=== PATIENT | male | born 1960 | race Caucasian/White ===

== ENCOUNTER 2016-07-04 16:00 | Emergency (ER) | payer MEDICARE ==
[~2016-07-04 16:00] MED LIST: COGE1INJ PO; IBUP800T23 PO; METACAP2 PO; PRIL20CA OR; RISP2TAB12 OR; TRAZ50TA OR; TYLENOL #3; VOLT1GEL24 TD; ZANT150T; [UNRECOGNIZED DRUG - OTHER]
[2016-07-04 16:56] LABS: BASO # 0.1 K/mm3 (0.0-0.2); BASO % 0.5 % (0.0-1.0); EOS # 0.2 K/mm3 (0.0-0.50); EOS % 1.6 % (0.0-3.0); LARGE UNSTAINED CELL # 0.4 K/mm3 (0.0-0.4); LARGE UNSTAINED CELL % 3.9 % (0.0-4.0); LYMPH # 1.7 K/mm3 (1.5-4.5); MEAN CORPUSCULAR HGB CONC 33.7 g/dl (32.0-36.5); MEAN CORPUSCULAR VOLUME 83.2 fl (80.0-96.0); MONO # 0.7 K/mm3 (0.0-0.8); MONO % 6.4 % (0.0-5.0); NEUTROPHILS # 7.8 K/mm3 (1.8-7.7); NEUTROPHILS % 71.5 % (36.0-66.0); PLATELET COUNT, AUTOMATED 296 k/mm3 (150-450); RED CELL DISTRIBUTION WIDTH 13.1 % (11.5-14.5); WHITE BLOOD COUNT 10.9 K/mm3 (4.0-10.0)
[2016-07-04] MEDS ORDERED: ACETAMINOPHEN 325 MG TAB As Ordered ONE (17:10)
[2016-07-04 17:23] LABS: ANION GAP 8 MEQ/L (8-16); BLOOD UREA NITROGEN 16 MG/DL (7-18); CALCIUM LEVEL 8.9 MG/DL (8.5-10.1); CARBON DIOXIDE LEVEL 30 MEQ/L (21-32); CHLORIDE LEVEL 102 MEQ/L (98-107); CREATININE FOR GFR 1.05 MG/DL (0.70-1.30); GLOMERULAR FILTRATION RATE > 60.0 (>56); GLUCOSE, FASTING 115 MG/DL (70-105); POTASSIUM SERUM 3.9 MEQ/L (3.5-5.1); SODIUM LEVEL 140 MEQ/L (136-145)
--- NOTE | 2016-07-04 17:27 | REP ---
Chest two views HISTORY: Chest pain Comparison: 10/12/2015 The lungs are clear. The heart is normal in size. The pulmonary vasculature is normal in appearance. The bony structure is intact. IMPRESSION: No acute disease. Signed by Bret Kitchen MD 07/04/2016 05:19 P
--- NOTE | 2016-07-04 17:55 | ECGEPIP ---
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
[2016-07-04] MEDS ORDERED: TUSSICAPS ER 10/8MG CAPSULE As Ordered ONE (20:51)
[2016-07-04] MEDS ORDERED: TUSSICAPS ER 10/8MG CAPSULE PO ONE (21:00)
[2016-07-04] MEDS ORDERED: ISOVUE-370 76% 100ML VIAL (Q9967) As Ordered ONE (21:24)
--- NOTE | 2016-07-04 22:40 | REPUSA ---
CT angiogram of the chest Clinical statement: Chest pain and shortness of breath. Technique: Multiple axial CT images were obtained from the thoracic inlet through the upper abdomen a fter a bolus administration of nonionic intravenous contrast. Coronal and sagittal reconstructions we re also obtained. No comparison is available. Findings: The pulmonary arteries are well-opacified with contrast, with no intraluminal filling defec ts to suggest embolism. The thoracic aorta is unremarkable. Thyroid gland is within normal limits. Th ere is no thoracic lymphadenopathy. There are no pericardial or pleural effusions. The lungs are mango r. Limited imaging of the upper abdomen is unremarkable. There are no suspicious osseous lesions. Impression: Unremarkable CT examination of the chest. No evidence of pulmonary embolism.
--- NOTE | 2016-07-04 23:15 | EDDOCDS ---
Physician Documentation [facility] Name: Cooper Lord Age: 55 yrs Sex: Male : 1960 Arrival Date: 07/04/2016 Time: 16:00 Bed 20 Private MD: Sally Kinney S Disposition: 07/04/16 22:51 Discharged to Home/Self Care. Impression: Cough. - Condition is Stable. - Discharge Instructions: Cool Mist Vaporizers, Cough, Adult, [id number]. - Prescriptions for codeine- guaifenesin 10-100 mg/5 mL Oral liquid - take 10 milliliter by ORAL route every 4 hours; 240 milliliter. - Medication Reconciliation, Local Pharmacy Hours form. - Follow up: Sally Kinney; When: Call to arrange an appointment; Reason: Recheck today's complaints, Continuance of care. - Problem is an ongoing problem. - Symptoms have improved. - Notes: Keep hdyrated Return to the ED for worsening symptoms. Especially if fever develops Historical: - Allergies: No known drug Allergies; - Home Meds: 1. Nexium 40 mg Oral cpDR 1 cap once daily 2. Metamucil Smooth Texture 2 tablespoons Oral daily 3. gabapentin 400 mg oral cap 1 cap 3 times per day 4. Cymbalta Unknown Oral once daily 5. meloxicam oral oral Unknown once daily 6. valsartan 80 mg oral tab 1 tab once daily 7. ibuprofen 800 mg Oral tab 1 tab 3 times per day - PMHx: Osteoarthritis; Hypertension; Hypercholesterolemia; - PSHx: breast fluid removed; Removal of tissue from right hand; - Social history: Smoking status: Patient states former smoker of tobacco. No barriers to communication noted, The patient speaks fluent New Zealander. - Family history: Not pertinent. - : The pt / caregiver states he / she is not on anticoagulants. Home medication list is obtained from the patient. - Exposure Risk Screening:: None identified. Vital Signs: 07/04 16:01 BP 144 / 83; Pulse 102; Resp 18 S; Temp 98.8(O); Pulse Ox 95% on R/A; Weight 135.17 kg dd6 / 298 lbs (R); Height 5 ft. 9 in. (175.26 cm) (R); 16:31 BP 158 / 89; Pulse 98; Resp 20; Temp 98.6; Pulse Ox 95% ; Weight 135.17 kg / 298 lbs; jlf Height 5 ft. 9 in. (175.26 cm); Pain 10/10; 16:51 BP 154 / 87 (auto/); kas2 16:51 Pulse 100 MON; Pulse Ox 97% ; kas2 17:03 BP 151 / 87 (auto/); kas2 17:03 Pulse 92 MON; Pulse Ox 93% ; kas2 17:18 BP 152 / 83 (auto/); kas2 17:18 Pulse 90 MON; Pulse Ox 95% ; kas2 17:33 BP 156 / 84 (auto/); kas2 17:33 Pulse 90 MON; Pulse Ox 96% ; kas2 18:03 BP 145 / 86 (auto/); kas2 18:03 Pulse 86 MON; Pulse Ox 95% ; kas2 18:18 BP 164 / 68 (auto/); kas2 18:18 Pulse 92 MON; kas2 19:10 BP 186 / 99 (auto/); kas2 19:10 Pulse 92 MON; Pulse Ox 93% ; kas2 19:21 BP 164 / 80 (auto/); kas2 19:21 Pulse 92 MON; Pulse Ox 96% ; kas2 20:42 BP 165 / 89; Pulse 89; Resp 20; Temp 98.1(O); Pulse Ox 99% on 2 lpm NC; Pain 3/10; kas2 22:35 BP 194 / 98; Pulse 93; Resp 18; Temp 98.0(O); Pulse Ox 98% on R/A; Pain 2/10; kas2 22:56 BP 165 / 83; Pulse 85; Resp 18; Temp 97.5; Pulse Ox 95% ; Pain 9/10; jlm 16:31 Body Mass Index 44.01 (135.17 kg, 175.26 cm) [facility] MDM: 16:07 Field Staff Manager/Pulse Ox/q 30 min VS ordered. ml6 16:07 If >35 years old with cardiac risk factors and/or suspicion of acute ischemia- place ml6 directly in room and do STAT EKG ordered. 16:07 If pre-RCE wait time >60 minutes, inform reg. staff to do full reg ordered. ml6 16:07 Oxygen at 2L/min via NC ordered. ml6 16:07 IV Saline Lock ordered. ml6 16:07 Undress patient appropriately for examination ordered. ml6 16:08 BMP Ordered. EDMS 16:08 CBC with Diff Ordered. EDMS 16:08 CIP Ordered. EDMS 16:08 Troponin Ordered. EDMS 16:08 Chest, 2 View (pa\E\lat) Ordered. EDMS 16:08 ECG WITH READING ER PHYS+CARDIAG ordered. EDMS 16:44 D-Dimer Quant Ordered. EDMS 17:04 Acetaminophen Tablet 975 mg PO once ordered. le 18:31 BMP Reviewed. le 18:31 CBC with Diff Reviewed. le 18:31 CIP Reviewed. le 18:31 Troponin Reviewed. le 18:31 Chest, 2 View (pa\E\lat) Reviewed. le 19:29 Financial registration complete. [facility] 19:48 [facility] Payment Agreement was scanned into [employer] and attached to record. gjb 20:10 D-Dimer Quant Reviewed. le 20:11 EKG-ADULT Reviewed. le 20:11 Chlorpheniramine-Hydrocodone Extended Release 12 hour Capsule 8 mg-10 mg 1 caps PO once le ordered. 20:14 CT Chest Angio R/O PE Ordered. EDMS Administered Medications: 17:13 Drug: Acetaminophen 975 mg [acetaminophen 325 mg tablet (3 tabs)] Route: PO; jmb 20:54 Drug: Chlorpheniramine-Hydrocodone 1 caps [hydrocodone ER 10 mg-chlorpheniramine 8 mg kas2 12hr capsule,extend.release (1 caps)] Route: PO; Signatures: Dispatcher [employer] EDAZ Cee Peterson, PHYSICIAN CHIEF OF PATHOLOGY Josiah Rivera RN RN ml6 Suzanne EcheverriaRN RN js13 Lizabeth Torreb Coco Ross RN RN kas2 Anson Duckworth RNb The chart was reviewed and I authenticate all verbal orders and agree with the evaluation and treatment provided.Attachments: 19:48 [facility] Payment Agreement [facility] MTDD
--- NOTE | 2016-07-04 23:16 | EDDOCDS ---
Nurse's Notes [facility] Name: Ella Lord Age: 55 yrs Sex: Male : 1960 Arrival Date: 07/04/2016 Time: 16:00 Bed 20 Private MD: Sally Kinney S Diagnosis: Cough Presentation: 07/04 16:06 Red Flag criteria, patient assessed and taken directly to a bed. patient sent to 6 waiting room, redirected to bed. 16:15 Presenting complaint: EMS states: Patient has had chest pain from cough for past 30 js13 days with it worsening over past 10 days. Patient called EMS stating he thought he was going to last night from coughing so much. Patient states he will tonight if he does that again. Aspirin was not taken prior to arrival. Suicide/Homicide risk assessment- the patient denies having any suicidal and/or homicidal ideations and does not present with any other emotional, behavioral or mental health complaints. 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 Transition of care: patient was not received from another setting of care. 16:15 Acuity: JAKUB Level 2 js13 16:15 Method Of Arrival: Ambulance js13 16:15 Adult Sepsis Screening: The patient does not have new or worsening altered mentation. js13 Patient's respiratory rate is less than 22. Systolic blood pressure is greater than 100. Patient has a qSOFA score of 0- Negative Sepsis Screen. Triage Assessment: 16:19 General: Appears in no apparent distress, Behavior is appropriate for age, cooperative. js13 Pain: Location: chest Pain currently is 7 out of 10 on a pain scale. Pt Declines HIV testing. Neurological: Level of Consciousness is awake, alert. Cardiovascular: Chest pain is described as Pain is 7 out of 10 on a pain scale. radiates Does not radiate. episodes are intermittent began past 10 days worsening and last night got so bad he came in to be seen. Respiratory: Onset: The symptoms/episode began/occurred past 10 days. Derm: Skin is pink, warm & dry. Historical: - Allergies: No known drug Allergies; - Home Meds: 1. Nexium 40 mg Oral cpDR 1 cap once daily 2. Metamucil Smooth Texture 2 tablespoons Oral daily 3. gabapentin 400 mg oral cap 1 cap 3 times per day 4. Cymbalta Unknown Oral once daily 5. meloxicam oral oral Unknown once daily 6. valsartan 80 mg oral tab 1 tab once daily 7. ibuprofen 800 mg Oral tab 1 tab 3 times per day - PMHx: Osteoarthritis; Hypertension; Hypercholesterolemia; - PSHx: breast fluid removed; Removal of tissue from right hand; - Social history: Smoking status: Patient states former smoker of tobacco. No barriers to communication noted, The patient speaks fluent Syriac. - Family history: Not pertinent. - : The pt / caregiver states he / she is not on anticoagulants. Home medication list is obtained from the patient. - Exposure Risk Screening:: None identified. Screenin:53 Screening information is obtained from the patient. Fall risk: No risks identified. jmb Assistance ADL's: requires no assistance with activities of daily living. Abuse/DV Screen: The patient / caregiver reports he/she is: not in a situation that causes fear, pain or injury. Nutritional screening: No deficits noted. home support is adequate. Assessment: 16:53 General: Appears in no apparent distress, Behavior is appropriate for age, cooperative. jmb Pain: Location: head Pain currently is 10 out of 10 on a pain scale. Neurological: Level of Consciousness is awake, alert, obeys commands, Oriented to person, place, time, Amortization Clerk are equal bilaterally Speech is normal, Facial symmetry appears normal, Facial symmetry: tongue is midline. Cardiovascular: Capillary refill < 3 seconds Heart tones S1 S2 present Pulses are all present. Rhythm is sinus rhythm No ectopy. Chest pain is denied. Respiratory: Airway is patent Respiratory effort is even, unlabored, Respiratory pattern is regular, symmetrical, Breath sounds are diminished bilaterally. GI: Abdomen is obese, Bowel sounds present X 4 quads. Abd is soft and non tender X 4 quads. Derm: Skin is pink, warm & dry. Musculoskeletal: Range of motion intact in all extremities. 17:39 General: Appears in no apparent distress, comfortable, Behavior is appropriate for age, jmb cooperative, Patient laying on stretcher, appears comfortable. NO voiced complaints at this time. . Neurological: No deficits noted. Level of Consciousness is awake, alert, obeys commands, Oriented to person, place, time. Respiratory: Airway is patent Respiratory effort is even, unlabored, Respiratory pattern is regular, symmetrical. 18:43 General: Appears in no apparent distress, comfortable, Behavior is appropriate for age, jmb cooperative, Patient sitting on side of stretcher, appears comfortable. Voices no complaints at this time. . Neurological: Level of Consciousness is awake, alert, obeys commands, Oriented to person, place, time. Respiratory: Airway is patent Respiratory effort is even, unlabored, Respiratory pattern is regular, symmetrical. 19:01 General: Verbal report given by William López RN. Assumed care of patient at this time.. kas2 19:31 General: Appears in no apparent distress, comfortable, well nourished, well groomed, kas2 Behavior is appropriate for age, cooperative. Pain: Location: head Pain currently is 3 out of 10 on a pain scale. Neurological: Level of Consciousness is awake, alert, obeys commands, Oriented to person, place, time. Cardiovascular: Capillary refill < 3 seconds Heart tones S1 S2 present Rhythm is sinus rhythm No ectopy. Respiratory: Airway is patent Respiratory effort is even, unlabored, Respiratory pattern is regular, symmetrical. Derm: Skin is intact, is healthy with good turgor, Skin is dry, Skin is pink, warm & dry. Skin temperature is warm. 20:41 General: Patient resting in bed talking on phone. Patient complains of headache 3/10 kas2 but denies pain in chest at this time. No distress noted. Appears comfortable. Airway patent and respiratory effort even and unlabored. Call fowler within reach. Will continue to monitor.. 22:34 General: Appears in no apparent distress, comfortable, Behavior is appropriate for age, kas2 cooperative. Pain: Denies pain. Neurological: Level of Consciousness is awake, alert, Oriented to person, place, time. Respiratory: Airway is patent Respiratory effort is even, unlabored, Respiratory pattern is regular, symmetrical. Derm: Skin is intact, Skin is dry, Skin is pink, warm & dry. Skin temperature is warm. Vital Signs: 16:01 BP 144 / 83; Pulse 102; Resp 18 S; Temp 98.8(O); Pulse Ox 95% on R/A; Weight 135.17 kg dd6 (R); Height 5 ft. 9 in. (175.26 cm) (R); 16:31 BP 158 / 89; Pulse 98; Resp 20; Temp 98.6; Pulse Ox 95% ; Weight 135.17 kg; Height 5 jlf ft. 9 in. (175.26 cm); Pain 10/10; 16:51 BP 154 / 87 (auto/); kas2 16:51 Pulse 100 MON; Pulse Ox 97% ; kas2 17:03 BP 151 / 87 (auto/); kas2 17:03 Pulse 92 MON; Pulse Ox 93% ; kas2 17:18 BP 152 / 83 (auto/); kas2 17:18 Pulse 90 MON; Pulse Ox 95% ; kas2 17:33 BP 156 / 84 (auto/); kas2 17:33 Pulse 90 MON; Pulse Ox 96% ; kas2 18:03 BP 145 / 86 (auto/); kas2 18:03 Pulse 86 MON; Pulse Ox 95% ; kas2 18:18 BP 164 / 68 (auto/); kas2 18:18 Pulse 92 MON; kas2 19:10 BP 186 / 99 (auto/); kas2 19:10 Pulse 92 MON; Pulse Ox 93% ; kas2 19:21 BP 164 / 80 (auto/); kas2 19:21 Pulse 92 MON; Pulse Ox 96% ; kas2 20:42 BP 165 / 89; Pulse 89; Resp 20; Temp 98.1(O); Pulse Ox 99% on 2 lpm NC; Pain 3/10; kas2 22:35 BP 194 / 98; Pulse 93; Resp 18; Temp 98.0(O); Pulse Ox 98% on R/A; Pain 2/10; kas2 22:56 BP 165 / 83; Pulse 85; Resp 18; Temp 97.5; Pulse Ox 95% ; Pain 9/10; jlm 16:31 Body Mass Index 44.01 (135.17 kg, 175.26 cm) [facility] Vitals: 16:01 Log In Time: July 04, 2016 at 16:00. dd6 ED Course: 16:01 Patient visited by Mic Skaggs PCA. dd6 16:01 Sally Kinney is Private Physician. dd6 16:01 Patient moved to Waiting dd6 16:02 Patient moved to Pre RCE dd6 16:07 Patient moved to 20 ml6 16:16 Triage Initiated js13 16:20 [facility] le 16:21 Patient visited by Suzanne Echeverria RN. js13 16:26 Patient visited by Cee Peterson FNP. le 16:26 Patient visited by Cee Peterson FNP. le 16:28 Pt greeted and oriented to ED. Patient advised of names of staff involved in care, jlleila location of call fowler, wait times and NPO status. Patient has correct armband on for positive identification. Placed in gown. Bed in low position. steward/stewardess economy class on. Pulse ox on. NIBP on. 16:28 EKG done. (by ED staff). Reviewed by Cee HERRON. jlf 16:29 Patient visited by Arcelia Stark PCA. jlf 16:32 Patient visited by Arcelia Stark PCA. jlf 16:53 The patient / caregiver is instructed regarding the plan of care and ED course. jmb 16:53 Inserted saline lock: 18 gauge in right antecubital area and blood collected. The [place] patient tolerated the procedure well. Labs drawn. (by ED staff). Sent per order to lab. 16:55 Patient visited by Anson Duckworth RN. jmb 17:39 Patient visited by Anson Duckworth RN. jmb 17:54 Chest, 2 View (pa\E\lat) Returned. EDMS 18:11 Patient visited by Arcelia Stark PCA. jlf 18:31 EKG-ADULT Returned. EDMS 18:44 Patient visited by Anson Duckworth RN. jmb 18:57 Coco RossRN is Primary Nurse. kas2 19:31 Labs drawn. (by ED staff). Sent per order to lab. kas2 19:48 [facility] Payment Agreement was scanned into 5app and attached to record. gjb 19:51 Patient visited by Coco Ross RN. kas2 20:13 Patient visited by Coco Ross RN. kas2 20:24 Patient name changed from Ella\S\Tommie\S\Pop\S\ to Ella\S\ \S\Pop. EDMS 20:43 Patient visited by Coco Ross RN. kas2 21:54 Patient visited by Coco Ross RN. kas2 22:41 Patient visited by Coco Ross RN. kas2 22:51 Sally Kinney is Referral Physician. le 22:56 Patient visited by Lorie Jean-Baptiste, Retail Support Manager. jlm 22:59 CT Chest Angio R/O PE Returned. EDMS 23:14 Discontinued IV bleeding controlled, pressure dressing applied, No redness/swelling at kas2 site. 23:14 No procedures done that require assistance. kas2 Administered Medications: 17:13 Drug: Acetaminophen 975 mg [acetaminophen 325 mg tablet (3 tabs)] Route: PO; jmb 20:54 Drug: Chlorpheniramine-Hydrocodone 1 caps [hydrocodone ER 10 mg-chlorpheniramine 8 mg kas2 12hr capsule,extend.release (1 caps)] Route: PO; Order Results: Lab Order: BMP; SPEC'M 07/04/16 16:44 Test: GLUCOSE, FASTING; Value: 115; Range: 70-105; Abnormal: Above high normal; Units: MG/DL; Status: F Test: BLOOD UREA NITROGEN; Value: 16; Range: 7-18; Units: MG/DL; Status: F Test: CREATININE FOR GFR; Value: 1.05; Range: 0.70-1.30; Units: MG/DL; Status: F Test: GLOMERULAR FILTRATION RATE; Value: > 60.0; Range: >56; Status: F Test: SODIUM LEVEL; Value: 140; Range: 136-145; Units: MEQ/L; Status: F Test: POTASSIUM SERUM; Value: 3.9; Range: 3.5-5.1; Units: MEQ/L; Status: F Test: CHLORIDE LEVEL; Value: 102; Range: 98-107; Units: MEQ/L; Status: F Test: CARBON DIOXIDE LEVEL; Value: 30; Range: 21-32; Units: MEQ/L; Status: F Test: ANION GAP; Value: 8; Range: 8-16; Units: MEQ/L; Status: F Test: CALCIUM LEVEL; Value: 8.9; Range: 8.5-10.1; Units: MG/DL; Status: F Test Note: ; Units are mL/min/1.73 m2 Chronic Kidney Disease Staging per NKF: Stage I & II GFR >=60 Normal to Mildly Decreased Stage III GFR 30-59 Moderately Decreased Stage IV GFR 15-29 Severely Decreased Stage V GFR <15 Very Little GFR Left ESRD GFR <15 on IT ACCOUNT MANAGER Lab Order: CBC with Diff; SPEC'M 07/04/16 16:44 Test: WHITE BLOOD COUNT; Value: 10.9; Range: 4.0-10.0; Abnormal: Above high normal; Units: K/mm3; Status: F Test: RED BLOOD COUNT; Value: 5.01; Range: 4.30-6.10; Units: M/mm3; Status: F Test: HEMOGLOBIN; Value: 14.0; Range: 14.0-18.0; Units: g/dl; Status: F Test: HEMATOCRIT; Value: 41.7; Range: 42.0-52.0; Abnormal: Below low normal; Units: %; Status: F Test: MEAN CORPUSCULAR VOLUME; Value: 83.2; Range: 80.0-96.0; Units: fl; Status: F Test: MEAN CORPUSCULAR HEMOGLOBIN; Value: 28.0; Range: 27.0-33.0; Units: pg; Status: F Test: MEAN CORPUSCULAR HGB CONC; Value: 33.7; Range: 32.0-36.5; Units: g/dl; Status: F Test: RED CELL DISTRIBUTION WIDTH; Value: 13.1; Range: 11.5-14.5; Units: %; Status: F Test: PLATELET COUNT, AUTOMATED; Value: 296; Range: 150-450; Units: k/mm3; Status: F Test: NEUTROPHILS %; Value: 71.5; Range: 36.0-66.0; Abnormal: Above high normal; Units: %; Status: F Test: LYMPH %; Value: 16.0; Range: 24.0-44.0; Abnormal: Below low normal; Units: %; Status: F Test: MONO %; Value: 6.4; Range: 0.0-5.0; Abnormal: Above high normal; Units: %; Status: F Test: EOS %; Value: 1.6; Range: 0.0-3.0; Units: %; Status: F Test: BASO %; Value: 0.5; Range: 0.0-1.0; Units: %; Status: F Test: LARGE UNSTAINED CELL %; Value: 3.9; Range: 0.0-4.0; Units: %; Status: F Test: NEUTROPHILS #; Value: 7.8; Range: 1.8-7.7; Abnormal: Above high normal; Units: K/mm3; Status: F Test: LYMPH #; Value: 1.7; Range: 1.5-4.5; Units: K/mm3; Status: F Test: MONO #; Value: 0.7; Range: 0.0-0.8; Units: K/mm3; Status: F Test: EOS #; Value: 0.2; Range: 0.0-0.50; Units: K/mm3; Status: F Test: BASO #; Value: 0.1; Range: 0.0-0.2; Units: K/mm3; Status: F Test: LARGE UNSTAINED CELL #; Value: 0.4; Range: 0.0-0.4; Units: K/mm3; Status: F Lab Order: CIP; [facility]' 07/04/16 16:44 Test: CPK CREATINE PHOSPHOKINASE; Value: 188; Range: 39-308; Units: U/L; Status: F Test: CK-MB VALUE MASS; Value: 3.3; Range: 0.0-3.6; Units: NG/ML; Status: F Test: MB/CK RELATIVE INDEX; Value: 1.75; Range: < OR =4; Status: F Test Note: ; DIAGNOSIS CRITERIA MMB ng/ml Relative Index (RI) NON-AMI < or = 5 N/A CARRILLO ZONE > 5 < or = 4 AMI > 5 > 4 Lab Order: Troponin; [facility]' 07/04/16 16:44 Test: TROPONIN I; Value: < 0.02; Range: < 0.10; Units: NG/ML; Status: F Test Note: ; Troponin I Reference Interval for BBspace LOCI: 99th Percentile= 0.00-0.045 ng/ml Risk Stratification: <= 0.10 ng/ml Decreased Risk for Adverse Clinical Events. 0.10-1.50 ng/ml Increased Risk for Adverse Clinical Events. Evaluation of additional criterion and/or repeat testing in 2-6 hours is suggested to rule out myocardial damage. >= 1.50 ng/ml Indicative of Myocardial Injury. Lab Order: D-Dimer Quant; SPEC' 07/04/16 19:29 Test: D-DIMER QUANT; Value: 1097.8; Range: <500; Abnormal: Above high normal; Units: ng/ml; Status: F Radiology Order: Chest, 2 View (pa\E\lat) Test: Chest, 2 View (pa\E\lat) REASON FOR EXAMINATION: Chest Pain; Chest two views; ; HISTORY: Chest pain; ; Comparison: 10/12/2015; ; The lungs are clear. The heart is normal in size. The pulmonary vasculature is; normal in appearance. The bony structure is intact.; ; IMPRESSION: No acute disease.; ; ; Signed by; Bret Kitchen MD 07/04/2016 05:19 P; Radiology Order: EKG-ADULT Test: EKG-ADULT REASON FOR EXAMINATION: Chest Pain; Stationary ECG Study; [facility] - ED; ; Test Date: 2016-07-04; Pat Name: ELLA LORD Department:; Room: -; Gender: M Bell Maker: harriet; : 1960 Requested By: Virgilio Pope; Order Number: [id number] Reading MD: Jp Leggett; Measurements; Intervals [place]; Rate: 104 P: 52; RI: 182 QRS: 25; QRSD: 80 T: 21; QT: 318; QTc: 419; Interpretive Statements; SINUS TACHYCARDIA; PRIOR INFERIOR INFARCT; SIMILAR TO 03/04/16; Electronically Signed On 07-04-2016 17:55:26 EST by Jp Leggett; Radiology Order: CT Chest Angio R/O PE Test: CT Chest Angio R/O PE REASON FOR EXAMINATION: Cough;Shortness of Breath; ; CT angiogram of the chest; Clinical statement: Chest pain and shortness of breath.; Technique: Multiple axial CT images were obtained from the thoracic inlet through the upper abdomen a; fter a bolus administration of nonionic intravenous contrast. Coronal and sagittal reconstructions we; re also obtained.; No comparison is available.; Findings: The pulmonary arteries are well-opacified with contrast, with no intraluminal filling defec; ts to suggest embolism. The thoracic aorta is unremarkable. Thyroid gland is within normal limits. Th; ere is no thoracic lymphadenopathy. There are no pericardial or pleural effusions. The lungs are mango; r. Limited imaging of the upper abdomen is unremarkable. There are no suspicious osseous lesions.; Impression: Unremarkable CT examination of the chest. No evidence of pulmonary embolism.; ; Outcome: 22:51 Discharge ordered by Provider. le 23:13 Discharge Assessment: patient administered narcotics - no. The following High Risk [facility] Discharge criteria are identified: None. Discharged to home ambulatory. Condition: good Condition: stable Condition: improved. CT Study completed. Property :Personal belongings accompany Pt. 23:15 Patient left the ED. [facility] Signatures: Dispatcher [employer] EDMS Cee Peterson, GERMAINE NEON SIGN WORKER Mic Pérez, FOOD SERVICE ASSOCIATE FOOD SERVICE ASSOCIATE dd6 Josiah Keith, RN RN ml6 Suzanne Echeverria,RN RN js13 Anson Duckworth,RN RN Arcelia Miller, FOOD SERVICE ASSOCIATE FOOD SERVICE ASSOCIATE jlf Lorie Jean-Baptiste, Retail Support Manager Unit Lizabeth Hammer Kim,RN RN kas2 MTDD
--- NOTE | 2016-07-07 00:15 | EDDOCDS ---
Physician Documentation [facility] Name: Cooper Lord Age: 55 yrs Sex: Male : 1960 Arrival Date: 07/04/2016 Time: 16:00 Bed 20 Private MD: Sally Kinney S Disposition: 07/04/16 22:51 Discharged to Home/Self Care. Impression: Cough. - Condition is Stable. - Discharge Instructions: Cool Mist Vaporizers, Cough, Adult, [id number]. - Prescriptions for codeine- guaifenesin 10-100 mg/5 mL Oral liquid - take 10 milliliter by ORAL route every 4 hours; 240 milliliter. - Medication Reconciliation, Local Pharmacy Hours form. - Follow up: Sally Kinney; When: Call to arrange an appointment; Reason: Recheck today's complaints, Continuance of care. - Problem is an ongoing problem. - Symptoms have improved. - Notes: Keep hdyrated Return to the ED for worsening symptoms. Especially if fever develops Historical: - Allergies: No known drug Allergies; - Home Meds: 1. Nexium 40 mg Oral cpDR 1 cap once daily 2. Metamucil Smooth Texture 2 tablespoons Oral daily 3. gabapentin 400 mg oral cap 1 cap 3 times per day 4. Cymbalta Unknown Oral once daily 5. meloxicam oral oral Unknown once daily 6. valsartan 80 mg oral tab 1 tab once daily 7. ibuprofen 800 mg Oral tab 1 tab 3 times per day - PMHx: Osteoarthritis; Hypertension; Hypercholesterolemia; - PSHx: breast fluid removed; Removal of tissue from right hand; - Social history: Smoking status: Patient states former smoker of tobacco. No barriers to communication noted, The patient speaks fluent Micronesian. - Family history: Not pertinent. - : The pt / caregiver states he / she is not on anticoagulants. Home medication list is obtained from the patient. - Exposure Risk Screening:: None identified. Vital Signs: 07/04 16:01 BP 144 / 83; Pulse 102; Resp 18 S; Temp 98.8(O); Pulse Ox 95% on R/A; Weight 135.17 kg dd6 / 298 lbs (R); Height 5 ft. 9 in. (175.26 cm) (R); 16:31 BP 158 / 89; Pulse 98; Resp 20; Temp 98.6; Pulse Ox 95% ; Weight 135.17 kg / 298 lbs; jlf Height 5 ft. 9 in. (175.26 cm); Pain 10/10; 16:51 BP 154 / 87 (auto/); kas2 16:51 Pulse 100 MON; Pulse Ox 97% ; kas2 17:03 BP 151 / 87 (auto/); kas2 17:03 Pulse 92 MON; Pulse Ox 93% ; kas2 17:18 BP 152 / 83 (auto/); kas2 17:18 Pulse 90 MON; Pulse Ox 95% ; kas2 17:33 BP 156 / 84 (auto/); kas2 17:33 Pulse 90 MON; Pulse Ox 96% ; kas2 18:03 BP 145 / 86 (auto/); kas2 18:03 Pulse 86 MON; Pulse Ox 95% ; kas2 18:18 BP 164 / 68 (auto/); kas2 18:18 Pulse 92 MON; kas2 19:10 BP 186 / 99 (auto/); kas2 19:10 Pulse 92 MON; Pulse Ox 93% ; kas2 19:21 BP 164 / 80 (auto/); kas2 19:21 Pulse 92 MON; Pulse Ox 96% ; kas2 20:42 BP 165 / 89; Pulse 89; Resp 20; Temp 98.1(O); Pulse Ox 99% on 2 lpm NC; Pain 3/10; kas2 22:35 BP 194 / 98; Pulse 93; Resp 18; Temp 98.0(O); Pulse Ox 98% on R/A; Pain 2/10; kas2 22:56 BP 165 / 83; Pulse 85; Resp 18; Temp 97.5; Pulse Ox 95% ; Pain 9/10; jlm 16:31 Body Mass Index 44.01 (135.17 kg, 175.26 cm) [facility] MDM: 16:07 Tire Wrapper/Pulse Ox/q 30 min VS ordered. ml6 16:07 If >35 years old with cardiac risk factors and/or suspicion of acute ischemia- place ml6 directly in room and do STAT EKG ordered. 16:07 If pre-RCE wait time >60 minutes, inform reg. staff to do full reg ordered. ml6 16:07 Oxygen at 2L/min via NC ordered. ml6 16:07 IV Saline Lock ordered. ml6 16:07 Undress patient appropriately for examination ordered. ml6 16:08 BMP Ordered. EDMS 16:08 CBC with Diff Ordered. EDMS 16:08 CIP Ordered. EDMS 16:08 Troponin Ordered. EDMS 16:08 Chest, 2 View (pa\E\lat) Ordered. EDMS 16:08 ECG WITH READING ER PHYS+CARDIAG ordered. EDMS 16:44 D-Dimer Quant Ordered. EDMS 17:04 Acetaminophen Tablet 975 mg PO once ordered. le 18:31 BMP Reviewed. le 18:31 CBC with Diff Reviewed. le 18:31 CIP Reviewed. le 18:31 Troponin Reviewed. le 18:31 Chest, 2 View (pa\E\lat) Reviewed. le 19:29 Financial registration complete. [facility] 19:48 [facility] Payment Agreement was scanned into [employer] and attached to record. gjb 20:10 D-Dimer Quant Reviewed. le 20:11 EKG-ADULT Reviewed. le 20:11 Chlorpheniramine-Hydrocodone Extended Release 12 hour Capsule 8 mg-10 mg 1 caps PO once le ordered. 20:14 CT Chest Angio R/O PE Ordered. [facility] 07/05 12:43 T-Sheet-- Draft Copy was scanned into [employer] and attached to record. gb 12:43 ECG/EKG was scanned into [employer] and attached to record. gb Administered Medications: 07/04 17:13 Drug: Acetaminophen 975 mg [acetaminophen 325 mg tablet (3 tabs)] Route: PO; jmb 20:54 Drug: Chlorpheniramine-Hydrocodone 1 caps [hydrocodone ER 10 mg-chlorpheniramine 8 mg kas2 12hr capsule,extend.release (1 caps)] Route: PO; Signatures: Dispatcher [employer] EDKY Jessica Mccracken, Reg Reg gb Cee Peterson, ROENTGENOLOGIST ROENTGENOLOGIST Josiah Giordano RN RN ml6 Suzanne EcheverriaRN RN js13 Lizabeth Torre b Coco Ross RN RN kas2 Anson Duckworth RN The chart was reviewed and I authenticate all verbal orders and agree with the evaluation and treatment provided.Attachments: 19:48 [facility] Payment Agreement [facility] 07/05 12:43 T-Sheet-- Draft Copy gb 12:43 ECG/EKG gb Chart Complete MTDD
--- NOTE | 2016-07-07 00:15 | EDDOCDS ---
Nurse's Notes [facility] Name: Ella Lord Age: 55 yrs Sex: Male : 1960 Arrival Date: 07/04/2016 Time: 16:00 Bed 20 Private MD: Sally Kinney S Diagnosis: Cough Presentation: 07/04 16:06 Red Flag criteria, patient assessed and taken directly to a bed. patient sent to 6 waiting room, redirected to bed. 16:15 Presenting complaint: EMS states: Patient has had chest pain from cough for past 30 js13 days with it worsening over past 10 days. Patient called EMS stating he thought he was going to last night from coughing so much. Patient states he will tonight if he does that again. Aspirin was not taken prior to arrival. Suicide/Homicide risk assessment- the patient denies having any suicidal and/or homicidal ideations and does not present with any other emotional, behavioral or mental health complaints. Status: Patient is not a non emergency services ambulance driver or dependent. Transition of care: patient was not received from another setting of care. 16:15 Acuity: JAKUB Level 2 js13 16:15 Method Of Arrival: Ambulance js13 16:15 Adult Sepsis Screening: The patient does not have new or worsening altered mentation. js13 Patient's respiratory rate is less than 22. Systolic blood pressure is greater than 100. Patient has a qSOFA score of 0- Negative Sepsis Screen. Triage Assessment: 16:19 General: Appears in no apparent distress, Behavior is appropriate for age, cooperative. js13 Pain: Location: chest Pain currently is 7 out of 10 on a pain scale. Pt Declines HIV testing. Neurological: Level of Consciousness is awake, alert. Cardiovascular: Chest pain is described as Pain is 7 out of 10 on a pain scale. radiates Does not radiate. episodes are intermittent began past 10 days worsening and last night got so bad he came in to be seen. Respiratory: Onset: The symptoms/episode began/occurred past 10 days. Derm: Skin is pink, warm & dry. Historical: - Allergies: No known drug Allergies; - Home Meds: 1. Nexium 40 mg Oral cpDR 1 cap once daily 2. Metamucil Smooth Texture 2 tablespoons Oral daily 3. gabapentin 400 mg oral cap 1 cap 3 times per day 4. Cymbalta Unknown Oral once daily 5. meloxicam oral oral Unknown once daily 6. valsartan 80 mg oral tab 1 tab once daily 7. ibuprofen 800 mg Oral tab 1 tab 3 times per day - PMHx: Osteoarthritis; Hypertension; Hypercholesterolemia; - PSHx: breast fluid removed; Removal of tissue from right hand; - Social history: Smoking status: Patient states former smoker of tobacco. No barriers to communication noted, The patient speaks fluent Korean. - Family history: Not pertinent. - : The pt / caregiver states he / she is not on anticoagulants. Home medication list is obtained from the patient. - Exposure Risk Screening:: None identified. Screenin:53 Screening information is obtained from the patient. Fall risk: No risks identified. jmb Assistance ADL's: requires no assistance with activities of daily living. Abuse/DV Screen: The patient / caregiver reports he/she is: not in a situation that causes fear, pain or injury. Nutritional screening: No deficits noted. home support is adequate. Assessment: 16:53 General: Appears in no apparent distress, Behavior is appropriate for age, cooperative. jmb Pain: Location: head Pain currently is 10 out of 10 on a pain scale. Neurological: Level of Consciousness is awake, alert, obeys commands, Oriented to person, place, time, Hand Bunch Maker are equal bilaterally Speech is normal, Facial symmetry appears normal, Facial symmetry: tongue is midline. Cardiovascular: Capillary refill < 3 seconds Heart tones S1 S2 present Pulses are all present. Rhythm is sinus rhythm No ectopy. Chest pain is denied. Respiratory: Airway is patent Respiratory effort is even, unlabored, Respiratory pattern is regular, symmetrical, Breath sounds are diminished bilaterally. GI: Abdomen is obese, Bowel sounds present X 4 quads. Abd is soft and non tender X 4 quads. Derm: Skin is pink, warm & dry. Musculoskeletal: Range of motion intact in all extremities. 17:39 General: Appears in no apparent distress, comfortable, Behavior is appropriate for age, jmb cooperative, Patient laying on stretcher, appears comfortable. NO voiced complaints at this time. . Neurological: No deficits noted. Level of Consciousness is awake, alert, obeys commands, Oriented to person, place, time. Respiratory: Airway is patent Respiratory effort is even, unlabored, Respiratory pattern is regular, symmetrical. 18:43 General: Appears in no apparent distress, comfortable, Behavior is appropriate for age, jmb cooperative, Patient sitting on side of stretcher, appears comfortable. Voices no complaints at this time. . Neurological: Level of Consciousness is awake, alert, obeys commands, Oriented to person, place, time. Respiratory: Airway is patent Respiratory effort is even, unlabored, Respiratory pattern is regular, symmetrical. 19:01 General: Verbal report given by William López RN. Assumed care of patient at this time.. kas2 19:31 General: Appears in no apparent distress, comfortable, well nourished, well groomed, kas2 Behavior is appropriate for age, cooperative. Pain: Location: head Pain currently is 3 out of 10 on a pain scale. Neurological: Level of Consciousness is awake, alert, obeys commands, Oriented to person, place, time. Cardiovascular: Capillary refill < 3 seconds Heart tones S1 S2 present Rhythm is sinus rhythm No ectopy. Respiratory: Airway is patent Respiratory effort is even, unlabored, Respiratory pattern is regular, symmetrical. Derm: Skin is intact, is healthy with good turgor, Skin is dry, Skin is pink, warm & dry. Skin temperature is warm. 20:41 General: Patient resting in bed talking on phone. Patient complains of headache 3/10 kas2 but denies pain in chest at this time. No distress noted. Appears comfortable. Airway patent and respiratory effort even and unlabored. Call fowler within reach. Will continue to monitor.. 22:34 General: Appears in no apparent distress, comfortable, Behavior is appropriate for age, kas2 cooperative. Pain: Denies pain. Neurological: Level of Consciousness is awake, alert, Oriented to person, place, time. Respiratory: Airway is patent Respiratory effort is even, unlabored, Respiratory pattern is regular, symmetrical. Derm: Skin is intact, Skin is dry, Skin is pink, warm & dry. Skin temperature is warm. Vital Signs: 16:01 BP 144 / 83; Pulse 102; Resp 18 S; Temp 98.8(O); Pulse Ox 95% on R/A; Weight 135.17 kg dd6 (R); Height 5 ft. 9 in. (175.26 cm) (R); 16:31 BP 158 / 89; Pulse 98; Resp 20; Temp 98.6; Pulse Ox 95% ; Weight 135.17 kg; Height 5 jlf ft. 9 in. (175.26 cm); Pain 10/10; 16:51 BP 154 / 87 (auto/); kas2 16:51 Pulse 100 MON; Pulse Ox 97% ; kas2 17:03 BP 151 / 87 (auto/); kas2 17:03 Pulse 92 MON; Pulse Ox 93% ; kas2 17:18 BP 152 / 83 (auto/); kas2 17:18 Pulse 90 MON; Pulse Ox 95% ; kas2 17:33 BP 156 / 84 (auto/); kas2 17:33 Pulse 90 MON; Pulse Ox 96% ; kas2 18:03 BP 145 / 86 (auto/); kas2 18:03 Pulse 86 MON; Pulse Ox 95% ; kas2 18:18 BP 164 / 68 (auto/); kas2 18:18 Pulse 92 MON; kas2 19:10 BP 186 / 99 (auto/); kas2 19:10 Pulse 92 MON; Pulse Ox 93% ; kas2 19:21 BP 164 / 80 (auto/); kas2 19:21 Pulse 92 MON; Pulse Ox 96% ; kas2 20:42 BP 165 / 89; Pulse 89; Resp 20; Temp 98.1(O); Pulse Ox 99% on 2 lpm NC; Pain 3/10; kas2 22:35 BP 194 / 98; Pulse 93; Resp 18; Temp 98.0(O); Pulse Ox 98% on R/A; Pain 2/10; kas2 22:56 BP 165 / 83; Pulse 85; Resp 18; Temp 97.5; Pulse Ox 95% ; Pain 9/10; jlm 16:31 Body Mass Index 44.01 (135.17 kg, 175.26 cm) [facility] Vitals: 16:01 Log In Time: July 04, 2016 at 16:00. dd6 ED Course: 16:01 Patient visited by Mic Skaggs PCA. dd6 16:01 Sally Kinney is Private Physician. dd6 16:01 Patient moved to Waiting dd6 16:02 Patient moved to Pre RCE dd6 16:07 Patient moved to 20 ml6 16:16 Triage Initiated js13 16:20 [facility] le 16:21 Patient visited by Suzanne Echeverria RN. js13 16:26 Patient visited by Cee Peterson FNP. le 16:26 Patient visited by Cee Peterson FNP. le 16:28 Pt greeted and oriented to ED. Patient advised of names of staff involved in care, jlleila location of call fowler, wait times and NPO status. Patient has correct armband on for positive identification. Placed in gown. Bed in low position. traffic monitor specialist on. Pulse ox on. NIBP on. 16:28 EKG done. (by ED staff). Reviewed by Cee HERRON. jlf 16:29 Patient visited by Arcelia Stark PCA. jlf 16:32 Patient visited by Arcelia Stark PCA. jlf 16:53 The patient / caregiver is instructed regarding the plan of care and ED course. jmb 16:53 Inserted saline lock: 18 gauge in right antecubital area and blood collected. The [facility] patient tolerated the procedure well. Labs drawn. (by ED staff). Sent per order to lab. 16:55 Patient visited by Anson Duckworth RN. jmb 17:39 Patient visited by Anson Duckworth RN. jmb 17:54 Chest, 2 View (pa\E\lat) Returned. EDMS 18:11 Patient visited by Arcelia Stark PCA. jlf 18:31 EKG-ADULT Returned. EDMS 18:44 Patient visited by Anson Duckworth RN. jmb 18:57 Coco RossRN is Primary Nurse. kas2 19:31 Labs drawn. (by ED staff). Sent per order to lab. kas2 19:48 [facility] Payment Agreement was scanned into [employer] and attached to record. gjb 19:51 Patient visited by Coco Ross RN. kas2 20:13 Patient visited by Coco Ross RN. kas2 20:24 Patient name changed from Ella\S\Tommie\S\Pop\S\ to Ella\S\ \S\Pop. EDMS 20:43 Patient visited by Coco Ross RN. kas2 21:54 Patient visited by Coco Ross RN. kas2 22:41 Patient visited by Coco Ross RN. kas2 22:51 Sally Kinney is Referral Physician. le 22:56 Patient visited by Lorie Jean-Baptiste, Rf Technician. jlm 22:59 CT Chest Angio R/O PE Returned. EDMS 23:14 Discontinued IV bleeding controlled, pressure dressing applied, No redness/swelling at kas2 site. 23:14 No procedures done that require assistance. [facility] 07/05 12:43 T-Sheet-- Draft Copy was scanned into [employer] and attached to record. gb 12:43 ECG/EKG was scanned into [employer] and attached to record. gb Administered Medications: 07/04 17:13 Drug: Acetaminophen 975 mg [acetaminophen 325 mg tablet (3 tabs)] Route: PO; b 20:54 Drug: Chlorpheniramine-Hydrocodone 1 caps [hydrocodone ER 10 mg-chlorpheniramine 8 mg kas2 12hr capsule,extend.release (1 caps)] Route: PO; Order Results: Lab Order: BMP; SPEC'M 07/04/16 16:44 Test: GLUCOSE, FASTING; Value: 115; Range: 70-105; Abnormal: Above high normal; Units: MG/DL; Status: F Test: BLOOD UREA NITROGEN; Value: 16; Range: 7-18; Units: MG/DL; Status: F Test: CREATININE FOR GFR; Value: 1.05; Range: 0.70-1.30; Units: MG/DL; Status: F Test: GLOMERULAR FILTRATION RATE; Value: > 60.0; Range: >56; Status: F Test: SODIUM LEVEL; Value: 140; Range: 136-145; Units: MEQ/L; Status: F Test: POTASSIUM SERUM; Value: 3.9; Range: 3.5-5.1; Units: MEQ/L; Status: F Test: CHLORIDE LEVEL; Value: 102; Range: 98-107; Units: MEQ/L; Status: F Test: CARBON DIOXIDE LEVEL; Value: 30; Range: 21-32; Units: MEQ/L; Status: F Test: ANION GAP; Value: 8; Range: 8-16; Units: MEQ/L; Status: F Test: CALCIUM LEVEL; Value: 8.9; Range: 8.5-10.1; Units: MG/DL; Status: F Test Note: ; Units are mL/min/1.73 m2 Chronic Kidney Disease Staging per NKF: Stage I & II GFR >=60 Normal to Mildly Decreased Stage III GFR 30-59 Moderately Decreased Stage IV GFR 15-29 Severely Decreased Stage V GFR <15 Very Little GFR Left ESRD GFR <15 on EVP OF [employer]ODU[employer] F[employer]ER Lab Order: CBC with Diff; SPEC'M 07/04/16 16:44 Test: WHITE BLOOD COUNT; Value: 10.9; Range: 4.0-10.0; Abnormal: Above high normal; Units: K/mm3; Status: F Test: RED BLOOD COUNT; Value: 5.01; Range: 4.30-6.10; Units: M/mm3; Status: F Test: HEMOGLOBIN; Value: 14.0; Range: 14.0-18.0; Units: g/dl; Status: F Test: HEMATOCRIT; Value: 41.7; Range: 42.0-52.0; Abnormal: Below low normal; Units: %; Status: F Test: MEAN CORPUSCULAR VOLUME; Value: 83.2; Range: 80.0-96.0; Units: fl; Status: F Test: MEAN CORPUSCULAR HEMOGLOBIN; Value: 28.0; Range: 27.0-33.0; Units: pg; Status: F Test: MEAN CORPUSCULAR HGB CONC; Value: 33.7; Range: 32.0-36.5; Units: g/dl; Status: F Test: RED CELL DISTRIBUTION WIDTH; Value: 13.1; Range: 11.5-14.5; Units: %; Status: F Test: PLATELET COUNT, AUTOMATED; Value: 296; Range: 150-450; Units: k/mm3; Status: F Test: NEUTROPHILS %; Value: 71.5; Range: 36.0-66.0; Abnormal: Above high normal; Units: %; Status: F Test: LYMPH %; Value: 16.0; Range: 24.0-44.0; Abnormal: Below low normal; Units: %; Status: F Test: MONO %; Value: 6.4; Range: 0.0-5.0; Abnormal: Above high normal; Units: %; Status: F Test: EOS %; Value: 1.6; Range: 0.0-3.0; Units: %; Status: F Test: BASO %; Value: 0.5; Range: 0.0-1.0; Units: %; Status: F Test: LARGE UNSTAINED CELL %; Value: 3.9; Range: 0.0-4.0; Units: %; Status: F Test: NEUTROPHILS #; Value: 7.8; Range: 1.8-7.7; Abnormal: Above high normal; Units: K/mm3; Status: F Test: LYMPH #; Value: 1.7; Range: 1.5-4.5; Units: K/mm3; Status: F Test: MONO #; Value: 0.7; Range: 0.0-0.8; Units: K/mm3; Status: F Test: EOS #; Value: 0.2; Range: 0.0-0.50; Units: K/mm3; Status: F Test: BASO #; Value: 0.1; Range: 0.0-0.2; Units: K/mm3; Status: F Test: LARGE UNSTAINED CELL #; Value: 0.4; Range: 0.0-0.4; Units: K/mm3; Status: F Lab Order: CIP; SPEC'M 07/04/16 16:44 Test: CPK CREATINE PHOSPHOKINASE; Value: 188; Range: 39-308; Units: U/L; Status: F Test: CK-MB VALUE MASS; Value: 3.3; Range: 0.0-3.6; Units: NG/ML; Status: F Test: MB/CK RELATIVE INDEX; Value: 1.75; Range: < OR =4; Status: F Test Note: ; DIAGNOSIS CRITERIA MMB ng/ml Relative Index (RI) NON-AMI < or = 5 N/A CARRILLO ZONE > 5 < or = 4 AMI > 5 > 4 Lab Order: Troponin; SPEC'M 07/04/16 16:44 Test: TROPONIN I; Value: < 0.02; Range: < 0.10; Units: NG/ML; Status: F Test Note: ; Troponin I Reference Interval for INTER[employer] BUSINESS [employer]ADER LOCI: 99th Percentile= 0.00-0.045 ng/ml Risk Stratification: <= 0.10 ng/ml Decreased Risk for Adverse Clinical Events. 0.10-1.50 ng/ml Increased Risk for Adverse Clinical Events. Evaluation of additional criterion and/or repeat testing in 2-6 hours is suggested to rule out myocardial damage. >= 1.50 ng/ml Indicative of Myocardial Injury. Lab Order: D-Dimer Quant; SPEC'M 07/04/16 19:29 Test: D-DIMER QUANT; Value: 1097.8; Range: <500; Abnormal: Above high normal; Units: ng/ml; Status: F Radiology Order: Chest, 2 View (pa\E\lat) Test: Chest, 2 View (pa\E\lat) REASON FOR EXAMINATION: Chest Pain; Chest two views; ; HISTORY: Chest pain; ; Comparison: 10/12/2015; ; The lungs are clear. The heart is normal in size. The pulmonary vasculature is; normal in appearance. The bony structure is intact.; ; IMPRESSION: No acute disease.; ; ; Signed by; Bret Kitchen MD 07/04/2016 05:19 P; Radiology Order: EKG-ADULT Test: EKG-ADULT REASON FOR EXAMINATION: Chest Pain; Stationary ECG Study; [facility] - ED; ; Test Date: 2016-07-04; Pat Name: ELLA LORD Department:; Room: -; Gender: M Ssn/Ssbn Assistant Navigator: ; : 1960 Requested By: Virgilio Pope; Order Number: [id number] Reading MD: Jp Leggett; Measurements; Intervals [place]; Rate: 104 P: 52; TN: 182 QRS: 25; QRSD: 80 T: 21; QT: 318; QTc: 419; Interpretive Statements; SINUS TACHYCARDIA; PRIOR INFERIOR INFARCT; SIMILAR TO 03/04/16; Electronically Signed On 07-04-2016 17:55:26 EST by Jp Leggett; Radiology Order: CT Chest Angio R/O PE Test: CT Chest Angio R/O PE REASON FOR EXAMINATION: Cough;Shortness of Breath; ; CT angiogram of the chest; Clinical statement: Chest pain and shortness of breath.; Technique: Multiple axial CT images were obtained from the thoracic inlet through the upper abdomen a; fter a bolus administration of nonionic intravenous contrast. Coronal and sagittal reconstructions we; re also obtained.; No comparison is available.; Findings: The pulmonary arteries are well-opacified with contrast, with no intraluminal filling defec; ts to suggest embolism. The thoracic aorta is unremarkable. Thyroid gland is within normal limits. Th; ere is no thoracic lymphadenopathy. There are no pericardial or pleural effusions. The lungs are mango; r. Limited imaging of the upper abdomen is unremarkable. There are no suspicious osseous lesions.; Impression: Unremarkable CT examination of the chest. No evidence of pulmonary embolism.; ; Outcome: 22:51 Discharge ordered by Provider. le 23:13 Discharge Assessment: patient administered narcotics - no. The following High Risk kas2 Discharge criteria are identified: None. Discharged to home ambulatory. Condition: good Condition: stable Condition: improved. CT Study completed. Property :Personal belongings accompany Pt. 23:15 Patient left the ED. kas2 Signatures: Dispatcher [employer] EDMS Jessica Mccracken, Reg Reg gb Cee Peterson, WELDER SETTER RESISTANCE MACHINE WELDER SETTER RESISTANCE MACHINE Mic Pérez, CLIENT SUPPORT COORDINATOR CLIENT SUPPORT COORDINATOR dd6 Josiah Keith, RN RN ml6 Suzanne Echeverria,RN RN js13 Anson Duckworth,RN RN Arcelia Miller, CLIENT SUPPORT COORDINATOR CLIENT SUPPORT COORDINATOR jlf Lorie Jean-Baptiste, Rf Technician Unit Lizabeth Hammer Kim,RN RN kas2 Chart Complete [facility]
--- NOTE | 2016-07-07 00:15 | EDDOCDS ---
Physician Documentation [facility] Name: Cooper Lord Age: 55 yrs Sex: Male : 1960 Arrival Date: 07/04/2016 Time: 16:00 Bed 20 Private MD: Sally Kinney S Disposition: 07/04/16 22:51 Discharged to Home/Self Care. Impression: Cough. - Condition is Stable. - Discharge Instructions: Cool Mist Vaporizers, Cough, Adult, [id number]. - Prescriptions for codeine- guaifenesin 10-100 mg/5 mL Oral liquid - take 10 milliliter by ORAL route every 4 hours; 240 milliliter. - Medication Reconciliation, Local Pharmacy Hours form. - Follow up: Sally Kinney; When: Call to arrange an appointment; Reason: Recheck today's complaints, Continuance of care. - Problem is an ongoing problem. - Symptoms have improved. - Notes: Keep hdyrated Return to the ED for worsening symptoms. Especially if fever develops Historical: - Allergies: No known drug Allergies; - Home Meds: 1. Nexium 40 mg Oral cpDR 1 cap once daily 2. Metamucil Smooth Texture 2 tablespoons Oral daily 3. gabapentin 400 mg oral cap 1 cap 3 times per day 4. Cymbalta Unknown Oral once daily 5. meloxicam oral oral Unknown once daily 6. valsartan 80 mg oral tab 1 tab once daily 7. ibuprofen 800 mg Oral tab 1 tab 3 times per day - PMHx: Osteoarthritis; Hypertension; Hypercholesterolemia; - PSHx: breast fluid removed; Removal of tissue from right hand; - Social history: Smoking status: Patient states former smoker of tobacco. No barriers to communication noted, The patient speaks fluent Greek. - Family history: Not pertinent. - : The pt / caregiver states he / she is not on anticoagulants. Home medication list is obtained from the patient. - Exposure Risk Screening:: None identified. Vital Signs: 07/04 16:01 BP 144 / 83; Pulse 102; Resp 18 S; Temp 98.8(O); Pulse Ox 95% on R/A; Weight 135.17 kg dd6 / 298 lbs (R); Height 5 ft. 9 in. (175.26 cm) (R); 16:31 BP 158 / 89; Pulse 98; Resp 20; Temp 98.6; Pulse Ox 95% ; Weight 135.17 kg / 298 lbs; jlf Height 5 ft. 9 in. (175.26 cm); Pain 10/10; 16:51 BP 154 / 87 (auto/); kas2 16:51 Pulse 100 MON; Pulse Ox 97% ; kas2 17:03 BP 151 / 87 (auto/); kas2 17:03 Pulse 92 MON; Pulse Ox 93% ; kas2 17:18 BP 152 / 83 (auto/); kas2 17:18 Pulse 90 MON; Pulse Ox 95% ; kas2 17:33 BP 156 / 84 (auto/); kas2 17:33 Pulse 90 MON; Pulse Ox 96% ; kas2 18:03 BP 145 / 86 (auto/); kas2 18:03 Pulse 86 MON; Pulse Ox 95% ; kas2 18:18 BP 164 / 68 (auto/); kas2 18:18 Pulse 92 MON; kas2 19:10 BP 186 / 99 (auto/); kas2 19:10 Pulse 92 MON; Pulse Ox 93% ; kas2 19:21 BP 164 / 80 (auto/); kas2 19:21 Pulse 92 MON; Pulse Ox 96% ; kas2 20:42 BP 165 / 89; Pulse 89; Resp 20; Temp 98.1(O); Pulse Ox 99% on 2 lpm NC; Pain 3/10; kas2 22:35 BP 194 / 98; Pulse 93; Resp 18; Temp 98.0(O); Pulse Ox 98% on R/A; Pain 2/10; kas2 22:56 BP 165 / 83; Pulse 85; Resp 18; Temp 97.5; Pulse Ox 95% ; Pain 9/10; jlm 16:31 Body Mass Index 44.01 (135.17 kg, 175.26 cm) [facility] MDM: 16:07 Supervisor Packing Room/Pulse Ox/q 30 min VS ordered. ml6 16:07 If >35 years old with cardiac risk factors and/or suspicion of acute ischemia- place ml6 directly in room and do STAT EKG ordered. 16:07 If pre-RCE wait time >60 minutes, inform reg. staff to do full reg ordered. ml6 16:07 Oxygen at 2L/min via NC ordered. ml6 16:07 IV Saline Lock ordered. ml6 16:07 Undress patient appropriately for examination ordered. ml6 16:08 BMP Ordered. EDMS 16:08 CBC with Diff Ordered. EDMS 16:08 CIP Ordered. EDMS 16:08 Troponin Ordered. EDMS 16:08 Chest, 2 View (pa\E\lat) Ordered. EDMS 16:08 ECG WITH READING ER PHYS+CARDIAG ordered. EDMS 16:44 D-Dimer Quant Ordered. EDMS 17:04 Acetaminophen Tablet 975 mg PO once ordered. le 18:31 BMP Reviewed. le 18:31 CBC with Diff Reviewed. le 18:31 CIP Reviewed. le 18:31 Troponin Reviewed. le 18:31 Chest, 2 View (pa\E\lat) Reviewed. le 19:29 Financial registration complete. [facility] 19:48 [facility] Payment Agreement was scanned into [employer] and attached to record. gjb 20:10 D-Dimer Quant Reviewed. le 20:11 EKG-ADULT Reviewed. le 20:11 Chlorpheniramine-Hydrocodone Extended Release 12 hour Capsule 8 mg-10 mg 1 caps PO once le ordered. 20:14 CT Chest Angio R/O PE Ordered. [facility] 07/05 12:43 T-Sheet-- Draft Copy was scanned into [employer] and attached to record. gb 12:43 ECG/EKG was scanned into [employer] and attached to record. gb Administered Medications: 07/04 17:13 Drug: Acetaminophen 975 mg [acetaminophen 325 mg tablet (3 tabs)] Route: PO; jmb 20:54 Drug: Chlorpheniramine-Hydrocodone 1 caps [hydrocodone ER 10 mg-chlorpheniramine 8 mg kas2 12hr capsule,extend.release (1 caps)] Route: PO; Signatures: Dispatcher [employer] EDOK Jessica Mccracken, Reg Reg gb Cee Peterson, GROUP PRESIDENT GROUP PRESIDENT Josiah Giordano RN RN ml6 Suzanne EcheverriaRN RN [id number] Lizabeth Torre b Coco Ross RN RN kas2 Anson Duckworth RN The chart was reviewed and I authenticate all verbal orders and agree with the evaluation and treatment provided.Attachments: 19:48 [facility] Payment Agreement [facility] 07/05 12:43 T-Sheet-- Draft Copy gb 12:43 ECG/EKG gb Chart Complete MTDD
== END 2016-07-04 23:15 | disposition home or self-care (01) ==
LOC: M ED 16:00
DX: R05 Cough (principal); R07.89 Other chest pain; R00.0 Tachycardia, unspecified; I10 Essential (primary) hypertension; E78.5 Hyperlipidemia, unspecified; M19.90 Unspecified osteoarthritis, unspecified site; E78.00 Pure hypercholesterolemia, unspecified; Z79.899 Other long term (current) drug therapy; Z87.891 Personal history of nicotine dependence
CPT/HCPCS: 36415; 71020; 71275; 80048; 82550; 82553; 84484; 85025; 85379; 93005; 93041; 99285; Q9967

== ENCOUNTER → 2016-07-20 | Outpatient (CLI) | payer MEDICARE, MEDICAID ==
[2016-07-20 13:56] LABS: BASO % 0.4 % (0.0-1.0); EOS # 0.3 K/mm3 (0.0-0.50); EOS % 2.5 % (0.0-3.0); LARGE UNSTAINED CELL # 0.3 K/mm3 (0.0-0.4); LYMPH % 18.6 % (24.0-44.0); MEAN CORPUSCULAR HEMOGLOBIN 28.1 pg (27.0-33.0); MEAN CORPUSCULAR HGB CONC 33.4 g/dl (32.0-36.5); MONO # 0.6 K/mm3 (0.0-0.8); MONO % 5.2 % (0.0-5.0); NEUTROPHILS # 7.7 K/mm3 (1.8-7.7); NEUTROPHILS % 70.3 % (36.0-66.0); PLATELET COUNT, AUTOMATED 303 k/mm3 (150-450); RED CELL DISTRIBUTION WIDTH 12.8 % (11.5-14.5)
[2016-07-20 14:06] LABS: MAGNESIUM LEVEL 1.9 MG/DL (1.8-2.4)
--- NOTE | 2016-07-21 02:55 | REP ---
Clinical: Acute on chronic cough . Comparison: 07/04/2016 . Technique: PA and lateral. Findings: The mediastinum and cardiac silhouette are normal. The lung sanchez are clear and without acute consolidation, effusion, or pneumothorax. The skeletal structures are intact and normal. Impression: 1. No acute cardiopulmonary process. II. If the patient remains symptomatic consider chest CT for further investigation. Signed by Cooper Matthews MD 07/21/2016 02:46 A
== END ==
LOC: M LAB 12:10
PROVIDERS: ATTEND Nurse Practitioner Family
DX: R05 Cough (principal); J20.9 Acute bronchitis, unspecified; M79.1 Myalgia; R73.09 Other abnormal glucose; Z79.899 Other long term (current) drug therapy

== ENCOUNTER 2016-08-03 11:20 | Emergency (ER) | payer MEDICARE, MEDICAID ==
[2016-08-03 12:48] LABS: BASO % 0.5 % (0.0-1.0); EOS # 0.2 K/mm3 (0.0-0.50); EOS % 2.2 % (0.0-3.0); LARGE UNSTAINED CELL # 0.3 K/mm3 (0.0-0.4); LARGE UNSTAINED CELL % 3.3 % (0.0-4.0); LYMPH % 21.5 % (24.0-44.0); MEAN CORPUSCULAR HEMOGLOBIN 27.7 pg (27.0-33.0); MEAN CORPUSCULAR HGB CONC 33.3 g/dl (32.0-36.5); MEAN CORPUSCULAR VOLUME 83.3 fl (80.0-96.0); MONO # 0.5 K/mm3 (0.0-0.8); MONO % 5.3 % (0.0-5.0); NEUTROPHILS # 6.4 K/mm3 (1.8-7.7); NEUTROPHILS % 67.3 % (36.0-66.0); PLATELET COUNT, AUTOMATED 315 k/mm3 (150-450); RED CELL DISTRIBUTION WIDTH 12.8 % (11.5-14.5); WHITE BLOOD COUNT 9.5 K/mm3 (4.0-10.0)
--- NOTE | 2016-08-03 12:50 | REP ---
Clinical: Shortness of breath. Technique: PA and lateral. Comparison: 07/20/2016. Findings: A subtle density in the left lung base is identified and may reflect trace atelectasis. Remainder of lung sanchez are clear. The mediastinum and cardiac silhouette are normal. Impression: Subtle density in the left lower lobe cannot be excluded. Signed by Cooper Matthews MD 08/03/2016 12:41 P
[2016-08-03 13:29] LABS: ANION GAP 9 MEQ/L (8-16); BLOOD UREA NITROGEN 16 MG/DL (7-18); CALCIUM LEVEL 9.1 MG/DL (8.5-10.1); CARBON DIOXIDE LEVEL 28 MEQ/L (21-32); CHLORIDE LEVEL 104 MEQ/L (98-107); CREATININE FOR GFR 0.88 MG/DL (0.70-1.30); GLOMERULAR FILTRATION RATE > 60.0 (>56); GLUCOSE, FASTING 126 MG/DL (70-105); POTASSIUM SERUM 3.8 MEQ/L (3.5-5.1); SODIUM LEVEL 141 MEQ/L (136-145)
[2016-08-03] MEDS ORDERED: ISOVUE-370 76% 100ML VIAL (Q9967) As Ordered ONE (13:56)
--- NOTE | 2016-08-03 14:26 | REP ---
Clinical: Acute chest pain with shortness of breath and elevated D-dimer levels. Comparison: 07/04/2016. Technique: Axial contrast enhanced images from the thoracic inlet to the upper abdomen using 100 ml Isovue 370 intravenous contrast material with coronal and sagittal re-formations. Findings: Satisfactory enhancement of the pulmonary vasculature is achieved and no filling defects are identified to suggest pulmonary embolus. Thoracic aorta is normal caliber without aneurysm or dissection. Heart and pericardium are normal. Bilateral lung sanchez are well aerated and clear without acute pulmonary parenchymal consolidation or atelectasis. No nodule or mass lesion. No pleural effusion/reaction. No pneumothorax. No adenopathy. The subtle density on recent chest x-ray and left lower lobe corresponds to focal area of small scarring which is unchanged compared to 07/04/2016. Impression: No evidence for pulmonary embolus. No acute pleuroparenchymal or mediastinal process. Signed by Cooper Matthews MD 08/03/2016 02:16 P
--- NOTE | 2016-08-03 15:15 | REP ---
RIGHT LOWER EXTREMITY DOPPLER VENOUS ULTRASOUND: 08/03/2016. Clinical history: Soft-tissue swelling and positive D-dimer test. Evaluate for DVT. Comparison: None. Technique: The deep venous system of the right lower extremity is evaluated with mattson scale imaging, compression ultrasound, color imaging and duplex Doppler interrogation. Examination from the groin through the popliteal fossa into the proximal calf. Findings: There is full compressibility from the common femoral vein in the inguinal region through the popliteal vein. Color imaging confirms patency throughout the course of the deep venous system. There is respiratory variation and augmented flow at all levels. Impression: 1. No Doppler venous ultrasound evidence of DVT in the right lower extremity. Signed by Reese Chavira MD 08/03/2016 03:07 P
--- NOTE | 2016-08-03 16:39 | EDDOCDS ---
Physician Documentation [facility] Name: Cooper Lord Age: 55 yrs Sex: Male : 1960 Arrival Date: 08/03/2016 Time: 11:20 Bed I2 / M2 Private MD: Sally Kinney FNP Disposition: 08/03/16 16:25 Discharged to Home/Self Care. Impression: Cough. - Condition is Stable. - Discharge Instructions: Cough, Adult. - Prescriptions for benzonatate 200 mg Oral Capsule - take 1 capsule by ORAL route 3 times per day As needed; 30 capsule. - Medication Reconciliation, Local Pharmacy Hours form. - Follow up: Sally Kinney; When: Call to arrange an appointment; Reason: Recheck today's complaints. Follow up: Emergency Department; When: As needed; Reason: Fever > 102F, Trouble breathing. - Problem is chronic. - Symptoms are unchanged. Historical: - Allergies: lisinopril; - Home Meds: 1. gabapentin 400 mg Oral cap 1 cap four times a day 2. ibuprofen 800 mg Oral tab 1 tab 3 times per day PRN 3. Metamucil Smooth Texture 2 tablespoons Oral daily 4. Nexium 40 mg Oral cpDR 1 cap once daily 5. Cymbalta 30 mg oral cpDR 6. furosemide 20 mg Oral tab 1 tab once daily 7. verapamil 120 mg Oral C24P 1 cap once daily 8. montelukast 10 mg oral tab 1 tab once daily 9. Arnuity Ellipta 100 mcg/actuation inhalation dsdv 1 puff once daily 10. codeine sulfate 15 mg Oral tab every 8 hours PRN cough 11. ketoconazole 2 % Topical crea 2 times per day 12. meloxicam 15 mg oral tab once daily 13. valsartan 160 mg oral cap daily 14. Vitamin D2 50,000 unit oral cap once wkly 15. fluticasone 50 mcg/actuation nasal spsn 1 spray once daily 16. ProAir HFA 90 mcg/actuation inhalation HFAA 2 puffs every 6 hours PRN - PMHx: Osteoarthritis; Hypertension; Hypercholesterolemia; Diabetes - NIDDM: controlled; Schizophrenia; Bipolar disorder; Migraine Headaches; - PSHx: breast surgery; right hand surgery; - Social history: Smoking status: Patient states former smoker of tobacco. No barriers to communication noted, The patient speaks fluent Portuguese, Speaks appropriately for age. - Family history: Not pertinent. - : The pt / caregiver states he / she is not on anticoagulants. Home medication list is obtained from the patient. - Exposure Risk Screening:: None identified. Vital Signs: 08/03 11:21 BP 166 / 102; Pulse 82; Resp 18; Temp 98.8; Pulse Ox 97% ; Weight 131.54 kg / 290 lbs; elp Height 5 ft. 9 in. (175.26 cm); 11:54 BP 150 / 94 LA Sitting (man/lg); nb2 16:35 BP 150 / 88; Pulse 80; Resp 16; Temp 97.6; jmk 11:21 Body Mass Index 42.83 (131.54 kg, 175.26 cm) elp 11:54 RN notified nb2 MDM: 11:41 Recheck B/P ordered. dt4 11:46 Accucheck ordered. ar2 11:53 Financial registration complete. lg 12:03 Fingerstick Blood Sugar Ordered. EDMS 12:06 Fingerstick Blood Sugar Reviewed. ar2 12:08 CBC with Diff Ordered. EDMS 12:08 BNP Ordered. EDMS 12:08 MED Profile Ordered. EDMS 12:08 D-Dimer Quant Ordered. EDMS 12:09 Chest, 2 View (pa\E\lat) Ordered. EDMS 12:12 IV Saline Lock ordered. ar2 12:13 ECG WITH READING ER PHYS+CARDIAG ordered. EDMS 12:17 TROPONIN Ordered. EDMS 12:36 [facility] Payment Agreement was scanned into [employer] and attached to record. lg 13:01 CBC with Diff Reviewed. ar2 13:01 D-Dimer Quant Reviewed. ar2 13:30 MED Profile Reviewed. ar2 13:30 BNP Reviewed. ar2 13:30 TROPONIN Reviewed. ar2 13:30 Chest, 2 View (pa\E\lat) Reviewed. ar2 13:52 CT Chest Angio R/O PE Ordered. EDMS 14:26 US Lower Extremities Bilateral R/O DVT Ordered. EDMS Point of Care Testing: Blood Glucose: 11:55 Blood Glucose: 117 mg/dL; mcp Ranges: Signatures: Dispatcher [employer] EDMS Clifford Davis,RN RN Rashid Sepulveda, Reg Reg Mora FriasRN RN ck1 Miguel Dc PA-C PA-C ar2 Aniyah Capellan PA-C PA-C dt4 The chart was reviewed and I authenticate all verbal orders and agree with the evaluation and treatment provided.Corrections: (The following items were deleted from the chart) 12: 11:31 Home Meds: Cymbalta Oral once daily; 12:05 11:31 Home Meds: pharmacy on [facility] on [address]; 12:15 12:13 TROPONIN+LAB ordered. EDMS EDMS Attachments: 12:36 [facility] Payment Agreement lg MTDD
--- NOTE | 2016-08-03 16:40 | EDDOCDS ---
Nurse's Notes [facility] Name: Cooper Lord Age: 55 yrs Sex: Male : 1960 Arrival Date: 08/03/2016 Time: 11:20 Bed I2 / M2 Private MD: Sally Kinney FNP Diagnosis: Cough Presentation: 08/03 11:26 Presenting complaint: Patient states: high blood pressure, chronic cough since June. States increasing SOB and "I haven't been able to check my blood sugar because I dont know how to use my equipment. Has not been able to take certain medications because of his chronic cough. Adult Sepsis Screening: The patient does not have new or worsening altered mentation. Patient's respiratory rate is less than 22. Systolic blood pressure is greater than 100. Patient has a qSOFA score of 0- Negative Sepsis Screen. Suicide/Homicide risk assessment- the patient denies having any suicidal and/or homicidal ideations and does not present with any other emotional, behavioral or mental health complaints. 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 Transition of care: patient was not received from another setting of care. 11:26 Acuity: JAKUB Level 3 ck1 11:26 Method Of Arrival: Walkin/Carried/Asstd ck1 Triage Assessment: 11:32 General: Appears obese, Behavior is appropriate for age, cooperative. Pain: Location: ck1 chest Pain currently is 9 out of 10 on a pain scale. HIV screening NA for this visit Offered previously. Respiratory: Onset: The symptoms/episode began/occurred gradually, Reports shortness of breath. GI: Abdomen is obese. Derm: Skin is intact, is healthy with good turgor, Skin is pink, warm & dry. Historical: - Allergies: lisinopril; - Home Meds: 1. gabapentin 400 mg Oral cap 1 cap four times a day 2. ibuprofen 800 mg Oral tab 1 tab 3 times per day PRN 3. Metamucil Smooth Texture 2 tablespoons Oral daily 4. Nexium 40 mg Oral cpDR 1 cap once daily 5. Cymbalta 30 mg oral cpDR 6. furosemide 20 mg Oral tab 1 tab once daily 7. verapamil 120 mg Oral C24P 1 cap once daily 8. montelukast 10 mg oral tab 1 tab once daily 9. Arnuity Ellipta 100 mcg/actuation inhalation dsdv 1 puff once daily 10. codeine sulfate 15 mg Oral tab every 8 hours PRN cough 11. ketoconazole 2 % Topical crea 2 times per day 12. meloxicam 15 mg oral tab once daily 13. valsartan 160 mg oral cap daily 14. Vitamin D2 50,000 unit oral cap once wkly 15. fluticasone 50 mcg/actuation nasal spsn 1 spray once daily 16. ProAir HFA 90 mcg/actuation inhalation HFAA 2 puffs every 6 hours PRN - PMHx: Osteoarthritis; Hypertension; Hypercholesterolemia; Diabetes - NIDDM: controlled; Schizophrenia; Bipolar disorder; Migraine Headaches; - PSHx: breast surgery; right hand surgery; - Social history: Smoking status: Patient states former smoker of tobacco. No barriers to communication noted, The patient speaks fluent Slovak, Speaks appropriately for age. - Family history: Not pertinent. - : The pt / caregiver states he / she is not on anticoagulants. Home medication list is obtained from the patient. - Exposure Risk Screening:: None identified. Screenin:37 Screening information is obtained from the patient. Fall risk: No risks identified. jmk Assistance ADL's: requires no assistance with activities of daily living. Abuse/DV Screen: The patient / caregiver reports he/she is: not in a situation that causes fear, pain or injury. Nutritional screening: No deficits noted. Advance Directives: Currently, there is no health care proxy. There is no active DNR order. There is no living will. There is no Power of Shot Man. Advance directive information has not previously been placed in an [facility] medical record. home support is adequate. Assessment: 12:33 General: Appears in no apparent distress, skin warm and dry color satisfactory moist jmk pink oral mucosa. indicates symptoms x months/ no observed resp distress indicates upper abd discomfort. Obese abdomen that is non distended.. Cardiovascular: Capillary refill < 3 seconds Clubbing of nail beds is present Heart tones S1 S2 present Edema is absent. Rhythm is regular. Respiratory: Airway is patent Respiratory effort is even, unlabored, Breath sounds are clear bilaterally. GI: Abdomen is non- distended obese. 14:07 General: Appears without resp[ distress. pleasant and conversive.. jmk 16:35 General: Appears has not demonstrated resp distress. rare cough noted, but has always jmk been tolerant of activity. Vital Signs: 11:21 BP 166 / 102; Pulse 82; Resp 18; Temp 98.8; Pulse Ox 97% ; Weight 131.54 kg; Height 5 elp ft. 9 in. (175.26 cm); 11:54 BP 150 / 94 LA Sitting (man/lg); nb2 16:35 BP 150 / 88; Pulse 80; Resp 16; Temp 97.6; jmk 11:21 Body Mass Index 42.83 (131.54 kg, 175.26 cm) elp 11:54 RN notified nb2 Vitals: 11:21 Log In Time: August 03, 2016 at 11:20. elp ED Course: 11:21 Patient visited by Tammy Baker PCA. elp 11:21 Sally Kinney is Private Physician. elp 11:21 Patient moved to Waiting elp 11:22 Patient visited by Tammy Baker PCA. elp 11:22 Patient moved to Pre RCE elp 11:28 Triage Initiated ck1 11:34 Patient moved to Triage 3 mlb1 11:45 Miguel Dc PA-C is PHCP. ar2 11:45 Neeta Del Rio MD is Attending Physician. ar2 11:46 Patient visited by Miguel Dc PA-C. ar2 11:54 Patient visited by Mora Frias RN. ck1 11:55 Patient visited by Ann Jesus. nb2 11:57 Patient visited by Ann Jesus. nb2 12:11 Patient moved to I2 / M2 ck1 12:15 EKG done. (by ED staff). Reviewed by Miguel Dc PA-C. nb2 12:19 Patient visited by Ann Jesus. nb2 12:29 TROPONIN Sent. jmk 12:29 D-Dimer Quant Sent. jmk 12:29 MED Profile Sent. jmk 12:29 BNP Sent. jmk 12:29 CBC with Diff Sent. jmk 12:33 Inserted saline lock: 20 gauge in right hand. jmk 12:35 Patient name changed from Cooper\\S\\\\S\\Pop\\S\\ to Cooper\\S\\ \\S\\Pop. EDMS 12:36 [facility] [place] Agreement was scanned into [employer] and attached to record. lg 12:37 The patient / caregiver is instructed regarding the plan of care and ED course. jmk 12:38 Patient visited by Clifford Davis,RN. jmk 13:10 Chest, 2 View (pa\\E\\lat) Returned. EDMS 13:59 Patient visited by Francois Smith, VIOLETA. mlb1 14:08 Patient visited by Clifford Davis,RN. jmk 14:34 Patient moved to Ultrasound ssc 14:48 CT Chest Angio R/O PE Returned. EDMS 15:04 Patient moved to I2 / M2 jmk 15:14 Patient visited by Shayy Ross,VIOLETA. ms18 15:39 US Lower Extremities Bilateral R/O DVT Returned. EDMS 16:25 Sally Kinney is Referral Physician. ar2 16:35 Discontinued lock intact, bleeding controlled, pressure dressing applied, No jmk redness/swelling at site. No procedures done that require assistance. Point of Care Testing: Blood Glucose: 11:55 Blood Glucose: 117 mg/dL; mcp Ranges: Order Results: Lab Order: Fingerstick Blood Sugar; SPEC'M 08/03/16 11:53 Test: BEDSIDE GLUCOSE; Value: 117; Range: 70-105; Abnormal: Above high normal; Units: MG/DL; Status: F Lab Order: CBC with Diff; SPEC'M 08/03/16 12:25 Test: WHITE BLOOD COUNT; Value: 9.5; Range: 4.0-10.0; Units: K/mm3; Status: F Test: RED BLOOD COUNT; Value: 5.21; Range: 4.30-6.10; Units: M/mm3; Status: F Test: HEMOGLOBIN; Value: 14.4; Range: 14.0-18.0; Units: g/dl; Status: F Test: HEMATOCRIT; Value: 43.3; Range: 42.0-52.0; Units: %; Status: F Test: MEAN CORPUSCULAR VOLUME; Value: 83.3; Range: 80.0-96.0; Units: fl; Status: F Test: MEAN CORPUSCULAR HEMOGLOBIN; Value: 27.7; Range: 27.0-33.0; Units: pg; Status: F Test: MEAN CORPUSCULAR HGB CONC; Value: 33.3; Range: 32.0-36.5; Units: g/dl; Status: F Test: RED CELL DISTRIBUTION WIDTH; Value: 12.8; Range: 11.5-14.5; Units: %; Status: F Test: PLATELET COUNT, AUTOMATED; Value: 315; Range: 150-450; Units: k/mm3; Status: F Test: NEUTROPHILS %; Value: 67.3; Range: 36.0-66.0; Abnormal: Above high normal; Units: %; Status: F Test: LYMPH %; Value: 21.5; Range: 24.0-44.0; Abnormal: Below low normal; Units: %; Status: F Test: MONO %; Value: 5.3; Range: 0.0-5.0; Abnormal: Above high normal; Units: %; Status: F Test: EOS %; Value: 2.2; Range: 0.0-3.0; Units: %; Status: F Test: BASO %; Value: 0.5; Range: 0.0-1.0; Units: %; Status: F Test: LARGE UNSTAINED CELL %; Value: 3.3; Range: 0.0-4.0; Units: %; Status: F Test: NEUTROPHILS #; Value: 6.4; Range: 1.8-7.7; Units: K/mm3; Status: F Test: LYMPH #; Value: 2.0; Range: 1.5-4.5; Units: K/mm3; Status: F Test: MONO #; Value: 0.5; Range: 0.0-0.8; Units: K/mm3; Status: F Test: EOS #; Value: 0.2; Range: 0.0-0.50; Units: K/mm3; Status: F Test: BASO #; Value: 0.0; Range: 0.0-0.2; Units: K/mm3; Status: F Test: LARGE UNSTAINED CELL #; Value: 0.3; Range: 0.0-0.4; Units: K/mm3; Status: F Lab Order: BNP; [facility]' 08/03/16 12:25 Test: BRAIN NATRIURETIC PEPTIDE; Value: 16.6; Range: <100; Units: PG/ML; Status: F Lab Order: MED Profile; SPEC' 08/03/16 12:25 Test: GLUCOSE, FASTING; Value: 126; Range: 70-105; Abnormal: Above high normal; Units: MG/DL; Status: F Test: BLOOD UREA NITROGEN; Value: 16; Range: 7-18; Units: MG/DL; Status: F Test: CREATININE FOR GFR; Value: 0.88; Range: 0.70-1.30; Units: MG/DL; Status: F Test: GLOMERULAR FILTRATION RATE; Value: > 60.0; Range: >56; Status: F Test: SODIUM LEVEL; Value: 141; Range: 136-145; Units: MEQ/L; Status: F Test: POTASSIUM SERUM; Value: 3.8; Range: 3.5-5.1; Units: MEQ/L; Status: F Test: CHLORIDE LEVEL; Value: 104; Range: 98-107; Units: MEQ/L; Status: F Test: CARBON DIOXIDE LEVEL; Value: 28; Range: 21-32; Units: MEQ/L; Status: F Test: ANION GAP; Value: 9; Range: 8-16; Units: MEQ/L; Status: F Test: CALCIUM LEVEL; Value: 9.1; Range: 8.5-10.1; Units: MG/DL; Status: F Test Note: ; Units are mL/min/1.73 m2 Chronic Kidney Disease Staging per NKF: Stage I & II GFR >=60 Normal to Mildly Decreased Stage III GFR 30-59 Moderately Decreased Stage IV GFR 15-29 Severely Decreased Stage V GFR <15 Very Little GFR Left ESRD GFR <15 on [employer] Lab Order: D-Dimer Quant; SPEC'M 08/03/16 12:25 Test: D-DIMER QUANT; Value: 1222.1; Range: <500; Abnormal: Above high normal; Units: ng/ml; Status: F Lab Order: TROPONIN; SPEC'M 08/03/16 12:25 Test: TROPONIN I; Value: < 0.02; Range: < 0.10; Units: NG/ML; Status: F Test Note: ; Troponin I Reference Interval for Gameotic LOCI: 99th Percentile= 0.00-0.045 ng/ml Risk Stratification: <= 0.10 ng/ml Decreased Risk for Adverse Clinical Events. 0.10-1.50 ng/ml Increased Risk for Adverse Clinical Events. Evaluation of additional criterion and/or repeat testing in 2-6 hours is suggested to rule out myocardial damage. >= 1.50 ng/ml Indicative of Myocardial Injury. Radiology Order: Chest, 2 View (pa\\E\\lat) Test: Chest, 2 View (pa\\E\\lat) REASON FOR EXAMINATION: sob; Clinical: Shortness of breath.; ; Technique: PA and lateral.; ; Comparison: 07/20/2016.; ; Findings:; A subtle density in the left lung base is identified and may reflect trace; atelectasis. Remainder of lung sanchez are clear. The mediastinum and cardiac; silhouette are normal.; ; Impression:; Subtle density in the left lower lobe cannot be excluded.; ; ; Signed by; Cooper Matthews MD 08/03/2016 12:41 P; Radiology Order: CT Chest Angio R/O PE Test: CT Chest Angio R/O PE REASON FOR EXAMINATION: sob, + d-dimer; Clinical: Acute chest pain with shortness of breath and elevated D-dimer; levels.; ; Comparison: 07/04/2016.; ; Technique: Axial contrast enhanced images from the thoracic inlet to the upper; abdomen using 100 ml Isovue 370 intravenous contrast material with coronal and; sagittal re-formations.; ; Findings: Satisfactory enhancement of the pulmonary vasculature is achieved and; no filling defects are identified to suggest pulmonary embolus. Thoracic aorta; is normal caliber without aneurysm or dissection. Heart and pericardium are; normal. Bilateral lung sanchez are well aerated and clear without acute pulmonary; parenchymal consolidation or atelectasis. No nodule or mass lesion. No pleural; effusion/reaction. No pneumothorax. No adenopathy. The subtle density on recent; chest x-ray and left lower lobe corresponds to focal area of small scarring which; is unchanged compared to 07/04/2016.; ; Impression:; No evidence for pulmonary embolus.; No acute pleuroparenchymal or mediastinal process.; ; ; Signed by; Cooper Matthews MD 08/03/2016 02:16 P; Radiology Order: US Lower Extremities Bilateral R/O DVT Test: US Lower Extremities Bilateral R/O DVT REASON FOR EXAMINATION: edema, + d-dimer; RIGHT LOWER EXTREMITY DOPPLER VENOUS ULTRASOUND: 08/03/2016.; ; Clinical history: Soft-tissue swelling and positive D-dimer test. Evaluate for; DVT.; ; Comparison: None.; ; Technique: The deep venous system of the right lower extremity is evaluated with; mattson scale imaging, compression ultrasound, color imaging and duplex Doppler; interrogation. Examination from the groin through the popliteal fossa into the; proximal calf.; ; Findings: There is full compressibility from the common femoral vein in the; inguinal region through the popliteal vein. Color imaging confirms patency; throughout the course of the deep venous system. There is respiratory variation; and augmented flow at all levels.; ; Impression:; 1. No Doppler venous ultrasound evidence of DVT in the right lower extremity.; ; ; Signed by; Reese Chavira MD 08/03/2016 03:07 P; ; ; ADDENDUM: 08/03/16 1554; The title of the above exam should read bilateral lower extremity Doppler; venous ultrasound.; ; All images are available at this time.; ; The study shows no Doppler venous ultrasound evidence of DVT in either of the; lower extremities.; ; Negative examination. Outcome: 16:25 Discharge ordered by Provider. ar2 16:35 Discharge Assessment: Patient awake, alert and oriented x 3. No cognitive and/or k functional deficits noted. Patient verbalized understanding of disposition instructions. patient administered narcotics - no. The following High Risk Discharge criteria are identified: None. Discharged to home ambulatory. Condition: good Condition: unchanged. Discharge instructions given to patient, Instructed on discharge instructions, follow up and referral plans. medication usage, Demonstrated understanding of instructions, medications, Pt was receptive of discharge instructions/ teaching. Prescriptions given X 1. CT Study completed. Ultrasound Study completed. Property :Personal belongings accompany Pt. 16:38 Patient left the ED. mo Signatures: Dispatcher [employer] EDMS Clifford Davis RN RN jmk Peters, Mary RN Sawyer Aguirre mcp, LoriLee, Rojelio Reg Francois Rodriguez RN RN mlb1 Mora FriasRN RN ck1 Miguel Dc, PAWhitney PA-C ar2 Tammy Baker, Shayy Murphy RN RN ms18 Ann Jesus2 Corrections: (The following items were deleted from the chart) 11:33 11:26 Presenting complaint: Patient states: high blood pressure, chronic cough since June 12. States increasing SOB and "I ahvent been able to check my blood sugar because I dont know how to use my equiptment ck 11:56 11:54 BP 150 / 94 Sitting Manual L Arm Large; nb2 nb2 12: 11:31 Home Meds: Cymbalta Oral once daily; ck1 12:05 11:31 Home Meds: pharmacy on [facility] on [address]; 12:19 12:15 EKG done. (by ED staff). Reviewed by Miguel Dc PA-C nb2 nb2 MTDD
--- NOTE | 2016-08-05 15:01 | ECGEPIP ---
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 Order Number: [id number] Reading MD: Neeta Del Rio Measurements Intervals [place] Rate: 78 P: 71 ID: [id number] QRS: 29 QRSD: 101 T: 24 QT: 360 QTc: 412 Interpretive Statements SINUS RHYTHM POSSIBLE PRIOR INFERIOR INFARCT DECREASED RATE 07/04/16 Electronically Signed On 08-05-2016 15:01:26 EST by Neeta Del Rio
--- NOTE | 2016-08-05 17:40 | EDDOCDS ---
Physician Documentation [facility] Name: Cooper Lord Age: 55 yrs Sex: Male : 1960 Arrival Date: 08/03/2016 Time: 11:20 Bed I2 / M2 Private MD: Sally Kinney FNP Disposition: 08/03/16 16:25 Discharged to Home/Self Care. Impression: Cough. - Condition is Stable. - Discharge Instructions: Cough, Adult. - Prescriptions for benzonatate 200 mg Oral Capsule - take 1 capsule by ORAL route 3 times per day As needed; 30 capsule. - Medication Reconciliation, Local Pharmacy Hours form. - Follow up: Sally Kinney; When: Call to arrange an appointment; Reason: Recheck today's complaints. Follow up: Emergency Department; When: As needed; Reason: Fever > 102F, Trouble breathing. - Problem is chronic. - Symptoms are unchanged. Historical: - Allergies: lisinopril; - Home Meds: 1. gabapentin 400 mg Oral cap 1 cap four times a day 2. ibuprofen 800 mg Oral tab 1 tab 3 times per day PRN 3. Metamucil Smooth Texture 2 tablespoons Oral daily 4. Nexium 40 mg Oral cpDR 1 cap once daily 5. Cymbalta 30 mg oral cpDR 6. furosemide 20 mg Oral tab 1 tab once daily 7. verapamil 120 mg Oral C24P 1 cap once daily 8. montelukast 10 mg oral tab 1 tab once daily 9. Arnuity Ellipta 100 mcg/actuation inhalation dsdv 1 puff once daily 10. codeine sulfate 15 mg Oral tab every 8 hours PRN cough 11. ketoconazole 2 % Topical crea 2 times per day 12. meloxicam 15 mg oral tab once daily 13. valsartan 160 mg oral cap daily 14. Vitamin D2 50,000 unit oral cap once wkly 15. fluticasone 50 mcg/actuation nasal spsn 1 spray once daily 16. ProAir HFA 90 mcg/actuation inhalation HFAA 2 puffs every 6 hours PRN - PMHx: Osteoarthritis; Hypertension; Hypercholesterolemia; Diabetes - NIDDM: controlled; Schizophrenia; Bipolar disorder; Migraine Headaches; - PSHx: breast surgery; right hand surgery; - Social history: Smoking status: Patient states former smoker of tobacco. No barriers to communication noted, The patient speaks fluent Latvian, Speaks appropriately for age. - Family history: Not pertinent. - : The pt / caregiver states he / she is not on anticoagulants. Home medication list is obtained from the patient. - Exposure Risk Screening:: None identified. Vital Signs: 08/03 11:21 BP 166 / 102; Pulse 82; Resp 18; Temp 98.8; Pulse Ox 97% ; Weight 131.54 kg / 290 lbs; elp Height 5 ft. 9 in. (175.26 cm); 11:54 BP 150 / 94 LA Sitting (man/lg); nb2 16:35 BP 150 / 88; Pulse 80; Resp 16; Temp 97.6; jmk 11:21 Body Mass Index 42.83 (131.54 kg, 175.26 cm) elp 11:54 RN notified nb2 MDM: 11:41 Recheck B/P ordered. dt4 11:46 Accucheck ordered. ar2 11:53 Financial registration complete. lg 12:03 Fingerstick Blood Sugar Ordered. EDMS 12:06 Fingerstick Blood Sugar Reviewed. ar2 12:08 CBC with Diff Ordered. EDMS 12:08 BNP Ordered. EDMS 12:08 MED Profile Ordered. EDMS 12:08 D-Dimer Quant Ordered. EDMS 12:09 Chest, 2 View (pa\E\lat) Ordered. EDMS 12:12 IV Saline Lock ordered. ar2 12:13 ECG WITH READING ER PHYS+CARDIAG ordered. EDMS 12:17 TROPONIN Ordered. EDMS 12:36 [facility] Payment Agreement was scanned into [employer] and attached to record. lg 13:01 CBC with Diff Reviewed. ar2 13:01 D-Dimer Quant Reviewed. ar2 13:30 MED Profile Reviewed. ar2 13:30 BNP Reviewed. ar2 13:30 TROPONIN Reviewed. ar2 13:30 Chest, 2 View (pa\E\lat) Reviewed. ar2 13:52 CT Chest Angio R/O PE Ordered. EDMS 14:26 US Lower Extremities Bilateral R/O DVT Ordered. EDMS 08/04 19:20 T-Sheet-- Draft Copy was scanned into [employer] and attached to record. r Point of Care Testing: Blood Glucose: 08/03 11:55 Blood Glucose: 117 mg/dL; mcp Ranges: Signatures: Dispatcher [employer] EDMS Clifford Davis,RN RN Rashid Sepulveda, Reg Reg lg Mora Frias RN RN ck1 Miguel Dc PA-C PA-C ar2 Aniyah Capellan PA-C PA-C dt4 Catia Gamble The chart was reviewed and I authenticate all verbal orders and agree with the evaluation and treatment provided.Corrections: (The following items were deleted from the chart) 12: 11:31 Home Meds: Cymbalta Oral once daily; 12:05 11:31 Home Meds: pharmacy on [facility] on [address]; ck 12:15 12:13 TROPONIN+LAB ordered. EDMS EDMS Attachments: 12:36 [facility] Payment Agreement lg 08/04 19:20 T-Sheet-- Draft Copy klr Chart Complete MTDD
--- NOTE | 2016-08-05 17:40 | EDDOCDS ---
Nurse's Notes [facility] Name: Ella Lord Age: 55 yrs Sex: Male : 1960 Arrival Date: 08/03/2016 Time: 11:20 Bed I2 / M2 Private MD: Sally Kinney FNP Diagnosis: Cough Presentation: 08/03 11:26 Presenting complaint: Patient states: high blood pressure, chronic cough since June. States increasing SOB and "I haven't been able to check my blood sugar because I dont know how to use my equipment. Has not been able to take certain medications because of his chronic cough. Adult Sepsis Screening: The patient does not have new or worsening altered mentation. Patient's respiratory rate is less than 22. Systolic blood pressure is greater than 100. Patient has a qSOFA score of 0- Negative Sepsis Screen. Suicide/Homicide risk assessment- the patient denies having any suicidal and/or homicidal ideations and does not present with any other emotional, behavioral or mental health complaints. 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 Transition of care: patient was not received from another setting of care. 11:26 Acuity: JAKUB Level 3 ck1 11:26 Method Of Arrival: Walkin/Carried/Asstd ck1 Triage Assessment: 11:32 General: Appears obese, Behavior is appropriate for age, cooperative. Pain: Location: ck1 chest Pain currently is 9 out of 10 on a pain scale. HIV screening NA for this visit Offered previously. Respiratory: Onset: The symptoms/episode began/occurred gradually, Reports shortness of breath. GI: Abdomen is obese. Derm: Skin is intact, is healthy with good turgor, Skin is pink, warm & dry. Historical: - Allergies: lisinopril; - Home Meds: 1. gabapentin 400 mg Oral cap 1 cap four times a day 2. ibuprofen 800 mg Oral tab 1 tab 3 times per day PRN 3. Metamucil Smooth Texture 2 tablespoons Oral daily 4. Nexium 40 mg Oral cpDR 1 cap once daily 5. Cymbalta 30 mg oral cpDR 6. furosemide 20 mg Oral tab 1 tab once daily 7. verapamil 120 mg Oral C24P 1 cap once daily 8. montelukast 10 mg oral tab 1 tab once daily 9. Arnuity Ellipta 100 mcg/actuation inhalation dsdv 1 puff once daily 10. codeine sulfate 15 mg Oral tab every 8 hours PRN cough 11. ketoconazole 2 % Topical crea 2 times per day 12. meloxicam 15 mg oral tab once daily 13. valsartan 160 mg oral cap daily 14. Vitamin D2 50,000 unit oral cap once wkly 15. fluticasone 50 mcg/actuation nasal spsn 1 spray once daily 16. ProAir HFA 90 mcg/actuation inhalation HFAA 2 puffs every 6 hours PRN - PMHx: Osteoarthritis; Hypertension; Hypercholesterolemia; Diabetes - NIDDM: controlled; Schizophrenia; Bipolar disorder; Migraine Headaches; - PSHx: breast surgery; right hand surgery; - Social history: Smoking status: Patient states former smoker of tobacco. No barriers to communication noted, The patient speaks fluent Arabic, Speaks appropriately for age. - Family history: Not pertinent. - : The pt / caregiver states he / she is not on anticoagulants. Home medication list is obtained from the patient. - Exposure Risk Screening:: None identified. Screenin:37 Screening information is obtained from the patient. Fall risk: No risks identified. jmk Assistance ADL's: requires no assistance with activities of daily living. Abuse/DV Screen: The patient / caregiver reports he/she is: not in a situation that causes fear, pain or injury. Nutritional screening: No deficits noted. Advance Directives: Currently, there is no health care proxy. There is no active DNR order. There is no living will. There is no Power of Auditing Manager. Advance directive information has not previously been placed in an [facility] medical record. home support is adequate. Assessment: 12:33 General: Appears in no apparent distress, skin warm and dry color satisfactory moist jmk pink oral mucosa. indicates symptoms x months/ no observed resp distress indicates upper abd discomfort. Obese abdomen that is non distended.. Cardiovascular: Capillary refill < 3 seconds Clubbing of nail beds is present Heart tones S1 S2 present Edema is absent. Rhythm is regular. Respiratory: Airway is patent Respiratory effort is even, unlabored, Breath sounds are clear bilaterally. GI: Abdomen is non- distended obese. 14:07 General: Appears without resp[ distress. pleasant and conversive.. jmk 16:35 General: Appears has not demonstrated resp distress. rare cough noted, but has always jmk been tolerant of activity. Vital Signs: 11:21 BP 166 / 102; Pulse 82; Resp 18; Temp 98.8; Pulse Ox 97% ; Weight 131.54 kg; Height 5 elp ft. 9 in. (175.26 cm); 11:54 BP 150 / 94 LA Sitting (man/lg); nb2 16:35 BP 150 / 88; Pulse 80; Resp 16; Temp 97.6; jmk 11:21 Body Mass Index 42.83 (131.54 kg, 175.26 cm) elp 11:54 RN notified nb2 Vitals: 11:21 Log In Time: August 03, 2016 at 11:20. elp ED Course: 11:21 Patient visited by Tammy Baker PCA. elp 11:21 Sally Kinney is Private Physician. elp 11:21 Patient moved to Waiting elp 11:22 Patient visited by Tammy Baker PCA. elp 11:22 Patient moved to Pre RCE elp 11:28 Triage Initiated ck1 11:34 Patient moved to Triage 3 mlb1 11:45 Yaneth Dc PA-C is PHCP. ar2 11:45 Neeta Del Rio MD is Attending Physician. ar2 11:46 Patient visited by Yaneth Dc PA-C. ar2 11:54 Patient visited by Mora Frias RN. ck1 11:55 Patient visited by Ann Jesus. nb2 11:57 Patient visited by Ann Jesus. nb2 12:11 Patient moved to I2 / M2 ck1 12:15 EKG done. (by ED staff). Reviewed by Yaneth Dc PA-C. nb2 12:19 Patient visited by Ann Jesus. nb2 12:29 TROPONIN Sent. jmk 12:29 D-Dimer Quant Sent. jmk 12:29 MED Profile Sent. jmk 12:29 BNP Sent. jmk 12:29 CBC with Diff Sent. jmk 12:33 Inserted saline lock: 20 gauge in right hand. jmk 12:35 Patient name changed from Ella\\S\\\\S\\Pop\\S\\ to Ella\\S\\ \\S\\Pop. EDMS 12:36 [facility] Payment Agreement was scanned into [employer] and attached to record. lg 12:37 The patient / caregiver is instructed regarding the plan of care and ED course. jmk 12:38 Patient visited by Clifford Davis,RN. jmk 13:10 Chest, 2 View (pa\\E\\lat) Returned. EDMS 13:59 Patient visited by Francois Smith, VIOLETA. mlb1 14:08 Patient visited by Clifford Davis,RN. jmk 14:34 Patient moved to Ultrasound ssc 14:48 CT Chest Angio R/O PE Returned. EDMS 15:04 Patient moved to I2 / M2 jmk 15:14 Patient visited by Shayy Ross,VIOLETA. ms18 15:39 US Lower Extremities Bilateral R/O DVT Returned. EDMS 16:25 Sally Kinney is Referral Physician. ar2 16:35 Discontinued lock intact, bleeding controlled, pressure dressing applied, No jmk redness/swelling at site. No procedures done that require assistance. 08/04 10:02 US Lower Extremities Bilateral R/O DVT Returned. EDMS 19:20 T-Sheet-- Draft Copy was scanned into [employer] and attached to record. klr 08/05 15:03 Patient name changed from Ella\\S\\ \\S\\Pop\\S\\ to Ella\\S\\Tmomie\\S\\Pop. EDMS 15:14 EKG-ADULT Returned. EDMS Point of Care Testing: Blood Glucose: 08/03 11:55 Blood Glucose: 117 mg/dL; mcp Ranges: Order Results: Lab Order: Fingerstick Blood Sugar; SPEC'M 08/03/16 11:53 Test: BEDSIDE GLUCOSE; Value: 117; Range: 70-105; Abnormal: Above high normal; Units: MG/DL; Status: F Lab Order: CBC with Diff; SPEC'M 08/03/16 12:25 Test: WHITE BLOOD COUNT; Value: 9.5; Range: 4.0-10.0; Units: K/mm3; Status: F Test: RED BLOOD COUNT; Value: 5.21; Range: 4.30-6.10; Units: M/mm3; Status: F Test: HEMOGLOBIN; Value: 14.4; Range: 14.0-18.0; Units: g/dl; Status: F Test: HEMATOCRIT; Value: 43.3; Range: 42.0-52.0; Units: %; Status: F Test: MEAN CORPUSCULAR VOLUME; Value: 83.3; Range: 80.0-96.0; Units: fl; Status: F Test: MEAN CORPUSCULAR HEMOGLOBIN; Value: 27.7; Range: 27.0-33.0; Units: pg; Status: F Test: MEAN CORPUSCULAR HGB CONC; Value: 33.3; Range: 32.0-36.5; Units: g/dl; Status: F Test: RED CELL DISTRIBUTION WIDTH; Value: 12.8; Range: 11.5-14.5; Units: %; Status: F Test: PLATELET COUNT, AUTOMATED; Value: 315; Range: 150-450; Units: k/mm3; Status: F Test: NEUTROPHILS %; Value: 67.3; Range: 36.0-66.0; Abnormal: Above high normal; Units: %; Status: F Test: LYMPH %; Value: 21.5; Range: 24.0-44.0; Abnormal: Below low normal; Units: %; Status: F Test: MONO %; Value: 5.3; Range: 0.0-5.0; Abnormal: Above high normal; Units: %; Status: F Test: EOS %; Value: 2.2; Range: 0.0-3.0; Units: %; Status: F Test: BASO %; Value: 0.5; Range: 0.0-1.0; Units: %; Status: F Test: LARGE UNSTAINED CELL %; Value: 3.3; Range: 0.0-4.0; Units: %; Status: F Test: NEUTROPHILS #; Value: 6.4; Range: 1.8-7.7; Units: K/mm3; Status: F Test: LYMPH #; Value: 2.0; Range: 1.5-4.5; Units: K/mm3; Status: F Test: MONO #; Value: 0.5; Range: 0.0-0.8; Units: K/mm3; Status: F Test: EOS #; Value: 0.2; Range: 0.0-0.50; Units: K/mm3; Status: F Test: BASO #; Value: 0.0; Range: 0.0-0.2; Units: K/mm3; Status: F Test: LARGE UNSTAINED CELL #; Value: 0.3; Range: 0.0-0.4; Units: K/mm3; Status: F Lab Order: BNP; [facility] 08/03/16 12:25 Test: BRAIN NATRIURETIC PEPTIDE; Value: 16.6; Range: <100; Units: PG/ML; Status: F Lab Order: MED Profile; [facility] 08/03/16 12:25 Test: GLUCOSE, FASTING; Value: 126; Range: 70-105; Abnormal: Above high normal; Units: MG/DL; Status: F Test: BLOOD UREA NITROGEN; Value: 16; Range: 7-18; Units: MG/DL; Status: F Test: CREATININE FOR GFR; Value: 0.88; Range: 0.70-1.30; Units: MG/DL; Status: F Test: GLOMERULAR FILTRATION RATE; Value: > 60.0; Range: >56; Status: F Test: SODIUM LEVEL; Value: 141; Range: 136-145; Units: MEQ/L; Status: F Test: POTASSIUM SERUM; Value: 3.8; Range: 3.5-5.1; Units: MEQ/L; Status: F Test: CHLORIDE LEVEL; Value: 104; Range: 98-107; Units: MEQ/L; Status: F Test: CARBON DIOXIDE LEVEL; Value: 28; Range: 21-32; Units: MEQ/L; Status: F Test: ANION GAP; Value: 9; Range: 8-16; Units: MEQ/L; Status: F Test: CALCIUM LEVEL; Value: 9.1; Range: 8.5-10.1; Units: MG/DL; Status: F Test Note: ; Units are mL/min/1.73 m2 Chronic Kidney Disease Staging per NKF: Stage I & II GFR >=60 Normal to Mildly Decreased Stage III GFR 30-59 Moderately Decreased Stage IV GFR 15-29 Severely Decreased Stage V GFR <15 Very Little GFR Left ESRD GFR <15 on HEALTHCARE MANAGER Lab Order: D-Dimer Quant; [facility] 08/03/16 12:25 Test: D-DIMER QUANT; Value: 1222.1; Range: <500; Abnormal: Above high normal; Units: ng/ml; Status: F Lab Order: TROPONIN; [facility] 08/03/16 12:25 Test: TROPONIN I; Value: < 0.02; Range: < 0.10; Units: NG/ML; Status: F Test Note: ; Troponin I Reference Interval for Siemens [place] LOCI: 99th Percentile= 0.00-0.045 ng/ml Risk Stratification: <= 0.10 ng/ml Decreased Risk for Adverse Clinical Events. 0.10-1.50 ng/ml Increased Risk for Adverse Clinical Events. Evaluation of additional criterion and/or repeat testing in 2-6 hours is suggested to rule out myocardial damage. >= 1.50 ng/ml Indicative of Myocardial Injury. Radiology Order: Chest, 2 View (pa\\E\\lat) Test: Chest, 2 View (pa\\E\\lat) REASON FOR EXAMINATION: sob; Clinical: Shortness of breath.; ; Technique: PA and lateral.; ; Comparison: 07/20/2016.; ; Findings:; A subtle density in the left lung base is identified and may reflect trace; atelectasis. Remainder of lung sanchez are clear. The mediastinum and cardiac; silhouette are normal.; ; Impression:; Subtle density in the left lower lobe cannot be excluded.; ; ; Signed by; Ella Matthews MD 08/03/2016 12:41 P; Radiology Order: EKG-ADULT Test: EKG-ADULT REASON FOR EXAMINATION: chest pain, sob; Stationary ECG Study; [facility] - ED; ; Test Date: 2016-08-03; Pat Name: ELLA LORD Department:; Room: -; Gender: M Adapted Physical Education Specialist: don; : 1960 Requested By: YANETH DC PA-C.; Order Number: [id number] Edu MD: Neeta Dle Rio; Measurements; Intervals [place]; Rate: 78 P: 71; ID: [id number] QRS: 29; QRSD: 101 T: 24; QT: 360; QTc: 412; Interpretive Statements; SINUS RHYTHM; POSSIBLE PRIOR INFERIOR INFARCT; DECREASED RATE 07/04/16; Electronically Signed On 08-05-2016 15:01:26 EST by Neeta Del Rio; Radiology Order: CT Chest Angio R/O PE Test: CT Chest Angio R/O PE REASON FOR EXAMINATION: sob, + d-dimer; Clinical: Acute chest pain with shortness of breath and elevated D-dimer; levels.; ; Comparison: 07/04/2016.; ; Technique: Axial contrast enhanced images from the thoracic inlet to the upper; abdomen using 100 ml Isovue 370 intravenous contrast material with coronal and; sagittal re-formations.; ; Findings: Satisfactory enhancement of the pulmonary vasculature is achieved and; no filling defects are identified to suggest pulmonary embolus. Thoracic aorta; is normal caliber without aneurysm or dissection. Heart and pericardium are; normal. Bilateral lung sanchez are well aerated and clear without acute pulmonary; parenchymal consolidation or atelectasis. No nodule or mass lesion. No pleural; effusion/reaction. No pneumothorax. No adenopathy. The subtle density on recent; chest x-ray and left lower lobe corresponds to focal area of small scarring which; is unchanged compared to 07/04/2016.; ; Impression:; No evidence for pulmonary embolus.; No acute pleuroparenchymal or mediastinal process.; ; ; Signed by; Ella Matthews MD 08/03/2016 02:16 P; Radiology Order: US Lower Extremities Bilateral R/O DVT Test: US Lower Extremities Bilateral R/O DVT REASON FOR EXAMINATION: edema, + d-dimer; RIGHT LOWER EXTREMITY DOPPLER VENOUS ULTRASOUND: 08/03/2016.; ; Clinical history: Soft-tissue swelling and positive D-dimer test. Evaluate for; DVT.; ; Comparison: None.; ; Technique: The deep venous system of the right lower extremity is evaluated with; mattson scale imaging, compression ultrasound, color imaging and duplex Doppler; interrogation. Examination from the groin through the popliteal fossa into the; proximal calf.; ; Findings: There is full compressibility from the common femoral vein in the; inguinal region through the popliteal vein. Color imaging confirms patency; throughout the course of the deep venous system. There is respiratory variation; and augmented flow at all levels.; ; Impression:; 1. No Doppler venous ultrasound evidence of DVT in the right lower extremity.; ; ; Signed by; Reese Chavira MD 08/03/2016 03:07 P; ; ; ADDENDUM: 08/04/16 0931; The title of the above exam should read "BILATERAL LOWER EXTREMITY DOPPLER; VENOUS ULTRASOUND"; ; All images are available and reviewed at this time.; ; The study shows no Doppler venous ultrasound evidence of DVT in either of the; lower extremities.; ; Negative examination. Outcome: 16:25 Discharge ordered by Provider. ar2 16:35 Discharge Assessment: Patient awake, alert and oriented x 3. No cognitive and/or jmk functional deficits noted. Patient verbalized understanding of disposition instructions. patient administered narcotics - no. The following High Risk Discharge criteria are identified: None. Discharged to home ambulatory. Condition: good Condition: unchanged. Discharge instructions given to patient, Instructed on discharge instructions, follow up and referral plans. medication usage, Demonstrated understanding of instructions, medications, Pt was receptive of discharge instructions/ teaching. Prescriptions given X 1. CT Study completed. Ultrasound Study completed. Property :Personal belongings accompany Pt. 16:38 Patient left the ED. mo Signatures: Dispatcher [employer] EDMS Clifford Davis,RN RN Anna Rodriguez RN RN Sawyer Valle LoriLee, Rojelio Smith, Francois López RN RN mlb1 Mora Frias RN RN ck1 Yaneth Dc, CLARITZAC PAWhitney ar2 Tammy Baker, ANITA BUSINESS SPECIALIST Shayy Gordon RN RN ms18 Tye, Ann Cardona 2 Corrections: (The following items were deleted from the chart) 11:33 11:26 Presenting complaint: Patient states: high blood pressure, chronic cough since June 12. States increasing SOB and "I ahvent been able to check my blood sugar because I dont know how to use my equiptment 11:56 11:54 BP 150 / 94 Sitting Manual L Arm Large; nb2 nb2 12:05 11:31 Home Meds: Cymbalta Oral once daily; 12:05 11:31 Home Meds: pharmacy on [facility] on [address]; 12:19 12:15 EKG done. (by ED staff). Reviewed by Yaneth Dc PA-C nb2 nb2 Chart Complete MTDD
--- NOTE | 2016-08-05 17:40 | EDDOCDS ---
Physician Documentation [facility] Name: Cooper Lord Age: 55 yrs Sex: Male : 1960 Arrival Date: 08/03/2016 Time: 11:20 Bed I2 / M2 Private MD: Sally Kinney FNP Disposition: 08/03/16 16:25 Discharged to Home/Self Care. Impression: Cough. - Condition is Stable. - Discharge Instructions: Cough, Adult. - Prescriptions for benzonatate 200 mg Oral Capsule - take 1 capsule by ORAL route 3 times per day As needed; 30 capsule. - Medication Reconciliation, Local Pharmacy Hours form. - Follow up: Sally Kinney; When: Call to arrange an appointment; Reason: Recheck today's complaints. Follow up: Emergency Department; When: As needed; Reason: Fever > 102F, Trouble breathing. - Problem is chronic. - Symptoms are unchanged. Historical: - Allergies: lisinopril; - Home Meds: 1. gabapentin 400 mg Oral cap 1 cap four times a day 2. ibuprofen 800 mg Oral tab 1 tab 3 times per day PRN 3. Metamucil Smooth Texture 2 tablespoons Oral daily 4. Nexium 40 mg Oral cpDR 1 cap once daily 5. Cymbalta 30 mg oral cpDR 6. furosemide 20 mg Oral tab 1 tab once daily 7. verapamil 120 mg Oral C24P 1 cap once daily 8. montelukast 10 mg oral tab 1 tab once daily 9. Arnuity Ellipta 100 mcg/actuation inhalation dsdv 1 puff once daily 10. codeine sulfate 15 mg Oral tab every 8 hours PRN cough 11. ketoconazole 2 % Topical crea 2 times per day 12. meloxicam 15 mg oral tab once daily 13. valsartan 160 mg oral cap daily 14. Vitamin D2 50,000 unit oral cap once wkly 15. fluticasone 50 mcg/actuation nasal spsn 1 spray once daily 16. ProAir HFA 90 mcg/actuation inhalation HFAA 2 puffs every 6 hours PRN - PMHx: Osteoarthritis; Hypertension; Hypercholesterolemia; Diabetes - NIDDM: controlled; Schizophrenia; Bipolar disorder; Migraine Headaches; - PSHx: breast surgery; right hand surgery; - Social history: Smoking status: Patient states former smoker of tobacco. No barriers to communication noted, The patient speaks fluent Romanian, Speaks appropriately for age. - Family history: Not pertinent. - : The pt / caregiver states he / she is not on anticoagulants. Home medication list is obtained from the patient. - Exposure Risk Screening:: None identified. Vital Signs: 08/03 11:21 BP 166 / 102; Pulse 82; Resp 18; Temp 98.8; Pulse Ox 97% ; Weight 131.54 kg / 290 lbs; elp Height 5 ft. 9 in. (175.26 cm); 11:54 BP 150 / 94 LA Sitting (man/lg); nb2 16:35 BP 150 / 88; Pulse 80; Resp 16; Temp 97.6; jmk 11:21 Body Mass Index 42.83 (131.54 kg, 175.26 cm) elp 11:54 RN notified nb2 MDM: 11:41 Recheck B/P ordered. dt4 11:46 Accucheck ordered. ar2 11:53 Financial registration complete. lg 12:03 Fingerstick Blood Sugar Ordered. EDMS 12:06 Fingerstick Blood Sugar Reviewed. ar2 12:08 CBC with Diff Ordered. EDMS 12:08 BNP Ordered. EDMS 12:08 MED Profile Ordered. EDMS 12:08 D-Dimer Quant Ordered. EDMS 12:09 Chest, 2 View (pa\E\lat) Ordered. EDMS 12:12 IV Saline Lock ordered. ar2 12:13 ECG WITH READING ER PHYS+CARDIAG ordered. EDMS 12:17 TROPONIN Ordered. EDMS 12:36 [facility] Payment Agreement was scanned into [employer] and attached to record. lg 13:01 CBC with Diff Reviewed. ar2 13:01 D-Dimer Quant Reviewed. ar2 13:30 MED Profile Reviewed. ar2 13:30 BNP Reviewed. ar2 13:30 TROPONIN Reviewed. ar2 13:30 Chest, 2 View (pa\E\lat) Reviewed. ar2 13:52 CT Chest Angio R/O PE Ordered. EDMS 14:26 US Lower Extremities Bilateral R/O DVT Ordered. EDMS 08/04 19:20 T-Sheet-- Draft Copy was scanned into [employer] and attached to record. r Point of Care Testing: Blood Glucose: 08/03 11:55 Blood Glucose: 117 mg/dL; mcp Ranges: Signatures: Dispatcher [employer] EDMS Clifford Davis,RN RN Rashid Sepulveda, Reg Reg lg Mora Frias RN RN ck1 Miguel Dc PA-C PA-C ar2 Aniyah Capellan PA-C PA-C dt4 Catia Gamble The chart was reviewed and I authenticate all verbal orders and agree with the evaluation and treatment provided.Corrections: (The following items were deleted from the chart) 12: 11:31 Home Meds: Cymbalta Oral once daily; 12:05 11:31 Home Meds: pharmacy on [facility] on [address]; ck 12:15 12:13 TROPONIN+LAB ordered. EDMS EDMS Attachments: 12:36 [facility] Payment Agreement lg 08/04 19:20 T-Sheet-- Draft Copy klr Chart Complete MTDD
--- NOTE | 2016-08-06 21:35 | EDDOCDS ---
Nurse's Notes [facility] Name: Ella Lord Age: 55 yrs Sex: Male : 1960 Arrival Date: 08/03/2016 Time: 11:20 Bed I2 / M2 Private MD: Sally Kinney FNP Diagnosis: Cough Presentation: 08/03 11:26 Presenting complaint: Patient states: high blood pressure, chronic cough since June. States increasing SOB and "I haven't been able to check my blood sugar because I dont know how to use my equipment. Has not been able to take certain medications because of his chronic cough. Adult Sepsis Screening: The patient does not have new or worsening altered mentation. Patient's respiratory rate is less than 22. Systolic blood pressure is greater than 100. Patient has a qSOFA score of 0- Negative Sepsis Screen. Suicide/Homicide risk assessment- the patient denies having any suicidal and/or homicidal ideations and does not present with any other emotional, behavioral or mental health complaints. Status: Patient is not a eligibility services representative or dependent. Transition of care: patient was not received from another setting of care. 11:26 Acuity: JAKUB Level 3 ck1 11:26 Method Of Arrival: Walkin/Carried/Asstd ck1 Triage Assessment: 11:32 General: Appears obese, Behavior is appropriate for age, cooperative. Pain: Location: ck1 chest Pain currently is 9 out of 10 on a pain scale. HIV screening NA for this visit Offered previously. Respiratory: Onset: The symptoms/episode began/occurred gradually, Reports shortness of breath. GI: Abdomen is obese. Derm: Skin is intact, is healthy with good turgor, Skin is pink, warm & dry. Historical: - Allergies: lisinopril; - Home Meds: 1. gabapentin 400 mg Oral cap 1 cap four times a day 2. ibuprofen 800 mg Oral tab 1 tab 3 times per day PRN 3. Metamucil Smooth Texture 2 tablespoons Oral daily 4. Nexium 40 mg Oral cpDR 1 cap once daily 5. Cymbalta 30 mg oral cpDR 6. furosemide 20 mg Oral tab 1 tab once daily 7. verapamil 120 mg Oral C24P 1 cap once daily 8. montelukast 10 mg oral tab 1 tab once daily 9. Arnuity Ellipta 100 mcg/actuation inhalation dsdv 1 puff once daily 10. codeine sulfate 15 mg Oral tab every 8 hours PRN cough 11. ketoconazole 2 % Topical crea 2 times per day 12. meloxicam 15 mg oral tab once daily 13. valsartan 160 mg oral cap daily 14. Vitamin D2 50,000 unit oral cap once wkly 15. fluticasone 50 mcg/actuation nasal spsn 1 spray once daily 16. ProAir HFA 90 mcg/actuation inhalation HFAA 2 puffs every 6 hours PRN - PMHx: Osteoarthritis; Hypertension; Hypercholesterolemia; Diabetes - NIDDM: controlled; Schizophrenia; Bipolar disorder; Migraine Headaches; - PSHx: breast surgery; right hand surgery; - Social history: Smoking status: Patient states former smoker of tobacco. No barriers to communication noted, The patient speaks fluent Hungarian, Speaks appropriately for age. - Family history: Not pertinent. - : The pt / caregiver states he / she is not on anticoagulants. Home medication list is obtained from the patient. - Exposure Risk Screening:: None identified. Screenin:37 Screening information is obtained from the patient. Fall risk: No risks identified. jmk Assistance ADL's: requires no assistance with activities of daily living. Abuse/DV Screen: The patient / caregiver reports he/she is: not in a situation that causes fear, pain or injury. Nutritional screening: No deficits noted. Advance Directives: Currently, there is no health care proxy. There is no active DNR order. There is no living will. 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 Advance directive information has not previously been placed in an [facility] medical record. home support is adequate. Assessment: 12:33 General: Appears in no apparent distress, skin warm and dry color satisfactory moist jmk pink oral mucosa. indicates symptoms x months/ no observed resp distress indicates upper abd discomfort. Obese abdomen that is non distended.. Cardiovascular: Capillary refill < 3 seconds Clubbing of nail beds is present Heart tones S1 S2 present Edema is absent. Rhythm is regular. Respiratory: Airway is patent Respiratory effort is even, unlabored, Breath sounds are clear bilaterally. GI: Abdomen is non- distended obese. 14:07 General: Appears without resp[ distress. pleasant and conversive.. jmk 16:35 General: Appears has not demonstrated resp distress. rare cough noted, but has always jmk been tolerant of activity. Vital Signs: 11:21 BP 166 / 102; Pulse 82; Resp 18; Temp 98.8; Pulse Ox 97% ; Weight 131.54 kg; Height 5 elp ft. 9 in. (175.26 cm); 11:54 BP 150 / 94 LA Sitting (man/lg); nb2 16:35 BP 150 / 88; Pulse 80; Resp 16; Temp 97.6; jmk 11:21 Body Mass Index 42.83 (131.54 kg, 175.26 cm) elp 11:54 RN notified nb2 Vitals: 11:21 Log In Time: August 03, 2016 at 11:20. elp ED Course: 11:21 Patient visited by Tammy Baker PCA. elp 11:21 Sally Kinney is Private Physician. elp 11:21 Patient moved to Waiting elp 11:22 Patient visited by Tammy Baker PCA. elp 11:22 Patient moved to Pre RCE elp 11:28 Triage Initiated ck1 11:34 Patient moved to Triage 3 mlb1 11:45 Yaneth Dc PA-C is PHCP. ar2 11:45 Neeta Del Rio MD is Attending Physician. ar2 11:46 Patient visited by Yaneth Dc PA-C. ar2 11:54 Patient visited by Mora Frias RN. ck1 11:55 Patient visited by Ann Jesus. nb2 11:57 Patient visited by Ann Jesus. nb2 12:11 Patient moved to I2 / M2 ck1 12:15 EKG done. (by ED staff). Reviewed by Yaneth Dc PA-C. nb2 12:19 Patient visited by Ann Jesus. nb2 12:29 TROPONIN Sent. jmk 12:29 D-Dimer Quant Sent. jmk 12:29 MED Profile Sent. jmk 12:29 BNP Sent. jmk 12:29 CBC with Diff Sent. jmk 12:33 Inserted saline lock: 20 gauge in right hand. jmk 12:35 Patient name changed from Ella\\S\\\\S\\Pop\\S\\ to Ella\\S\\ \\S\\Pop. EDMS 12:36 [facility] [place] was scanned into [employer] and attached to record. lg 12:37 The patient / caregiver is instructed regarding the plan of care and ED course. jmk 12:38 Patient visited by Clifford Davis,RN. jmk 13:10 Chest, 2 View (pa\\E\\lat) Returned. EDMS 13:59 Patient visited by Francois Smith, VIOLETA. mlb1 14:08 Patient visited by Clifford Davis,RN. jmk 14:34 Patient moved to Ultrasound ssc 14:48 CT Chest Angio R/O PE Returned. EDMS 15:04 Patient moved to I2 / M2 jmk 15:14 Patient visited by Shayy Ross,VIOLETA. ms18 15:39 US Lower Extremities Bilateral R/O DVT Returned. EDMS 16:25 Sally Kinney is Referral Physician. ar2 16:35 Discontinued lock intact, bleeding controlled, pressure dressing applied, No jmk redness/swelling at site. No procedures done that require assistance. 08/04 10:02 US Lower Extremities Bilateral R/O DVT Returned. EDMS 19:20 T-Sheet-- Draft Copy was scanned into [employer] and attached to record. klr 08/05 15:03 Patient name changed from Ella\\S\\ \\S\\Pop\\S\\ to Ella\\S\\Tommie\\S\\Pop. EDMS 15:14 EKG-ADULT Returned. EDMS Point of Care Testing: Blood Glucose: 08/03 11:55 Blood Glucose: 117 mg/dL; mcp Ranges: Order Results: Lab Order: Fingerstick Blood Sugar; SPEC'M 08/03/16 11:53 Test: BEDSIDE GLUCOSE; Value: 117; Range: 70-105; Abnormal: Above high normal; Units: MG/DL; Status: F Lab Order: CBC with Diff; SPEC'M 08/03/16 12:25 Test: WHITE BLOOD COUNT; Value: 9.5; Range: 4.0-10.0; Units: K/mm3; Status: F Test: RED BLOOD COUNT; Value: 5.21; Range: 4.30-6.10; Units: M/mm3; Status: F Test: HEMOGLOBIN; Value: 14.4; Range: 14.0-18.0; Units: g/dl; Status: F Test: HEMATOCRIT; Value: 43.3; Range: 42.0-52.0; Units: %; Status: F Test: MEAN CORPUSCULAR VOLUME; Value: 83.3; Range: 80.0-96.0; Units: fl; Status: F Test: MEAN CORPUSCULAR HEMOGLOBIN; Value: 27.7; Range: 27.0-33.0; Units: pg; Status: F Test: MEAN CORPUSCULAR HGB CONC; Value: 33.3; Range: 32.0-36.5; Units: g/dl; Status: F Test: RED CELL DISTRIBUTION WIDTH; Value: 12.8; Range: 11.5-14.5; Units: %; Status: F Test: PLATELET COUNT, AUTOMATED; Value: 315; Range: 150-450; Units: k/mm3; Status: F Test: NEUTROPHILS %; Value: 67.3; Range: 36.0-66.0; Abnormal: Above high normal; Units: %; Status: F Test: LYMPH %; Value: 21.5; Range: 24.0-44.0; Abnormal: Below low normal; Units: %; Status: F Test: MONO %; Value: 5.3; Range: 0.0-5.0; Abnormal: Above high normal; Units: %; Status: F Test: EOS %; Value: 2.2; Range: 0.0-3.0; Units: %; Status: F Test: BASO %; Value: 0.5; Range: 0.0-1.0; Units: %; Status: F Test: LARGE UNSTAINED CELL %; Value: 3.3; Range: 0.0-4.0; Units: %; Status: F Test: NEUTROPHILS #; Value: 6.4; Range: 1.8-7.7; Units: K/mm3; Status: F Test: LYMPH #; Value: 2.0; Range: 1.5-4.5; Units: K/mm3; Status: F Test: MONO #; Value: 0.5; Range: 0.0-0.8; Units: K/mm3; Status: F Test: EOS #; Value: 0.2; Range: 0.0-0.50; Units: K/mm3; Status: F Test: BASO #; Value: 0.0; Range: 0.0-0.2; Units: K/mm3; Status: F Test: LARGE UNSTAINED CELL #; Value: 0.3; Range: 0.0-0.4; Units: K/mm3; Status: F Lab Order: BNP; [facility] 08/03/16 12:25 Test: BRAIN NATRIURETIC PEPTIDE; Value: 16.6; Range: <100; Units: PG/ML; Status: F Lab Order: MED Profile; [facility] 08/03/16 12:25 Test: GLUCOSE, FASTING; Value: 126; Range: 70-105; Abnormal: Above high normal; Units: MG/DL; Status: F Test: BLOOD UREA NITROGEN; Value: 16; Range: 7-18; Units: MG/DL; Status: F Test: CREATININE FOR GFR; Value: 0.88; Range: 0.70-1.30; Units: MG/DL; Status: F Test: GLOMERULAR FILTRATION RATE; Value: > 60.0; Range: >56; Status: F Test: SODIUM LEVEL; Value: 141; Range: 136-145; Units: MEQ/L; Status: F Test: POTASSIUM SERUM; Value: 3.8; Range: 3.5-5.1; Units: MEQ/L; Status: F Test: CHLORIDE LEVEL; Value: 104; Range: 98-107; Units: MEQ/L; Status: F Test: CARBON DIOXIDE LEVEL; Value: 28; Range: 21-32; Units: MEQ/L; Status: F Test: ANION GAP; Value: 9; Range: 8-16; Units: MEQ/L; Status: F Test: CALCIUM LEVEL; Value: 9.1; Range: 8.5-10.1; Units: MG/DL; Status: F Test Note: ; Units are mL/min/1.73 m2 Chronic Kidney Disease Staging per NKF: Stage I & II GFR >=60 Normal to Mildly Decreased Stage III GFR 30-59 Moderately Decreased Stage IV GFR 15-29 Severely Decreased Stage V GFR <15 Very Little GFR Left ESRD GFR <15 on INSIDE OUTSIDE SALES REPRESENTATIVE Lab Order: D-Dimer Quant; [facility] 08/03/16 12:25 Test: D-DIMER QUANT; Value: 1222.1; Range: <500; Abnormal: Above high normal; Units: ng/ml; Status: F Lab Order: TROPONIN; [facility] 08/03/16 12:25 Test: TROPONIN I; Value: < 0.02; Range: < 0.10; Units: NG/ML; Status: F Test Note: ; Troponin I Reference Interval for Siemens [place] LOCI: 99th Percentile= 0.00-0.045 ng/ml Risk Stratification: <= 0.10 ng/ml Decreased Risk for Adverse Clinical Events. 0.10-1.50 ng/ml Increased Risk for Adverse Clinical Events. Evaluation of additional criterion and/or repeat testing in 2-6 hours is suggested to rule out myocardial damage. >= 1.50 ng/ml Indicative of Myocardial Injury. Radiology Order: Chest, 2 View (pa\\E\\lat) Test: Chest, 2 View (pa\\E\\lat) REASON FOR EXAMINATION: sob; Clinical: Shortness of breath.; ; Technique: PA and lateral.; ; Comparison: 07/20/2016.; ; Findings:; A subtle density in the left lung base is identified and may reflect trace; atelectasis. Remainder of lung sanchez are clear. 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; : 1960 Requested By: YANETH DC PA-C.; Order Number: [id number] Edu MD: Neeta Del Rio; Measurements; Intervals [place]; Rate: 78 P: 71; RI: 196 QRS: 29; QRSD: 101 T: 24; QT: 360; QTc: 412; Interpretive Statements; SINUS RHYTHM; POSSIBLE PRIOR INFERIOR INFARCT; DECREASED RATE 07/04/16; Electronically Signed On 08-05-2016 15:01:26 EST by Neeta Del Rio; Radiology Order: CT Chest Angio R/O PE Test: CT Chest Angio R/O PE REASON FOR EXAMINATION: sob, + d-dimer; Clinical: Acute chest pain with shortness of breath and elevated D-dimer; levels.; ; Comparison: 07/04/2016.; ; Technique: Axial contrast enhanced images from the thoracic inlet to the upper; abdomen using 100 ml Isovue 370 intravenous contrast material with coronal and; sagittal re-formations.; ; Findings: Satisfactory enhancement of the pulmonary vasculature is achieved and; no filling defects are identified to suggest pulmonary embolus. Thoracic aorta; is normal caliber without aneurysm or dissection. Heart and pericardium are; normal. Bilateral lung sanchez are well aerated and clear without acute pulmonary; parenchymal consolidation or atelectasis. No nodule or mass lesion. No pleural; effusion/reaction. No pneumothorax. No adenopathy. The subtle density on recent; chest x-ray and left lower lobe corresponds to focal area of small scarring which; is unchanged compared to 07/04/2016.; ; Impression:; No evidence for pulmonary embolus.; No acute pleuroparenchymal or mediastinal process.; ; ; Signed by; Ella Matthews MD 08/03/2016 02:16 P; Radiology Order: US Lower Extremities Bilateral R/O DVT Test: US Lower Extremities Bilateral R/O DVT REASON FOR EXAMINATION: edema, + d-dimer; RIGHT LOWER EXTREMITY DOPPLER VENOUS ULTRASOUND: 08/03/2016.; ; Clinical history: Soft-tissue swelling and positive D-dimer test. Evaluate for; DVT.; ; Comparison: None.; ; Technique: The deep venous system of the right lower extremity is evaluated with; mattson scale imaging, compression ultrasound, color imaging and duplex Doppler; interrogation. Examination from the groin through the popliteal fossa into the; proximal calf.; ; Findings: There is full compressibility from the common femoral vein in the; inguinal region through the popliteal vein. Color imaging confirms patency; throughout the course of the deep venous system. There is respiratory variation; and augmented flow at all levels.; ; Impression:; 1. No Doppler venous ultrasound evidence of DVT in the right lower extremity.; ; ; Signed by; Reese Chavira MD 08/03/2016 03:07 P; ; ; ADDENDUM: 08/04/16 0931; The title of the above exam should read "BILATERAL LOWER EXTREMITY DOPPLER; VENOUS ULTRASOUND"; ; All images are available and reviewed at this time.; ; The study shows no Doppler venous ultrasound evidence of DVT in either of the; lower extremities.; ; Negative examination. Outcome: 16:25 Discharge ordered by Provider. ar2 16:35 Discharge Assessment: Patient awake, alert and oriented x 3. No cognitive and/or jmk functional deficits noted. Patient verbalized understanding of disposition instructions. patient administered narcotics - no. The following High Risk Discharge criteria are identified: None. Discharged to home ambulatory. Condition: good Condition: unchanged. Discharge instructions given to patient, Instructed on discharge instructions, follow up and referral plans. medication usage, Demonstrated understanding of instructions, medications, Pt was receptive of discharge instructions/ teaching. Prescriptions given X 1. CT Study completed. Ultrasound Study completed. Property :Personal belongings accompany Pt. 16:38 Patient left the ED. mo Signatures: Dispatcher [employer] EDMS Clifford Davis,RN RN Anna Rodriguez RN RN Sawyer Valle LoriLee, Rojelio Smith, Francois López RN RN mlb1 Mora Frias RN RN ck1 Yaneth Dc, CLARITZAC PAWhitney ar2 Tammy Baker, ANITA SLOT SHIFT SUPERVISOR Shayy Gordon RN RN ms18 Tye, Ann Cardona 2 Corrections: (The following items were deleted from the chart) 11:33 11:26 Presenting complaint: Patient states: high blood pressure, chronic cough since June 12. States increasing SOB and "I ahvent been able to check my blood sugar because I dont know how to use my equiptment 11:56 11:54 BP 150 / 94 Sitting Manual L Arm Large; nb2 nb2 12:05 11:31 Home Meds: Cymbalta Oral once daily; 12:05 11:31 Home Meds: pharmacy on [facility] on [address]; 12:19 12:15 EKG done. (by ED staff). Reviewed by Yaneth Dc PA-C nb2 nb2 Chart Complete MTDD
--- NOTE | 2016-08-06 21:35 | EDDOCDS ---
Physician Documentation [facility] Name: Cooper Lord Age: 55 yrs Sex: Male : 1960 Arrival Date: 08/03/2016 Time: 11:20 Bed I2 / M2 Private MD: Sally Kinney FNP Disposition: 08/03/16 16:25 Discharged to Home/Self Care. Impression: Cough. - Condition is Stable. - Discharge Instructions: Cough, Adult. - Prescriptions for benzonatate 200 mg Oral Capsule - take 1 capsule by ORAL route 3 times per day As needed; 30 capsule. - Medication Reconciliation, Local Pharmacy Hours form. - Follow up: Sally Kinney; When: Call to arrange an appointment; Reason: Recheck today's complaints. Follow up: Emergency Department; When: As needed; Reason: Fever > 102F, Trouble breathing. - Problem is chronic. - Symptoms are unchanged. Historical: - Allergies: lisinopril; - Home Meds: 1. gabapentin 400 mg Oral cap 1 cap four times a day 2. ibuprofen 800 mg Oral tab 1 tab 3 times per day PRN 3. Metamucil Smooth Texture 2 tablespoons Oral daily 4. Nexium 40 mg Oral cpDR 1 cap once daily 5. Cymbalta 30 mg oral cpDR 6. furosemide 20 mg Oral tab 1 tab once daily 7. verapamil 120 mg Oral C24P 1 cap once daily 8. montelukast 10 mg oral tab 1 tab once daily 9. Arnuity Ellipta 100 mcg/actuation inhalation dsdv 1 puff once daily 10. codeine sulfate 15 mg Oral tab every 8 hours PRN cough 11. ketoconazole 2 % Topical crea 2 times per day 12. meloxicam 15 mg oral tab once daily 13. valsartan 160 mg oral cap daily 14. Vitamin D2 50,000 unit oral cap once wkly 15. fluticasone 50 mcg/actuation nasal spsn 1 spray once daily 16. ProAir HFA 90 mcg/actuation inhalation HFAA 2 puffs every 6 hours PRN - PMHx: Osteoarthritis; Hypertension; Hypercholesterolemia; Diabetes - NIDDM: controlled; Schizophrenia; Bipolar disorder; Migraine Headaches; - PSHx: breast surgery; right hand surgery; - Social history: Smoking status: Patient states former smoker of tobacco. No barriers to communication noted, The patient speaks fluent Irish, Speaks appropriately for age. - Family history: Not pertinent. - : The pt / caregiver states he / she is not on anticoagulants. Home medication list is obtained from the patient. - Exposure Risk Screening:: None identified. Vital Signs: 08/03 11:21 BP 166 / 102; Pulse 82; Resp 18; Temp 98.8; Pulse Ox 97% ; Weight 131.54 kg / 290 lbs; elp Height 5 ft. 9 in. (175.26 cm); 11:54 BP 150 / 94 LA Sitting (man/lg); nb2 16:35 BP 150 / 88; Pulse 80; Resp 16; Temp 97.6; jmk 11:21 Body Mass Index 42.83 (131.54 kg, 175.26 cm) elp 11:54 RN notified nb2 MDM: 11:41 Recheck B/P ordered. dt4 11:46 Accucheck ordered. ar2 11:53 Financial registration complete. lg 12:03 Fingerstick Blood Sugar Ordered. EDMS 12:06 Fingerstick Blood Sugar Reviewed. ar2 12:08 CBC with Diff Ordered. EDMS 12:08 BNP Ordered. EDMS 12:08 MED Profile Ordered. EDMS 12:08 D-Dimer Quant Ordered. EDMS 12:09 Chest, 2 View (pa\E\lat) Ordered. EDMS 12:12 IV Saline Lock ordered. ar2 12:13 ECG WITH READING ER PHYS+CARDIAG ordered. EDMS 12:17 TROPONIN Ordered. EDMS 12:36 [facility] Payment Agreement was scanned into [employer] and attached to record. lg 13:01 CBC with Diff Reviewed. ar2 13:01 D-Dimer Quant Reviewed. ar2 13:30 MED Profile Reviewed. ar2 13:30 BNP Reviewed. ar2 13:30 TROPONIN Reviewed. ar2 13:30 Chest, 2 View (pa\E\lat) Reviewed. ar2 13:52 CT Chest Angio R/O PE Ordered. EDMS 14:26 US Lower Extremities Bilateral R/O DVT Ordered. EDMS 08/04 19:20 T-Sheet-- Draft Copy was scanned into [employer] and attached to record. r Point of Care Testing: Blood Glucose: 08/03 11:55 Blood Glucose: 117 mg/dL; mcp Ranges: Signatures: Dispatcher [employer] EDMS Clifford Davis,RN RN Rashid Sepulveda, Reg Reg lg Mora Frias RN RN ck1 Miguel Dc PA-C PA-C ar2 Aniyah Capellan PA-C PA-C dt4 Catia Gamble The chart was reviewed and I authenticate all verbal orders and agree with the evaluation and treatment provided.Corrections: (The following items were deleted from the chart) 12: 11:31 Home Meds: Cymbalta Oral once daily; 12:05 11:31 Home Meds: pharmacy on [facility] on [address]; ck 12:15 12:13 TROPONIN+LAB ordered. EDMS EDMS Attachments: 12:36 [facility] [place] Payment Agreement lg 08/04 19:20 T-Sheet-- Draft Copy klr Chart Complete MTDD
--- NOTE | 2016-08-06 21:35 | EDDOCDS ---
Physician Documentation [facility] Name: Cooper Lord Age: 55 yrs Sex: Male : 1960 Arrival Date: 08/03/2016 Time: 11:20 Bed I2 / M2 Private MD: Sally Kinney FNP Disposition: 08/03/16 16:25 Discharged to Home/Self Care. Impression: Cough. - Condition is Stable. - Discharge Instructions: Cough, Adult. - Prescriptions for benzonatate 200 mg Oral Capsule - take 1 capsule by ORAL route 3 times per day As needed; 30 capsule. - Medication Reconciliation, Local Pharmacy Hours form. - Follow up: Sally Kinney; When: Call to arrange an appointment; Reason: Recheck today's complaints. Follow up: Emergency Department; When: As needed; Reason: Fever > 102F, Trouble breathing. - Problem is chronic. - Symptoms are unchanged. Historical: - Allergies: lisinopril; - Home Meds: 1. gabapentin 400 mg Oral cap 1 cap four times a day 2. ibuprofen 800 mg Oral tab 1 tab 3 times per day PRN 3. Metamucil Smooth Texture 2 tablespoons Oral daily 4. Nexium 40 mg Oral cpDR 1 cap once daily 5. Cymbalta 30 mg oral cpDR 6. furosemide 20 mg Oral tab 1 tab once daily 7. verapamil 120 mg Oral C24P 1 cap once daily 8. montelukast 10 mg oral tab 1 tab once daily 9. Arnuity Ellipta 100 mcg/actuation inhalation dsdv 1 puff once daily 10. codeine sulfate 15 mg Oral tab every 8 hours PRN cough 11. ketoconazole 2 % Topical crea 2 times per day 12. meloxicam 15 mg oral tab once daily 13. valsartan 160 mg oral cap daily 14. Vitamin D2 50,000 unit oral cap once wkly 15. fluticasone 50 mcg/actuation nasal spsn 1 spray once daily 16. ProAir HFA 90 mcg/actuation inhalation HFAA 2 puffs every 6 hours PRN - PMHx: Osteoarthritis; Hypertension; Hypercholesterolemia; Diabetes - NIDDM: controlled; Schizophrenia; Bipolar disorder; Migraine Headaches; - PSHx: breast surgery; right hand surgery; - Social history: Smoking status: Patient states former smoker of tobacco. No barriers to communication noted, The patient speaks fluent Kazakh, Speaks appropriately for age. - Family history: Not pertinent. - : The pt / caregiver states he / she is not on anticoagulants. Home medication list is obtained from the patient. - Exposure Risk Screening:: None identified. Vital Signs: 08/03 11:21 BP 166 / 102; Pulse 82; Resp 18; Temp 98.8; Pulse Ox 97% ; Weight 131.54 kg / 290 lbs; elp Height 5 ft. 9 in. (175.26 cm); 11:54 BP 150 / 94 LA Sitting (man/lg); nb2 16:35 BP 150 / 88; Pulse 80; Resp 16; Temp 97.6; jmk 11:21 Body Mass Index 42.83 (131.54 kg, 175.26 cm) elp 11:54 RN notified nb2 MDM: 11:41 Recheck B/P ordered. dt4 11:46 Accucheck ordered. ar2 11:53 Financial registration complete. lg 12:03 Fingerstick Blood Sugar Ordered. EDMS 12:06 Fingerstick Blood Sugar Reviewed. ar2 12:08 CBC with Diff Ordered. EDMS 12:08 BNP Ordered. EDMS 12:08 MED Profile Ordered. EDMS 12:08 D-Dimer Quant Ordered. EDMS 12:09 Chest, 2 View (pa\E\lat) Ordered. EDMS 12:12 IV Saline Lock ordered. ar2 12:13 ECG WITH READING ER PHYS+CARDIAG ordered. EDMS 12:17 TROPONIN Ordered. EDMS 12:36 [facility] Payment Agreement was scanned into [employer] and attached to record. lg 13:01 CBC with Diff Reviewed. ar2 13:01 D-Dimer Quant Reviewed. ar2 13:30 MED Profile Reviewed. ar2 13:30 BNP Reviewed. ar2 13:30 TROPONIN Reviewed. ar2 13:30 Chest, 2 View (pa\E\lat) Reviewed. ar2 13:52 CT Chest Angio R/O PE Ordered. EDMS 14:26 US Lower Extremities Bilateral R/O DVT Ordered. EDMS 08/04 19:20 T-Sheet-- Draft Copy was scanned into [employer] and attached to record. r Point of Care Testing: Blood Glucose: 08/03 11:55 Blood Glucose: 117 mg/dL; mcp Ranges: Signatures: Dispatcher [employer] EDMS Clifford Davis,RN RN Rashid Sepulveda, Reg Reg lg Mora Frias RN RN ck1 Miguel Dc PA-C PA-C ar2 Aniyah Capellan PA-C PA-C dt4 Catia Gamble The chart was reviewed and I authenticate all verbal orders and agree with the evaluation and treatment provided.Corrections: (The following items were deleted from the chart) 12: 11:31 Home Meds: Cymbalta Oral once daily; 12:05 11:31 Home Meds: pharmacy on [facility] on [address]; ck 12:15 12:13 TROPONIN+LAB ordered. EDMS EDMS Attachments: 12:36 [facility] [place] lg 08/04 19:20 T-Sheet-- Draft Copy klr Chart Complete MTDD
--- NOTE | 2016-08-06 21:35 | EDDOCDS ---
Physician Documentation [facility] Name: Cooper Lord Age: 55 yrs Sex: Male : 1960 Arrival Date: 08/03/2016 Time: 11:20 Bed I2 / M2 Private MD: Sally Kinney FNP Disposition: 08/03/16 16:25 Discharged to Home/Self Care. Impression: Cough. - Condition is Stable. - Discharge Instructions: Cough, Adult. - Prescriptions for benzonatate 200 mg Oral Capsule - take 1 capsule by ORAL route 3 times per day As needed; 30 capsule. - Medication Reconciliation, Local Pharmacy Hours form. - Follow up: Sally Kinney; When: Call to arrange an appointment; Reason: Recheck today's complaints. Follow up: Emergency Department; When: As needed; Reason: Fever > 102F, Trouble breathing. - Problem is chronic. - Symptoms are unchanged. Historical: - Allergies: lisinopril; - Home Meds: 1. gabapentin 400 mg Oral cap 1 cap four times a day 2. ibuprofen 800 mg Oral tab 1 tab 3 times per day PRN 3. Metamucil Smooth Texture 2 tablespoons Oral daily 4. Nexium 40 mg Oral cpDR 1 cap once daily 5. Cymbalta 30 mg oral cpDR 6. furosemide 20 mg Oral tab 1 tab once daily 7. verapamil 120 mg Oral C24P 1 cap once daily 8. montelukast 10 mg oral tab 1 tab once daily 9. Arnuity Ellipta 100 mcg/actuation inhalation dsdv 1 puff once daily 10. codeine sulfate 15 mg Oral tab every 8 hours PRN cough 11. ketoconazole 2 % Topical crea 2 times per day 12. meloxicam 15 mg oral tab once daily 13. valsartan 160 mg oral cap daily 14. Vitamin D2 50,000 unit oral cap once wkly 15. fluticasone 50 mcg/actuation nasal spsn 1 spray once daily 16. ProAir HFA 90 mcg/actuation inhalation HFAA 2 puffs every 6 hours PRN - PMHx: Osteoarthritis; Hypertension; Hypercholesterolemia; Diabetes - NIDDM: controlled; Schizophrenia; Bipolar disorder; Migraine Headaches; - PSHx: breast surgery; right hand surgery; - Social history: Smoking status: Patient states former smoker of tobacco. No barriers to communication noted, The patient speaks fluent Welsh, Speaks appropriately for age. - Family history: Not pertinent. - : The pt / caregiver states he / she is not on anticoagulants. Home medication list is obtained from the patient. - Exposure Risk Screening:: None identified. Vital Signs: 08/03 11:21 BP 166 / 102; Pulse 82; Resp 18; Temp 98.8; Pulse Ox 97% ; Weight 131.54 kg / 290 lbs; elp Height 5 ft. 9 in. (175.26 cm); 11:54 BP 150 / 94 LA Sitting (man/lg); nb2 16:35 BP 150 / 88; Pulse 80; Resp 16; Temp 97.6; jmk 11:21 Body Mass Index 42.83 (131.54 kg, 175.26 cm) elp 11:54 RN notified nb2 MDM: 11:41 Recheck B/P ordered. dt4 11:46 Accucheck ordered. ar2 11:53 Financial registration complete. lg 12:03 Fingerstick Blood Sugar Ordered. EDMS 12:06 Fingerstick Blood Sugar Reviewed. ar2 12:08 CBC with Diff Ordered. EDMS 12:08 BNP Ordered. EDMS 12:08 MED Profile Ordered. EDMS 12:08 D-Dimer Quant Ordered. EDMS 12:09 Chest, 2 View (pa\E\lat) Ordered. EDMS 12:12 IV Saline Lock ordered. ar2 12:13 ECG WITH READING ER PHYS+CARDIAG ordered. EDMS 12:17 TROPONIN Ordered. EDMS 12:36 [facility] Payment Agreement was scanned into [employer] and attached to record. lg 13:01 CBC with Diff Reviewed. ar2 13:01 D-Dimer Quant Reviewed. ar2 13:30 MED Profile Reviewed. ar2 13:30 BNP Reviewed. ar2 13:30 TROPONIN Reviewed. ar2 13:30 Chest, 2 View (pa\E\lat) Reviewed. ar2 13:52 CT Chest Angio R/O PE Ordered. EDMS 14:26 US Lower Extremities Bilateral R/O DVT Ordered. EDMS 08/04 19:20 T-Sheet-- Draft Copy was scanned into [employer] and attached to record. r Point of Care Testing: Blood Glucose: 08/03 11:55 Blood Glucose: 117 mg/dL; mcp Ranges: Signatures: Dispatcher [employer] EDMS Clifford Davis,RN RN Rashid Sepulveda, Reg Reg lg Mora Frias RN RN ck1 iMguel Dc PA-C PA-C ar2 Aniyah Capellan PA-C PA-C dt4 Catia Gamble The chart was reviewed and I authenticate all verbal orders and agree with the evaluation and treatment provided.Corrections: (The following items were deleted from the chart) 12: 11:31 Home Meds: Cymbalta Oral once daily; 12:05 11:31 Home Meds: pharmacy on [facility] on [address]; ck 12:15 12:13 TROPONIN+LAB ordered. EDMS EDMS Attachments: 12:36 [facility] [place] Agreement lg 08/04 19:20 T-Sheet-- Draft Copy klr Chart Complete MTDD
--- NOTE | 2016-08-06 21:35 | EDDOCDS ---
Physician Documentation [facility] Name: Cooper Lodr Age: 55 yrs Sex: Male : 1960 Arrival Date: 08/03/2016 Time: 11:20 Bed I2 / M2 Private MD: Sally Kinney FNP Disposition: 08/03/16 16:25 Discharged to Home/Self Care. Impression: Cough. - Condition is Stable. - Discharge Instructions: Cough, Adult. - Prescriptions for benzonatate 200 mg Oral Capsule - take 1 capsule by ORAL route 3 times per day As needed; 30 capsule. - Medication Reconciliation, Local Pharmacy Hours form. - Follow up: Sally Kinney; When: Call to arrange an appointment; Reason: Recheck today's complaints. Follow up: Emergency Department; When: As needed; Reason: Fever > 102F, Trouble breathing. - Problem is chronic. - Symptoms are unchanged. Historical: - Allergies: lisinopril; - Home Meds: 1. gabapentin 400 mg Oral cap 1 cap four times a day 2. ibuprofen 800 mg Oral tab 1 tab 3 times per day PRN 3. Metamucil Smooth Texture 2 tablespoons Oral daily 4. Nexium 40 mg Oral cpDR 1 cap once daily 5. Cymbalta 30 mg oral cpDR 6. furosemide 20 mg Oral tab 1 tab once daily 7. verapamil 120 mg Oral C24P 1 cap once daily 8. montelukast 10 mg oral tab 1 tab once daily 9. Arnuity Ellipta 100 mcg/actuation inhalation dsdv 1 puff once daily 10. codeine sulfate 15 mg Oral tab every 8 hours PRN cough 11. ketoconazole 2 % Topical crea 2 times per day 12. meloxicam 15 mg oral tab once daily 13. valsartan 160 mg oral cap daily 14. Vitamin D2 50,000 unit oral cap once wkly 15. fluticasone 50 mcg/actuation nasal spsn 1 spray once daily 16. ProAir HFA 90 mcg/actuation inhalation HFAA 2 puffs every 6 hours PRN - PMHx: Osteoarthritis; Hypertension; Hypercholesterolemia; Diabetes - NIDDM: controlled; Schizophrenia; Bipolar disorder; Migraine Headaches; - PSHx: breast surgery; right hand surgery; - Social history: Smoking status: Patient states former smoker of tobacco. No barriers to communication noted, The patient speaks fluent Indonesian, Speaks appropriately for age. - Family history: Not pertinent. - : The pt / caregiver states he / she is not on anticoagulants. Home medication list is obtained from the patient. - Exposure Risk Screening:: None identified. Vital Signs: 08/03 11:21 BP 166 / 102; Pulse 82; Resp 18; Temp 98.8; Pulse Ox 97% ; Weight 131.54 kg / 290 lbs; elp Height 5 ft. 9 in. (175.26 cm); 11:54 BP 150 / 94 LA Sitting (man/lg); nb2 16:35 BP 150 / 88; Pulse 80; Resp 16; Temp 97.6; jmk 11:21 Body Mass Index 42.83 (131.54 kg, 175.26 cm) elp 11:54 RN notified nb2 MDM: 11:41 Recheck B/P ordered. dt4 11:46 Accucheck ordered. ar2 11:53 Financial registration complete. lg 12:03 Fingerstick Blood Sugar Ordered. EDMS 12:06 Fingerstick Blood Sugar Reviewed. ar2 12:08 CBC with Diff Ordered. EDMS 12:08 BNP Ordered. EDMS 12:08 MED Profile Ordered. EDMS 12:08 D-Dimer Quant Ordered. EDMS 12:09 Chest, 2 View (pa\E\lat) Ordered. EDMS 12:12 IV Saline Lock ordered. ar2 12:13 ECG WITH READING ER PHYS+CARDIAG ordered. EDMS 12:17 TROPONIN Ordered. EDMS 12:36 [facility] [place] Payment Agreement was scanned into [employer] and attached to record. lg 13:01 CBC with Diff Reviewed. ar2 13:01 D-Dimer Quant Reviewed. ar2 13:30 MED Profile Reviewed. ar2 13:30 BNP Reviewed. ar2 13:30 TROPONIN Reviewed. ar2 13:30 Chest, 2 View (pa\E\lat) Reviewed. ar2 13:52 CT Chest Angio R/O PE Ordered. EDMS 14:26 US Lower Extremities Bilateral R/O DVT Ordered. EDMS 08/04 19:20 T-Sheet-- Draft Copy was scanned into [employer] and attached to record. r Point of Care Testing: Blood Glucose: 08/03 11:55 Blood Glucose: 117 mg/dL; mcp Ranges: Signatures: Dispatcher [employer] EDMS Clifford Davis,RN RN Rashid Sepulveda, Reg Reg lg Mora Frias RN RN ck1 Miguel Dc PA-C PA-C ar2 Aniyah Capellan PA-C PA-C dt4 Catia Gamble The chart was reviewed and I authenticate all verbal orders and agree with the evaluation and treatment provided.Corrections: (The following items were deleted from the chart) 12: 11:31 Home Meds: Cymbalta Oral once daily; 12:05 11:31 Home Meds: pharmacy on [facility] on [address]; ck 12:15 12:13 TROPONIN+LAB ordered. EDMS EDMS Attachments: 12:36 [facility] [place] Payment Agreement lg 08/04 19:20 T-Sheet-- Draft Copy klr Chart Complete MTDD
--- NOTE | 2016-08-06 21:36 | EDDOCDS ---
Nurse's Notes [facility] Name: Ella Lord Age: 55 yrs Sex: Male : 1960 Arrival Date: 08/03/2016 Time: 11:20 Bed I2 / M2 Private MD: Sally Kinney FNP Diagnosis: Cough Presentation: 08/03 11:26 Presenting complaint: Patient states: high blood pressure, chronic cough since June. States increasing SOB and "I haven't been able to check my blood sugar because I dont know how to use my equipment. Has not been able to take certain medications because of his chronic cough. Adult Sepsis Screening: The patient does not have new or worsening altered mentation. Patient's respiratory rate is less than 22. Systolic blood pressure is greater than 100. Patient has a qSOFA score of 0- Negative Sepsis Screen. Suicide/Homicide risk assessment- the patient denies having any suicidal and/or homicidal ideations and does not present with any other emotional, behavioral or mental health complaints. 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 Transition of care: patient was not received from another setting of care. 11:26 Acuity: JAKUB Level 3 ck1 11:26 Method Of Arrival: Walkin/Carried/Asstd ck1 Triage Assessment: 11:32 General: Appears obese, Behavior is appropriate for age, cooperative. Pain: Location: ck1 chest Pain currently is 9 out of 10 on a pain scale. HIV screening NA for this visit Offered previously. Respiratory: Onset: The symptoms/episode began/occurred gradually, Reports shortness of breath. GI: Abdomen is obese. Derm: Skin is intact, is healthy with good turgor, Skin is pink, warm & dry. Historical: - Allergies: lisinopril; - Home Meds: 1. gabapentin 400 mg Oral cap 1 cap four times a day 2. ibuprofen 800 mg Oral tab 1 tab 3 times per day PRN 3. Metamucil Smooth Texture 2 tablespoons Oral daily 4. Nexium 40 mg Oral cpDR 1 cap once daily 5. Cymbalta 30 mg oral cpDR 6. furosemide 20 mg Oral tab 1 tab once daily 7. verapamil 120 mg Oral C24P 1 cap once daily 8. montelukast 10 mg oral tab 1 tab once daily 9. Arnuity Ellipta 100 mcg/actuation inhalation dsdv 1 puff once daily 10. codeine sulfate 15 mg Oral tab every 8 hours PRN cough 11. ketoconazole 2 % Topical crea 2 times per day 12. meloxicam 15 mg oral tab once daily 13. valsartan 160 mg oral cap daily 14. Vitamin D2 50,000 unit oral cap once wkly 15. fluticasone 50 mcg/actuation nasal spsn 1 spray once daily 16. ProAir HFA 90 mcg/actuation inhalation HFAA 2 puffs every 6 hours PRN - PMHx: Osteoarthritis; Hypertension; Hypercholesterolemia; Diabetes - NIDDM: controlled; Schizophrenia; Bipolar disorder; Migraine Headaches; - PSHx: breast surgery; right hand surgery; - Social history: Smoking status: Patient states former smoker of tobacco. No barriers to communication noted, The patient speaks fluent Greenlandic, Speaks appropriately for age. - Family history: Not pertinent. - : The pt / caregiver states he / she is not on anticoagulants. Home medication list is obtained from the patient. - Exposure Risk Screening:: None identified. Screenin:37 Screening information is obtained from the patient. Fall risk: No risks identified. jmk Assistance ADL's: requires no assistance with activities of daily living. Abuse/DV Screen: The patient / caregiver reports he/she is: not in a situation that causes fear, pain or injury. Nutritional screening: No deficits noted. Advance Directives: Currently, there is no health care proxy. There is no active DNR order. There is no living will. There is no Power of [place]. Advance directive information has not previously been placed in an [facility] medical record. home support is adequate. Assessment: 12:33 General: Appears in no apparent distress, skin warm and dry color satisfactory moist jmk pink oral mucosa. indicates symptoms x months/ no observed resp distress indicates upper abd discomfort. Obese abdomen that is non distended.. Cardiovascular: Capillary refill < 3 seconds Clubbing of nail beds is present Heart tones S1 S2 present Edema is absent. Rhythm is regular. Respiratory: Airway is patent Respiratory effort is even, unlabored, Breath sounds are clear bilaterally. GI: Abdomen is non- distended obese. 14:07 General: Appears without resp[ distress. pleasant and conversive.. jmk 16:35 General: Appears has not demonstrated resp distress. rare cough noted, but has always jmk been tolerant of activity. Vital Signs: 11:21 BP 166 / 102; Pulse 82; Resp 18; Temp 98.8; Pulse Ox 97% ; Weight 131.54 kg; Height 5 elp ft. 9 in. (175.26 cm); 11:54 BP 150 / 94 LA Sitting (man/lg); nb2 16:35 BP 150 / 88; Pulse 80; Resp 16; Temp 97.6; jmk 11:21 Body Mass Index 42.83 (131.54 kg, 175.26 cm) elp 11:54 RN notified nb2 Vitals: 11:21 Log In Time: August 03, 2016 at 11:20. elp ED Course: 11:21 Patient visited by Tammy Baker PCA. elp 11:21 Sally Kinney is Private Physician. elp 11:21 Patient moved to Waiting elp 11:22 Patient visited by Tammy Baker PCA. elp 11:22 Patient moved to Pre RCE elp 11:28 Triage Initiated ck1 11:34 Patient moved to Triage 3 mlb1 11:45 Yaneth Dc PA-C is PHCP. ar2 11:45 Neeta Del Rio MD is Attending Physician. ar2 11:46 Patient visited by Yaneth Dc PA-C. ar2 11:54 Patient visited by Mora Frias RN. ck1 11:55 Patient visited by Ann Jesus. nb2 11:57 Patient visited by Ann Jesus. nb2 12:11 Patient moved to I2 / M2 ck1 12:15 EKG done. (by ED staff). Reviewed by Yaneth Dc PA-C. nb2 12:19 Patient visited by Ann Jesus. nb2 12:29 TROPONIN Sent. jmk 12:29 D-Dimer Quant Sent. jmk 12:29 MED Profile Sent. jmk 12:29 BNP Sent. jmk 12:29 CBC with Diff Sent. jmk 12:33 Inserted saline lock: 20 gauge in right hand. jmk 12:35 Patient name changed from Ella\\S\\\\S\\Pop\\S\\ to Ella\\S\\ \\S\\Pop. EDMS 12:36 [facility] was scanned into [employer] and attached to record. lg 12:37 The patient / caregiver is instructed regarding the plan of care and ED course. jmk 12:38 Patient visited by Clifford Davis,RN. jmk 13:10 Chest, 2 View (pa\\E\\lat) Returned. EDMS 13:59 Patient visited by Francois Smith, VIOLETA. mlb1 14:08 Patient visited by Clifford Davis,RN. jmk 14:34 Patient moved to Ultrasound ssc 14:48 CT Chest Angio R/O PE Returned. EDMS 15:04 Patient moved to I2 / M2 jmk 15:14 Patient visited by Shayy Ross,VIOLETA. ms18 15:39 US Lower Extremities Bilateral R/O DVT Returned. EDMS 16:25 Sally Kinney is Referral Physician. ar2 16:35 Discontinued lock intact, bleeding controlled, pressure dressing applied, No jmk redness/swelling at site. No procedures done that require assistance. 08/04 10:02 US Lower Extremities Bilateral R/O DVT Returned. EDMS 19:20 T-Sheet-- Draft Copy was scanned into Viewglass and attached to record. klr 08/05 15:03 Patient name changed from Ella\\S\\ \\S\\Pop\\S\\ to Ella\\S\\Tommie\\S\\Pop. EDMS 15:14 EKG-ADULT Returned. EDMS Point of Care Testing: Blood Glucose: 08/03 11:55 Blood Glucose: 117 mg/dL; mcp Ranges: Order Results: Lab Order: Fingerstick Blood Sugar; SPEC'M 08/03/16 11:53 Test: BEDSIDE GLUCOSE; Value: 117; Range: 70-105; Abnormal: Above high normal; Units: MG/DL; Status: F Lab Order: CBC with Diff; SPEC'M 08/03/16 12:25 Test: WHITE BLOOD COUNT; Value: 9.5; Range: 4.0-10.0; Units: K/mm3; Status: F Test: RED BLOOD COUNT; Value: 5.21; Range: 4.30-6.10; Units: M/mm3; Status: F Test: HEMOGLOBIN; Value: 14.4; Range: 14.0-18.0; Units: g/dl; Status: F Test: HEMATOCRIT; Value: 43.3; Range: 42.0-52.0; Units: %; Status: F Test: MEAN CORPUSCULAR VOLUME; Value: 83.3; Range: 80.0-96.0; Units: fl; Status: F Test: MEAN CORPUSCULAR HEMOGLOBIN; Value: 27.7; Range: 27.0-33.0; Units: pg; Status: F Test: MEAN CORPUSCULAR HGB CONC; Value: 33.3; Range: 32.0-36.5; Units: g/dl; Status: F Test: RED CELL DISTRIBUTION WIDTH; Value: 12.8; Range: 11.5-14.5; Units: %; Status: F Test: PLATELET COUNT, AUTOMATED; Value: 315; Range: 150-450; Units: k/mm3; Status: F Test: NEUTROPHILS %; Value: 67.3; Range: 36.0-66.0; Abnormal: Above high normal; Units: %; Status: F Test: LYMPH %; Value: 21.5; Range: 24.0-44.0; Abnormal: Below low normal; Units: %; Status: F Test: MONO %; Value: 5.3; Range: 0.0-5.0; Abnormal: Above high normal; Units: %; Status: F Test: EOS %; Value: 2.2; Range: 0.0-3.0; Units: %; Status: F Test: BASO %; Value: 0.5; Range: 0.0-1.0; Units: %; Status: F Test: LARGE UNSTAINED CELL %; Value: 3.3; Range: 0.0-4.0; Units: %; Status: F Test: NEUTROPHILS #; Value: 6.4; Range: 1.8-7.7; Units: K/mm3; Status: F Test: LYMPH #; Value: 2.0; Range: 1.5-4.5; Units: K/mm3; Status: F Test: MONO #; Value: 0.5; Range: 0.0-0.8; Units: K/mm3; Status: F Test: EOS #; Value: 0.2; Range: 0.0-0.50; Units: K/mm3; Status: F Test: BASO #; Value: 0.0; Range: 0.0-0.2; Units: K/mm3; Status: F Test: LARGE UNSTAINED CELL #; Value: 0.3; Range: 0.0-0.4; Units: K/mm3; Status: F Lab Order: BNP; [facility]' 08/03/16 12:25 Test: BRAIN NATRIURETIC PEPTIDE; Value: 16.6; Range: <100; Units: PG/ML; Status: F Lab Order: MED Profile; [facility]' 08/03/16 12:25 Test: GLUCOSE, FASTING; Value: 126; Range: 70-105; Abnormal: Above high normal; Units: MG/DL; Status: F Test: BLOOD UREA NITROGEN; Value: 16; Range: 7-18; Units: MG/DL; Status: F Test: CREATININE FOR GFR; Value: 0.88; Range: 0.70-1.30; Units: MG/DL; Status: F Test: GLOMERULAR FILTRATION RATE; Value: > 60.0; Range: >56; Status: F Test: SODIUM LEVEL; Value: 141; Range: 136-145; Units: MEQ/L; Status: F Test: POTASSIUM SERUM; Value: 3.8; Range: 3.5-5.1; Units: MEQ/L; Status: F Test: CHLORIDE LEVEL; Value: 104; Range: 98-107; Units: MEQ/L; Status: F Test: CARBON DIOXIDE LEVEL; Value: 28; Range: 21-32; Units: MEQ/L; Status: F Test: ANION GAP; Value: 9; Range: 8-16; Units: MEQ/L; Status: F Test: CALCIUM LEVEL; Value: 9.1; Range: 8.5-10.1; Units: MG/DL; Status: F Test Note: ; Units are mL/min/1.73 m2 Chronic Kidney Disease Staging per NKF: Stage I & II GFR >=60 Normal to Mildly Decreased Stage III GFR 30-59 Moderately Decreased Stage IV GFR 15-29 Severely Decreased Stage V GFR <15 Very Little GFR Left ESRD GFR <15 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 0.10-1.50 ng/ml Increased Risk for Adverse Clinical Events. Evaluation of additional criterion and/or repeat testing in 2-6 hours is suggested to rule out myocardial damage. >= 1.50 ng/ml Indicative of Myocardial Injury. Radiology Order: Chest, 2 View (pa\\E\\lat) Test: Chest, 2 View (pa\\E\\lat) REASON FOR EXAMINATION: sob; Clinical: Shortness of breath.; ; Technique: PA and lateral.; ; Comparison: 07/20/2016.; ; Findings:; A subtle density in the left lung base is identified and may reflect trace; atelectasis. Remainder of lung sanchez are clear. 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; : 1960 Requested By: YANETH DC PA-C.; Order Number: [id number] Edu MD: Neeta Del Rio; Measurements; Intervals [place]; Rate: 78 P: 71; [place]: 196 QRS: 29; QRSD: 101 T: 24; QT: 360; QTc: 412; Interpretive Statements; SINUS RHYTHM; POSSIBLE PRIOR INFERIOR INFARCT; DECREASED RATE 07/04/16; Electronically Signed On 08-05-2016 15:01:26 EST by Neeta Del Rio; Radiology Order: CT Chest Angio R/O PE Test: CT Chest Angio R/O PE REASON FOR EXAMINATION: sob, + d-dimer; Clinical: Acute chest pain with shortness of breath and elevated D-dimer; levels.; ; Comparison: 07/04/2016.; ; Technique: Axial contrast enhanced images from the thoracic inlet to the upper; abdomen using 100 ml Isovue 370 intravenous contrast material with coronal and; sagittal re-formations.; ; Findings: Satisfactory enhancement of the pulmonary vasculature is achieved and; no filling defects are identified to suggest pulmonary embolus. Thoracic aorta; is normal caliber without aneurysm or dissection. Heart and pericardium are; normal. Bilateral lung sanchez are well aerated and clear without acute pulmonary; parenchymal consolidation or atelectasis. No nodule or mass lesion. No pleural; effusion/reaction. No pneumothorax. No adenopathy. The subtle density on recent; chest x-ray and left lower lobe corresponds to focal area of small scarring which; is unchanged compared to 07/04/2016.; ; Impression:; No evidence for pulmonary embolus.; No acute pleuroparenchymal or mediastinal process.; ; ; Signed by; Ella Mattehws MD 08/03/2016 02:16 P; Radiology Order: US Lower Extremities Bilateral R/O DVT Test: US Lower Extremities Bilateral R/O DVT REASON FOR EXAMINATION: edema, + d-dimer; RIGHT LOWER EXTREMITY DOPPLER VENOUS ULTRASOUND: 08/03/2016.; ; Clinical history: Soft-tissue swelling and positive D-dimer test. Evaluate for; DVT.; ; Comparison: None.; ; Technique: The deep venous system of the right lower extremity is evaluated with; mattson scale imaging, compression ultrasound, color imaging and duplex Doppler; interrogation. Examination from the groin through the popliteal fossa into the; proximal calf.; ; Findings: There is full compressibility from the common femoral vein in the; inguinal region through the popliteal vein. Color imaging confirms patency; throughout the course of the deep venous system. There is respiratory variation; and augmented flow at all levels.; ; Impression:; 1. No Doppler venous ultrasound evidence of DVT in the right lower extremity.; ; ; Signed by; Reese Chavira MD 08/03/2016 03:07 P; ; ; ADDENDUM: 08/04/16 0931; The title of the above exam should read "BILATERAL LOWER EXTREMITY DOPPLER; VENOUS ULTRASOUND"; ; All images are available and reviewed at this time.; ; The study shows no Doppler venous ultrasound evidence of DVT in either of the; lower extremities.; ; Negative examination. Outcome: 16:25 Discharge ordered by Provider. ar2 16:35 Discharge Assessment: Patient awake, alert and oriented x 3. No cognitive and/or jmk functional deficits noted. Patient verbalized understanding of disposition instructions. patient administered narcotics - no. The following High Risk Discharge criteria are identified: None. Discharged to home ambulatory. Condition: good Condition: unchanged. Discharge instructions given to patient, Instructed on discharge instructions, follow up and referral plans. medication usage, Demonstrated understanding of instructions, medications, Pt was receptive of discharge instructions/ teaching. Prescriptions given X 1. CT Study completed. Ultrasound Study completed. Property :Personal belongings accompany Pt. 16:38 Patient left the ED. mo Signatures: Dispatcher [employer] EDMS Clifford Davis,RN RN Anna Rodriguez RN RN Sawyer Valle LoriLee, Rojelio Smith, Francois López RN RN mlb1 Mora Frias RN RN ck1 Yaneth Dc, CLARITZAC PAWhitney ar2 Tammy aBker, ANITA HOT PLATE PLYWOOD PRESS FEEDER Shayy Gordon RN RN ms18 Tye, Ann Cardona 2 Corrections: (The following items were deleted from the chart) 11:33 11:26 Presenting complaint: Patient states: high blood pressure, chronic cough since June 12. States increasing SOB and "I ahvent been able to check my blood sugar because I dont know how to use my equiptment 11:56 11:54 BP 150 / 94 Sitting Manual L Arm Large; nb2 nb2 12:05 11:31 Home Meds: Cymbalta Oral once daily; 12:05 11:31 Home Meds: pharmacy on [facility] on [address]; 12:19 12:15 EKG done. (by ED staff). Reviewed by Yaneth Dc PA-C nb2 nb2 Chart Complete MTDD
== END 2016-08-03 16:38 | disposition home or self-care (01) ==
LOC: M ED 11:20
DX: R05 Cough (principal); J20.9 Acute bronchitis, unspecified; R06.02 Shortness of breath; M19.90 Unspecified osteoarthritis, unspecified site; I10 Essential (primary) hypertension; E78.00 Pure hypercholesterolemia, unspecified; E11.9 Type 2 diabetes mellitus without complications; F20.9 Schizophrenia, unspecified; F31.9 Bipolar disorder, unspecified; G43.909 Migraine, unspecified, not intractable, without status migrainosus; Z87.891 Personal history of nicotine dependence; Z79.899 Other long term (current) drug therapy; Z79.1 Long term (current) use of non-steroidal anti-inflammatories (NSAID); Z88.8 Allergy status to other drugs, medicaments and biological substances
CPT/HCPCS: 36415; 71020; 71275; 80048; 83880; 84484; 85025; 85379; 93005; 93306; 93970; 94060; 94726; 94729; 99284; Q9967

== ENCOUNTER → 2016-08-03 | Outpatient (CLI) | payer MEDICARE, MEDICAID ==
--- NOTE | 2016-08-06 06:53 | ECHO ---
DATE OF PROCEDURE: 08/03/2016 REFERRING PHYSICIAN: Sally Kinney NP PATIENT LOCATION: Outpatient REASON FOR ECHOCARDIOGRAM: Shortness of breath. 2D MEASUREMENTS: IVS: 1.2 cm LV: 5.6 cm LVPW: 1.2 cm LA: 4.1 cm Aorta: 3.5 cm IVC: 1.6 cm DOPPLER MEASUREMENTS: Peak velocity across the aortic valve: 1.1 m/s Peak velocity across the LVOT: 0.88 m/s Mitral E: 0.69, Mitral A: 0.56, with a ratio of 1.2 Maximum tricuspid valve velocity: 2.4 m/s 2D COMMENTS: 1. Mildly enlarged left ventricle with normal left ventricular wall thickness and a normal global left ventricular systolic function. Left ventricular systolic ejection fraction is estimated at 60 to 65%. 2. Mildly enlarged left atrium. Normal right atrium and right ventricle noted in limited views. 3. The atrial septum appeared to be normal without evidence of defect or shunt. 4. Normal aortic root. 5. No pericardial effusion seen. 6. The aortic valve, mitral valve and tricuspid valve appeared to be normal. The pulmonic valve and proximal pulmonary artery branches were not well visualized. 7. The inferior vena cava was normal in size, central venous pressure is most likely normal. DOPPLER: It detects trace mitral regurgitation and mild tricuspid regurgitation. The calculated pulmonary artery systolic pressure varied between 30 to 40 mmHg. Abnormal relaxation pattern was noted across the septal and lateral mitral valve annulus, left ventricular end-diastolic pressure might be elevated. IMPRESSION: 1. Normal global left ventricular systolic function with a mildly enlarged left ventricle but preserved left ventricular wall thickness. There may be features of left ventricular diastolic dysfunction noted in limited views. 2. Mildly enlarged left atrium at 4.1 cm with trace mitral regurgitation. 3. Mild tricuspid regurgitation with probably mild to moderate hypertension. The right heart chambers were not well visualized. 4. The study was technically limited due to poor acoustic window.
== END ==
LOC: M CARPUL 09:37
PROVIDERS: ATTEND Nurse Practitioner Family
DX: R05 Cough (principal)

== ENCOUNTER → 2016-08-03 | Outpatient (CLI) | payer MEDICARE, MEDICAID | LOC: M CARPUL 09:32 | PROVIDERS: ATTEND Nurse Practitioner Family | DX: J20.9 Acute bronchitis, unspecified (principal); R05 Cough ==

== ENCOUNTER → 2016-08-04 | Outpatient (CLI) | payer MEDICARE, MEDICAID ==
[2016-08-04 16:47] LABS: MEAN CORPUSCULAR HEMOGLOBIN 28.3 pg (27.0-33.0); MEAN CORPUSCULAR HGB CONC 34.1 g/dl (32.0-36.5); MEAN CORPUSCULAR VOLUME 82.9 fl (80.0-96.0); RED CELL DISTRIBUTION WIDTH 12.9 % (11.5-14.5)
[2016-08-04 17:11] LABS: ALBUMIN 4.1 GM/DL (3.2-5.2); ALBUMIN/GLOBULIN RATIO 1.14 (1.00-1.93); ALKALINE PHOSPHATASE 100 U/L (45-117); ALT/SGPT 35 U/L (12-78); ANION GAP 10 MEQ/L (8-16); AST/SGOT 15 U/L (15-37); BILIRUBIN,DIRECT < 0.1 MG/DL (0.0-0.2); BILIRUBIN,TOTAL 0.3 MG/DL (0.2-1.0); BLOOD UREA NITROGEN 16 MG/DL (7-18); CALCIUM LEVEL 9.3 MG/DL (8.5-10.1); CARBON DIOXIDE LEVEL 28 MEQ/L (21-32); CHLORIDE LEVEL 103 MEQ/L (98-107); CREATININE FOR GFR 1.12 MG/DL (0.70-1.30); GLOMERULAR FILTRATION RATE > 60.0 (>56); GLUCOSE, FASTING 113 MG/DL (70-105); PHOSPHORUS LEVEL 3.7 MG/DL (2.5-4.9); POTASSIUM SERUM 4.1 MEQ/L (3.5-5.1); SODIUM LEVEL 141 MEQ/L (136-145); TOTAL PROTEIN 7.7 GM/DL (6.4-8.2)
== END ==
LOC: M LAB 16:01
PROVIDERS: ATTEND Podiatrist Foot & Ankle Surgery
DX: B35.1 Tinea unguium (principal); Z79.899 Other long term (current) drug therapy

== ENCOUNTER → 2016-10-10 | Outpatient (CLI) | payer MEDICARE, MEDICAID ==
[2016-10-10 09:20] LABS: ALBUMIN 3.5 GM/DL (3.2-5.2); ALBUMIN/GLOBULIN RATIO 0.92 (1.00-1.93); ALKALINE PHOSPHATASE 107 U/L (45-117); ALT/SGPT 35 U/L (12-78); ANION GAP 7 MEQ/L (8-16); AST/SGOT 13 U/L (15-37); BILIRUBIN,TOTAL 0.3 MG/DL (0.2-1.0); BLOOD UREA NITROGEN 15 MG/DL (7-18); CALCIUM LEVEL 8.6 MG/DL (8.5-10.1); CARBON DIOXIDE LEVEL 28 MEQ/L (21-32); CHLORIDE LEVEL 103 MEQ/L (98-107); CREATININE FOR GFR 0.95 MG/DL (0.70-1.30); GLOMERULAR FILTRATION RATE > 60.0 (>56); GLUCOSE, FASTING 161 MG/DL (70-105); SODIUM LEVEL 138 MEQ/L (136-145); TOTAL PROTEIN 7.3 GM/DL (6.4-8.2)
== END ==
LOC: M LAB 08:05
PROVIDERS: ATTEND Nurse Practitioner Family
DX: Z13.89 Encounter for screening for other disorder (principal); E11.9 Type 2 diabetes mellitus without complications

== ENCOUNTER → 2016-11-09 | Outpatient (CLI) | payer MEDICARE, MEDICAID ==
[2016-11-09 10:51] LABS: ANION GAP 4 MEQ/L (8-16); BLOOD UREA NITROGEN 17 MG/DL (7-18); CALCIUM LEVEL 8.7 MG/DL (8.5-10.1); CARBON DIOXIDE LEVEL 26 MEQ/L (21-32); CHLORIDE LEVEL 107 MEQ/L (98-107); CREATININE FOR GFR 0.93 MG/DL (0.70-1.30); GLOMERULAR FILTRATION RATE > 60.0 (>56); GLUCOSE, FASTING 122 MG/DL (70-105); POTASSIUM SERUM 4.5 MEQ/L (3.5-5.1); SODIUM LEVEL 137 MEQ/L (136-145)
== END ==
LOC: M LAB 09:52
PROVIDERS: ATTEND Nurse Practitioner Family
DX: E11.9 Type 2 diabetes mellitus without complications (principal)

== ENCOUNTER → 2017-03-02 | Outpatient (CLI) | payer MEDICARE, MEDICAID ==
[~2017-03-02] MED LIST changes: +AUGM500T34 PO; +GABA600T; +IBUP1TAB7 PO; -IBUP800T23 PO; +NEXI40CA; +PRED20TA PO; +REGUPOW; +VOLT1GEL15 TD; -VOLT1GEL24 TD
--- NOTE | 2017-03-02 18:28 | REP ---
Right elbow series: AP and lateral views. History: Pain in the right arm. Findings: AP and lateral views of the right elbow demonstrate normal bones, joints, and soft tissues. Impression: Negative right elbow series. Two views. Signed by Daryl Rand MD 03/03/2017 08:07 A
--- NOTE | 2017-03-02 18:29 | REP ---
Right wrist series: Two views. History: Pain in the right arm. Findings: AP and lateral views of the right wrist demonstrate overall normal mineralization. Radiocarpal and intercarpal joints are unremarkable. There is minimal spurring at the first carpometacarpal articulation. No erosive changes seen. Impression: No acute bony abnormality. Minimal spurring at the first carpometacarpal articulation. Signed by Daryl Rand MD 03/03/2017 08:08 A
== END ==
LOC: M RAD 12:29
PROVIDERS: ATTEND Family Medicine Addiction Medicine
DX: M79.601 Pain in right arm (principal)

== ENCOUNTER 2017-03-13 15:52 | Emergency (ER) | payer MEDICARE, MEDICAID ==
[~2017-03-13] VITALS: Ht 175.3 cm; Wt 113.6 kg
[~2017-03-13 15:52] MED LIST changes: -AUGM500T34 PO; -GABA600T; -NEXI40CA; -PRED20TA PO; -REGUPOW
[2017-03-13] MEDS ORDERED: GABA600T (16:01)
[2017-03-13] MEDS ORDERED: NEXI40CA (16:01)
[2017-03-13] MEDS ORDERED: REGUPOW (16:01)
--- NOTE | 2017-03-13 17:24 | REP ---
Chest x-ray: Two views. History: Cough. . Comparison study: August 03, 2016 . Findings: The lungs are well inflated and free of infiltrate. The pleural angles are sharp. The heart size is normal. Pulmonary vasculature is not increased. No significant bony abnormality is seen. Impression: Negative chest x-ray. Signed by Daryl Rand MD 03/13/2017 05:15 P
[2017-03-13 17:39] VITALS: BP 169/97
== END 2017-03-13 17:40 | disposition home or self-care (01) ==
LOC: M ED 15:52
DX: J06.9 Acute upper respiratory infection, unspecified (principal); E11.9 Type 2 diabetes mellitus without complications; I10 Essential (primary) hypertension; E78.9 Disorder of lipoprotein metabolism, unspecified; M19.90 Unspecified osteoarthritis, unspecified site; R56.9 Unspecified convulsions; F17.210 Nicotine dependence, cigarettes, uncomplicated; Z79.899 Other long term (current) drug therapy

== ENCOUNTER 2017-03-31 03:35 | Emergency (ER) | payer MEDICARE, MEDICAID ==
[~2017-03-31 03:35] MED LIST changes: +GABA600T; +NEXI40CA; +REGUPOW
[2017-03-31] MEDS ORDERED: PRED20TA PO (04:23)
[2017-03-31] MEDS ORDERED: AUGM500T34 PO (04:23)
[2017-03-31 04:24] VITALS: BP 174/88
[2017-03-31] MEDS ORDERED: AUGMENTIN 875 MG TAB PO ONE (04:30)
[2017-03-31] MEDS ORDERED: predniSONE 20 MG TAB PO ONE (04:30)
--- NOTE | 2017-03-31 06:16 | REP ---
Clinical: Cough . Comparison: 03/13/2017 . Technique: PA and lateral. Findings: The mediastinum and cardiac silhouette are normal. The lung sanchez are clear and without acute consolidation, effusion, or pneumothorax. The skeletal structures are intact and normal. Impression: 1. No acute cardiopulmonary process. Signed by Cooper Matthews MD 03/31/2017 06:07 A
== END 2017-03-31 05:46 | disposition home or self-care (01) ==
LOC: EDBD 03:35 → M ED 03:35
DX: J01.90 Acute sinusitis, unspecified (principal); J44.9 Chronic obstructive pulmonary disease, unspecified; K21.9 Gastro-esophageal reflux disease without esophagitis; M54.9 Dorsalgia, unspecified; F17.200 Nicotine dependence, unspecified, uncomplicated

== ENCOUNTER → 2017-05-10 | Outpatient (REF) | payer MEDICARE, MEDICAID ==
[~2017-05-10] MED LIST changes: +AUGM500T34 PO; +PRED20TA PO
[2017-05-10 13:31] LABS: ALBUMIN 3.9 GM/DL (3.2-5.2); ALBUMIN/GLOBULIN RATIO 1.15 (1.00-1.93); ALKALINE PHOSPHATASE 82 U/L (45-117); ALT/SGPT 42 U/L (12-78); ANION GAP 7 MEQ/L (8-16); AST/SGOT 20 U/L (7-37); BILIRUBIN,TOTAL 0.2 MG/DL (0.2-1.0); BLOOD UREA NITROGEN 16 MG/DL (7-18); CALCIUM LEVEL 9.1 MG/DL (8.5-10.1); CARBON DIOXIDE LEVEL 28 MEQ/L (21-32); CHLORIDE LEVEL 104 MEQ/L (98-107); CHOLESTEROL LEVEL 239 MG/DL (<200); GLOMERULAR FILTRATION RATE > 60.0 (>56); GLUCOSE, FASTING 133 MG/DL (70-105); POTASSIUM SERUM 4.5 MEQ/L (3.5-5.1); SODIUM LEVEL 139 MEQ/L (136-145); TOTAL PROTEIN 7.3 GM/DL (6.4-8.2); TRIGLYCERIDES LEVEL 176 MG/DL (<150)
== END ==
LOC: M LAB REF 12:23
PROVIDERS: ATTEND Nurse Practitioner Adult Health
DX: E11.9 Type 2 diabetes mellitus without complications (principal); E66.01 Morbid (severe) obesity due to excess calories; E55.9 Vitamin D deficiency, unspecified

== ENCOUNTER 2017-06-12 23:33 | Emergency (ER) | payer MEDICARE, MEDICAID ==
[2017-06-13] MEDS: LISINOPRIL 20 MG TAB PO (00:45)
[2017-06-13 00:49] LABS: VENOUS BASE EXCESS 0.3 (-2.0-2.0); VENOUS HCO3 25.1 MEQ/L (23.0-27.0); VENOUS PARTIAL PRESSURE CO2 40.9 mmHg (38.0-50.0); VENOUS PARTIAL PRESSURE O2 154.8 mmHg (30.0-50.0); VENOUS PH 7.405 UNITS (7.330-7.430); VENOUS STANDARD HCO3 24.8 MEQ/L; VENOUS TOTAL CO2 26.3 MEQ/L (24.0-28.0)
[2017-06-13 00:49] LABS: CARBOXYHEMOGLOBIN 3.9 % (0.0-1.5)
[2017-06-13 00:52] LABS: BASO # 0.1 10^3/uL (0.0-0.2); BASO % 0.4 % (0.0-1.0); EOS # 0.3 10^3/uL (0.0-0.50); HEMATOCRIT 42.4 % (42.0-52.0); HEMOGLOBIN 14.7 g/dl (14.0-18.0); IMMATURE GRANULOCYTE % 0.2 % (0-0); LYMPH # 3.4 10^3/uL (1.5-4.5); LYMPH % 26.6 % (24.0-44.0); MEAN CORPUSCULAR HEMOGLOBIN 29.7 pg (27.0-33.0); MEAN CORPUSCULAR HGB CONC 34.7 g/dl (32.0-36.5); MEAN CORPUSCULAR VOLUME 85.7 fl (80.0-96.0); MONO # 0.8 10^3/uL (0.0-0.8); MONO % 5.8 % (0.0-5.0); NEUTROPHILS # 8.3 10^3/uL (1.8-7.7); PLATELET COUNT, AUTOMATED 296 10^3/uL (150-450); RED BLOOD COUNT 4.95 10^6/uL (4.30-6.10); RED CELL DISTRIBUTION WIDTH 12.3 % (11.5-14.5); WHITE BLOOD COUNT 12.9 10^3/uL (4.0-10.0)
[2017-06-13 01:13] LABS: ANION GAP 6 MEQ/L (8-16); BLOOD UREA NITROGEN 15 MG/DL (7-18); CALCIUM LEVEL 8.8 MG/DL (8.5-10.1); CARBON DIOXIDE LEVEL 28 MEQ/L (21-32); CHLORIDE LEVEL 106 MEQ/L (98-107); CREATININE FOR GFR 0.85 MG/DL (0.70-1.30); GLOMERULAR FILTRATION RATE > 60.0 (>56); GLUCOSE, FASTING 108 MG/DL (70-105); POTASSIUM SERUM 3.8 MEQ/L (3.5-5.1); SODIUM LEVEL 140 MEQ/L (136-145)
== END 2017-06-13 02:14 | disposition home or self-care (01) ==
LOC: M ED 23:33
DX: R51 Headache (principal); I10 Essential (primary) hypertension; E78.00 Pure hypercholesterolemia, unspecified; E11.9 Type 2 diabetes mellitus without complications
CPT/HCPCS: 82803

== ENCOUNTER 2017-06-27 16:11 | Inpatient (IN) | payer MEDICARE, OTHER, MEDICAID ==
[2017-06-27 18:29] LABS: HEMATOCRIT 45.8 % (42.0-52.0); HEMOGLOBIN 15.9 g/dl (14.0-18.0); MEAN CORPUSCULAR HEMOGLOBIN 29.6 pg (27.0-33.0); MEAN CORPUSCULAR HGB CONC 34.7 g/dl (32.0-36.5); MEAN CORPUSCULAR VOLUME 85.1 fl (80.0-96.0); PLATELET COUNT, AUTOMATED 320 10^3/uL (150-450); RED BLOOD COUNT 5.38 10^6/uL (4.30-6.10); RED CELL DISTRIBUTION WIDTH 12.5 % (11.5-14.5); WHITE BLOOD COUNT 13.1 10^3/uL (4.0-10.0)
[2017-06-27 19:11] LABS: ALBUMIN 4.2 GM/DL (3.2-5.2); ALBUMIN/GLOBULIN RATIO 1.14 (1.00-1.93); ALKALINE PHOSPHATASE 78 U/L (45-117); ALT/SGPT 27 U/L (12-78); ANION GAP 7 MEQ/L (8-16); AST/SGOT 18 U/L (7-37); BILIRUBIN,DIRECT 0.1 MG/DL (0.0-0.2); BILIRUBIN,TOTAL 0.4 MG/DL (0.2-1.0); BLOOD UREA NITROGEN 15 MG/DL (7-18); CALCIUM LEVEL 8.8 MG/DL (8.5-10.1); CARBON DIOXIDE LEVEL 27 MEQ/L (21-32); CHLORIDE LEVEL 105 MEQ/L (98-107); CREATININE FOR GFR 0.91 MG/DL (0.70-1.30); ETHYL ALCOHOL (ETHANOL) 0.005 % (0.000-0.010); GLOMERULAR FILTRATION RATE > 60.0 (>56); GLUCOSE, FASTING 82 MG/DL (70-105); POTASSIUM SERUM 3.9 MEQ/L (3.5-5.1); SALICYLATE LEVEL 2.7 MG/DL (5.0-30.0); SODIUM LEVEL 139 MEQ/L (136-145); TOTAL PROTEIN 7.9 GM/DL (6.4-8.2)
[2017-06-27 19:13] LABS: ACETAMINOPHEN LEVEL < 2.0 UG/ML (10.0-30.0)
[2017-06-27] MEDS: LORazepam 1 MG TAB PO ×2 (19:30)
[2017-06-27 20:02] LABS: AMPHETAMINES LEVEL URINE NEGATIVE (NEGATIVE); BARBITURATES URINE NEGATIVE (NEGATIVE); BENZODIAZEPINES URINE NEGATIVE (NEGATIVE); CANNABINOIDS URINE NEGATIVE (NEGATIVE); COCAINE METABOLITE URINE NEGATIVE (NEGATIVE); METHADONE URINE NEGATIVE (NEGATIVE); OPIATES URINE NEGATIVE (NEGATIVE); PHENCYCLIDINE URINE NEGATIVE (NEGATIVE)
[2017-06-28] MEDS ORDERED: GLUCAGON FOR INJ 1 MG VIAL (J1610) SC ×2 (02:00)
[2017-06-28] MEDS ORDERED: traZODone 50 MG TAB PO ×2 (02:00)
[2017-06-28] MEDS ORDERED: ACETAMINOPHEN TAB 650MG DOSE (2X325MG) PO ×2 (02:00)
[2017-06-28] MEDS ORDERED: MOM 30ML SUSPENSION UDC PO ×2 (02:00)
[2017-06-28] MEDS ORDERED: DEXTROSE 50% 50 ML SYRINGE IV ×2 (02:00)
[2017-06-28] MEDS ORDERED: GLUCOSE 4 GM CHEW TABLET PO ×2 (02:00)
[2017-06-28] MEDS ORDERED: ALBUTEROL 90 MCG/ACT 8GM HFA INHALER INH ×2 (02:15)
[2017-06-28 06:36] LABS: BEDSIDE GLUCOSE 103 MG/DL (70-105)
[2017-06-28] MEDS: HumaLOG INSULIN (NovoLOG) PER UNIT SC ×6 (06:36→16:48)
[2017-06-28] MEDS: ATORVASTATIN 20 MG TAB PO ×2 (08:51)
[2017-06-28] MEDS: METAMUCIL (PSYLLIUM) PACKET PO ×2 (08:51)
[2017-06-28] MEDS: LISINOPRIL 20 MG TAB PO ×2 (08:51)
[2017-06-28] MEDS: PANTOPRAZOLE 40MG TAB (PROTONIX) PO ×2 (08:51)
[2017-06-28] MEDS: NICOTINE 7 MG/24 HR TRANSDERMAL TD ×2 (08:52)
[2017-06-28] MEDS: LIDOCAINE 5% (LIDODERM) PATCH TD ×2 (10:32)
[2017-06-28 11:34] LABS: MEAN CORPUSCULAR HEMOGLOBIN 29.3 pg (27.0-33.0); MEAN CORPUSCULAR VOLUME 85.9 fl (80.0-96.0); PLATELET COUNT, AUTOMATED 316 10^3/uL (150-450); RED BLOOD COUNT 5.47 10^6/uL (4.30-6.10); RED CELL DISTRIBUTION WIDTH 12.4 % (11.5-14.5); WHITE BLOOD COUNT 11.6 10^3/uL (4.0-10.0)
[2017-06-28 12:11] LABS: ALBUMIN 4.2 GM/DL (3.2-5.2); ALBUMIN/GLOBULIN RATIO 1.14 (1.00-1.93); ALKALINE PHOSPHATASE 84 U/L (45-117); ALT/SGPT 28 U/L (12-78); AMYLASE 28 U/L (25-115); ANION GAP 8 MEQ/L (8-16); AST/SGOT 19 U/L (7-37); BILIRUBIN,TOTAL 0.8 MG/DL (0.2-1.0); BLOOD UREA NITROGEN 14 MG/DL (7-18); CALCIUM LEVEL 9.1 MG/DL (8.5-10.1); CARBON DIOXIDE LEVEL 30 MEQ/L (21-32); CHLORIDE LEVEL 100 MEQ/L (98-107); CREATININE FOR GFR 0.99 MG/DL (0.70-1.30); GLOMERULAR FILTRATION RATE > 60.0 (>56); GLUCOSE, FASTING 98 MG/DL (70-105); LIPASE 118 U/L (73-393); POTASSIUM SERUM 4.4 MEQ/L (3.5-5.1); SODIUM LEVEL 138 MEQ/L (136-145); TOTAL PROTEIN 7.9 GM/DL (6.4-8.2)
[2017-06-28 12:37] LABS: BEDSIDE GLUCOSE 96 MG/DL (70-105)
[2017-06-28 13:33] LABS: HEPATITIS B SURFACE ANTIGEN NEGATIVE (NEGATIVE)
[2017-06-28 13:59] LABS: HEPATITIS C VIRUS ABY INDEX 0.1 INDEX (<0.8)
[2017-06-28 14:00] LABS: HEPATITIS B CORE ANTIBODY IGM NEGATIVE (NEGATIVE)
[2017-06-28 14:01] LABS: HIV 1&2 SCREEN CENTAUR NEGATIVE (NEGATIVE)
[2017-06-28 14:02] LABS: HEPATITIS A ANTIBODY IGM NEGATIVE (NEGATIVE)
[2017-06-28 17:03] LABS: BEDSIDE GLUCOSE 87 MG/DL (70-105)
[2017-06-28] MEDS: DULoxetine 30 MG CAP (CYMBALTA) PO ×2 (20:18)
[2017-06-28] MEDS: **NOTE PATIENT COMMENT** MISC XX ×2 (20:19)
[2017-06-28] MEDS: MAALOX 30 ML SUSP *UDC PO ×2 (22:27)
[2017-06-28] MEDS: ONDANSETRON 4 MG ORAL DISINTEGRATING TAB (S0181) PO ×2 (23:06)
[2017-06-29] MEDS: HumaLOG INSULIN (NovoLOG) PER UNIT SC ×6 (06:31→17:08)
[2017-06-29 06:38] LABS: BEDSIDE GLUCOSE 86 MG/DL (70-105)
[2017-06-29 07:29] LABS: HEMATOCRIT 45.6 % (42.0-52.0); HEMOGLOBIN 15.7 g/dl (14.0-18.0); MEAN CORPUSCULAR HEMOGLOBIN 29.2 pg (27.0-33.0); MEAN CORPUSCULAR HGB CONC 34.4 g/dl (32.0-36.5); MEAN CORPUSCULAR VOLUME 84.9 fl (80.0-96.0); PLATELET COUNT, AUTOMATED 313 10^3/uL (150-450); RED BLOOD COUNT 5.37 10^6/uL (4.30-6.10); RED CELL DISTRIBUTION WIDTH 12.2 % (11.5-14.5)
[2017-06-29 07:44] LABS: ESTIMATED AVERAGE GLUCOSE 131 MG/DL (60-110); HEMOGLOBIN A1c 6.2 %
[2017-06-29 07:59] LABS: T UPTAKE 35 % (33-40); THYROXINE (T4) 8.5 UG/DL (4.5-12.0)
[2017-06-29] MEDS: LIDOCAINE 5% (LIDODERM) PATCH TD ×2 (08:36)
[2017-06-29] MEDS: NICOTINE 7 MG/24 HR TRANSDERMAL TD ×2 (08:36)
[2017-06-29] MEDS: METAMUCIL (PSYLLIUM) PACKET PO ×2 (12:03)
[2017-06-29] MEDS: LISINOPRIL 20 MG TAB PO ×2 (12:03)
[2017-06-29] MEDS: ATORVASTATIN 20 MG TAB PO ×2 (12:03)
[2017-06-29] MEDS: PANTOPRAZOLE 40MG TAB (PROTONIX) PO ×2 (12:03)
[2017-06-29 12:13] LABS: BEDSIDE GLUCOSE 79 MG/DL (70-105)
[2017-06-29 17:16] LABS: BEDSIDE GLUCOSE 69 MG/DL (70-105)
[2017-06-29] MEDS: BACLOFEN 10 MG TAB PO ×2 (21:00)
[2017-06-29] MEDS: **NOTE PATIENT COMMENT** MISC XX ×2 (21:46)
[2017-06-30 06:19] LABS: BEDSIDE GLUCOSE 73 MG/DL (70-105)
[2017-06-30] MEDS: HumaLOG INSULIN (NovoLOG) PER UNIT SC ×2 (06:39)
[2017-06-30] MEDS: LISINOPRIL 20 MG TAB PO ×2 (08:16)
[2017-06-30] MEDS: METAMUCIL (PSYLLIUM) PACKET PO ×2 (08:16)
[2017-06-30] MEDS: PANTOPRAZOLE 40MG TAB (PROTONIX) PO ×2 (08:16)
[2017-06-30] MEDS: ATORVASTATIN 20 MG TAB PO ×2 (08:16)
[2017-06-30] MEDS: LIDOCAINE 5% (LIDODERM) PATCH TD ×2 (08:17)
[2017-06-30] MEDS: NICOTINE 7 MG/24 HR TRANSDERMAL TD ×2 (08:17)
[2017-06-30] MEDS: BACLOFEN 5MG PER 1/2 TABLET PO ×2 (11:16)
[2017-06-30 16:15] LABS: BEDSIDE GLUCOSE 144 MG/DL (70-105)
[2017-06-30] MEDS: BACLOFEN 10 MG TAB PO ×2 (21:00)
[2017-06-30] MEDS: **NOTE PATIENT COMMENT** MISC XX ×2 (21:00)
[2017-07-01 06:28] LABS: BEDSIDE GLUCOSE 113 MG/DL (70-105)
[2017-07-01] MEDS: LIDOCAINE 5% (LIDODERM) PATCH TD ×2 (09:00)
[2017-07-01] MEDS: BACLOFEN 5MG PER 1/2 TABLET PO ×2 (09:00)
[2017-07-01] MEDS: METAMUCIL (PSYLLIUM) PACKET PO ×4 (09:00→11:33)
[2017-07-01] MEDS: PANTOPRAZOLE 40MG TAB (PROTONIX) PO ×2 (09:00)
[2017-07-01] MEDS: ATORVASTATIN 20 MG TAB PO ×2 (09:00)
[2017-07-01] MEDS: NICOTINE 7 MG/24 HR TRANSDERMAL TD ×2 (09:00)
[2017-07-01] MEDS: LISINOPRIL 20 MG TAB PO ×4 (09:00→11:31)
[2017-07-01] MEDS: ARIPiprazole 10 MG TAB PO ×2 (09:00)
[2017-07-01] MEDS: **NOTE PATIENT COMMENT** MISC XX ×2 (21:00)
[2017-07-01] MEDS: BACLOFEN 10 MG TAB PO ×2 (21:00)
[2017-07-02 06:41] LABS: BEDSIDE GLUCOSE 99 MG/DL (70-105)
[2017-07-02] MEDS: LISINOPRIL 20 MG TAB PO ×2 (09:00)
[2017-07-02] MEDS: METAMUCIL (PSYLLIUM) PACKET PO ×2 (09:00)
[2017-07-02] MEDS: NICOTINE 7 MG/24 HR TRANSDERMAL TD ×2 (09:00)
[2017-07-02] MEDS: PANTOPRAZOLE 40MG TAB (PROTONIX) PO ×2 (09:00)
[2017-07-02] MEDS: LIDOCAINE 5% (LIDODERM) PATCH TD ×2 (09:00)
[2017-07-02] MEDS: ARIPiprazole 10 MG TAB PO ×2 (09:00)
[2017-07-02] MEDS: ATORVASTATIN 20 MG TAB PO ×2 (09:00)
[2017-07-02] MEDS: BACLOFEN 5MG PER 1/2 TABLET PO ×2 (09:00)
[2017-07-02] MEDS: **NOTE PATIENT COMMENT** MISC XX ×2 (20:41)
[2017-07-02] MEDS: BACLOFEN 10 MG TAB PO ×2 (20:41)
[2017-07-03 06:49] LABS: BEDSIDE GLUCOSE 107 MG/DL (70-105)
[2017-07-03] MEDS: LISINOPRIL 20 MG TAB PO ×2 (08:56)
[2017-07-03] MEDS: NICOTINE 7 MG/24 HR TRANSDERMAL TD ×2 (08:56)
[2017-07-03] MEDS: PANTOPRAZOLE 40MG TAB (PROTONIX) PO ×2 (08:56)
[2017-07-03] MEDS: ATORVASTATIN 20 MG TAB PO ×2 (08:56)
[2017-07-03] MEDS: LIDOCAINE 5% (LIDODERM) PATCH TD ×2 (08:56)
[2017-07-03] MEDS: ARIPiprazole 10 MG TAB PO ×2 (08:56)
[2017-07-03] MEDS: BACLOFEN 5MG PER 1/2 TABLET PO ×2 (08:56)
[2017-07-03] MEDS: METAMUCIL (PSYLLIUM) PACKET PO ×2 (08:58)
== END 2017-07-03 14:15 | disposition home or self-care (01) | DRG 885 ==
LOC: M ED 16:11 → M ED INP 21:43 → M PSY 23:39
DX: F39 Unspecified mood [affective] disorder (principal); R45.851 Suicidal ideations; F60.89 Other specific personality disorders; M54.5 Low back pain; Z79.899 Other long term (current) drug therapy; Z88.8 Allergy status to other drugs, medicaments and biological substances; K21.9 Gastro-esophageal reflux disease without esophagitis; I10 Essential (primary) hypertension; E66.9 Obesity, unspecified; K59.00 Constipation, unspecified; E11.9 Type 2 diabetes mellitus without complications; F41.9 Anxiety disorder, unspecified; Z68.37 Body mass index [BMI] 37.0-37.9, adult; E78.5 Hyperlipidemia, unspecified; J45.909 Unspecified asthma, uncomplicated; F17.200 Nicotine dependence, unspecified, uncomplicated; R10.9 Unspecified abdominal pain; D72.829 Elevated white blood cell count, unspecified

== ENCOUNTER → 2017-10-20 | Outpatient (REF) | payer MEDICARE, MEDICAID ==
[2017-10-20 17:59] LABS: ESTIMATED AVERAGE GLUCOSE 140 MG/DL (60-110); HEMOGLOBIN A1c 6.5 %
[2017-10-20 18:00] LABS: TOTAL 25(OH) VITAMIN D 29.6 NG/ML (30.0-100.0)
[2017-10-20 18:03] LABS: ALBUMIN 4.2 GM/DL (3.2-5.2); ALBUMIN/GLOBULIN RATIO 1.11 (1.00-1.93); ALKALINE PHOSPHATASE 80 U/L (45-117); ALT/SGPT 36 U/L (12-78); ANION GAP 6 MEQ/L (8-16); AST/SGOT 18 U/L (7-37); BILIRUBIN,TOTAL 0.4 MG/DL (0.2-1.0); BLOOD UREA NITROGEN 15 MG/DL (7-18); CALCIUM LEVEL 9.4 MG/DL (8.5-10.1); CARBON DIOXIDE LEVEL 30 MEQ/L (21-32); CHLORIDE LEVEL 106 MEQ/L (98-107); CHOLESTEROL LEVEL 225 MG/DL (<200); CREATININE FOR GFR 0.99 MG/DL (0.70-1.30); GLOMERULAR FILTRATION RATE > 60.0 (>56); GLUCOSE, FASTING 95 MG/DL (70-100); HDL CHOLESTEROL 36 MG/DL (>40); LDL CHOLESTEROL 135.2 MG/DL (<100); NON-HDL-C 189 MG/DL; POTASSIUM SERUM 4.6 MEQ/L (3.5-5.1); SODIUM LEVEL 142 MEQ/L (136-145); TRIGLYCERIDES LEVEL 269 MG/DL (<150)
== END ==
LOC: M LAB REF 16:43
DX: E11.9 Type 2 diabetes mellitus without complications (principal); I10 Essential (primary) hypertension; E78.5 Hyperlipidemia, unspecified
CPT/HCPCS: 80053

== ENCOUNTER 2017-12-28 07:20 | Emergency (ER) | payer MEDICARE, MEDICAID ==
[2017-12-28] MEDS: METOCLOPRAMIDE INJ 10MG/2ML VIAL (J2765) IV (08:05)
[2017-12-28] MEDS: diphenhydrAMINE INJ 50MG/ML VIAL (J1200) IV (08:05)
[2017-12-28 08:07] LABS: BASO # 0.1 10^3/uL (0.0-0.2); BASO % 0.5 % (0.0-1.0); EOS # 0.2 10^3/uL (0.0-0.50); EOS % 2.5 % (0.0-3.0); HEMATOCRIT 46.9 % (42.0-52.0); HEMOGLOBIN 15.9 g/dl (13.5-17.5); IMMATURE GRANULOCYTE % 0.5 % (0-3.0); LYMPH # 2.5 10^3/uL (1.5-4.5); LYMPH % 26.5 % (24.0-44.0); MEAN CORPUSCULAR HEMOGLOBIN 29.6 pg (27.0-33.0); MEAN CORPUSCULAR HGB CONC 33.9 g/dl (32.0-36.5); MEAN CORPUSCULAR VOLUME 87.2 fl (80.0-96.0); MONO # 0.7 10^3/uL (0.0-0.8); MONO % 6.8 % (0.0-5.0); NEUTROPHILS # 6.1 10^3/uL (1.8-7.7); NEUTROPHILS % 63.2 % (36.0-66.0); PLATELET COUNT, AUTOMATED 293 10^3/uL (150-450); RED BLOOD COUNT 5.38 10^6/uL (4.30-6.10); RED CELL DISTRIBUTION WIDTH 12.8 % (11.5-14.5); WHITE BLOOD COUNT 9.6 10^3/uL (4.0-10.0)
[2017-12-28 08:17] LABS: INR 0.91; PARTIAL THROMBOPLASTIN TIME 27.8 SECONDS (25.4-37.6); PROTHROMBIN TIME 12.3 SECONDS (12.1-14.4)
[2017-12-28 08:28] LABS: ERYTHROCYTE SEDIMENTATION RATE 20 mm/hr (0-20)
[2017-12-28 08:34] LABS: ANION GAP 9 MEQ/L (8-16); BLOOD UREA NITROGEN 15 MG/DL (7-18); CALCIUM LEVEL 8.6 MG/DL (8.5-10.1); CARBON DIOXIDE LEVEL 31 MEQ/L (21-32); CHLORIDE LEVEL 101 MEQ/L (98-107); CREATININE FOR GFR 1.01 MG/DL (0.70-1.30); GLOMERULAR FILTRATION RATE > 60.0 (>56); GLUCOSE, FASTING 152 MG/DL (70-100); POTASSIUM SERUM 3.6 MEQ/L (3.5-5.1); SODIUM LEVEL 141 MEQ/L (136-145)
[2017-12-28] MEDS: LORazepam 2 MG/ML VIAL (J2060) IV (12:05)
[2017-12-28] MEDS: ASPIRIN 81 MG CHEW TABLET PO (14:30)
== END 2017-12-28 14:37 | disposition home or self-care (01) ==
LOC: M ED 07:20
DX: R51 Headache (principal); E11.9 Type 2 diabetes mellitus without complications; I10 Essential (primary) hypertension; G93.89 Other specified disorders of brain; Z79.82 Long term (current) use of aspirin; Z79.899 Other long term (current) drug therapy; Z88.8 Allergy status to other drugs, medicaments and biological substances
CPT/HCPCS: J1200

== ENCOUNTER → 2018-04-25 | Outpatient (REF) | payer MEDICARE, MEDICAID ==
[2018-04-25 18:25] LABS: ALBUMIN 4.1 GM/DL (3.2-5.2); ALBUMIN/GLOBULIN RATIO 1.17 (1.00-1.93); ALKALINE PHOSPHATASE 94 U/L (45-117); ALT/SGPT 39 U/L (12-78); ANION GAP 9 MEQ/L (8-16); AST/SGOT 15 U/L (7-37); BILIRUBIN,TOTAL 0.4 MG/DL (0.2-1.0); BLOOD UREA NITROGEN 16 MG/DL (7-18); CARBON DIOXIDE LEVEL 27 MEQ/L (21-32); CHLORIDE LEVEL 104 MEQ/L (98-107); CHOLESTEROL LEVEL 224 MG/DL (<200); CHOLESTEROL RISK RATIO 5.209 (<5); CREATININE FOR GFR 0.96 MG/DL (0.70-1.30); GLOMERULAR FILTRATION RATE > 60.0 (>56); GLUCOSE, FASTING 130 MG/DL (70-100); HDL CHOLESTEROL 43 MG/DL (>40); LDL CHOLESTEROL 139 MG/DL (<100); NON-HDL-C 181 MG/DL; POTASSIUM SERUM 3.9 MEQ/L (3.5-5.1); SODIUM LEVEL 140 MEQ/L (136-145); TOTAL 25(OH) VITAMIN D 38.8 NG/ML (30.0-100.0); TOTAL PROTEIN 7.6 GM/DL (6.4-8.2); TRIGLYCERIDES LEVEL 210 MG/DL (<150)
[2018-04-25 19:00] LABS: ESTIMATED AVERAGE GLUCOSE 143 MG/DL (60-110); HEMOGLOBIN A1c 6.6 %
== END ==
LOC: M LAB REF 17:23
DX: E11.9 Type 2 diabetes mellitus without complications (principal); E55.9 Vitamin D deficiency, unspecified; I10 Essential (primary) hypertension; E78.5 Hyperlipidemia, unspecified
CPT/HCPCS: 80053

== ENCOUNTER → 2018-06-25 | Outpatient (REF) | payer MEDICARE, MEDICAID ==
[~2018-06-25] MED LIST changes: +ASPI81TA85 PO; +ATOR1TAB21 PO; -GABA600T; +GABA600T4 PO; +LISI-538 PO; -NEXI40CA; +NEXI40CA PO; +NIFE30TA7 PO; +PROAAER10 INH; -REGUPOW; +REGUPOW PO
== END ==
LOC: M LAB REF 16:49
PROVIDERS: ATTEND Nurse Practitioner Adult Health
DX: Z12.5 Encounter for screening for malignant neoplasm of prostate (principal)

== ENCOUNTER → 2018-08-23 | Outpatient (REF) | payer MEDICARE, MEDICAID | LOC: M LAB REF 16:46 | PROVIDERS: ATTEND Nurse Practitioner Adult Health | DX: E11.9 Type 2 diabetes mellitus without complications (principal) ==

== ENCOUNTER → 2018-08-24 | Outpatient (REF) | payer MEDICARE, MEDICAID | LOC: M LAB REF 11:59 | PROVIDERS: ATTEND Psychiatry & Neurology Child & Adolescent Psychiatry | DX: F20.0 Paranoid schizophrenia (principal) ==

== ENCOUNTER 2018-10-02 13:48 | Emergency (ER) | payer MEDICARE, MEDICAID ==
[~2018-10-02] VITALS: Ht 175.3 cm; Wt 130.9 kg
[2018-10-02] MEDS ORDERED: BACL1TAB9 (14:12)
[2018-10-02] MEDS ORDERED: VITA500045 (14:12)
[2018-10-02] MEDS ORDERED: MELO15TA28 (14:12)
[2018-10-02 14:40] LABS: BASO # 0.1 10^3/uL (0.0-0.2); BASO % 0.5 % (0.0-1.0); EOS # 0.2 10^3/uL (0.0-0.50); EOS % 1.8 % (0.0-3.0); HEMATOCRIT 42.8 % (42.0-52.0); LYMPH # 2.7 10^3/uL (1.5-4.5); LYMPH % 24.7 % (24.0-44.0); MEAN CORPUSCULAR HEMOGLOBIN 29.8 pg (27.0-33.0); MEAN CORPUSCULAR VOLUME 84.9 fl (80.0-96.0); MONO # 0.8 10^3/uL (0.0-0.8); MONO % 7.2 % (0.0-5.0); NEUTROPHILS # 7.1 10^3/uL (1.8-7.7); NEUTROPHILS % 65.4 % (36.0-66.0); PLATELET COUNT, AUTOMATED 294 10^3/uL (150-450); RED BLOOD COUNT 5.04 10^6/uL (4.30-6.10); WHITE BLOOD COUNT 10.8 10^3/uL (4.0-10.0)
[2018-10-02 16:19] LABS: BLOOD UREA NITROGEN 19 MG/DL (7-18); CARBON DIOXIDE LEVEL 27 MEQ/L (21-32); CHLORIDE LEVEL 105 MEQ/L (98-107); CREATININE FOR GFR 0.96 MG/DL (0.70-1.30); GLOMERULAR FILTRATION RATE > 60.0 (>56); GLUCOSE, FASTING 133 MG/DL (70-100); POTASSIUM SERUM 4.3 MEQ/L (3.5-5.1); SODIUM LEVEL 138 MEQ/L (136-145)
[2018-10-02 16:38] VITALS: BP 150/80
--- NOTE | 2018-10-02 23:23 | ECGEPIP ---
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
== END 2018-10-02 16:39 | disposition home or self-care (01) ==
LOC: M ED 13:48 → EDBD 13:48 → M ED 16:39
DX: I10 Essential (primary) hypertension (principal); Z91.19 Patient's noncompliance with other medical treatment and regimen; E11.9 Type 2 diabetes mellitus without complications; J45.909 Unspecified asthma, uncomplicated; E78.5 Hyperlipidemia, unspecified; F33.9 Major depressive disorder, recurrent, unspecified; F41.9 Anxiety disorder, unspecified; F20.9 Schizophrenia, unspecified; G89.29 Other chronic pain; M54.9 Dorsalgia, unspecified; E66.9 Obesity, unspecified; Z88.8 Allergy status to other drugs, medicaments and biological substances; F17.210 Nicotine dependence, cigarettes, uncomplicated

== ENCOUNTER 2018-10-08 23:15 | Emergency (ER) | payer MEDICARE, MEDICAID ==
[~2018-10-08] VITALS: Ht 175.3 cm; Wt 130.9 kg
[~2018-10-08 23:15] MED LIST changes: +BACL1TAB9; +MELO15TA28; +VITA500045
[2018-10-08] MEDS ORDERED: SIMV40TA2 (23:22)
[2018-10-08] MEDS ORDERED: NIFE60TA40 (23:22)
[2018-10-08] MEDS ORDERED: RANI150T14 (23:22)
[2018-10-09] MEDS ORDERED: ADACEL/BOOSTRIX VACCINE (DIPHTH/PERTUSS/ACELL/TETANUS)0.5ML SYR (90715) IM ONE (00:15)
[2018-10-09] MEDS ORDERED: DERMABOND TOPICAL SKIN ADHESIVE TOP ONE (00:45)
--- NOTE | 2018-10-09 01:04 | REP ---
Clinical: Right knee pain Technique: AP, lateral, bilateral oblique and sunrise views. Findings: The osseous structures and joint spaces are intact and essentially age-appropriate. There is no evidence for acute fracture or dislocation. No joint effusion is appreciated. Surrounding soft tissues are unremarkable. No subcutaneous emphysema or radiodense foreign body. Impression: Normal age-appropriate right knee examination. Electronically Signed by Cooper Matthews MD 10/09/2018 12:54 A
[2018-10-09 01:10] VITALS: BP 154/80
== END 2018-10-09 01:36 | disposition home or self-care (01) ==
LOC: M ED 23:15
DX: S61.412A Laceration without foreign body of left hand, initial encounter (principal); M25.561 Pain in right knee; W22.8XXA Striking against or struck by other objects, initial encounter; Y29.XXXA Contact with blunt object, undetermined intent, initial encounter; Y92.9 Unspecified place or not applicable; Y99.8 Other external cause status; F25.9 Schizoaffective disorder, unspecified; M54.32 Sciatica, left side; G43.909 Migraine, unspecified, not intractable, without status migrainosus; E78.5 Hyperlipidemia, unspecified; K21.9 Gastro-esophageal reflux disease without esophagitis; E11.9 Type 2 diabetes mellitus without complications; I10 Essential (primary) hypertension; Z88.8 Allergy status to other drugs, medicaments and biological substances; Z79.899 Other long term (current) drug therapy

== ENCOUNTER 2018-10-22 20:49 | Emergency (ER) | payer MEDICARE, MEDICAID ==
[~2018-10-22] VITALS: Ht 172.7 cm; Wt 131.0 kg
[~2018-10-22 20:49] MED LIST changes: +NIFE60TA40; +RANI150T14; +SIMV40TA2
[2018-10-22] MEDS ORDERED: methylPREDNISolone INJ 125 MG/2 ML VIAL (J2930) IM ONE (22:00)
[2018-10-22] MEDS ORDERED: ZITHTAB PO (22:22)
[2018-10-22] MEDS ORDERED: PRED20TA PO (22:22)
[2018-10-22 22:30] VITALS: BP 116/72
--- NOTE | 2018-10-23 01:06 | REP ---
Clinical: Cough . Comparison: 03/31/2017 . Technique: PA and lateral. Findings: The mediastinum and cardiac silhouette are normal. The lung sanchez are clear and without acute consolidation, effusion, or pneumothorax. The skeletal structures are intact and normal. Impression: 1. No acute cardiopulmonary process. Electronically Signed by Cooper Matthews MD 10/23/2018 12:58 A
== END 2018-10-22 22:39 | disposition home or self-care (01) ==
LOC: M ED 20:49
DX: J40 Bronchitis, not specified as acute or chronic (principal); I10 Essential (primary) hypertension; E78.5 Hyperlipidemia, unspecified; J45.909 Unspecified asthma, uncomplicated; K21.9 Gastro-esophageal reflux disease without esophagitis
CPT/HCPCS: 71046; 96372; 99284; J2930

== ENCOUNTER → 2018-11-12 | Outpatient (REF) | payer MEDICARE, MEDICAID ==
[~2018-11-12] MED LIST changes: +ZITHTAB PO
[2018-11-12 15:32] LABS: HEMOGLOBIN A1c 8.8 %
== END ==
LOC: M LAB REF 14:26
PROVIDERS: ATTEND Nurse Practitioner Adult Health
DX: E11.9 Type 2 diabetes mellitus without complications (principal)

== ENCOUNTER → 2018-12-17 | Outpatient (REF) | payer MEDICARE, MEDICAID | LOC: M LAB REF 16:38 | PROVIDERS: ATTEND Nurse Practitioner Adult Health | DX: E11.9 Type 2 diabetes mellitus without complications (principal) ==

== ENCOUNTER → 2019-04-02 | Outpatient (REF) | payer MEDICARE, MEDICAID ==
[2019-04-02 17:48] LABS: ALBUMIN 3.9 GM/DL (3.2-5.2); ALT/SGPT 29 U/L (12-78); BILIRUBIN,TOTAL 0.3 MG/DL (0.2-1.0); BLOOD UREA NITROGEN 17 MG/DL (7-18); CALCIUM LEVEL 9.3 MG/DL (8.5-10.1); CARBON DIOXIDE LEVEL 28 MEQ/L (21-32); CHLORIDE LEVEL 105 MEQ/L (98-107); GLOMERULAR FILTRATION RATE > 60.0 (>56); GLUCOSE, FASTING 212 MG/DL (70-100); POTASSIUM SERUM 4.2 MEQ/L (3.5-5.1); SODIUM LEVEL 141 MEQ/L (136-145); TOTAL PROTEIN 7.9 GM/DL (6.4-8.2)
[2019-04-02 20:23] LABS: HEMOGLOBIN A1c 8.1 %
== END ==
LOC: M LAB REF 17:04
PROVIDERS: ATTEND Nurse Practitioner Adult Health
DX: E11.9 Type 2 diabetes mellitus without complications (principal)

== ENCOUNTER → 2019-08-01 | Outpatient (REF) | payer MEDICARE, MEDICAID ==
[~2019-08-01] MED LIST changes: +NIFE1TAB52 PO; -NIFE30TA7 PO; -SIMV40TA2; +SIMV40TA20
[2019-08-01 17:26] LABS: BASO # 0.1 10^3/uL (0.0-0.2); BASO % 0.6 % (0.0-1.0); EOS # 0.1 10^3/uL (0.0-0.5); EOS % 1.3 % (0.0-3.0); HEMATOCRIT 46.2 % (42.0-52.0); HEMOGLOBIN 15.6 g/dl (13.5-17.5); LYMPH # 2.6 10^3/uL (1.5-5.0); LYMPH % 22.9 % (24.0-44.0); MEAN CORPUSCULAR HEMOGLOBIN 28.6 pg (27.0-33.0); MEAN CORPUSCULAR HGB CONC 33.8 g/dl (32.0-36.5); MEAN CORPUSCULAR VOLUME 84.6 fl (80.0-96.0); MONO # 0.8 10^3/uL (0.0-0.8); MONO % 7.1 % (0.0-5.0); NEUTROPHILS # 7.6 10^3/uL (1.5-8.5); NEUTROPHILS % 67.7 % (36.0-66.0); PLATELET COUNT, AUTOMATED 291 10^3/uL (150-450); RED BLOOD COUNT 5.46 10^6/uL (4.30-6.10); WHITE BLOOD COUNT 11.2 10^3/uL (4.0-10.0)
[2019-08-01 17:43] LABS: HEMOGLOBIN A1c 8.5 %
[2019-08-01 17:57] LABS: ALBUMIN 4.1 GM/DL (3.2-5.2); ALT/SGPT 43 U/L (12-78); BILIRUBIN,TOTAL 0.4 MG/DL (0.2-1.0); BLOOD UREA NITROGEN 13 MG/DL (7-18); CALCIUM LEVEL 8.6 MG/DL (8.5-10.1); CARBON DIOXIDE LEVEL 30 MEQ/L (21-32); CHLORIDE LEVEL 101 MEQ/L (98-107); CHOLESTEROL LEVEL 211 MG/DL (<200); CHOLESTEROL RISK RATIO 5.861 (<5); CREATININE FOR GFR 1.05 MG/DL (0.70-1.30); FREE T4 0.96 NG/DL (0.76-1.46); GLOMERULAR FILTRATION RATE > 60.0 (>56); GLUCOSE, FASTING 272 MG/DL (70-100); HDL CHOLESTEROL 36 MG/DL (>40); LDL CHOLESTEROL 124 MG/DL (<100); NON-HDL-C 175 MG/DL; SODIUM LEVEL 136 MEQ/L (136-145); TOTAL PROTEIN 7.6 GM/DL (6.4-8.2); TRIGLYCERIDES LEVEL 254 MG/DL (<150)
== END ==
LOC: M LAB REF 16:47
PROVIDERS: ATTEND Nurse Practitioner Family
DX: J06.9 Acute upper respiratory infection, unspecified (principal); Z72.0 Tobacco use; F41.9 Anxiety disorder, unspecified; E66.01 Morbid (severe) obesity due to excess calories; E11.9 Type 2 diabetes mellitus without complications; M54.5 Low back pain; E55.9 Vitamin D deficiency, unspecified; I10 Essential (primary) hypertension; E78.5 Hyperlipidemia, unspecified

== ENCOUNTER 2019-08-12 13:30 | Emergency (ER) | payer MEDICARE, MEDICAID ==
[~2019-08-12] VITALS: Ht 175.3 cm; Wt 133.5 kg
[2019-08-12] MEDS ORDERED: AMOX500C (13:53)
[2019-08-12] MEDS ORDERED: CLINDAMYCIN 600 MG in IV 1 EA IV ONE (14:45)
[2019-08-12] MEDS ORDERED: NIFEdipine 30 MG XL TAB PO ONE (14:45)
[2019-08-12 15:09] LABS: BASO # 0.1 10^3/uL (0.0-0.2); BASO % 0.6 % (0.0-1.0); EOS # 0.1 10^3/uL (0.0-0.5); EOS % 1.3 % (0.0-3.0); HEMATOCRIT 34.1 % (42.0-52.0); HEMOGLOBIN 11.8 g/dl (13.5-17.5); LYMPH # 2.1 10^3/uL (1.5-5.0); LYMPH % 24.5 % (24.0-44.0); MEAN CORPUSCULAR HEMOGLOBIN 29.1 pg (27.0-33.0); MEAN CORPUSCULAR HGB CONC 34.6 g/dl (32.0-36.5); MONO # 0.5 10^3/uL (0.0-0.8); MONO % 5.7 % (0.0-5.0); NEUTROPHILS # 5.8 10^3/uL (1.5-8.5); NEUTROPHILS % 67.7 % (36.0-66.0); PLATELET COUNT, AUTOMATED 217 10^3/uL (150-450); RED BLOOD COUNT 4.06 10^6/uL (4.30-6.10); WHITE BLOOD COUNT 8.6 10^3/uL (4.0-10.0)
[2019-08-12 15:24] LABS: INR 0.92; PROTHROMBIN TIME 12.1 SECONDS (11.8-14.0)
[2019-08-12 15:25] LABS: PARTIAL THROMBOPLASTIN TIME 26.5 SECONDS (25.0-38.4)
--- NOTE | 2019-08-12 15:36 | REP ---
CT brain without contrast: History: Hypertension. Headache. Comparison head CT study December 28, 2017. There is a comparison MRI study from that same date. CT findings: Preliminary digital varnisher apprentice radiograph is unremarkable. Bony calvarium is intact. Visualized paranasal sinuses are clear. There is mild vascular calcification in the distal carotids. There is mild generalized atrophy. Moderate periventricular white matter low density is seen in the frontal lobes bilaterally and in the left parietal and occipital lobes unchanged from the comparison study. These changes are consistent with small vessel atherosclerotic changes. There is no evidence of acute infarction. There is no evidence of intracranial hemorrhage. No extra-axial fluid collection is seen. Impression: Vascular calcification and extensive small vessel periventricular changes. Findings unchanged from December 28, 2017. No acute intracranial abnormality. Electronically Signed by Daryl Rand MD 08/12/2019 08:07 P
--- NOTE | 2019-08-12 15:42 | REP ---
CHEST, TWO VIEWS: There is no evidence of acute infiltrate. No pleural effusion is seen. The heart is normal in size. The mediastinal silhouette is unremarkable. The visualized osseous structures are intact. IMPRESSION: No acute pulmonary disease. Electronically Signed by Pancho Santamaria MD 08/13/2019 07:46 P
[2019-08-12 15:44] VITALS: BP 163/87
[2019-08-12 15:45] LABS: ALBUMIN 3.8 GM/DL (3.2-5.2); ALT/SGPT 39 U/L (12-78); BILIRUBIN,DIRECT < 0.1 MG/DL (0.0-0.2); BILIRUBIN,TOTAL 0.3 MG/DL (0.2-1.0); BLOOD UREA NITROGEN 10 MG/DL (7-18); CALCIUM LEVEL 8.5 MG/DL (8.5-10.1); CARBON DIOXIDE LEVEL 29 MEQ/L (21-32); CHLORIDE LEVEL 103 MEQ/L (98-107); CK-MB VALUE MASS 2.4 NG/ML (<3.6); CPK CREATINE PHOSPHOKINASE 165 U/L (39-308); CREATININE FOR GFR 0.92 MG/DL (0.70-1.30); FREE T4 1.02 NG/DL (0.76-1.46); GLOMERULAR FILTRATION RATE > 60.0 (>56); GLUCOSE, FASTING 273 MG/DL (70-100); LIPASE 94 U/L (73-393); MB/CK RELATIVE INDEX 1.45 (< OR =4); SODIUM LEVEL 136 MEQ/L (136-145); TOTAL PROTEIN 7.1 GM/DL (6.4-8.2); TROPONIN I < 0.02 NG/ML (< 0.10)
[2019-08-12 16:22] VITALS: BP 155/93
[2019-08-12] MEDS ORDERED: CLEO300C2 PO (16:27)
--- NOTE | 2019-08-12 20:56 | ECGEPIP ---
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
== END 2019-08-12 17:08 | disposition home or self-care (01) ==
LOC: M ED 13:30
DX: I10 Essential (primary) hypertension (principal); K08.89 Other specified disorders of teeth and supporting structures; F31.9 Bipolar disorder, unspecified; F17.218 Nicotine dependence, cigarettes, with other nicotine-induced disorders; Z88.8 Allergy status to other drugs, medicaments and biological substances

== ENCOUNTER → 2019-11-25 | Outpatient (REF) | payer MEDICARE, MEDICAID ==
[~2019-11-25] MED LIST changes: +AMOX500C; -ASPI81TA85 PO; +ASPI81TA86 PO; +CLEO300C2 PO; -LISI-538 PO; +LISI20TA33 PO
[2019-11-25 18:10] LABS: BASO # 0.1 10^3/uL (0.0-0.2); BASO % 0.5 % (0.0-1.0); EOS # 0.2 10^3/uL (0.0-0.5); EOS % 1.9 % (0.0-3.0); HEMOGLOBIN 14.6 g/dl (13.5-17.5); LYMPH # 2.1 10^3/uL (1.5-5.0); LYMPH % 22.3 % (24.0-44.0); MEAN CORPUSCULAR HEMOGLOBIN 28.9 pg (27.0-33.0); MONO # 0.5 10^3/uL (0.0-0.8); MONO % 5.9 % (0.0-5.0); NEUTROPHILS # 6.3 10^3/uL (1.5-8.5); PLATELET COUNT, AUTOMATED 248 10^3/uL (150-450); RED BLOOD COUNT 5.06 10^6/uL (4.30-6.10); WHITE BLOOD COUNT 9.2 10^3/uL (4.0-10.0)
[2019-11-25 18:36] LABS: HEMOGLOBIN A1c 14.2 %
[2019-11-25 18:40] LABS: ALBUMIN 3.8 GM/DL (3.2-5.2); ALT/SGPT 69 U/L (12-78); BILIRUBIN,TOTAL 0.6 MG/DL (0.2-1.0); BLOOD UREA NITROGEN 13 MG/DL (7-18); CARBON DIOXIDE LEVEL 28 MEQ/L (21-32); CHLORIDE LEVEL 100 MEQ/L (98-107); CHOLESTEROL LEVEL 246 MG/DL (<200); CHOLESTEROL RISK RATIO 6.307 (<5); CREATININE FOR GFR 0.87 MG/DL (0.70-1.30); GLOMERULAR FILTRATION RATE > 60.0 (>49); GLUCOSE, FASTING 330 MG/DL (70-100); HDL CHOLESTEROL 39 MG/DL (>40); LDL CHOLESTEROL 136 MG/DL (<100); NON-HDL-C 207 MG/DL; SODIUM LEVEL 135 MEQ/L (136-145); TOTAL PROTEIN 7.2 GM/DL (6.4-8.2); TRIGLYCERIDES LEVEL 355 MG/DL (<150)
== END ==
LOC: M LAB REF 16:54
PROVIDERS: ATTEND Nurse Practitioner Family
DX: E11.9 Type 2 diabetes mellitus without complications (principal); I10 Essential (primary) hypertension; E78.5 Hyperlipidemia, unspecified

== ENCOUNTER → 2020-02-26 | Outpatient (REF) | payer MEDICARE, MEDICAID ==
[~2020-02-26] MED LIST changes: +LISI-538 PO; -LISI20TA33 PO
[2020-02-26 13:05] LABS: BASO # 0.1 10^3/uL (0.0-0.2); BASO % 0.6 % (0.0-1.0); EOS # 0.2 10^3/uL (0.0-0.5); EOS % 1.9 % (0.0-3.0); HEMATOCRIT 41.2 % (42.0-52.0); HEMOGLOBIN 14.2 g/dl (13.5-17.5); LYMPH # 2.4 10^3/uL (1.5-5.0); LYMPH % 29.1 % (24.0-44.0); MEAN CORPUSCULAR HEMOGLOBIN 29.5 pg (27.0-33.0); MEAN CORPUSCULAR HGB CONC 34.5 g/dl (32.0-36.5); MEAN CORPUSCULAR VOLUME 85.5 fl (80.0-96.0); MONO # 0.7 10^3/uL (0.0-0.8); MONO % 8.4 % (0.0-5.0); NEUTROPHILS # 4.8 10^3/uL (1.5-8.5); NEUTROPHILS % 59.6 % (36.0-66.0); PLATELET COUNT, AUTOMATED 251 10^3/uL (150-450); RED BLOOD COUNT 4.82 10^6/uL (4.30-6.10); WHITE BLOOD COUNT 8.1 10^3/uL (4.0-10.0)
[2020-02-26 13:24] LABS: HEMOGLOBIN A1c 11.8 %
[2020-02-26 13:33] LABS: ALBUMIN 3.5 GM/DL (3.2-5.2); ALT/SGPT 25 U/L (12-78); BILIRUBIN,TOTAL 0.3 MG/DL (0.2-1.0); BLOOD UREA NITROGEN 11 MG/DL (7-18); CALCIUM LEVEL 8.7 MG/DL (8.8-10.2); CARBON DIOXIDE LEVEL 28 MEQ/L (21-32); CHLORIDE LEVEL 106 MEQ/L (98-107); CHOLESTEROL LEVEL 207 MG/DL (<200); CHOLESTEROL RISK RATIO 5.447 (<5); CREATININE FOR GFR 0.89 MG/DL (0.70-1.30); GLOMERULAR FILTRATION RATE > 60.0 (>49); GLUCOSE, FASTING 260 MG/DL (70-100); HDL CHOLESTEROL 38 MG/DL (>40); LDL CHOLESTEROL 105 MG/DL (<100); NON-HDL-C 169 MG/DL; SODIUM LEVEL 139 MEQ/L (136-145); TOTAL PROTEIN 7.1 GM/DL (6.4-8.2); TRIGLYCERIDES LEVEL 322 MG/DL (<150)
== END ==
LOC: M LAB REF 12:30
PROVIDERS: ATTEND Nurse Practitioner Family
DX: E11.69 Type 2 diabetes mellitus with other specified complication (principal); Z72.0 Tobacco use; E66.01 Morbid (severe) obesity due to excess calories; I10 Essential (primary) hypertension; E78.5 Hyperlipidemia, unspecified

== ENCOUNTER 2020-03-31 12:19 | Emergency (ER) | payer MEDICARE, MEDICAID ==
[~2020-03-31] VITALS: Ht 175.3 cm; Wt 122.2 kg
[2020-03-31 12:20] VITALS: BP 160/89
== END 2020-03-31 13:14 | disposition left against medical advice (07) ==
LOC: M ED 12:19
DX: Z53.21 Procedure and treatment not carried out due to patient leaving prior to being seen by health care provider (principal)

== ENCOUNTER → 2020-08-11 | Outpatient (REF) | payer MEDICARE, MEDICAID ==
[~2020-08-11] MED LIST changes: -LISI-538 PO; +LISI20TA33 PO
[2020-08-11 12:05] LABS: BASO # 0.1 10^3/uL (0.0-0.2); BASO % 0.5 % (0.0-1.0); EOS # 0.2 10^3/uL (0.0-0.5); EOS % 2.1 % (0.0-3.0); HEMATOCRIT 46.8 % (42.0-52.0); HEMOGLOBIN 15.3 g/dl (13.5-17.5); LYMPH # 2.7 10^3/uL (1.5-5.0); LYMPH % 23.9 % (24.0-44.0); MEAN CORPUSCULAR HEMOGLOBIN 28.3 pg (27.0-33.0); MEAN CORPUSCULAR HGB CONC 32.7 g/dl (32.0-36.5); MEAN CORPUSCULAR VOLUME 86.7 fl (80.0-96.0); MONO # 0.8 10^3/uL (0.0-0.8); MONO % 7.3 % (2.0-8.0); NEUTROPHILS # 7.5 10^3/uL (1.5-8.5); NEUTROPHILS % 65.8 % (36.0-66.0); PLATELET COUNT, AUTOMATED 307 10^3/uL (150-450); WHITE BLOOD COUNT 11.4 10^3/uL (4.0-10.0)
[2020-08-11 12:31] LABS: HEMOGLOBIN A1c 7.8 %
[2020-08-11 12:37] LABS: FREE T4 0.8 NG/DL (0.76-1.46); THYROID STIMULATING HORMONE 2.36 uIU/ML (0.358-3.740)
[2020-08-11 12:48] LABS: TOTAL 25(OH) VITAMIN D 42.3 NG/ML (30.0-100.0)
== END ==
LOC: M LAB REF 11:20
PROVIDERS: ATTEND Nurse Practitioner Family
DX: E78.5 Hyperlipidemia, unspecified (principal); I10 Essential (primary) hypertension; E11.65 Type 2 diabetes mellitus with hyperglycemia

== ENCOUNTER → 2020-08-21 | Outpatient (REF) | payer MEDICARE, MEDICAID | LOC: M LAB REF 16:06 | PROVIDERS: ATTEND Nurse Practitioner Family | DX: I10 Essential (primary) hypertension (principal); Z12.5 Encounter for screening for malignant neoplasm of prostate ==

== ENCOUNTER 2020-09-09 09:36 | Emergency (ER) | payer MEDICAID, MEDICARE ==
[~2020-09-09] VITALS: Ht 175.3 cm; Wt 124.5 kg
[2020-09-09] MEDS ORDERED: LANTINJ4 (09:45)
[2020-09-09] MEDS ORDERED: OMEP-221 (09:45)
[2020-09-09] MEDS ORDERED: TRUL0.5I (09:45)
[2020-09-09] MEDS ORDERED: BUPR300T92 (09:45)
--- NOTE | 2020-09-09 10:07 | REP ---
INDICATION: right rib pain COMPARISON: None. TECHNIQUE: Frontal view of the chest with multiple views of the right hemithorax. FINDINGS: Frontal view of the chest demonstrates no acute cardiopulmonary process, contusion, effusion, or pneumothorax. Multiple views of the right hemithorax demonstrates no acute rib fracture/injury or pathology. IMPRESSION: Normal rib series. <Electronically signed by Cooper Matthews > 09/09/20 1009
[2020-09-09] MEDS ORDERED: IBUP-1022 PO (11:21)
[2020-09-09 11:30] VITALS: BP 129/66
== END 2020-09-09 11:31 | disposition home or self-care (01) ==
LOC: M ED 09:36
DX: S20.211A Contusion of right front wall of thorax, initial encounter (principal); W17.89XA Other fall from one level to another, initial encounter; Y92.9 Unspecified place or not applicable; Y93.9 Activity, unspecified; Y99.0 Civilian activity done for income or pay; I10 Essential (primary) hypertension; E11.9 Type 2 diabetes mellitus without complications; J45.909 Unspecified asthma, uncomplicated; F31.9 Bipolar disorder, unspecified; Z79.899 Other long term (current) drug therapy

== ENCOUNTER 2020-10-23 16:47 | Emergency (ER) | payer MEDICARE ==
[~2020-10-23] VITALS: Ht 172.7 cm; Wt 123.2 kg
[~2020-10-23 16:47] MED LIST changes: +BUPR300T92; +IBUP-1022 PO; +LANTINJ4; +OMEP-221; +TRUL0.5I
[2020-10-23 18:56] VITALS: BP 145/87
== END 2020-10-23 19:08 | disposition home or self-care (01) ==
LOC: M ED 16:47
DX: F20.9 Schizophrenia, unspecified (principal); E11.9 Type 2 diabetes mellitus without complications; I10 Essential (primary) hypertension; E78.5 Hyperlipidemia, unspecified; F17.200 Nicotine dependence, unspecified, uncomplicated; Z79.51 Long term (current) use of inhaled steroids; Z79.4 Long term (current) use of insulin; Z79.899 Other long term (current) drug therapy

== ENCOUNTER → 2020-12-08 | Outpatient (REF) | payer MEDICARE ==
[2020-12-08 17:22] LABS: BASO # 0.1 10^3/uL (0.0-0.2); BASO % 0.7 % (0.0-1.0); EOS # 0.2 10^3/uL (0.0-0.5); EOS % 2.3 % (0.0-3.0); HEMATOCRIT 45.9 % (42.0-52.0); HEMOGLOBIN 15.5 g/dl (13.5-17.5); LYMPH # 3.1 10^3/uL (1.5-5.0); LYMPH % 29.8 % (24.0-44.0); MEAN CORPUSCULAR HEMOGLOBIN 29.2 pg (27.0-33.0); MEAN CORPUSCULAR HGB CONC 33.8 g/dl (32.0-36.5); MEAN CORPUSCULAR VOLUME 86.6 fl (80.0-96.0); MONO # 0.8 10^3/uL (0.0-0.8); MONO % 8.2 % (2.0-8.0); NEUTROPHILS % 58.7 % (36.0-66.0); PLATELET COUNT, AUTOMATED 294 10^3/uL (150-450); WHITE BLOOD COUNT 10.3 10^3/uL (4.0-10.0)
[2020-12-08 17:50] LABS: ALBUMIN 3.7 GM/DL (3.2-5.2); ALT/SGPT 29 U/L (12-78); BILIRUBIN,TOTAL 0.3 MG/DL (0.2-1.0); BLOOD UREA NITROGEN 10 MG/DL (7-18); CALCIUM LEVEL 8.3 MG/DL (8.8-10.2); CARBON DIOXIDE LEVEL 27 MEQ/L (21-32); CHLORIDE LEVEL 107 MEQ/L (98-107); CHOLESTEROL LEVEL 152 MG/DL (<200); CHOLESTEROL RISK RATIO 4.903 (<5); CREATININE FOR GFR 0.89 MG/DL (0.70-1.30); GLOMERULAR FILTRATION RATE > 60.0 (>49); GLUCOSE, FASTING 188 MG/DL (70-100); HDL CHOLESTEROL 31 MG/DL (>40); LDL CHOLESTEROL 68 MG/DL (<100); NON-HDL-C 121 MG/DL; POTASSIUM SERUM 3.9 MEQ/L (3.5-5.1); SODIUM LEVEL 139 MEQ/L (136-145); TOTAL PROTEIN 7.1 GM/DL (6.4-8.2); TRIGLYCERIDES LEVEL 264 MG/DL (<150)
[2020-12-08 17:52] LABS: TOTAL 25(OH) VITAMIN D 23.3 NG/ML (30.0-100.0)
[2020-12-08 18:49] LABS: HEMOGLOBIN A1c 6.6 %
== END ==
LOC: M LAB REF 16:22
PROVIDERS: ATTEND Nurse Practitioner Family
DX: E11.65 Type 2 diabetes mellitus with hyperglycemia (principal); E66.9 Obesity, unspecified; E78.5 Hyperlipidemia, unspecified

== ENCOUNTER 2021-03-12 17:11 | Inpatient (IN) | payer MEDICARE ==
[~2021-03-12] VITALS: Ht 165.1 cm; Wt 113.4 kg
[~2021-03-12 17:11] MED LIST changes: -BACL1TAB9; +BACL1TAB9 PO; -LANTINJ4; +LANTINJ4 SC; -MELO15TA28; +MELO15TA28 PO; -OMEP-221; +OMEP-221 PO; -TRUL0.5I; +TRUL0.5I SC
[2021-03-12 19:03] LABS: HEMATOCRIT 41.8 % (42.0-52.0); HEMOGLOBIN 14.5 g/dl (13.5-17.5); MEAN CORPUSCULAR HEMOGLOBIN 29.4 pg (27.0-33.0); MEAN CORPUSCULAR HGB CONC 34.7 g/dl (32.0-36.5); MEAN CORPUSCULAR VOLUME 84.6 fl (80.0-96.0); PLATELET COUNT, AUTOMATED 295 10^3/uL (150-450); RED BLOOD COUNT 4.94 10^6/uL (4.30-6.10); WHITE BLOOD COUNT 11.7 10^3/uL (4.0-10.0)
[2021-03-12 19:26] LABS: AMPHETAMINES LEVEL URINE NEGATIVE (NEGATIVE); BARBITURATES URINE NEGATIVE (NEGATIVE); BENZODIAZEPINES URINE NEGATIVE (NEGATIVE); CANNABINOIDS URINE NEGATIVE (NEGATIVE); COCAINE METABOLITE URINE NEGATIVE (NEGATIVE); METHADONE URINE NEGATIVE (NEGATIVE); OPIATES URINE NEGATIVE (NEGATIVE); PHENCYCLIDINE URINE NEGATIVE (NEGATIVE)
[2021-03-12 19:32] LABS: ACETAMINOPHEN LEVEL < 2.0 UG/ML (10.0-30.0); ALBUMIN 4.1 GM/DL (3.2-5.2); ALT/SGPT 28 U/L (12-78); BILIRUBIN,DIRECT 0.1 MG/DL (0.0-0.2); BILIRUBIN,TOTAL 0.6 MG/DL (0.2-1.0); BLOOD UREA NITROGEN 7 MG/DL (7-18); CALCIUM LEVEL 8.7 MG/DL (8.8-10.2); CARBON DIOXIDE LEVEL 29 MEQ/L (21-32); CHLORIDE LEVEL 105 MEQ/L (98-107); CREATININE FOR GFR 0.88 MG/DL (0.70-1.30); ETHYL ALCOHOL (ETHANOL) < 0.003 % (0.000-0.010); GLOMERULAR FILTRATION RATE > 60.0 (>49); GLUCOSE, FASTING 90 MG/DL (70-100); POTASSIUM SERUM 3.2 MEQ/L (3.5-5.1); SALICYLATE LEVEL 2.3 MG/DL (5.0-30.0); SODIUM LEVEL 141 MEQ/L (136-145); TOTAL PROTEIN 7.3 GM/DL (6.4-8.2)
[2021-03-12 19:37] LABS: RSV AMPLIFICATION NEGATIVE (NEGATIVE)
[2021-03-12] MEDS ORDERED: BUPR150T12 PO (19:39)
[2021-03-12] MEDS ORDERED: ERGO500029 PO (19:39)
[2021-03-12] MEDS ORDERED: NICO14DI24 TD (19:39)
[2021-03-12] MEDS ORDERED: IBUP-1022 PO (19:39)
[2021-03-12] MEDS ORDERED: ATOR40TA75 PO (19:39)
[2021-03-12] MEDS ORDERED: GLIP5TAB20 PO (19:39)
[2021-03-12] MEDS ORDERED: HOME MED LIST COMPLETE! XX SCH (19:40)
[2021-03-12] MEDS ORDERED: **hydrALAZINE** 50 MG TAB PO ONE (22:40)
[2021-03-13] MEDS ORDERED: DEXTROSE 50% 50 ML SYRINGE IV PRN (01:25)
[2021-03-13] MEDS ORDERED: GLUCOSE 4GM CHEW TABLET PO PRN (01:25)
[2021-03-13] MEDS ORDERED: MAALOX 30 ML SUSP *UDC PO PRN (01:25)
[2021-03-13] MEDS ORDERED: MOM 30ML SUSPENSION UDC PO PRN (01:25)
[2021-03-13] MEDS ORDERED: ACETAMINOPHEN TAB 650MG DOSE (2X325MG) PO PRN (01:25)
[2021-03-13] MEDS ORDERED: GLUCAGON INJ 1MG VIAL SC PRN (01:25)
[2021-03-13] MEDS ORDERED: OLANZapine ORAL DISINTEGRATING TAB 5MG PO PRN (01:25)
[2021-03-13] MEDS ORDERED: traZODone 50 MG TAB PO PRN (03:20)
[2021-03-13 03:34] VITALS: BP 137/85
[2021-03-13] MEDS: HumaLOG INSULIN (NovoLOG) PER UNIT SC SCH ×3 (06:48→16:46)
[2021-03-13] MEDS ORDERED: POTASSIUM CHLORIDE 10MEQ SR TABLET PO ONE (07:35)
[2021-03-13] MEDS ORDERED: MIRALAX *UNIT DOSE* 17GM PACKET PO SCH (09:00)
[2021-03-13] MEDS ORDERED: FLUBLOK(EGG FREE)(QUAD)INFLUENZA VACC 0.5ML SYRINGE 18YRS & OLDER IM ONE (09:00)
[2021-03-13] MEDS ORDERED: buPROPion **XL** TABLET 150MG (WELLBUTRIN XL) PO SCH (09:00)
[2021-03-13] MEDS ORDERED: PREVNAR 13 VACCINE SYRINGE IM ONE (09:00)
[2021-03-13] MEDS ORDERED: NICOTINE 21MG/24HR 1 EA TRANSDERMAL TD SCH (09:00)
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
[2021-03-13] MEDS: DOCUSATE SODIUM 100MG CAPSULE PO SCH ×2 (12:22→21:01)
[2021-03-13 13:37] LABS: HEMOGLOBIN A1c 6.3 %
[2021-03-13 13:38] LABS: CHOLESTEROL RISK RATIO 5.333 (<5)
--- NOTE | 2021-03-13 15:22 | HPEPDOC ---
[facility] Medical History & Physical Date of Admission Mar 13, 2021 Date of Service: Mar 13, 2021 Attending Physician: MAGALY SMITH DO History and Physical CHIEF COMPLAINT: I have been having increased suicidal homicidal thoughts HISTORY OF PRESENT ILLNESS: Patient is a 60-year-old who is in the inpatient mental health unit for increased suicidal and homicidal ideations. Patient states that he has a person who he wants to kill because they are hurting him. Patient states he stopped taking his diabetic and hypertensive medications 10 weeks ago. Patient states that he was hoping he would have a heart attack or stroke and dropped . Patient has not been taking any medications for anything for a while. Patient's only complaint is that he has not had a bowel movement in some time and has some lower left quadrant abdominal pain. Patient does not have any problems urinating at this time. PAST MEDICAL HISTORY: 1. Type 2 diabetes. 2. Hypertension. 3. Depression. PAST SURGICAL HISTORY: 1. Surgery to remove cyst on hand. SOCIAL HISTORY: Patient reports she smokes up to a pack of cigarettes per day. Patient does not drink alcohol. Patient will occasionally use marijuana. FAMILY HISTORY: Brother recently passed of cancer, father had a stroke ALLERGIES: Please see below. REVIEW OF SYSTEMS: General: Patient denies fevers HEENT: Patient denies headaches Cardiovascular: Patient denies chest pain Respiratory: Patient denies shortness of breath, cough GI: Patient reports abdominal pain and constipation as above. Denies nausea, vomiting, diarrhea : Patient denies increased frequency or pain with urination Extremities: Patient denies swelling or pain in extremities Neurological: Patient denies numbness or tingling in legs Skin: Patient denies any new rashes or lesions. Hematologic: Patient denies any easy bruising. Lymphatic: Patient denies any lumps lumps or bumps in neck, axilla, or groin HOME MEDICATIONS: Please see below. PHYSICAL EXAMINATION: VITAL SIGNS: Temperature 97.9, pulse 80, respiratory rate 20, blood pressure 137/85, pulse oximetry 98% on room air. General: Alert and oriented male patient who walking around the unit when I walked down on the unit. Patient was able to walk into the examination room without difficulty. Patient did not appear to be in any acute distress. HEENT: Normocephalic, atraumatic, moist mucous membranes. Neck: No lymphadenopathy or thyromegaly Cardiac: Regular rate and rhythm, no murmurs, normal S1, normal S2 Pulm: Clear to auscultation bilaterally. No wheezes, rhonchi, rales Abd: Nondistended, nontender to palpation, normal bowel sounds Ext: No edema bilateral lower extremities Neuro: Patient was able to move all 4 extremities on command and reported equal sensation light touch in all 4 extremities. Skin: Skin of the head, neck, upper and lower extremities was examined did not show any evidence of rash or wounds. LABORATORY DATA: See below. IMAGING: No imaging has been performed MICROBIOLOGY: Please see below. ASSESSMENT: 60-year-old male who is in the inpatient mental health unit for paranoid schizophrenia with increased suicidal homicidal ideations . PLAN: 1. Paranoid schizophrenia. Treatment per psychiatry. 2. Constipation. Patient will be placed on scheduled docusate as well as MiraLAX. We will see if the patient is able to have a bowel movement and these medications can be either increase or decrease based on patient response. 3. Type 2 diabetes mellitus. Patient was placed on sliding insulin. I did encourage patient to continue taking his medications once he is discharged. Patient will need to follow-up with his primary care provider. 4. Hypertension. If the patient's blood pressures continue to get elevated, we can start amlodipine 5 mg. 5. DVT prophylaxis: Ambulatory unit not indicated. Disposition: Discharge per psychiatry. Thank you for this consult. Please reconsult hospitalist if the need arises. Vital Signs Vital Signs Date Time Temp Pulse Resp B/P (MAP) Pulse Ox O2 Delivery O2 Flow Rate FiO2 03/13/21 03:34 97.9 80 20 137/85 (102) 03/13/21 01:09 98 Room Air Laboratory Data Labs 24H Laboratory Tests 2 03/12/21 18:26: Nucleated Red Blood Cells % (auto) 0.0, Anion Gap 7L, Glomerular Filtration Rate > 60.0, Calcium Level 8.7L, Total Bilirubin 0.6, Direct Bilirubin 0.1, Aspartate Amino Transf (AST/SGOT) 18, Alanine Aminotransferase (ALT/SGPT) 28, Alkaline Phosphatase 80, Total Protein 7.3, Albumin 4.1, Albumin/Globulin Ratio 1.3, Thyroid Stimulating Hormone (TSH) 2.120, Salicylates Level 2.3L, Urine Opiates Screen NEGATIVE, Urine Methadone Screen NEGATIVE, Acetaminophen Level < 2.0L, Urine Barbiturates Screen NEGATIVE, Urine Phencyclidine Screen NEGATIVE, Urine Amphetamines Screen NEGATIVE, Urine Benzodiazepines Screen NEGATIVE, Urine Cocaine Metabolite Screen NEGATIVE, Urine Cannabinoids Screen NEGATIVE, Ethyl Alcohol Level < 0.003, Coronavirus (COVID-19)(PCR) NEGATIVE, Influenza Type A (RT-PCR) NEGATIVE, Influenza Type B (RT-PCR) NEGATIVE, Respiratory Syncytial Virus (PCR) NEGATIVE 03/13/21 06:36: Bedside Glucose (Misc Panel) 78L 03/13/21 11:55: Bedside Glucose (Misc Panel) 68L 03/13/21 12:29: Estimated Mean Plasma Glucose 134H, Hemoglobin A1c 6.3, Triglycerides Level 146, Total Cholesterol 192, LDL Cholesterol 127H, Non-HDL Cholesterol (LDL + VLDL) 156, Total HDL Cholesterol 36L, Cholesterol/HDL Ratio 5.333H 03/13/21 15:05: Bedside Glucose (Misc Panel) 63L CBC/BMP Laboratory Tests 03/12/21 18:26 Home Medications Scheduled Atorvastatin Calcium (Atorvastatin Calcium) 40 Mg Tablet, 40 MG PO DAILY Bupropion Hcl (Bupropion Xl) 150 Mg Tab.er.24h, 150 MG PO DAILY Dulaglutide (Trulicity) 1.5 Mg/0.5 Ml Pen.injctr, 1.5 MG SC QWEEK TAKES ON VARIABLE DAYS OF WEEK Ergocalciferol (Vitamin D2) (Vitamin D2) 50,000 Units Cap, 50,000 UNITS PO QWEEK TAKES ON VARIABLE DAYS OF WEEK Gabapentin (Gabapentin) 600 Mg Tab, 1,200 MG PO TID Glipizide (Glipizide ER) 5 Mg Tab.er.24, 5 MG PO DAILY Insulin Glargine,Hum.rec.anlog (Lantus Solostar) 100 Unit/1 Ml Insuln.pen, 10 UNITS SC DAILY Meloxicam (Meloxicam) 15 Mg Tablet, 15 MG PO DAILY Nicotine (Nicotine Patch) 14 Mg Patch.td24, 14 MG TD DAILY Omeprazole (Omeprazole) 40 Mg Capsule.dr, 40 MG PO DAILY Scheduled PRN Albuterol Sulfate (Proair Hfa) 108 Mcg/Act Aer, 2 PUFF INH QID PRN for SHORTNESS OF BREATH Baclofen (Baclofen) 20 Mg Tablet, 20 MG PO BID PRN for SPASMS Ibuprofen (Ibuprofen) 600 Mg Tablet, 600 MG PO Q6H PRN for PAIN LEVEL 1-4 Allergies Coded Allergies: diclofenac (Verified Allergy, Unknown, 10/22/18) cannot use because "I don't use it right" A-FIB/CHADSVASC A-FIB History Current/History of A-Fib/PAF?: No MAGALY SMITH DO Mar 13, 2021 15:22
[2021-03-13 16:26] VITALS: BP 149/76
[2021-03-13] MEDS ORDERED: HumaLOG INSULIN (NovoLOG) PER UNIT SC SCH (21:00)
[2021-03-13] MEDS ORDERED: OLANZapine 5 MG TAB PO SCH (21:00)
[2021-03-16] MEDS ORDERED: OLANZapine ORAL DISINTEGRATING TAB 5MG PO PRN (15:30)
[2021-03-16] MEDS ORDERED: SENNA 8.6 MG TAB (SENOKOT) PO PRN ×2 (15:30→21:30)
[2021-03-16] MEDS ORDERED: ALBUTEROL 90 MCG/ACT 8GM HFA INHALER INH PRN ×2 (15:30)
[2021-03-16] MEDS ORDERED: MIRALAX *UNIT DOSE* 17GM PACKET PO PRN (15:30)
[2021-03-16] MEDS: glipiZIDE XL 5 MG TABCR PO SCH (17:30)
[2021-03-16] MEDS: GABAPENTIN 300 MG CAP PO SCH ×2 (17:36→20:43)
[2021-03-16] MEDS: BACLOFEN 10 MG TAB PO PRN (17:52)
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
[2021-03-16] MEDS: DOCUSATE SODIUM 100MG CAPSULE PO SCH ×2 (20:43→23:00)
[2021-03-16] MEDS: OMEPRAZOLE 20 MG CAP PO SCH (20:43)
[2021-03-16] MEDS: OLANZapine 10 MG TAB PO SCH (20:43)
[2021-03-16] MEDS: ANALGESIC BALM CRM 3OZ TOP SCH (20:44)
[2021-03-16] MEDS ORDERED: ONDANSETRON 4 MG ORAL DISINTEGRATING TAB PO ONE (21:30)
[2021-03-16] MEDS ORDERED: DEXTROSE 50% 50 ML SYRINGE IV PRN (21:30)
[2021-03-16] MEDS ORDERED: GLUCAGON INJ 1MG VIAL SC PRN (21:30)
[2021-03-16] MEDS ORDERED: GLUCOSE 4GM CHEW TABLET PO PRN (21:30)
[2021-03-17] MEDS: BACLOFEN 10 MG TAB PO PRN ×2 (00:02→12:10)
[2021-03-17 06:00] VITALS: BP 142/69
[2021-03-17] MEDS ORDERED: NICOTINE 14 MG/24 HR TRANSDERMAL TD SCH (09:00)
[2021-03-17] MEDS ORDERED: LEVEMIR (INSULIN DETEMIR) 1 UNITS/0.01ML SC SCH (09:00)
[2021-03-17] MEDS ORDERED: amLODIPine 5 MG TAB PO SCH (09:00)
[2021-03-17] MEDS: ANALGESIC BALM CRM 3OZ TOP SCH ×3 (09:00→20:54)
[2021-03-17] MEDS ORDERED: glipiZIDE XL 5 MG TABCR PO SCH (09:00)
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
[2021-03-17] MEDS: LEVEMIR (INSULIN DETEMIR) 1 UNITS/0.01ML SC SCH (09:16)
[2021-03-17] MEDS: DOCUSATE SODIUM 100MG CAPSULE PO SCH ×2 (09:17→20:55)
[2021-03-17] MEDS: GABAPENTIN 300 MG CAP PO SCH ×3 (09:17→20:55)
[2021-03-17] MEDS: buPROPion **XL** TABLET 150MG (WELLBUTRIN XL) PO SCH (09:18)
[2021-03-17] MEDS: NICOTINE 14 MG/24 HR TRANSDERMAL TD SCH (09:23)
[2021-03-17] MEDS: DULoxetine 20 MG CAP (CYMBALTA) PO SCH (11:35)
[2021-03-17] MEDS: glipiZIDE XL 5 MG TABCR PO SCH (16:56)
[2021-03-17] MEDS ORDERED: GLUCOSE 4GM CHEW TABLET PO PRN (17:05)
[2021-03-17] MEDS ORDERED: DEXTROSE 50% 50 ML SYRINGE IV PRN (17:05)
[2021-03-17] MEDS ORDERED: GLUCAGON INJ 1MG VIAL SC PRN (17:05)
--- NOTE | 2021-03-17 17:11 | IPNPDOC ---
Text Note Date of Service The patient was seen on 03/17/21. NOTE Subjective: Patient stated that he has appetite and he was able to eat in the morning. Objective: GENERAL APPEARANCE: Obese male HEENT: no scleral icterus, no JVD, EOMI CARDIOVASCULAR: S1S2 LUNGS: Diminished lung sounds bilaterally ABDOMEN: soft & not tender w palpation MUSCULOSKELETAL: no cyanosis, no swelling INTEGUMENT: no generalized pallor NEUROLOGICAL: cranial nerve function from 2-12 intact, follows commands, speech not dysarthric Assessment and plan Patient is 60 years old male with past medical history of depression, type 2 diabetes, Paranoid schizophrenia was transferred to mental health unit after hypoglycemia was stabilized Type 2 diabetes Detemir twice daily Insulin sliding scale Hypertension I changed amlodipine to lisinopril 20 mg Depression Defer treatment to psych team Chronic constipation Continue laxative VS,Fishbone, I+O VS, Fishbone, I+O Vital Signs Date Time Temp Pulse Resp B/P (MAP) Pulse Ox O2 Delivery O2 Flow Rate FiO2 03/17/21 09:17 90 142/69 03/17/21 06:00 97.2 20 96 03/13/21 16:26 Room Air ANDREA GUERRA Mar 17, 2021 17:10
[2021-03-17] MEDS: HumaLOG INSULIN (NovoLOG) PER UNIT SC SCH ×2 (17:30→20:52)
[2021-03-17 19:27] VITALS: BP 129/67
[2021-03-17] MEDS: OLANZapine 10 MG TAB PO SCH (20:55)
[2021-03-17] MEDS: OMEPRAZOLE 20 MG CAP PO SCH (20:55)
[2021-03-17] MEDS: ATORVASTATIN 20 MG TAB PO SCH (20:55)
[2021-03-18 01:14] VITALS: BP 131/70
[2021-03-18 06:27] VITALS: BP 158/92
[2021-03-18] MEDS: HumaLOG INSULIN (NovoLOG) PER UNIT SC SCH ×4 (06:47→21:30)
[2021-03-18] MEDS: LEVEMIR (INSULIN DETEMIR) 1 UNITS/0.01ML SC SCH (08:47)
[2021-03-18] MEDS: NICOTINE 14 MG/24 HR TRANSDERMAL TD SCH (08:48)
[2021-03-18] MEDS: buPROPion **XL** TABLET 150MG (WELLBUTRIN XL) PO SCH (08:48)
[2021-03-18] MEDS: DULoxetine 20 MG CAP (CYMBALTA) PO SCH (08:48)
[2021-03-18] MEDS: GABAPENTIN 300 MG CAP PO SCH ×3 (08:48→21:19)
[2021-03-18] MEDS: DOCUSATE SODIUM 100MG CAPSULE PO SCH ×2 (08:48→21:19)
[2021-03-18] MEDS: BACLOFEN 10 MG TAB PO PRN (08:54)
[2021-03-18] MEDS: ANALGESIC BALM CRM 3OZ TOP SCH ×3 (09:00→21:19)
--- NOTE | 2021-03-18 12:44 | MHIPNPDOC ---
[facility] Progress Note Progress Note DATE OF SERVICE: 03/18/21 HISTORY: Patient is a 60 -year-old , male, who has a past psychiatric history of schizophrenia or bipolar reportedly and per chart review, major depr essive disorder. Was brought to hospital by friend Merly and her , "I was gonna jump off [employer] bridge or parking garage here or jump in front of truck, only reason haven't jumped because I'm not sure 4 floors would do it". "I wanted to go quick". Reports continues to have the same thoughts. Stopped taking his prescribed 8-10 weeks ago reportedly, "thought stopping them would kill me", including medical medications including, nifedipine, trulicity, bp meds, insulin, glipizide, atorvastatin. he was transferred to the medical floor due to hypoglycemia of 50 on 03/14, was stabilized and returned to psychiatric floor and continued on medications, was seen by hospitalist team since returning to psychiatric floor. "Now that I'm 60 its been hard to make decisions and have never had that before", says tortured by depression. Interval: Initially patient states unlike any my food today or taking my medications, was redirected and made aware of the risk of doing so than stated okay I will take my meds evening food, per chart review taking his medications in the morning, and encouraged to take food by staff. Blood sugar mildly elevat ed 150/dL today, yesterday was held due to low lower blood sugar. This is made a medication change and switched blood pressure medications, has had some lower blood pressure. Patient denies any acute physical complaints. Agrees to continue medications for now. Sleep is fair. VITAL SIGNS: See below. NEW TEST RESULTS: POC glucose 150 mg/dL today CURRENT MEDICATIONS: See below. MENTAL STATUS EXAMINATION: Patient is a 60-year old male, who is in no acute distress, tired, laying in bed, poor eye contact, somewhat disheveled, appears stated age Speech: Is nonspontaneous, impoverished. Language skills are fair. Thought processes including: Linear and coherent Thought content: Continues to report suicidal ideations and plan to harm himself by various methods if he leaves. Abstract reasoning, and computation: Fair. Description of associations: Fair. Description of abnormal or psychotic thoughts: Denies. Judgment: Poor Insight: Poor. Orientation: x4. Recent and remote memory: intact. Attention span and concentration: poor Language: Arabic Fund of knowledge: Average. Mood: "Bad, do not feel like living" affect: Sullen, withdrawn, dysthymic, mood congruent, appropriate DIAGNOSES: 1. Schizophrenia versus schizoaffective disorder, depressed type 2. Major depressive disorder, recurrent, severe, with psychotic features versus schizoaffective disorder depressed type ASSESSMENT: Patient continues to be depressed, denying psychotic symptoms but is avoidant and withdrawn and not fully cooperative to interview, does not appear paranoid, states tolerating medications. Due to low blood pressure will not be increasing olanzapine, also in context of diabetes history. MANAGEMENT PLAN: Continue medications including duloxetine and Wellbutrin for mood, also olanzapine for psychotic symptoms. Continues to require hospitalization for acute stabilization in context of suicidal ideation with plan to harm himself of discharge. Patient has made threats not to take medications or eat food however has been doing so with redirection. TIME SPENT: 15 minutes. Vital Signs Vital Signs Date Time Temp Pulse Resp B/P (MAP) Pulse Ox O2 Delivery O2 Flow Rate FiO2 03/18/21 08:49 101/66 03/18/21 06:27 97.0 66 18 95 Room Air Laboratory Data 24H Labs Laboratory Tests 2 03/17/21 20:50: Bedside Glucose (Misc Panel) 148H 03/18/21 00:54: Bedside Glucose (Misc Panel) 148H 03/18/21 06:43: Bedside Glucose (Misc Panel) 150H Current Medications Current Medications Medications (Trade) Dose Ordered Sig/Cristopher Route PRN Reason Start Time Stop Time Status Last Admin Dose Admin Acetaminophen (Tylenol Tab) 650 mg Q6HP PRN PO HEADACHE or MILD DISCOMFORT 03/13/21 01:25 03/13/21 23:53 DC 03/13/21 08:48 Al Hydrox/Mg Hydrox/Simethicone (Mylanta) 30 ml Q4HP PRN PO HEARTBURN/INDIGESTION 03/13/21 01:25 03/13/21 23:53 DC Albuterol Sulfate (Proventil, Ventolin Hfa) 2 puff QID PRN INH SHORTNESS OF BREATH 03/16/21 15:30 03/16/21 17:16 DC Albuterol Sulfate (Proventil, Ventolin Hfa) 2 puff QID PRN INH SHORTNESS OF BREATH 03/16/21 15:30 Amlodipine Besylate (Norvasc) 5 mg DAILY PO 03/17/21 09:00 03/17/21 17:07 DC 03/17/21 09:17 Atorvastatin Calcium (Lipitor) 40 mg QHS PO 03/17/21 21:00 03/17/21 20:55 Baclofen (Lioresal) 20 mg BID PRN PO spasms 03/16/21 15:30 03/18/21 08:54 Bupropion HCl (Wellbutrin Xl) 150 mg DAILY PO 03/17/21 09:00 03/18/21 08:48 Bupropion HCl (Wellbutrin Xl) 150 mg QAM PO 03/13/21 09:00 03/13/21 23:53 DC 03/13/21 12:23 Dextrose (Dextrose 50%) 25 ml ASDIRECTED PRN IV SEE LABEL COMMENTS 03/13/21 01:25 03/13/21 23:53 DC Dextrose (Dextrose 50%) 25 ml ASDIRECTED PRN IV SEE LABEL COMMENTS 03/16/21 21:30 Dextrose (Dextrose 50%) 25 ml ASDIRECTED PRN IV SEE LABEL COMMENTS 03/17/21 17:05 UNV Docusate Sodium (Colace) 100 mg BID PO 03/13/21 12:10 03/13/21 23:53 DC 03/13/21 21:01 Docusate Sodium (Colace) 100 mg BID PO 03/16/21 21:00 03/18/21 08:48 Duloxetine HCl (Cymbalta) 20 mg DAILY PO 03/17/21 09:00 03/18/21 08:48 Gabapentin (Neurontin) 1,200 mg TID PO 03/16/21 16:00 03/18/21 08:48 Glipizide (Glucotrol Xl) 5 mg DAILY PO 03/17/21 09:00 03/16/21 17:59 DC Glipizide (Glucotrol Xl) 5 mg DAILY@1730 PO 03/16/21 17:30 03/17/21 17:05 DC 03/17/21 16:56 Glucagon (Glucagon) 1 mg ASDIRECTED PRN SC SEE LABEL COMMENTS 03/13/21 01:25 03/13/21 23:53 DC Glucagon (Glucagon) 1 mg ASDIRECTED PRN SC SEE LABEL COMMENTS 03/16/21 21:30 Glucagon (Glucagon) 1 mg ASDIRECTED PRN SC SEE LABEL COMMENTS 03/17/21 17:05 UNV Glucose (Glucose) 16 GM ASDIRECTED PRN PO SEE LABEL COMMENTS 03/13/21 01:25 03/13/21 23:53 DC Glucose (Glucose) 16 GM ASDIRECTED PRN PO SEE LABEL COMMENTS 03/16/21 21:30 Glucose (Glucose) 16 GM ASDIRECTED PRN PO SEE LABEL COMMENTS 03/17/21 17:05 UNV Home Med (Home Med List Complete!) ASDIRECTED XX 03/12/21 19:40 03/12/21 19:48 DC Insulin Detemir (Levemir Insulin) 10 units DAILY SC 03/17/21 09:00 03/16/21 17:23 DC Insulin Detemir (Levemir Insulin) 10 units DAILY SC 03/17/21 09:00 03/18/21 08:47 Insulin Human Lispro (HumaLOG INSULIN) SEE PROTOCOL TABLE AC SC 03/17/21 17:30 03/18/21 11:50 Insulin Human Lispro (HumaLOG INSULIN) SEE PROTOCOL TABLE Q SC 03/17/21 21:00 Insulin Human Lispro (HumaLOG INSULIN) See Protocol Table AC SC 03/13/21 07:30 03/13/21 23:53 DC Insulin Human Lispro (HumaLOG INSULIN) [facility] 03/13/21 21:00 03/13/21 23:53 DC Lisinopril (Prinivil) 20 mg DAILY PO 03/17/21 09:00 03/18/21 08:49 Magnesium Hydroxide (Milk Of Magnesia) 30 ml DAILYPRN PRN PO CONSTIPATION 03/13/21 01:25 03/13/21 23:53 DC Menthol/Methyl Salicylate (Bengay Cream) APPLY TO LEFT SHOULDER TID TOP 03/16/21 21:00 Nicotine (Nicoderm Cq 14mg) 1 patch DAILY TD 03/17/21 09:00 03/18/21 08:48 Nicotine (Nicoderm Cq 14mg) 14 patch DAILY TD 03/17/21 09:00 03/17/21 09:15 DC Nicotine (Nicoderm Cq 21mg) 1 patch DAILY TD 03/13/21 09:00 03/13/21 23:53 DC 03/13/21 12:06 Olanzapine (ZyPREXA ZYDIS) 5 mg Q4HP PRN PO ANXIETY/AGITATION 03/13/21 01:25 03/13/21 23:53 DC 03/13/21 03:24 Olanzapine (ZyPREXA ZYDIS) 5 mg Q4HP PRN PO ANXIETY/AGITATION 03/16/21 15:30 Olanzapine (ZyPREXA) 5 mg QHS PO 03/13/21 21:00 03/13/21 23:53 DC 03/13/21 21:01 Olanzapine (ZyPREXA) 10 mg QHS PO 03/16/21 21:00 03/17/21 20:55 Omeprazole (PriLOSEC) 40 mg QHS PO 03/16/21 21:00 03/17/21 20:55 Polyethylene Glycol (Miralax) 1 pkt DAILY PO 03/13/21 09:00 03/13/21 23:53 DC 03/13/21 13:06 Polyethylene Glycol (Miralax) 1 pkt DAILYPRN PRN PO CONSTIPATION 03/16/21 15:30 Senna (Senokot) 1 tab Q12HP PRN PO CONSTIPATION 03/16/21 21:30 Senna (Senokot) 2 tab BIDP PRN PO BOWEL CARE 03/16/21 15:30 Trazodone HCl (Desyrel) 50 mg QHSP PRN PO INSOMNIA 03/13/21 03:20 03/13/21 23:53 DC Allergies Coded Allergies: diclofenac (Verified Allergy, Unknown, 10/22/18) cannot use because "I don't use it right" CHRISTY AMOS MD Mar 18, 2021 12:44
[2021-03-18 16:18] VITALS: BP 145/74
[2021-03-18] MEDS: OLANZapine 10 MG TAB PO SCH (21:19)
[2021-03-18] MEDS: ATORVASTATIN 20 MG TAB PO SCH (21:19)
[2021-03-18] MEDS: OMEPRAZOLE 20 MG CAP PO SCH (21:19)
[2021-03-19 06:20] VITALS: BP 152/70
[2021-03-19] MEDS: HumaLOG INSULIN (NovoLOG) PER UNIT SC SCH ×4 (06:51→21:00)
[2021-03-19] MEDS: LEVEMIR (INSULIN DETEMIR) 1 UNITS/0.01ML SC SCH (08:27)
[2021-03-19] MEDS: buPROPion **XL** TABLET 150MG (WELLBUTRIN XL) PO SCH (08:28)
[2021-03-19] MEDS: NICOTINE 14 MG/24 HR TRANSDERMAL TD SCH (08:28)
[2021-03-19] MEDS: GABAPENTIN 300 MG CAP PO SCH ×2 (08:28→08:58)
[2021-03-19] MEDS: ANALGESIC BALM CRM 3OZ TOP SCH ×3 (08:28→21:01)
[2021-03-19] MEDS: DULoxetine 20 MG CAP (CYMBALTA) PO SCH (08:28)
[2021-03-19] MEDS: DOCUSATE SODIUM 100MG CAPSULE PO SCH ×2 (08:28→20:54)
[2021-03-19] MEDS: BACLOFEN 10 MG TAB PO PRN ×2 (08:57→21:01)
--- NOTE | 2021-03-19 14:18 | MHIPNPDOC ---
[facility] Progress Note Progress Note DATE OF SERVICE: 03/19/21 HISTORY: Patient is a 60 -year-old , male, who has a past psychiatric history of schizophrenia or bipolar reportedly and per chart review, major depr essive disorder. Was brought to hospital by friend Merly and her , "I was gonna jump off [place] [address] or parking garage here or jump in front of truck, only reason haven't jumped because I'm not sure 4 floors would do it". "I wanted to go quick". Reports continues to have the same thoughts. Stopped taking his prescribed 8-10 weeks ago reportedly, "thought stopping them would kill me", including medical medications including, nifedipine, trulicity, bp meds, insulin, glipizide, atorvastatin. he was transferred to the medical floor due to hypoglycemia of 50 on 03/14, was stabilized and returned to psychiatric floor and continued on medications, was seen by hospitalist team since returning to psychiatric floor. "Now that I'm 60 its been hard to make decisions and have never had that before", says tortured by depression. Interval: Patient reports even mood, denies suicidal ideation on interview, reports tolerating medications without side effects and no physical complaints apart from increased urination, states he urinated at the side of his bed last night. Upon review of medications has been switched from a calcium channel b locker to an NIKITA inhibitor by hospitalist which may help. He then goes on to state that he drinks 25 cups of water at least daily. Blood sugar levels have not risen above 200 on POC. Takes the highest dose of gabapentin, will reduce this dose as may be triggering overactive bladder. Patient feels he wants to decrease his gabapentin, due to limited benefit at maximum dose. Patient was also educated about adequate water intake without excessive drinking. Per nursing staff reported " I am suicidal every minute of every day for my whole 60 years" on BIRP assessment and per conversation, but denies suicide plan. Patient wanted to stop cyclobenzaprine, however this medication actually causes urinary retention patient made aware. VITAL SIGNS: See below. NEW TEST RESULTS: POC glucose 150 mg/dL today CURRENT MEDICATIONS: See below. MENTAL STATUS EXAMINATION: Patient is a 60-year old male, who is in no acute distress, tired, laying in bed, poor eye contact, somewhat disheveled, appears stated age Speech: Is spontaneous, increased amount Language skills are fair. Thought processes including: Linear and coherent Thought content: Denies suicidal ideation to an interview, however reported this to nursing staff Abstract reasoning, and computation: Fair. Description of associations: Fair. Description of abnormal or psychotic thoughts: Denies. Judgment: Poor Insight: Poor. Orientation: x4. Recent and remote memory: intact. Attention span and concentration: poor Language: Korean Fund of knowledge: Average. Mood: "Better than when I got in here" affect: Euthymic, laughs and smiles at times, mood congruent DIAGNOSES: 1. Schizophrenia versus schizoaffective disorder, depressed type 2. Major depressive disorder, recurrent, severe, with psychotic features versus schizoaffective disorder depressed type 3. R/o medical causes to assess for Psychogenic polydipsia ASSESSMENT: Patient reports even mood, denies suicidal ideation, but continues to report suicidal ideation to staff which is chronic, tolerates medications without side effects apart from possible increased urination, denies any psychotic symptoms or paranoia. Educated on excessive water intake, possible side effects of medications, with review of medications extensively with patient. MANAGEMENT PLAN: Decreased gabapentin to 800 3 times daily, continue medications including duloxetine and Wellbutrin for mood, also olanzapine for psychotic symptoms. Continues to require hospitalization for acute stabilization in context of suicidal ideation with plan to harm himself of discharge. Patient continues to eat food and is attending groups and is taking his medications. TIME SPENT: 25 minutes. Vital Signs Vital Signs Date Time Temp Pulse Resp B/P (MAP) Pulse Ox O2 Delivery O2 Flow Rate FiO2 03/19/21 08:33 125/71 03/19/21 06:20 98.0 71 20 95 Room Air Laboratory Data 24H Labs Laboratory Tests 2 03/18/21 16:54: Bedside Glucose (Misc Panel) 197H 03/18/21 21:24: Bedside Glucose (Misc Panel) 280H 03/19/21 06:23: Bedside Glucose (Misc Panel) 197H 03/19/21 12:04: Bedside Glucose (Misc Panel) 191H Current Medications Current Medications Medications (Trade) Dose Ordered Sig/Cristopher Route PRN Reason Start Time Stop Time Status Last Admin Dose Admin Acetaminophen (Tylenol Tab) 325 mg Q8HP PRN PO MILD PAIN (PS 1-4) 03/19/21 12:30 Acetaminophen (Tylenol Tab) 650 mg Q6HP PRN PO HEADACHE or MILD DISCOMFORT 03/13/21 01:25 03/13/21 23:53 DC 03/13/21 08:48 Al Hydrox/Mg Hydrox/Simethicone (Mylanta) 30 ml Q4HP PRN PO HEARTBURN/INDIGESTION 03/13/21 01:25 03/13/21 23:53 DC Albuterol Sulfate (Proventil, Ventolin Hfa) 2 puff QID PRN INH SHORTNESS OF BREATH 03/16/21 15:30 03/16/21 17:16 DC Albuterol Sulfate (Proventil, Ventolin Hfa) 2 puff QID PRN INH SHORTNESS OF BREATH 03/16/21 15:30 Amlodipine Besylate (Norvasc) 5 mg DAILY PO 03/17/21 09:00 03/17/21 17:07 DC 03/17/21 09:17 Atorvastatin Calcium (Lipitor) 40 mg QHS PO 03/17/21 21:00 03/18/21 21:19 Baclofen (Lioresal) 20 mg BID PRN PO spasms 03/16/21 15:30 03/19/21 08:57 Bupropion HCl (Wellbutrin Xl) 150 mg DAILY PO 03/17/21 09:00 03/19/21 08:28 Bupropion HCl (Wellbutrin Xl) 150 mg QAM PO 03/13/21 09:00 03/13/21 23:53 DC 03/13/21 12:23 Dextrose (Dextrose 50%) 25 ml ASDIRECTED PRN IV SEE LABEL COMMENTS 03/13/21 01:25 03/13/21 23:53 DC Dextrose (Dextrose 50%) 25 ml ASDIRECTED PRN IV SEE LABEL COMMENTS 03/16/21 21:30 Dextrose (Dextrose 50%) 25 ml ASDIRECTED PRN IV SEE LABEL COMMENTS 03/17/21 17:05 UNV Docusate Sodium (Colace) 100 mg BID PO 03/13/21 12:10 03/13/21 23:53 DC 03/13/21 21:01 Docusate Sodium (Colace) 100 mg BID PO 03/16/21 21:00 03/19/21 08:28 Duloxetine HCl (Cymbalta) 20 mg DAILY PO 03/17/21 09:00 03/19/21 08:28 Gabapentin (Neurontin) 1,200 mg TID PO 03/16/21 16:00 03/19/21 08:58 Glipizide (Glucotrol Xl) 5 mg DAILY PO 03/17/21 09:00 03/16/21 17:59 DC Glipizide (Glucotrol Xl) 5 mg DAILY@1730 PO 03/16/21 17:30 03/17/21 17:05 DC 03/17/21 16:56 Glucagon (Glucagon) 1 mg ASDIRECTED PRN SC SEE LABEL COMMENTS 03/13/21 01:25 03/13/21 23:53 DC Glucagon (Glucagon) 1 mg ASDIRECTED PRN SC SEE LABEL COMMENTS 03/16/21 21:30 Glucagon (Glucagon) 1 mg ASDIRECTED PRN SC SEE LABEL COMMENTS 03/17/21 17:05 UNV Glucose (Glucose) 16 GM ASDIRECTED PRN PO SEE LABEL COMMENTS 03/13/21 01:25 03/13/21 23:53 DC Glucose (Glucose) 16 GM ASDIRECTED PRN PO SEE LABEL COMMENTS 03/16/21 21:30 Glucose (Glucose) 16 GM ASDIRECTED PRN PO SEE LABEL COMMENTS 03/17/21 17:05 UNV Home Med (Home Med List Complete!) ASDIRECTED XX 03/12/21 19:40 03/12/21 19:48 DC Insulin Detemir (Levemir Insulin) 10 units DAILY SC 03/17/21 09:00 03/16/21 17:23 DC Insulin Detemir (Levemir Insulin) 10 units DAILY SC 03/17/21 09:00 03/19/21 08:27 Insulin Human Lispro (HumaLOG INSULIN) SEE PROTOCOL TABLE AC SC 03/17/21 17:30 03/19/21 12:20 Insulin Human Lispro (HumaLOG INSULIN) SEE PROTOCOL TABLE QHS KS 03/17/21 21:00 03/18/21 21:30 Insulin Human Lispro (HumaLOG INSULIN) See Protocol Table AC SC 03/13/21 07:30 03/13/21 23:53 DC Insulin Human Lispro (HumaLOG INSULIN) See Protocol Table QHS SC 03/13/21 21:00 03/13/21 23:53 DC Lisinopril (Prinivil) 20 mg DAILY PO 03/17/21 09:00 03/19/21 08:33 Magnesium Hydroxide (Milk Of Magnesia) 30 ml DAILYPRN PRN PO CONSTIPATION 03/13/21 01:25 03/13/21 23:53 DC Menthol/Methyl Salicylate (Bengay Cream) APPLY TO LEFT SHOULDER TID TOP 03/16/21 21:00 03/19/21 08:28 Nicotine (Nicoderm Cq 14mg) 1 patch DAILY TD 03/17/21 09:00 03/19/21 08:28 Nicotine (Nicoderm Cq 14mg) 14 patch DAILY TD 03/17/21 09:00 03/17/21 09:15 DC Nicotine (Nicoderm Cq 21mg) 1 patch DAILY TD 03/13/21 09:00 03/13/21 23:53 DC 03/13/21 12:06 Olanzapine (ZyPREXA ZYDIS) 5 mg Q4HP PRN PO ANXIETY/AGITATION 03/13/21 01:25 03/13/21 23:53 DC 03/13/21 03:24 Olanzapine (ZyPREXA ZYDIS) 5 mg Q4HP PRN PO ANXIETY/AGITATION 03/16/21 15:30 Olanzapine (ZyPREXA) 5 mg QHS PO 03/13/21 21:00 03/13/21 23:53 DC 03/13/21 21:01 Olanzapine (ZyPREXA) 10 mg QHS PO 03/16/21 21:00 03/18/21 21:19 Omeprazole (PriLOSEC) 40 mg QHS PO 03/16/21 21:00 03/18/21 21:19 Polyethylene Glycol (Miralax) 1 pkt DAILY PO 03/13/21 09:00 03/13/21 23:53 DC 03/13/21 13:06 Polyethylene Glycol (Miralax) 1 pkt DAILYPRN PRN PO CONSTIPATION 03/16/21 15:30 Senna (Senokot) 1 tab Q12HP PRN PO CONSTIPATION 03/16/21 21:30 Senna (Senokot) 2 tab BIDP PRN PO BOWEL CARE 03/16/21 15:30 Trazodone HCl (Desyrel) 50 mg QHSP PRN PO INSOMNIA 03/13/21 03:20 03/13/21 23:53 DC Allergies Coded Allergies: diclofenac (Verified Allergy, Unknown, 10/22/18) cannot use because "I don't use it right" CHRISTY AMOS MD Mar 19, 2021 14:18
[2021-03-19] MEDS: ACETAMINOPHEN 325 MG TAB PO PRN (14:33)
[2021-03-19] MEDS: GABAPENTIN 400MG CAP PO SCH ×2 (16:35→21:00)
[2021-03-19 18:00] VITALS: BP 144/71
[2021-03-19] MEDS: OMEPRAZOLE 20 MG CAP PO SCH (20:54)
[2021-03-19] MEDS: ATORVASTATIN 20 MG TAB PO SCH (21:00)
[2021-03-19] MEDS: OLANZapine 10 MG TAB PO SCH (21:00)
[2021-03-20] MEDS: ACETAMINOPHEN 325 MG TAB PO PRN (06:13)
[2021-03-20] MEDS: HumaLOG INSULIN (NovoLOG) PER UNIT SC SCH ×4 (06:38→21:38)
[2021-03-20 07:29] VITALS: BP 153/76
[2021-03-20] MEDS: LEVEMIR (INSULIN DETEMIR) 1 UNITS/0.01ML SC SCH (09:05)
[2021-03-20] MEDS: NICOTINE 14 MG/24 HR TRANSDERMAL TD SCH (09:06)
[2021-03-20] MEDS: ANALGESIC BALM CRM 3OZ TOP SCH ×3 (09:06→21:28)
[2021-03-20] MEDS: buPROPion **XL** TABLET 150MG (WELLBUTRIN XL) PO SCH (09:06)
[2021-03-20] MEDS: DOCUSATE SODIUM 100MG CAPSULE PO SCH ×2 (09:07→21:29)
[2021-03-20] MEDS: GABAPENTIN 400MG CAP PO SCH ×3 (09:07→21:29)
[2021-03-20] MEDS: DULoxetine 20 MG CAP (CYMBALTA) PO SCH (09:07)
[2021-03-20] MEDS: BACLOFEN 10 MG TAB PO PRN (09:08)
[2021-03-20 19:12] VITALS: BP 154/90
[2021-03-20] MEDS: ATORVASTATIN 20 MG TAB PO SCH (21:29)
[2021-03-20] MEDS: OLANZapine 10 MG TAB PO SCH (21:29)
[2021-03-20] MEDS: OMEPRAZOLE 20 MG CAP PO SCH (21:29)
[2021-03-21 06:19] VITALS: BP 160/78
[2021-03-21] MEDS: HumaLOG INSULIN (NovoLOG) PER UNIT SC SCH ×4 (06:52→21:04)
[2021-03-21] MEDS: LEVEMIR (INSULIN DETEMIR) 1 UNITS/0.01ML SC SCH (08:19)
[2021-03-21] MEDS: DOCUSATE SODIUM 100MG CAPSULE PO SCH ×2 (08:20→21:03)
[2021-03-21] MEDS: buPROPion **XL** TABLET 150MG (WELLBUTRIN XL) PO SCH (08:20)
[2021-03-21] MEDS: NICOTINE 14 MG/24 HR TRANSDERMAL TD SCH (08:20)
[2021-03-21] MEDS: GABAPENTIN 400MG CAP PO SCH ×3 (08:20→21:02)
[2021-03-21] MEDS: DULoxetine 20 MG CAP (CYMBALTA) PO SCH (08:20)
[2021-03-21] MEDS: BACLOFEN 10 MG TAB PO PRN (08:21)
[2021-03-21] MEDS: ANALGESIC BALM CRM 3OZ TOP SCH ×3 (08:26→21:00)
[2021-03-21] MEDS: ACETAMINOPHEN 325 MG TAB PO PRN (16:43)
[2021-03-21] MEDS: KETOCONAZOLE 2% CREAM TOP SCH (21:01)
[2021-03-21] MEDS: OMEPRAZOLE 20 MG CAP PO SCH (21:02)
[2021-03-21] MEDS: ATORVASTATIN 20 MG TAB PO SCH (21:02)
[2021-03-21] MEDS: OLANZapine 10 MG TAB PO SCH (21:03)
[2021-03-21 22:00] VITALS: BP 140/68
[2021-03-22 06:44] VITALS: BP 138/82
[2021-03-22] MEDS: HumaLOG INSULIN (NovoLOG) PER UNIT SC SCH ×4 (07:05→21:53)
[2021-03-22] MEDS: ANALGESIC BALM CRM 3OZ TOP SCH ×3 (09:12→21:48)
[2021-03-22] MEDS: buPROPion **XL** TABLET 150MG (WELLBUTRIN XL) PO SCH (09:12)
[2021-03-22] MEDS: DOCUSATE SODIUM 100MG CAPSULE PO SCH ×2 (09:12→21:49)
[2021-03-22] MEDS: LEVEMIR (INSULIN DETEMIR) 1 UNITS/0.01ML SC SCH ×2 (09:12→19:07)
[2021-03-22] MEDS: KETOCONAZOLE 2% CREAM TOP SCH ×2 (09:12→21:49)
[2021-03-22] MEDS: BACLOFEN 10 MG TAB PO PRN ×2 (09:13→21:54)
[2021-03-22] MEDS: GABAPENTIN 400MG CAP PO SCH ×3 (09:13→21:00)
[2021-03-22] MEDS: DULoxetine 20 MG CAP (CYMBALTA) PO SCH ×2 (09:13→21:49)
[2021-03-22] MEDS: NICOTINE 14 MG/24 HR TRANSDERMAL TD SCH (09:14)
[2021-03-22] MEDS: ACETAMINOPHEN 325 MG TAB PO PRN (09:16)
[2021-03-22] MEDS: LIDOCAINE 5% (LIDODERM) PATCH TD SCH (10:15)
--- NOTE | 2021-03-22 14:29 | MHIPNPDOC ---
[facility] Progress Note Progress Note DATE OF SERVICE: 03/22/21 HISTORY: Patient is a 60 -year-old , male, who has a past psychiatric history of schizophrenia or bipolar reportedly and per chart review, major dep ressive disorder. Was brought to hospital by friend Merly and her , "I was gonna jump off [place] bridge or parking garage here or jump in front of truck, only reason haven't jumped because I'm not sure 4 floors would do it". "I wanted to go quick". Reports continues to have the same thoughts. Stopped taking his prescribed 8-10 weeks ago reportedly, "thought stopping them would kill me", including medical medications including, nifedipine, trulicity, bp meds, insulin, glipizide, atorvastatin. he was transferred to the medical floor due to hypoglycemia of 50 on 03/14, was stabilized and returned to psychiatric floor and continued on medications, was seen by hospitalist team since returning to psychiatric floor. "Now that I'm 60 its been hard to make decisions and have never had that before", says tortured by depression. Interval: Charts reviewed, patient attending groups, he no longer endorses being asked to his bed or in his room at night since decreasing his water intake and since the reduction of his gabapentin to 800 mg 3 times daily. No significant change from previous days endorses having chronic suicidal ideations, stating "people should be allowed to have legal suicide", despite this feels mood augmentation and reduction of anxiety symptoms could be helpful, agrees to increasing Cymbalta for anxiety and mood to 20 mg twice daily, slow taper in context of history elevated blood pressure. Denies any acute physical complaints, denies any medication side effects. VITAL SIGNS: See below. NEW TEST RESULTS: POC glucose 150 mg/dL today CURRENT MEDICATIONS: See below. MENTAL STATUS EXAMINATION: Patient is a 60-year old male, who is in no acute distress, sitting in his walker, improving eye contact, improved hygiene, appears stated age Speech: Is spontaneous, increased amount Language skills are fair. Thought processes including: Linear and coherent Thought content: Denies suicidal ideation to an interview, however reported this to nursing staff Abstract reasoning, and computation: Fair. Description of associations: Fair. Description of abnormal or psychotic thoughts: Denies. Judgment: Poor Insight: Poor. Orientation: x4. Recent and remote memory: intact. Attention span and concentration: poor Language: German Fund of knowledge: Average. Mood: "Still suicidal" affect: Only mildly dysthymic, somewhat mood incongruent, laughs at times and makes jokes, appropriate DIAGNOSES: 1. Schizoaffective disorder, depressed type 2. R/o medical causes to assess for Psychogenic polydipsia, likely side effects of medications and excess water intake ASSESSMENT: Patient no longer having incontinence reportedly, ambulate without difficulty with walker and attending groups, continues to report suicidal thoughts and lack of interest in living despite this is engaged in treatment including agreeing to medication changes to help augment mood and anxiety symptoms. MANAGEMENT PLAN: Order put in for walker, increase Cymbalta to 20 mg twice daily in context of hypertension, continue gabapentin to 800 3 times daily, continue Wellbutrin for mood, also olanzapine for psychotic symptoms. Continues to require hospitalization for acute stabilization in context of suicidal ideation with plan to harm himself of discharge. Patient continues to eat food and is attending groups and is taking his medications. TIME SPENT: 20 minutes. Vital Signs Vital Signs Date Time Temp Pulse Resp B/P (MAP) Pulse Ox O2 Delivery O2 Flow Rate FiO2 03/22/21 09:13 138/82 03/22/21 06:44 97.3 68 16 65 Room Air Laboratory Data 24H Labs Laboratory Tests 2 03/21/21 16:37: Bedside Glucose (Misc Panel) 381H 03/21/21 20:54: Bedside Glucose (Misc Panel) 369H 03/22/21 05:57: Bedside Glucose (Misc Panel) 294H 03/22/21 11:49: Bedside Glucose (Misc Panel) 258H Current Medications Current Medications Medications (Trade) Dose Ordered Sig/Cristopher Route PRN Reason Start Time Stop Time Status Last Admin Dose Admin Acetaminophen (Tylenol Tab) 325 mg Q8HP PRN PO MILD PAIN (PS 1-4) 03/19/21 12:30 03/22/21 09:16 Acetaminophen (Tylenol Tab) 650 mg Q6HP PRN PO HEADACHE or MILD DISCOMFORT 03/13/21 01:25 03/13/21 23:53 DC 03/13/21 08:48 Al Hydrox/Mg Hydrox/Simethicone (Mylanta) 30 ml Q4HP PRN PO HEARTBURN/INDIGESTION 03/13/21 01:25 03/13/21 23:53 DC Albuterol Sulfate (Proventil, Ventolin Hfa) 2 puff QID PRN INH SHORTNESS OF BREATH 03/16/21 15:30 03/16/21 17:16 DC Albuterol Sulfate (Proventil, Ventolin Hfa) 2 puff QID PRN INH SHORTNESS OF BREATH 03/16/21 15:30 Amlodipine Besylate (Norvasc) 5 mg DAILY PO 03/17/21 09:00 03/17/21 17:07 DC 03/17/21 09:17 Atorvastatin Calcium (Lipitor) 40 mg QHS PO 03/17/21 21:00 03/21/21 21:02 Baclofen (Lioresal) 20 mg BID PRN PO spasms 03/16/21 15:30 03/22/21 09:13 Bupropion HCl (Wellbutrin Xl) 150 mg DAILY PO 03/17/21 09:00 03/22/21 09:12 Bupropion HCl (Wellbutrin Xl) 150 mg QAM PO 03/13/21 09:00 03/13/21 23:53 DC 03/13/21 12:23 Dextrose (Dextrose 50%) 25 ml ASDIRECTED PRN IV SEE LABEL COMMENTS 03/13/21 01:25 03/13/21 23:53 DC Dextrose (Dextrose 50%) 25 ml ASDIRECTED PRN IV SEE LABEL COMMENTS 03/16/21 21:30 Dextrose (Dextrose 50%) 25 ml ASDIRECTED PRN IV SEE LABEL COMMENTS 03/17/21 17:05 UNV Docusate Sodium (Colace) 100 mg BID PO 03/13/21 12:10 03/13/21 23:53 DC 03/13/21 21:01 Docusate Sodium (Colace) 100 mg BID PO 03/16/21 21:00 03/22/21 09:12 Duloxetine HCl (Cymbalta) 20 mg BID PO 03/22/21 21:00 Duloxetine HCl (Cymbalta) 20 mg DAILY PO 03/17/21 09:00 03/22/21 10:02 DC 03/22/21 09:13 Gabapentin (Neurontin) 800 mg TID PO 03/19/21 16:00 03/22/21 09:13 Gabapentin (Neurontin) 1,200 mg TID PO 03/16/21 16:00 03/19/21 14:18 DC 03/19/21 08:58 Glipizide (Glucotrol Xl) 5 mg DAILY PO 03/17/21 09:00 03/16/21 17:59 DC Glipizide (Glucotrol Xl) 5 mg DAILY@1730 PO 03/16/21 17:30 03/17/21 17:05 DC 03/17/21 16:56 Glucagon (Glucagon) 1 mg ASDIRECTED PRN SC SEE LABEL COMMENTS 03/13/21 01:25 03/13/21 23:53 DC Glucagon (Glucagon) 1 mg ASDIRECTED PRN SC SEE LABEL COMMENTS 03/16/21 21:30 Glucagon (Glucagon) 1 mg ASDIRECTED PRN SC SEE LABEL COMMENTS 03/17/21 17:05 UNV Glucose (Glucose) 16 GM ASDIRECTED PRN PO SEE LABEL COMMENTS 03/13/21 01:25 03/13/21 23:53 DC Glucose (Glucose) 16 GM ASDIRECTED PRN PO SEE LABEL COMMENTS 03/16/21 21:30 Glucose (Glucose) 16 GM ASDIRECTED PRN PO SEE LABEL COMMENTS 03/17/21 17:05 UNV Home Med (Home Med List Complete!) ASDIRECTED XX 03/12/21 19:40 03/12/21 19:48 DC Insulin Detemir (Levemir Insulin) 10 units DAILY SC 03/17/21 09:00 03/16/21 17:23 DC Insulin Detemir (Levemir Insulin) 10 units DAILY SC 03/17/21 09:00 03/22/21 09:12 Insulin Human Lispro (HumaLOG INSULIN) SEE PROTOCOL TABLE AC SC 03/17/21 17:30 03/22/21 11:52 Insulin Human Lispro (HumaLOG INSULIN) SEE PROTOCOL TABLE QHS MA 03/17/21 21:00 03/21/21 21:04 Insulin Human Lispro (HumaLOG INSULIN) See Protocol Table AC SC 03/13/21 07:30 03/13/21 23:53 DC Insulin Human Lispro (HumaLOG INSULIN) See Protocol Table QHS SC 03/13/21 21:00 03/13/21 23:53 DC Ketoconazole (Nizoral) Apply over both feet BID TOP 03/21/21 21:00 04/04/21 09:00 03/22/21 09:12 Lidocaine (Lidoderm Patch) 1 patch DAILY TD 03/22/21 09:00 03/22/21 10:15 Lisinopril (Prinivil) 20 mg DAILY PO 03/17/21 09:00 03/22/21 09:13 Magnesium Hydroxide (Milk Of Magnesia) 30 ml DAILYPRN PRN PO CONSTIPATION 03/13/21 01:25 03/13/21 23:53 DC Menthol/Methyl Salicylate (Bengay Cream) APPLY TO LEFT SHOULDER TID TOP 03/16/21 21:00 03/22/21 09:12 Nicotine (Nicoderm Cq 14mg) 1 patch DAILY TD 03/17/21 09:00 03/22/21 09:14 Nicotine (Nicoderm Cq 14mg) 14 patch DAILY TD 03/17/21 09:00 03/17/21 09:15 DC Nicotine (Nicoderm Cq 21mg) 1 patch DAILY TD 03/13/21 09:00 03/13/21 23:53 DC 03/13/21 12:06 Non-Formulary Medication ( See Comment Field Below ) REMOVE LIDODERM PATCH DAILY@21 XX 03/22/21 21:00 Olanzapine (ZyPREXA ZYDIS) 5 mg Q4HP PRN PO ANXIETY/AGITATION 03/13/21 01:25 03/13/21 23:53 DC 03/13/21 03:24 Olanzapine (ZyPREXA ZYDIS) 5 mg Q4HP PRN PO ANXIETY/AGITATION 03/16/21 15:30 Olanzapine (ZyPREXA) 5 mg QHS PO 03/13/21 21:00 03/13/21 23:53 DC 03/13/21 21:01 Olanzapine (ZyPREXA) 10 mg QHS PO 03/16/21 21:00 03/21/21 21:03 Omeprazole (PriLOSEC) 40 mg QHS PO 03/16/21 21:00 03/21/21 21:02 Polyethylene Glycol (Miralax) 1 pkt DAILY PO 03/13/21 09:00 03/13/21 23:53 DC 03/13/21 13:06 Polyethylene Glycol (Miralax) 1 pkt DAILYPRN PRN PO CONSTIPATION 03/16/21 15:30 Senna (Senokot) 1 tab Q12HP PRN PO CONSTIPATION 03/16/21 21:30 Senna (Senokot) 2 tab BIDP PRN PO BOWEL CARE 03/16/21 15:30 Trazodone HCl (Desyrel) 50 mg QHSP PRN PO INSOMNIA 03/13/21 03:20 03/13/21 23:53 DC Allergies Coded Allergies: diclofenac (Verified Allergy, Unknown, 10/22/18) cannot use because "I don't use it right" CHRISTY AMOS MD Mar 22, 2021 14:29
[2021-03-22 16:47] VITALS: BP 150/96
[2021-03-22 18:38] LABS: BASO # 0.1 10^3/uL (0.0-0.2); BASO % 0.6 % (0.0-1.0); EOS # 0.3 10^3/uL (0.0-0.5); EOS % 3.3 % (0.0-3.0); HEMATOCRIT 40.2 % (42.0-52.0); HEMOGLOBIN 13.4 g/dl (13.5-17.5); LYMPH # 2.8 10^3/uL (1.5-5.0); LYMPH % 26.9 % (24.0-44.0); MEAN CORPUSCULAR HEMOGLOBIN 29.6 pg (27.0-33.0); MEAN CORPUSCULAR HGB CONC 33.3 g/dl (32.0-36.5); MEAN CORPUSCULAR VOLUME 88.7 fl (80.0-96.0); MONO # 0.8 10^3/uL (0.0-0.8); MONO % 7.5 % (2.0-8.0); NEUTROPHILS # 6.4 10^3/uL (1.5-8.5); NEUTROPHILS % 60.9 % (36.0-66.0); PLATELET COUNT, AUTOMATED 275 10^3/uL (150-450); RED BLOOD COUNT 4.53 10^6/uL (4.30-6.10); WHITE BLOOD COUNT 10.5 10^3/uL (4.0-10.0)
[2021-03-22 19:02] LABS: ALBUMIN 3.5 GM/DL (3.2-5.2); ALT/SGPT 95 U/L (12-78); BILIRUBIN,TOTAL 0.2 MG/DL (0.2-1.0); BLOOD UREA NITROGEN 15 MG/DL (7-18); CALCIUM LEVEL 8.6 MG/DL (8.8-10.2); CARBON DIOXIDE LEVEL 33 MEQ/L (21-32); CHLORIDE LEVEL 99 MEQ/L (98-107); CREATININE FOR GFR 1.07 MG/DL (0.70-1.30); GLOMERULAR FILTRATION RATE > 60.0 (>49); GLUCOSE, FASTING 321 MG/DL (70-100); POTASSIUM SERUM 4.1 MEQ/L (3.5-5.1); SODIUM LEVEL 137 MEQ/L (136-145)
[2021-03-22] MEDS: **NOTE PATIENT COMMENT** MISC XX SCH (21:47)
[2021-03-22] MEDS: OMEPRAZOLE 20 MG CAP PO SCH (21:48)
[2021-03-22] MEDS: ATORVASTATIN 20 MG TAB PO SCH (21:49)
[2021-03-22] MEDS: OLANZapine 10 MG TAB PO SCH (21:53)
[2021-03-23] MEDS: HumaLOG INSULIN (NovoLOG) PER UNIT SC SCH ×4 (06:32→21:01)
[2021-03-23 06:41] VITALS: BP 182/100
[2021-03-23] MEDS: DULoxetine 20 MG CAP (CYMBALTA) PO SCH ×2 (07:44→20:59)
[2021-03-23] MEDS: buPROPion **XL** TABLET 150MG (WELLBUTRIN XL) PO SCH (07:44)
[2021-03-23] MEDS: DOCUSATE SODIUM 100MG CAPSULE PO SCH ×2 (07:44→21:00)
[2021-03-23] MEDS: ANALGESIC BALM CRM 3OZ TOP SCH ×3 (07:45→21:02)
[2021-03-23] MEDS: KETOCONAZOLE 2% CREAM TOP SCH ×2 (07:45→21:02)
[2021-03-23] MEDS: NICOTINE 14 MG/24 HR TRANSDERMAL TD SCH (07:46)
[2021-03-23] MEDS: GABAPENTIN 400MG CAP PO SCH ×3 (07:50→21:00)
[2021-03-23] MEDS: LIDOCAINE 5% (LIDODERM) PATCH TD SCH (08:34)
[2021-03-23] MEDS: LEVEMIR (INSULIN DETEMIR) 1 UNITS/0.01ML SC SCH ×2 (08:36→21:01)
--- NOTE | 2021-03-23 13:16 | MHIPNPDOC ---
[facility] Progress Note Progress Note DATE OF SERVICE: 03/23/21 HISTORY: Patient is a 60 -year-old , male, who has a past psychiatric history of schizophrenia or bipolar reportedly and per chart review, major depressive disorder. Was brought to hospital by friend Merly and her , "I was gonna jump off [place] [address] or parking garage here or jump in front of truck, only reason haven't jumped because I'm not sure 4 floors would do it". "I wanted to go quick". Reports continues to have the same thoughts. Stopped taking his prescribed 8-10 weeks ago reportedly, "thought stopping them would kill me", including medical medications including, nifedipine, trulicity, bp meds, insulin, glipizide, atorvastatin. he was transferred to the medical floor due to hypoglycemia of 50 on 03/14, was stabilized and returned to psychiatric floor and continued on medications, was seen by hospitalist team since returning to psychiatric floor. "Now that I'm 60 its been hard to make decisions and have never had that before", says tortured by depression. Interval: Charts reviewed, patient attending groups, continues to report no longer having incontinence, states mood is "not too bad". Denies hallucinations or manic behavior, denies any acute physical complaints. Reports overall responding well to medications, reports having less suicidal thoughts reports he is encouraged by possible TLS placement as he did not like he was previously living, feels like he cannot live on his own safely. He is agreeable to continue medications and moving forward with his life reportedly. Reports has refused gabapentin, does not feel any changes anxiety symptoms feels the medication was not helpful. VITAL SIGNS: See below. NEW TEST RESULTS: None CURRENT MEDICATIONS: See below. MENTAL STATUS EXAMINATION: Patient is a 60-year old male, who is in no acute distress, sitting in his walker, improving eye contact, improved hygiene, appears stated age Speech: Is spontaneous, increased amount Language skills are fair. Thought processes including: Linear and coherent Thought content: Denies suicidal ideation to an interview, however reported this to nursing staff Abstract reasoning, and computation: Fair. Description of associations: Fair. Description of abnormal or psychotic thoughts: Denies. Judgment: Improving Insight: Improving Orientation: x4. Recent and remote memory: intact. Attention span and concentration: poor Language: Welsh Fund of knowledge: Average. Mood: "Not too bad" affect: Euthymic, mood incongruent, laughs at times and makes jokes, appropriate DIAGNOSES: 1. Schizoaffective disorder, depressed type 2. R/o medical causes to assess for Psychogenic polydipsia, likely side effects of medications and excess water intake ASSESSMENT: Continues to longer have incontinence, feels he is tolerating medications well and feels that they are working without side effects, no acute physical complaints, denies suicidal ideation to myself, yesterday did report suicidal ideations to nursing staff. MANAGEMENT PLAN: Order put in for walker, increase Cymbalta to 20 mg twice daily in context of hypertension, continue gabapentin to 800 3 times daily, continue Wellbutrin for mood, also olanzapine for psychotic symptoms. Continues to require hospitalization for acute stabilization in context of suicidal ideation with plan to harm himself of discharge. Patient continues to eat food and is attending groups and is taking his medications. TIME SPENT: 15 minutes. Vital Signs Vital Signs Date Time Temp Pulse Resp B/P (MAP) Pulse Ox O2 Delivery O2 Flow Rate FiO2 03/23/21 06:41 96.7 61 18 182/100 (127) 96 Room Air Laboratory Data 24H Labs Laboratory Tests 2 03/22/21 16:44: Bedside Glucose (Misc Panel) 409H 03/22/21 18:22: Immature Granulocyte % (Auto) 0.8, Neutrophils (%) (Auto) 60.9, Lymphocytes (%) (Auto) 26.9, Monocytes (%) (Auto) 7.5, Eosinophils (%) (Auto) 3.3H, Basophils (%) (Auto) 0.6, Neutrophils # (Auto) 6.4, Lymphocytes # (Auto) 2.8, Monocytes # (Auto) 0.8, Eosinophils # (Auto) 0.3, Basophils # (Auto) 0.1, Nucleated Red Blood Cells % (auto) 0.0, Anion Gap 5L, Glomerular Filtration Rate > 60.0, Calci um Level 8.6L, Total Bilirubin 0.2, Aspartate Amino Transf (AST/SGOT) 33, Alanine Aminotransferase (ALT/SGPT) 95H, Alkaline Phosphatase 85, Total Protein 7.0, Albumin 3.5, Albumin/Globulin Ratio 1.0 03/22/21 21:46: Bedside Glucose (Misc Panel) 339H 03/23/21 06:24: Bedside Glucose (Misc Panel) 288H 03/23/21 11:30: Bedside Glucose (Misc Panel) 344H CBC/BMP Laboratory Tests 03/22/21 18:22 Current Medications Current Medications Medications (Trade) Dose Ordered Sig/Cristopher Route PRN Reason Start Time Stop Time Status Last Admin Dose Admin Acetaminophen (Tylenol Tab) 325 mg Q8HP PRN PO MILD PAIN (PS 1-4) 03/19/21 12:30 03/22/21 09:16 Acetaminophen (Tylenol Tab) 650 mg Q6HP PRN PO HEADACHE or MILD DISCOMFORT 03/13/21 01:25 03/13/21 23:53 DC 03/13/21 08:48 Al Hydrox/Mg Hydrox/Simethicone (Mylanta) 30 ml Q4HP PRN PO HEARTBURN/INDIGESTION 03/13/21 01:25 03/13/21 23:53 DC Albuterol Sulfate (Proventil, Ventolin Hfa) 2 puff QID PRN INH SHORTNESS OF BREATH 03/16/21 15:30 03/16/21 17:16 DC Albuterol Sulfate (Proventil, Ventolin Hfa) 2 puff QID PRN INH SHORTNESS OF BREATH 03/16/21 15:30 Amlodipine Besylate (Norvasc) 5 mg DAILY PO 03/17/21 09:00 03/17/21 17:07 DC 03/17/21 09:17 Atorvastatin Calcium (Lipitor) 40 mg QHS PO 03/17/21 21:00 03/22/21 21:49 Baclofen (Lioresal) 20 mg BID PRN PO spasms 03/16/21 15:30 03/22/21 21:54 Bupropion HCl (Wellbutrin Xl) 150 mg DAILY PO 03/17/21 09:00 03/23/21 07:44 Bupropion HCl (Wellbutrin Xl) 150 mg QAM PO 03/13/21 09:00 03/13/21 23:53 DC 03/13/21 12:23 Dextrose (Dextrose 50%) 25 ml ASDIRECTED PRN IV SEE LABEL COMMENTS 03/13/21 01:25 03/13/21 23:53 DC Dextrose (Dextrose 50%) 25 ml ASDIRECTED PRN IV SEE LABEL COMMENTS 03/16/21 21:30 Dextrose (Dextrose 50%) 25 ml ASDIRECTED PRN IV SEE LABEL COMMENTS 03/17/21 17:05 UNV Docusate Sodium (Colace) 100 mg BID PO 03/13/21 12:10 03/13/21 23:53 DC 03/13/21 21:01 Docusate Sodium (Colace) 100 mg BID PO 03/16/21 21:00 03/23/21 07:44 Duloxetine HCl (Cymbalta) 20 mg BID PO 03/22/21 21:00 03/23/21 07:44 Duloxetine HCl (Cymbalta) 20 mg DAILY PO 03/17/21 09:00 03/22/21 10:02 DC 03/22/21 09:13 Gabapentin (Neurontin) 800 mg TID PO 03/19/21 16:00 03/22/21 16:12 Gabapentin (Neurontin) 1,200 mg TID PO 03/16/21 16:00 03/19/21 14:18 DC 03/19/21 08:58 Glipizide (Glucotrol Xl) 5 mg DAILY PO 03/17/21 09:00 03/16/21 17:59 DC Glipizide (Glucotrol Xl) 5 mg DAILY@1730 PO 03/16/21 17:30 03/17/21 17:05 DC 03/17/21 16:56 Glucagon (Glucagon) 1 mg ASDIRECTED PRN SC SEE LABEL COMMENTS 03/13/21 01:25 03/13/21 23:53 DC Glucagon (Glucagon) 1 mg ASDIRECTED PRN SC SEE LABEL COMMENTS 03/16/21 21:30 Glucagon (Glucagon) 1 mg ASDIRECTED PRN SC SEE LABEL COMMENTS 03/17/21 17:05 UNV Glucose (Glucose) 16 GM ASDIRECTED PRN PO SEE LABEL COMMENTS 03/13/21 01:25 03/13/21 23:53 DC Glucose (Glucose) 16 GM ASDIRECTED PRN PO SEE LABEL COMMENTS 03/16/21 21:30 Glucose (Glucose) 16 GM ASDIRECTED PRN PO SEE LABEL COMMENTS 03/17/21 17:05 UNV Home Med (Home Med List Complete!) ASDIRECTED XX 03/12/21 19:40 03/12/21 19:48 DC Insulin Detemir (Levemir Insulin) 10 units DAILY SC 03/17/21 09:00 03/22/21 18:04 DC 03/22/21 09:12 Insulin Detemir (Levemir Insulin) 10 units DAILY SC 03/17/21 09:00 03/16/21 17:23 DC Insulin [facility]emir ([facility]) [facility] 03/22/21 18:30 03/22/21 19:07 Insulin Detemir (Levemir Insulin) 15 units DAILY OR 03/23/21 09:00 03/23/21 08:36 Insulin Human Lispro (HumaLOG INSULIN) SEE PROTOCOL TABLE AC OR 03/17/21 17:30 03/23/21 12:02 Insulin Human Lispro (HumaLOG INSULIN) [facility]OL [facility] 03/17/21 21:00 03/22/21 21:53 Insulin Human Lispro (HumaLOG INSULIN) See Protocol Table AC OR 03/13/21 07:30 03/13/21 23:53 DC Insulin Human Lispro (HumaLOG INSULIN) See [facility] Table [facility] 03/13/21 21:00 03/13/21 23:53 DC Ketoconazole (Nizoral) Apply over both feet BID TOP 03/21/21 21:00 04/04/21 09:00 03/23/21 07:45 Lidocaine (Lidoderm Patch) 1 patch DAILY TD 03/22/21 09:00 03/23/21 08:34 Lisinopril (Prinivil) 20 mg DAILY PO 03/17/21 09:00 03/23/21 06:28 Magnesium Hydroxide (Milk Of Magnesia) 30 ml DAILYPRN PRN PO CONSTIPATION 03/13/21 01:25 03/13/21 23:53 DC Menthol/Methyl Salicylate (Bengay Cream) APPLY TO LEFT SHOULDER TID TOP 03/16/21 21:00 03/23/21 07:45 Nicotine (Nicoderm Cq 14mg) 1 patch DAILY TD 03/17/21 09:00 03/23/21 07:46 Nicotine (Nicoderm Cq 14mg) 14 patch DAILY TD 03/17/21 09:00 03/17/21 09:15 DC Nicotine (Nicoderm Cq 21mg) 1 patch DAILY TD 03/13/21 09:00 03/13/21 23:53 DC 03/13/21 12:06 Non-Formulary Medication ( See Comment Field Below ) REMOVE LIDODERM PATCH DAILY@21 XX 03/22/21 21:00 03/22/21 21:47 Olanzapine (ZyPREXA ZYDIS) 5 mg Q4HP PRN PO ANXIETY/AGITATION 03/13/21 01:25 03/13/21 23:53 DC 03/13/21 03:24 Olanzapine (ZyPREXA ZYDIS) 5 mg Q4HP PRN PO ANXIETY/AGITATION 03/16/21 15:30 Olanzapine (ZyPREXA) 5 mg QHS PO 03/13/21 21:00 03/13/21 23:53 DC 03/13/21 21:01 Olanzapine (ZyPREXA) 10 mg QHS PO 03/16/21 21:00 03/22/21 21:53 Omeprazole (PriLOSEC) 40 mg QHS PO 03/16/21 21:00 03/22/21 21:48 Polyethylene Glycol (Miralax) 1 pkt DAILY PO 03/13/21 09:00 03/13/21 23:53 DC 03/13/21 13:06 Polyethylene Glycol (Miralax) 1 pkt DAILYPRN PRN PO CONSTIPATION 03/16/21 15:30 Senna (Senokot) 1 tab Q12HP PRN PO CONSTIPATION 03/16/21 21:30 Senna (Senokot) 2 tab BIDP PRN PO BOWEL CARE 03/16/21 15:30 Trazodone HCl (Desyrel) 50 mg QHSP PRN PO INSOMNIA 03/13/21 03:20 03/13/21 23:53 DC Allergies Coded Allergies: diclofenac (Verified Allergy, Unknown, 10/22/18) cannot use because "I don't use it right" CHRISTY AMOS MD Mar 23, 2021 13:16
[2021-03-23 16:18] VITALS: BP 160/86
[2021-03-23] MEDS: OLANZapine 10 MG TAB PO SCH (21:00)
[2021-03-23] MEDS: OMEPRAZOLE 20 MG CAP PO SCH (21:00)
[2021-03-23] MEDS: ATORVASTATIN 20 MG TAB PO SCH (21:00)
[2021-03-23] MEDS: **NOTE PATIENT COMMENT** MISC XX SCH (21:01)
[2021-03-24] MEDS: HumaLOG INSULIN (NovoLOG) PER UNIT SC SCH ×4 (06:48→21:12)
[2021-03-24 07:01] VITALS: BP 176/80
[2021-03-24] MEDS: GABAPENTIN 400MG CAP PO SCH ×3 (07:51→21:00)
[2021-03-24] MEDS: NICOTINE 14 MG/24 HR TRANSDERMAL TD SCH (07:52)
[2021-03-24] MEDS: LIDOCAINE 5% (LIDODERM) PATCH TD SCH (07:52)
[2021-03-24] MEDS: KETOCONAZOLE 2% CREAM TOP SCH ×2 (07:58→21:05)
[2021-03-24] MEDS: ANALGESIC BALM CRM 3OZ TOP SCH ×3 (07:58→21:05)
[2021-03-24] MEDS: DOCUSATE SODIUM 100MG CAPSULE PO SCH ×2 (07:59→21:04)
[2021-03-24] MEDS: buPROPion **XL** TABLET 150MG (WELLBUTRIN XL) PO SCH (08:00)
[2021-03-24] MEDS: DULoxetine 20 MG CAP (CYMBALTA) PO SCH ×2 (08:00→21:04)
[2021-03-24] MEDS: LEVEMIR (INSULIN DETEMIR) 1 UNITS/0.01ML SC SCH ×2 (08:02→21:04)
--- NOTE | 2021-03-24 13:05 | MHIPNPDOC ---
[facility] Progress Note Progress Note DATE OF SERVICE: 03/24/21 HISTORY: Patient is a 60 -year-old , male, who has a past psychiatric history of schizophrenia or bipolar reportedly and per chart review, major dep ressive disorder. Was brought to hospital by friend Merly and her , "I was gonna jump off [place] [address] or parking garage here or jump in front of truck, only reason haven't jumped because I'm not sure 4 floors would do it". "I wanted to go quick". Reports continues to have the same thoughts. Stopped taking his prescribed 8-10 weeks ago reportedly, "thought stopping them would kill me", including medical medications including, nifedipine, trulicity, bp meds, insulin, glipizide, atorvastatin. he was transferred to the medical floor due to hypoglycemia of 50 on 03/14, was stabilized and returned to psychiatric floor and continued on medications, was seen by hospitalist team since returning to psychiatric floor. "Now that I'm 60 its been hard to make decisions and have never had that before", says tortured by depression. Interval: Charts reviewed, patient attending groups, and states today he is feeling okay continues to report SI, reports a lot of bad things have happened in his life in his past and this is led him to be suicidal. When asked about TLS and placement there with him being future oriented towards that living si tuation, states he does not think suicidality is contingent on TLS, but is unsure. Understands that placement will take some time and could be possible discharge to DSS with TLS referral, which he seems somewhat hopeful about but continues to endorse suicidal ideation. Discussed that we could make some medication changes to help improve his mood and outlook on the current situati on. He is agreeable to increasing Wellbutrin to 300 mg extended release daily, as he was previously on this formulation and said it helped him with his mood. Denies history of recent drinking and was made aware that he needs to eat adequately due to risk of seizure with increasing the medication dose. Also reports feet are burning in context of dry skin and cracking, feet reluctant with nursing, has some swelling bilaterally with pitting in the feet but not on the tyler, denies other acute physical complaints, will have medical team come to assess and nursing orders put in for an emollient for dry skin. Continues to report lack of incontinence. VITAL SIGNS: See below. NEW TEST RESULTS: None CURRENT MEDICATIONS: See below. MENTAL STATUS EXAMINATION: Patient is a 60-year old male, who is in no acute distress, sitting in his walker, improving eye contact, improved hygiene, appears stated age Speech: Is spontaneous, increased amount Language skills are fair. Thought processes including: Linear and coherent Thought content: Today endorses suicidal ideation, which is vague Abstract reasoning, and computation: Fair. Description of associations: Fair. Description of abnormal or psychotic thoughts: Denies. Judgment: Improving Insight: Improving Orientation: x4. Recent and remote memory: intact. Attention span and concentration: poor Language: Kiswahili Fund of knowledge: Average. Mood: "Okay" affect: Euthymic, mood incongruent, laughs at times and makes jokes, appropriate DIAGNOSES: 1. Schizoaffective disorder, depressed type 2. R/o medical causes to assess for Psychogenic polydipsia, likely side effects of medications and excess water intake ASSESSMENT: Continues to endorse suicidal ideation and is agreeable to medication changes to augment mood. No acute physical complaints apart from foot pain, no shortness of breath or chest pain, no neurological changes reported. MANAGEMENT PLAN: Nursing order put in for emollient for dry feet,, medical team will come evaluate the patient for foot swelling bilaterally. increase Wellbutrin to 300 mg extended release daily, continue Cymbalta to 20 mg twice daily in context of hypertension, patient refusing gabapentin due to perceived increase in appetite on the medication while being on a low-carb diet, also olanzapine for psychotic symptoms. Continues to require hospitalization for acute stabilization in context of suicidal ideation with plan to harm himself of discharge. Patient continues to eat food and is attending groups and is taking his medications. TIME SPENT: 20 minutes. Vital Signs Vital Signs Date Time Temp Pulse Resp B/P (MAP) Pulse Ox O2 Delivery O2 Flow Rate FiO2 03/24/21 07:59 141/86 03/24/21 07:01 97.7 61 20 96 Room Air Laboratory Data 24H Labs Laboratory Tests 2 03/23/21 16:52: Bedside Glucose (Misc Panel) 320H 03/23/21 20:54: Bedside Glucose (Misc Panel) 346H 03/24/21 06:19: Bedside Glucose (Misc Panel) 174H 03/24/21 11:46: Bedside Glucose (Misc Panel) 431H Current Medications Current Medications Medications (Trade) Dose Ordered Sig/Cristopher Route PRN Reason Start Time Stop Time Status Last Admin Dose Admin Acetaminophen (Tylenol Tab) 325 mg Q8HP PRN PO MILD PAIN (PS 1-4) 03/19/21 12:30 03/22/21 09:16 Acetaminophen (Tylenol Tab) 650 mg Q6HP PRN PO HEADACHE or MILD DISCOMFORT 03/13/21 01:25 03/13/21 23:53 DC 03/13/21 08:48 Al Hydrox/Mg Hydrox/Simethicone (Mylanta) 30 ml Q4HP PRN PO HEARTBURN/INDIGESTION 03/13/21 01:25 03/13/21 23:53 DC Albuterol Sulfate (Proventil, Ventolin Hfa) 2 puff QID PRN INH SHORTNESS OF BREATH 03/16/21 15:30 03/16/21 17:16 DC Albuterol Sulfate (Proventil, Ventolin Hfa) 2 puff QID PRN INH SHORTNESS OF BREATH 03/16/21 15:30 Amlodipine Besylate (Norvasc) 5 mg DAILY PO 03/17/21 09:00 03/17/21 17:07 DC 03/17/21 09:17 Atorvastatin Calcium (Lipitor) 40 mg QHS PO 03/17/21 21:00 03/23/21 21:00 Baclofen (Lioresal) 20 mg BID PRN PO spasms 03/16/21 15:30 03/22/21 21:54 Bupropion HCl (Wellbutrin Xl) 150 mg DAILY PO 03/17/21 09:00 03/24/21 09:21 DC 03/24/21 08:00 Bupropion HCl (Wellbutrin Xl) 150 mg QAM PO 03/13/21 09:00 03/13/21 23:53 DC 03/13/21 12:23 Bupropion HCl (Wellbutrin Xl) 300 mg DAILY PO 03/25/21 09:00 Dextrose (Dextrose 50%) 25 ml ASDIRECTED PRN IV SEE LABEL COMMENTS 03/13/21 01:25 03/13/21 23:53 DC Dextrose (Dextrose 50%) 25 ml ASDIRECTED PRN IV SEE LABEL COMMENTS 03/16/21 21:30 Dextrose (Dextrose 50%) 25 ml ASDIRECTED PRN IV SEE LABEL COMMENTS 03/17/21 17:05 UNV Docusate Sodium (Colace) 100 mg BID PO 03/13/21 12:10 03/13/21 23:53 DC 03/13/21 21:01 Docusate Sodium (Colace) 100 mg BID PO 03/16/21 21:00 03/24/21 07:59 Duloxetine HCl (Cymbalta) 20 mg BID PO 03/22/21 21:00 03/24/21 08:00 Duloxetine HCl (Cymbalta) 20 mg DAILY PO 03/17/21 09:00 03/22/21 10:02 DC 03/22/21 09:13 Gabapentin (Neurontin) 800 mg TID PO 03/19/21 16:00 03/22/21 16:12 Gabapentin (Neurontin) 1,200 mg TID PO 03/16/21 16:00 03/19/21 14:18 DC 03/19/21 08:58 Glipizide (Glucotrol Xl) 5 mg DAILY PO 03/17/21 09:00 03/16/21 17:59 DC Glipizide (Glucotrol Xl) 5 mg DAILY@1730 PO 03/16/21 17:30 03/17/21 17:05 DC 03/17/21 16:56 Glucagon (Glucagon) 1 mg ASDIRECTED PRN SC SEE LABEL COMMENTS 03/13/21 01:25 03/13/21 23:53 DC Glucagon (Glucagon) 1 mg ASDIRECTED PRN SC SEE LABEL COMMENTS 03/16/21 21:30 Glucagon (Glucagon) 1 mg ASDIRECTED PRN SC SEE LABEL COMMENTS 03/17/21 17:05 UNV Glucose (Glucose) 16 GM ASDIRECTED PRN PO SEE LABEL COMMENTS 03/13/21 01:25 03/13/21 23:53 DC Glucose (Glucose) 16 GM ASDIRECTED PRN PO SEE LABEL COMMENTS 03/16/21 21:30 Glucose (Glucose) 16 GM ASDIRECTED PRN PO SEE LABEL COMMENTS 03/17/21 17:05 UNV Home Med (Home Med List Complete!) ASDIRECTED XX 03/12/21 19:40 03/12/21 19:48 DC Insulin Detemir (Levemir Insulin) 10 units DAILY SC 03/17/21 09:00 03/22/21 18:04 DC 03/22/21 09:12 Insulin Detemir (Levemir Insulin) 10 units DAILY IN 03/17/21 09:00 03/16/21 17:23 DC [facility] 03/22/21 18:30 03/23/21 21:01 Insulin Detemir (Levemir Insulin) 15 units DAILY IN 03/23/21 09:00 03/24/21 08:02 Insulin Human Lispro (HumaLOG INSULIN) SEE PROTOCOL TABLE AC IN 03/17/21 17:30 03/24/21 11:48 Insulin Human Lispro (HumaLOG INSULIN) [facility] 03/17/21 21:00 03/23/21 21:01 Insulin Human Lispro (HumaLOG INSULIN) See Protocol Table AC IN 03/13/21 07:30 03/13/21 23:53 DC Insulin Human Lispro (HumaLOG INSULIN) [facility] 03/13/21 21:00 03/13/21 23:53 DC Ketoconazole (Nizoral) Apply over both feet BID TOP 03/21/21 21:00 04/04/21 09:00 03/24/21 07:58 Lidocaine (Lidoderm Patch) 1 patch DAILY TD 03/22/21 09:00 03/23/21 08:34 Lisinopril (Prinivil) 20 mg DAILY PO 03/17/21 09:00 03/24/21 07:59 Magnesium Hydroxide (Milk Of Magnesia) 30 ml DAILYPRN PRN PO CONSTIPATION 03/13/21 01:25 03/13/21 23:53 DC Menthol/Methyl Salicylate (Bengay Cream) APPLY TO LEFT SHOULDER TID TOP 03/16/21 21:00 03/24/21 07:58 Nicotine (Nicoderm Cq 14mg) 1 patch DAILY TD 03/17/21 09:00 03/23/21 07:46 Nicotine (Nicoderm Cq 14mg) 14 patch DAILY TD 03/17/21 09:00 03/17/21 09:15 DC Nicotine (Nicoderm Cq 21mg) 1 patch DAILY TD 03/13/21 09:00 03/13/21 23:53 DC 03/13/21 12:06 Non-Formulary Medication ( See Comment Field Below ) REMOVE LIDODERM PATCH DAILY@21 XX 03/22/21 21:00 03/23/21 21:01 Olanzapine (ZyPREXA ZYDIS) 5 mg Q4HP PRN PO ANXIETY/AGITATION 03/13/21 01:25 03/13/21 23:53 DC 03/13/21 03:24 Olanzapine (ZyPREXA ZYDIS) 5 mg Q4HP PRN PO ANXIETY/AGITATION 03/16/21 15:30 Olanzapine (ZyPREXA) 5 mg QHS PO 03/13/21 21:00 03/13/21 23:53 DC 03/13/21 21:01 Olanzapine (ZyPREXA) 10 mg QHS PO 03/16/21 21:00 03/23/21 21:00 Omeprazole (PriLOSEC) 40 mg QHS PO 03/16/21 21:00 03/23/21 21:00 Polyethylene Glycol (Miralax) 1 pkt DAILY PO 03/13/21 09:00 03/13/21 23:53 DC 03/13/21 13:06 Polyethylene Glycol (Miralax) 1 pkt DAILYPRN PRN PO CONSTIPATION 03/16/21 15:30 Senna (Senokot) 1 tab Q12HP PRN PO CONSTIPATION 03/16/21 21:30 Senna (Senokot) 2 tab BIDP PRN PO BOWEL CARE 03/16/21 15:30 Trazodone HCl (Desyrel) 50 mg QHSP PRN PO INSOMNIA 03/13/21 03:20 03/13/21 23:53 DC Allergies Coded Allergies: diclofenac (Verified Allergy, Unknown, 10/22/18) cannot use because "I don't use it right" CHRISTY AMOS MD Mar 24, 2021 13:05
[2021-03-24 16:19] VITALS: BP 158/90
[2021-03-24] MEDS: ATORVASTATIN 20 MG TAB PO SCH (21:04)
[2021-03-24] MEDS: OMEPRAZOLE 20 MG CAP PO SCH (21:04)
[2021-03-24] MEDS: OLANZapine 10 MG TAB PO SCH (21:04)
[2021-03-24] MEDS: **NOTE PATIENT COMMENT** MISC XX SCH (21:05)
[2021-03-25] MEDS: HumaLOG INSULIN (NovoLOG) PER UNIT SC SCH ×4 (06:53→21:01)
[2021-03-25 07:42] VITALS: BP 168/90
[2021-03-25] MEDS: LIDOCAINE 5% (LIDODERM) PATCH TD SCH (09:00)
[2021-03-25] MEDS: ANALGESIC BALM CRM 3OZ TOP SCH ×3 (09:00→20:50)
[2021-03-25] MEDS: NICOTINE 14 MG/24 HR TRANSDERMAL TD SCH (09:00)
[2021-03-25] MEDS: GABAPENTIN 400MG CAP PO SCH ×3 (09:00→21:00)
[2021-03-25] MEDS: KETOCONAZOLE 2% CREAM TOP SCH ×2 (09:10→21:00)
[2021-03-25] MEDS: DULoxetine 20 MG CAP (CYMBALTA) PO SCH ×2 (09:10→21:00)
[2021-03-25] MEDS: DOCUSATE SODIUM 100MG CAPSULE PO SCH ×2 (09:10→20:59)
[2021-03-25] MEDS: buPROPion **XL** TABLET 150MG (WELLBUTRIN XL) PO SCH (09:10)
[2021-03-25] MEDS: LEVEMIR (INSULIN DETEMIR) 1 UNITS/0.01ML SC SCH ×2 (09:12→21:00)
--- NOTE | 2021-03-25 11:37 | MHIPNPDOC ---
[facility] Progress Note Progress Note DATE OF SERVICE: 03/25/21 HISTORY: Patient is a 60 -year-old , male, who has a past psychiatric history of schizophrenia or bipolar reportedly and per chart review, major dep ressive disorder. Was brought to hospital by friend Merly and her , "I was gonna jump off [place] [address] or parking garage here or jump in front of truck, only reason haven't jumped because I'm not sure 4 floors would do it". "I wanted to go quick". Reports continues to have the same thoughts. Stopped taking his prescribed 8-10 weeks ago reportedly, "thought stopping them would kill me", including medical medications including, nifedipine, trulicity, bp meds, insulin, glipizide, atorvastatin. he was transferred to the medical floor due to hypoglycemia of 50 on 03/14, was stabilized and returned to psychiatric floor and continued on medications, was seen by hospitalist team since returning to psychiatric floor. "Now that I'm 60 its been hard to make decisions and have never had that before", says tortured by depression. Interval: Charts reviewed, continues to take medications, reports good effect on current regimen since increasing the Wellbutrin, denies any side effects of medications, denies any acute physical distress or acute physical bothersome symptoms, reports that the emollient has helped with his foot cracking. Asked to have extra carbs upon diet, explained elevated blood sugars with address with nursing. VITAL SIGNS: See below. NEW TEST RESULTS: None CURRENT MEDICATIONS: See below. MENTAL STATUS EXAMINATION: Patient is a 60-year old male, who is in no acute distress, sitting in his walker, improving eye contact, improved hygiene, appears stated age Speech: Is spontaneous, increased amount Language skills are fair. Thought processes including: Linear and coherent Thought content: Today endorses suicidal ideation, which is vague Abstract reasoning, and computation: Fair. Description of associations: Fair. Description of abnormal or psychotic thoughts: Denies. Judgment: Improving Insight: Improving Orientation: x4. Recent and remote memory: intact. Attention span and concentration: poor Language: Panamanian Fund of knowledge: Average. Mood: "pretty good" affect: mildly dysthymic, laughs at times and makes jokes, appropriate DIAGNOSES: 1. Schizoaffective disorder, depressed type 2. R/o medical causes to assess for Psychogenic polydipsia, likely side effects of medications and excess water intake ASSESSMENT: Patient reports he continues to improve on the unit, today denies suicidal ideation, reports improvements in mood with adjustment of his Wellbutrin. MANAGEMENT PLAN: Continue medications, pending placement. TIME SPENT: 20 minutes. Vital Signs Vital Signs Date Time Temp Pulse Resp B/P (MAP) Pulse Ox O2 Delivery O2 Flow Rate FiO2 03/25/21 09:30 Room Air 03/25/21 09:12 163/90 03/25/21 07:42 97.9 66 18 94 Laboratory Data 24H Labs Laboratory Tests 2 03/24/21 11:46: Bedside Glucose (Misc Panel) 431H 03/24/21 16:38: Bedside Glucose (Misc Panel) 321H 03/24/21 21:09: Bedside Glucose (Misc Panel) 380H 03/25/21 05:33: Bedside Glucose (Misc Panel) 180H Current Medications Current Medications Medications (Trade) Dose Ordered Sig/Cristopher Route PRN Reason Start Time Stop Time Status Last Admin Dose Admin Acetaminophen (Tylenol Tab) 325 mg Q8HP PRN PO MILD PAIN (PS 1-4) 03/19/21 12:30 03/22/21 09:16 Acetaminophen (Tylenol Tab) 650 mg Q6HP PRN PO HEADACHE or MILD DISCOMFORT 03/13/21 01:25 03/13/21 23:53 DC 03/13/21 08:48 Al Hydrox/Mg Hydrox/Simethicone (Mylanta) 30 ml Q4HP PRN PO HEARTBURN/INDIGESTION 03/13/21 01:25 03/13/21 23:53 DC Albuterol Sulfate (Proventil, Ventolin Hfa) 2 puff QID PRN INH SHORTNESS OF BREATH 03/16/21 15:30 03/16/21 17:16 DC Albuterol Sulfate (Proventil, Ventolin Hfa) 2 puff QID PRN INH SHORTNESS OF BREATH 03/16/21 15:30 Amlodipine Besylate (Norvasc) 5 mg DAILY PO 03/17/21 09:00 03/17/21 17:07 DC 03/17/21 09:17 Atorvastatin Calcium (Lipitor) 40 mg QHS PO 03/17/21 21:00 03/24/21 21:04 Baclofen (Lioresal) 20 mg BID PRN PO spasms 03/16/21 15:30 03/22/21 21:54 Bupropion HCl (Wellbutrin Xl) 150 mg DAILY PO 03/17/21 09:00 03/24/21 09:21 DC 03/24/21 08:00 Bupropion HCl (Wellbutrin Xl) 150 mg QAM PO 03/13/21 09:00 03/13/21 23:53 DC 03/13/21 12:23 Bupropion HCl (Wellbutrin Xl) 300 mg DAILY PO 03/25/21 09:00 03/25/21 09:10 Dextrose (Dextrose 50%) 25 ml ASDIRECTED PRN IV SEE LABEL COMMENTS 03/13/21 01:25 03/13/21 23:53 DC Dextrose (Dextrose 50%) 25 ml ASDIRECTED PRN IV SEE LABEL COMMENTS 03/16/21 21:30 Dextrose (Dextrose 50%) 25 ml ASDIRECTED PRN IV SEE LABEL COMMENTS 03/17/21 17:05 UNV Docusate Sodium (Colace) 100 mg BID PO 03/13/21 12:10 03/13/21 23:53 DC 03/13/21 21:01 Docusate Sodium (Colace) 100 mg BID PO 03/16/21 21:00 03/25/21 09:10 Duloxetine HCl (Cymbalta) 20 mg BID PO 03/22/21 21:00 03/25/21 09:10 Duloxetine HCl (Cymbalta) 20 mg DAILY PO 03/17/21 09:00 03/22/21 10:02 DC 03/22/21 09:13 Gabapentin (Neurontin) 800 mg TID PO 03/19/21 16:00 03/22/21 16:12 Gabapentin (Neurontin) 1,200 mg TID PO 03/16/21 16:00 03/19/21 14:18 DC 03/19/21 08:58 Glipizide (Glucotrol Xl) 5 mg DAILY PO 03/17/21 09:00 03/16/21 17:59 DC Glipizide (Glucotrol Xl) 5 mg DAILY@1730 PO 03/16/21 17:30 03/17/21 17:05 DC 03/17/21 16:56 Glucagon (Glucagon) 1 mg ASDIRECTED PRN SC SEE LABEL COMMENTS 03/13/21 01:25 03/13/21 23:53 DC Glucagon (Glucagon) 1 mg ASDIRECTED PRN SC SEE LABEL COMMENTS 03/16/21 21:30 Glucagon (Glucagon) 1 mg ASDIRECTED PRN SC SEE LABEL COMMENTS 03/17/21 17:05 UNV Glucose (Glucose) 16 GM ASDIRECTED PRN PO SEE LABEL COMMENTS 03/13/21 01:25 03/13/21 23:53 DC Glucose (Glucose) 16 GM ASDIRECTED PRN PO SEE LABEL COMMENTS 03/16/21 21:30 Glucose (Glucose) 16 GM ASDIRECTED PRN PO SEE LABEL COMMENTS 03/17/21 17:05 UNV Home Med (Home Med List Complete!) ASDIRECTED XX 03/12/21 19:40 03/12/21 19:48 DC Insulin Detemir (Levemir Insulin) 10 units DAILY SC 03/17/21 09:00 03/22/21 18:04 DC 03/22/21 09:12 Insulin Detemir (Levemir Insulin) 10 units DAILY SC 03/17/21 09:00 03/16/21 17:23 DC Insulin Detemir (Levemir Insulin) 10 units QHS [place] 03/22/21 18:30 03/24/21 21:04 Insulin Detemir (Levemir Insulin) 15 units DAILY SC 03/23/21 09:00 03/25/21 09:12 Insulin Human Lispro (HumaLOG INSULIN) SEE PROTOCOL TABLE AC [place] 03/17/21 17:30 03/25/21 06:53 Insulin Human Lispro ([facility]LOG [facility]ULIN) [facility] 03/17[facility] 21:00 03/24/21 21:12 Insulin Human Lispro (HumaLOG INSULIN) See Protocol Table AC [place] 03/13/21 07:30 03/13/21 23:53 DC Insulin Human Lispro (H[facility]LOG INSULIN) [facility] 03/13/21 21:00 03/13/21 23:53 DC Ketoconazole (Nizoral) Apply over both feet BID TOP 03/21/21 21:00 04/04/21 09:00 03/25/21 09:10 Lidocaine (Lidoderm Patch) 1 patch DAILY TD 03/22/21 09:00 03/23/21 08:34 Lisinopril (Prinivil) 20 mg DAILY PO 03/17/21 09:00 03/25/21 09:12 Magnesium Hydroxide (Milk Of Magnesia) 30 ml DAILYPRN PRN PO CONSTIPATION 03/13/21 01:25 03/13/21 23:53 DC Menthol/Methyl Salicylate (Bengay Cream) APPLY TO LEFT SHOULDER TID TOP 03/16/21 21:00 03/24/21 21:05 Nicotine (Nicoderm Cq 14mg) 1 patch DAILY TD 03/17/21 09:00 03/23/21 07:46 Nicotine (Nicoderm Cq 14mg) 14 patch DAILY TD 03/17/21 09:00 03/17/21 09:15 DC Nicotine (Nicoderm Cq 21mg) 1 patch DAILY TD 03/13/21 09:00 03/13/21 23:53 DC 03/13/21 12:06 Non-Formulary Medication ( See Comment Field Below ) REMOVE LIDODERM PATCH DAILY@21 XX 03/22/21 21:00 03/24/21 21:05 Olanzapine (ZyPREXA ZYDIS) 5 mg Q4HP PRN PO ANXIETY/AGITATION 03/13/21 01:25 03/13/21 23:53 DC 03/13/21 03:24 Olanzapine (ZyPREXA ZYDIS) 5 mg Q4HP PRN PO ANXIETY/AGITATION 03/16/21 15:30 Olanzapine (ZyPREXA) 5 mg QHS PO 03/13/21 21:00 03/13/21 23:53 DC 03/13/21 21:01 Olanzapine (ZyPREXA) 10 mg QHS PO 03/16/21 21:00 03/24/21 21:04 Omeprazole (PriLOSEC) 40 mg QHS PO 03/16/21 21:00 03/24/21 21:04 Polyethylene Glycol (Miralax) 1 pkt DAILY PO 03/13/21 09:00 03/13/21 23:53 DC 03/13/21 13:06 Polyethylene Glycol (Miralax) 1 pkt DAILYPRN PRN PO CONSTIPATION 03/16/21 15:30 Senna (Senokot) 1 tab Q12HP PRN PO CONSTIPATION 03/16/21 21:30 Senna (Senokot) 2 tab BIDP PRN PO BOWEL CARE 03/16/21 15:30 Trazodone HCl (Desyrel) 50 mg QHSP PRN PO INSOMNIA 03/13/21 03:20 03/13/21 23:53 DC Allergies Coded Allergies: diclofenac (Verified Allergy, Unknown, 10/22/18) cannot use because "I don't use it right" CHRISTY AMOS MD Mar 25, 2021 11:37
[2021-03-25] MEDS: OLANZapine 10 MG TAB PO SCH (20:59)
[2021-03-25] MEDS: OMEPRAZOLE 20 MG CAP PO SCH (20:59)
[2021-03-25] MEDS: ATORVASTATIN 20 MG TAB PO SCH (21:00)
[2021-03-25] MEDS: **NOTE PATIENT COMMENT** MISC XX SCH (21:00)
[2021-03-26] MEDS: HumaLOG INSULIN (NovoLOG) PER UNIT SC SCH ×4 (06:33→20:53)
[2021-03-26 07:20] VITALS: BP 166/92
[2021-03-26] MEDS: ANALGESIC BALM CRM 3OZ TOP SCH ×3 (08:45→21:00)
[2021-03-26] MEDS: GABAPENTIN 400MG CAP PO SCH ×3 (08:45→21:00)
[2021-03-26] MEDS: NICOTINE 14 MG/24 HR TRANSDERMAL TD SCH (08:46)
[2021-03-26] MEDS: LIDOCAINE 5% (LIDODERM) PATCH TD SCH (08:46)
[2021-03-26] MEDS: LEVEMIR (INSULIN DETEMIR) 1 UNITS/0.01ML SC SCH ×2 (08:50→21:12)
[2021-03-26] MEDS: DULoxetine 20 MG CAP (CYMBALTA) PO SCH (08:51)
[2021-03-26] MEDS: KETOCONAZOLE 2% CREAM TOP SCH ×2 (08:51→21:00)
[2021-03-26] MEDS: DOCUSATE SODIUM 100MG CAPSULE PO SCH ×3 (08:51→21:14)
[2021-03-26] MEDS: buPROPion **XL** TABLET 150MG (WELLBUTRIN XL) PO SCH (08:51)
--- NOTE | 2021-03-26 10:23 | MHIPNPDOC ---
[facility] Progress Note Progress Note DATE OF SERVICE: 03/26/21 HISTORY: Patient is a 60 -year-old , male, who has a past psychiatric history of schizophrenia or bipolar reportedly and per chart review, major dep ressive disorder. Was brought to hospital by friend Merly and her , "I was gonna jump off [place] or parking garage here or jump in front of truck, only reason haven't jumped because I'm not sure 4 floors would do it". "I wanted to go quick". Reports continues to have the same thoughts. Stopped taking his prescribed 8-10 weeks ago reportedly, "thought stopping them would kill me", including medical medications including, nifedipine, trulicity, bp meds, insulin, glipizide, atorvastatin. he was transferred to the medical floor due to hypoglycemia of 50 on 03/14, was stabilized and returned to psychiatric floor and continued on medications, was seen by hospitalist team since returning to psychiatric floor. "Now that I'm 60 its been hard to make decisions and have never had that before", says tortured by depression. Interval: Charts reviewed, has been going to afternoon groups, continues to report suicidal thoughts, I feel a little more secure won't do it, but not 100%, agrees to increase cymbalta and see how he progresses over the weekend. Denies any acute physical complaints. Denies any medication side effects. States got 6 hrs of sleep last night, appetite is good. VITAL SIGNS: See below. NEW TEST RESULTS: None CURRENT MEDICATIONS: See below. MENTAL STATUS EXAMINATION: Patient is a 60-year old male, who is in no acute distress, sitting in his walker, improving eye contact, improved hygiene, appears stated age Speech: Is spontaneous, increased amount Language skills are fair. Thought processes including: Linear and coherent Thought content:continues to endorses suicidal ideation, which is vague Abstract reasoning, and computation: Fair. Description of associations: Fair. Description of abnormal or psychotic thoughts: Denies. Judgment: Improving Insight: Improving Orientation: x4. Recent and remote memory: intact. Attention span and concentration: poor Language: Surinamese Fund of knowledge: Average. Mood: "I'm tired" affect: mildly dysthymic, appropriate DIAGNOSES: 1. Schizoaffective disorder, depressed type 2. 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 He is more time on the unit to help improve depressive mood possible discharge on Monday or Monday if continues to improve. Aware of possible discharge to [facility] and with TLS referral. MANAGEMENT PLAN: Duloxetine to 30 mg p.o. twice daily, patient tolerating medications well TIME SPENT: 20 minutes. Vital Signs Vital Signs Date Time Temp Pulse Resp B/P (MAP) Pulse Ox O2 Delivery O2 Flow Rate FiO2 03/26/21 08:51 161/90 03/26/21 07:20 98.1 71 16 95 Room Air Laboratory Data 24H Labs Laboratory Tests 2 03/25/21 11:51: Bedside Glucose (Misc Panel) 241H 03/25/21 16:55: Bedside Glucose (Misc Panel) 292H 03/25/21 20:48: Bedside Glucose (Misc Panel) 337H 03/26/21 06:25: Bedside Glucose (Misc Panel) 211H Current Medications Current Medications Medications (Trade) Dose Ordered Sig/Cristopher Route PRN Reason Start Time Stop Time Status Last Admin Dose Admin Acetaminophen (Tylenol Tab) 325 mg Q8HP PRN PO MILD PAIN (PS 1-4) 03/19/21 12:30 03/22/21 09:16 Acetaminophen (Tylenol Tab) 650 mg Q6HP PRN PO HEADACHE or MILD DISCOMFORT 03/13/21 01:25 03/13/21 23:53 DC 03/13/21 08:48 Al Hydrox/Mg Hydrox/Simethicone (Mylanta) 30 ml Q4HP PRN PO HEARTBURN/INDIGESTION 03/13/21 01:25 03/13/21 23:53 DC Albuterol Sulfate (Proventil, Ventolin Hfa) 2 puff QID PRN INH SHORTNESS OF BREATH 03/16/21 15:30 03/16/21 17:16 DC Albuterol Sulfate (Proventil, Ventolin Hfa) 2 puff QID PRN INH SHORTNESS OF BREATH 03/16/21 15:30 Amlodipine Besylate (Norvasc) 5 mg DAILY PO 03/17/21 09:00 03/17/21 17:07 DC 03/17/21 09:17 Atorvastatin Calcium (Lipitor) 40 mg QHS PO 03/17/21 21:00 03/25/21 21:00 Baclofen (Lioresal) 20 mg BID PRN PO spasms 03/16/21 15:30 03/22/21 21:54 Bupropion HCl (Wellbutrin Xl) 150 mg DAILY PO 03/17/21 09:00 03/24/21 09:21 DC 03/24/21 08:00 Bupropion HCl (Wellbutrin Xl) 150 mg QAM PO 03/13/21 09:00 03/13/21 23:53 DC 03/13/21 12:23 Bupropion HCl (Wellbutrin Xl) 300 mg DAILY PO 03/25/21 09:00 03/26/21 08:51 Dextrose (Dextrose 50%) 25 ml ASDIRECTED PRN IV SEE LABEL COMMENTS 03/13/21 01:25 03/13/21 23:53 DC Dextrose (Dextrose 50%) 25 ml ASDIRECTED PRN IV SEE LABEL COMMENTS 03/16/21 21:30 Dextrose (Dextrose 50%) 25 ml ASDIRECTED PRN IV SEE LABEL COMMENTS 03/17/21 17:05 UNV Docusate Sodium (Colace) 100 mg BID PO 03/13/21 12:10 03/13/21 23:53 DC 03/13/21 21:01 Docusate Sodium (Colace) 100 mg BID PO 03/16/21 21:00 03/26/21 08:51 Duloxetine HCl (Cymbalta) 20 mg BID PO 03/22/21 21:00 03/26/21 08:51 Duloxetine HCl (Cymbalta) 20 mg DAILY PO 03/17/21 09:00 03/22/21 10:02 DC 03/22/21 09:13 Gabapentin (Neurontin) 800 mg TID PO 03/19/21 16:00 03/22/21 16:12 Gabapentin (Neurontin) 1,200 mg TID PO 03/16/21 16:00 03/19/21 14:18 DC 03/19/21 08:58 Glipizide (Glucotrol Xl) 5 mg DAILY PO 03/17/21 09:00 03/16/21 17:59 DC Glipizide (Glucotrol Xl) 5 mg DAILY@1730 PO 03/16/21 17:30 10/6/21 17:05 DC 03/17/21 16:56 Glucagon (Glucagon) 1 mg ASDIRECTED PRN SC SEE LABEL COMMENTS 03/13/21 01:25 03/13/21 23:53 DC Glucagon (Glucagon) 1 mg ASDIRECTED PRN SC SEE LABEL COMMENTS 03/16/21 21:30 Glucagon (Glucagon) 1 mg ASDIRECTED PRN SC SEE LABEL COMMENTS 03/17/21 17:05 UNV Glucose (Glucose) 16 GM ASDIRECTED PRN PO SEE LABEL COMMENTS 03/13/21 01:25 03/13/21 23:53 DC Glucose (Glucose) 16 GM ASDIRECTED PRN PO SEE LABEL COMMENTS 03/16/21 21:30 Glucose (Glucose) 16 GM ASDIRECTED PRN PO SEE LABEL COMMENTS 03/17/21 17:05 UNV Home Med (Home Med List Complete!) ASDIRECTED XX 03/12/21 19:40 03/12/21 19:48 DC Insulin Detemir (Levemir Insulin) 10 units DAILY PA 03/17/21 09:00 03/22/21 18:04 DC 03/22/21 09:12 Insulin Detemir (Levemir Insulin) 10 units DAILY PA 03/17/21 09:00 03/16/21 17:23 DC Insulin Detemir (Levemir Insulin) 10 units [facility] 03/22/21 18:30 03/25/21 21:00 Insulin Detemir (Levemir Insulin) 15 units DAILY PA 03/23/21 09:00 03/26/21 08:50 Insulin Human Lispro (HumaLOG INSULIN) SEE PROTOCOL TABLE AC PA 03/17/21 17:30 03/26/21 06:33 Insulin Human Lispro (HumaLOG INSULIN) SEE PROTOCOL TABLE QHS PA 03/17/21 21:00 03/25/21 21:01 Insulin Human Lispro (HumaLOG INSULIN) See Protocol Table AC SC 03/13/21 07:30 03/13/21 23:53 DC Insulin Human Lispro (HumaLOG INSULIN) See Protocol Table QHS PA 03/13/21 21:00 03/13/21 23:53 DC Ketoconazole (Nizoral) Apply over both feet BID TOP 03/21/21 21:00 04/04/21 09:00 03/26/21 08:51 Lidocaine (Lidoderm Patch) 1 patch DAILY TD 03/22/21 09:00 03/23/21 08:34 Lisinopril (Prinivil) 20 mg DAILY PO 03/17/21 09:00 03/26/21 08:51 Magnesium Hydroxide (Milk Of Magnesia) 30 ml DAILYPRN PRN PO CONSTIPATION 03/13/21 01:25 03/13/21 23:53 DC Menthol/Methyl Salicylate (Bengay Cream) APPLY TO LEFT SHOULDER TID TOP 03/16/21 21:00 03/24/21 21:05 Nicotine (Nicoderm Cq 14mg) 1 patch DAILY TD 03/17/21 09:00 03/23/21 07:46 Nicotine (Nicoderm Cq 14mg) 14 patch DAILY TD 03/17/21 09:00 03/17/21 09:15 DC Nicotine (Nicoderm Cq 21mg) 1 patch DAILY TD 03/13/21 09:00 03/13/21 23:53 DC 03/13/21 12:06 Non-Formulary Medication ( See Comment Field Below ) REMOVE LIDODERM PATCH DAILY@21 XX 03/22/21 21:00 03/24/21 21:05 Olanzapine (ZyPREXA ZYDIS) 5 mg Q4HP PRN PO ANXIETY/AGITATION 03/13/21 01:25 03/13/21 23:53 DC 03/13/21 03:24 Olanzapine (ZyPREXA ZYDIS) 5 mg Q4HP PRN PO ANXIETY/AGITATION 03/16/21 15:30 Olanzapine (ZyPREXA) 5 mg QHS PO 03/13/21 21:00 03/13/21 23:53 DC 03/13/21 21:01 Olanzapine (ZyPREXA) 10 mg QHS PO 03/16/21 21:00 03/25/21 20:59 Omeprazole (PriLOSEC) 40 mg QHS PO 03/16/21 21:00 03/25/21 20:59 Polyethylene Glycol (Miralax) 1 pkt DAILY PO 03/13/21 09:00 03/13/21 23:53 DC 03/13/21 13:06 Polyethylene Glycol (Miralax) 1 pkt DAILYPRN PRN PO CONSTIPATION 03/16/21 15:30 Senna (Senokot) 1 tab Q12HP PRN PO CONSTIPATION 03/16/21 21:30 Senna (Senokot) 2 tab BIDP PRN PO BOWEL CARE 03/16/21 15:30 Trazodone HCl (Desyrel) 50 mg QHSP PRN PO INSOMNIA 03/13/21 03:20 03/13/21 23:53 DC Allergies Coded Allergies: diclofenac (Verified Allergy, Unknown, 10/22/18) cannot use because "I don't use it right" CHRISTY AMOS MD Mar 26, 2021 10:23
[2021-03-26 16:43] VITALS: BP 144/80
[2021-03-26] MEDS: OLANZapine 10 MG TAB PO SCH ×2 (21:00→21:14)
[2021-03-26] MEDS: DULoxetine 30MG CAPSULE (CYMBALTA) PO SCH ×2 (21:00→21:14)
[2021-03-26] MEDS: ATORVASTATIN 20 MG TAB PO SCH ×2 (21:00→21:14)
[2021-03-26] MEDS: OMEPRAZOLE 20 MG CAP PO SCH ×2 (21:00→21:14)
[2021-03-26] MEDS: **NOTE PATIENT COMMENT** MISC XX SCH (21:00)
[2021-03-27 06:34] VITALS: BP 154/92
[2021-03-27] MEDS: HumaLOG INSULIN (NovoLOG) PER UNIT SC SCH ×4 (06:35→21:00)
[2021-03-27] MEDS: NICOTINE 14 MG/24 HR TRANSDERMAL TD SCH (09:00)
[2021-03-27] MEDS: GABAPENTIN 400MG CAP PO SCH ×3 (09:00→21:00)
[2021-03-27] MEDS: ANALGESIC BALM CRM 3OZ TOP SCH ×3 (09:00→21:00)
[2021-03-27] MEDS: LIDOCAINE 5% (LIDODERM) PATCH TD SCH (09:00)
[2021-03-27] MEDS: KETOCONAZOLE 2% CREAM TOP SCH ×2 (09:00→20:04)
[2021-03-27] MEDS: DOCUSATE SODIUM 100MG CAPSULE PO SCH ×2 (09:07→21:00)
[2021-03-27] MEDS: buPROPion **XL** TABLET 150MG (WELLBUTRIN XL) PO SCH (09:08)
[2021-03-27] MEDS: LEVEMIR (INSULIN DETEMIR) 1 UNITS/0.01ML SC SCH ×2 (09:08→20:05)
[2021-03-27] MEDS: DULoxetine 30MG CAPSULE (CYMBALTA) PO SCH ×2 (09:08→21:00)
[2021-03-27 16:21] VITALS: BP 160/92
[2021-03-27] MEDS: OLANZapine 10 MG TAB PO SCH (21:00)
[2021-03-27] MEDS: **NOTE PATIENT COMMENT** MISC XX SCH (21:00)
[2021-03-27] MEDS: ATORVASTATIN 20 MG TAB PO SCH (21:00)
[2021-03-27] MEDS: OMEPRAZOLE 20 MG CAP PO SCH (21:00)
[2021-03-28 06:31] VITALS: BP 165/90
[2021-03-28] MEDS: HumaLOG INSULIN (NovoLOG) PER UNIT SC SCH ×4 (06:31→21:00)
[2021-03-28] MEDS: DOCUSATE SODIUM 100MG CAPSULE PO SCH ×2 (08:29→21:00)
[2021-03-28] MEDS: GABAPENTIN 400MG CAP PO SCH ×3 (08:30→21:00)
[2021-03-28] MEDS: LIDOCAINE 5% (LIDODERM) PATCH TD SCH (08:30)
[2021-03-28] MEDS: ANALGESIC BALM CRM 3OZ TOP SCH ×3 (08:30→22:55)
[2021-03-28] MEDS: NICOTINE 14 MG/24 HR TRANSDERMAL TD SCH (08:30)
[2021-03-28] MEDS: DULoxetine 30MG CAPSULE (CYMBALTA) PO SCH ×2 (08:30→21:00)
[2021-03-28] MEDS: KETOCONAZOLE 2% CREAM TOP SCH ×2 (08:30→22:55)
[2021-03-28] MEDS: buPROPion **XL** TABLET 150MG (WELLBUTRIN XL) PO SCH (08:39)
[2021-03-28] MEDS: LEVEMIR (INSULIN DETEMIR) 1 UNITS/0.01ML SC SCH ×2 (08:39→22:54)
[2021-03-28 16:29] VITALS: BP 158/94
[2021-03-28] MEDS: **NOTE PATIENT COMMENT** MISC XX SCH (21:00)
[2021-03-28] MEDS: OLANZapine 10 MG TAB PO SCH (21:00)
[2021-03-28] MEDS: OMEPRAZOLE 20 MG CAP PO SCH (22:56)
[2021-03-28] MEDS: ATORVASTATIN 20 MG TAB PO SCH (22:59)
[2021-03-29 06:32] VITALS: BP 162/88
[2021-03-29] MEDS: HumaLOG INSULIN (NovoLOG) PER UNIT SC SCH ×4 (06:43→21:00)
[2021-03-29] MEDS: GABAPENTIN 400MG CAP PO SCH ×3 (09:00→21:00)
[2021-03-29] MEDS: DOCUSATE SODIUM 100MG CAPSULE PO SCH ×2 (09:00→21:00)
[2021-03-29] MEDS: DULoxetine 30MG CAPSULE (CYMBALTA) PO SCH (09:00)
[2021-03-29] MEDS: NICOTINE 14 MG/24 HR TRANSDERMAL TD SCH (09:00)
[2021-03-29] MEDS: ANALGESIC BALM CRM 3OZ TOP SCH ×3 (09:00→21:00)
[2021-03-29] MEDS: KETOCONAZOLE 2% CREAM TOP SCH ×2 (09:00→21:00)
[2021-03-29] MEDS: buPROPion **XL** TABLET 150MG (WELLBUTRIN XL) PO SCH (09:24)
[2021-03-29] MEDS: LEVEMIR (INSULIN DETEMIR) 1 UNITS/0.01ML SC SCH ×2 (09:24→21:33)
[2021-03-29] MEDS: LIDOCAINE 5% (LIDODERM) PATCH TD SCH (09:24)
[2021-03-29] MEDS: BACLOFEN 10 MG TAB PO PRN ×2 (09:26→23:27)
--- NOTE | 2021-03-29 12:48 | MHIPNPDOC ---
[facility] Progress Note Progress Note DATE OF SERVICE: 03/29/21 HISTORY: Patient is a 60 -year-old , male, who has a past psychiatric history of schizophrenia or bipolar reportedly and per chart review, major dep ressive disorder. Was brought to hospital by friend Merly and her , "I was gonna jump off [employer] [place] or parking garage here or jump in front of truck, only reason haven't jumped because I'm not sure 4 floors would do it". "I wanted to go quick". Reports continues to have the same thoughts. Stopped taking his prescribed 8-10 weeks ago reportedly, "thought stopping them would kill me", including medical medications including, nifedipine, trulicity, bp meds, insulin, glipizide, atorvastatin. he was transferred to the medical floor due to hypoglycemia of 50 on 03/14, was stabilized and returned to psychiatric floor and continued on medications, was seen by hospitalist team since returning to psychiatric floor. "Now that I'm 60 its been hard to make decisions and have never had that before", says tortured by depression. Interval: Charts reviewed, patient has not been continue his medications over the weekend, states that he had increased agitation with thoughts of harming others but no clear intent so he stopped his medications. Agreed to decrease his duloxetine to 20 mg twice daily and encouraged to take his medications in cluding olanzapine due to risk of destabilization. Was agreeable to this plan, encouraged to attend groups, denies any acute physical complaints apart from some hip pain supplemented with lidocaine patch which he reports works well with cyclobenzaprine. VITAL SIGNS: See below. NEW TEST RESULTS: None CURRENT MEDICATIONS: See below. MENTAL STATUS EXAMINATION: Patient is a 60-year old male, who is in no acute distress, sitting in his walker, improving eye contact, improved hygiene, appears stated age Speech: Is spontaneous, increased amount Language skills are fair. Thought processes including: Linear and coherent Thought content: Today states he is not having suicidal ideation, denies homicidal ideation, intent or plan. Abstract reasoning, and computation: Fair. Description of associations: Fair. Description of abnormal or psychotic thoughts: Denies. Judgment: Poor Insight: Improving Orientation: x4. Recent and remote memory: intact. Attention span and concentration: poor Language: Upper Sorbian Fund of knowledge: Average. Mood: "Doing okay today but was angry in the week" affect: Mildly dysthymic and anxious, appropriate, calm DIAGNOSES: 1. Schizoaffective disorder, depressed type 2. R/o medical causes to assess for Psychogenic polydipsia, likely side effects of medications and excess water intake ASSESSMENT: Patient endorsed possible activation symptoms in context of increasing his Cymbalta, was reduced to dose where he was reported stability 20 mg twice daily, is agreeable to this plan. Despite this denies suicidal ideation today reports the medications helping with mood. Aware of possible discharge to DSS and with TLS referral. Needs time for stabilization prior to discharge in context of adjusting medications. MANAGEMENT PLAN: Decrease duloxetine to 20 mg twice daily, reported activation in context of increasing medication, otherwise patient tolerating medications well without side effects. TIME SPENT: 15 minutes. Vital Signs Vital Signs Date Time Temp Pulse Resp B/P (MAP) Pulse Ox O2 Delivery O2 Flow Rate FiO2 03/29/21 11:58 160/100 03/29/21 06:32 97.7 67 18 95 Room Air Laboratory Data 24H Labs Laboratory Tests 2 03/28/21 16:45: Bedside Glucose (Misc Panel) 99 03/28/21 22:45: Bedside Glucose (Misc Panel) 99 03/29/21 06:36: Bedside Glucose (Misc Panel) 103 03/29/21 12:02: Bedside Glucose (Misc Panel) 107 Current Medications Current Medications Medications (Trade) Dose Ordered Sig/Cristopher Route PRN Reason Start Time Stop Time Status Last Admin Dose Admin Acetaminophen (Tylenol Tab) 325 mg Q8HP PRN PO MILD PAIN (PS 1-4) 03/19/21 12:30 03/22/21 09:16 Acetaminophen (Tylenol Tab) 650 mg Q6HP PRN PO HEADACHE or MILD DISCOMFORT 03/13/21 01:25 03/13/21 23:53 DC 03/13/21 08:48 Al Hydrox/Mg Hydrox/Simethicone (Mylanta) 30 ml Q4HP PRN PO HEARTBURN/INDIGESTION 03/13/21 01:25 03/13/21 23:53 DC Albuterol Sulfate (Proventil, Ventolin Hfa) 2 puff QID PRN INH SHORTNESS OF BREATH 03/16/21 15:30 03/16/21 17:16 DC Albuterol Sulfate (Proventil, Ventolin Hfa) 2 puff QID PRN INH SHORTNESS OF BREATH 03/16/21 15:30 Amlodipine Besylate (Norvasc) 5 mg DAILY PO 03/17/21 09:00 03/17/21 17:07 DC 03/17/21 09:17 Atorvastatin Calcium (Lipitor) 40 mg QHS PO 03/17/21 21:00 03/28/21 22:59 Baclofen (Lioresal) 20 mg BID PRN PO spasms 03/16/21 15:30 03/22/21 21:54 Bupropion HCl (Wellbutrin Xl) 150 mg DAILY PO 03/17/21 09:00 03/24/21 09:21 DC 03/24/21 08:00 Bupropion HCl (Wellbutrin Xl) 150 mg QAM PO 03/13/21 09:00 03/13/21 23:53 DC 03/13/21 12:23 Bupropion HCl (Wellbutrin Xl) 300 mg DAILY PO 03/25/21 09:00 03/29/21 09:24 Dextrose (Dextrose 50%) 25 ml ASDIRECTED PRN IV SEE LABEL COMMENTS 03/13/21 01:25 03/13/21 23:53 DC Dextrose (Dextrose 50%) 25 ml ASDIRECTED PRN IV SEE LABEL COMMENTS 03/16/21 21:30 Dextrose (Dextrose 50%) 25 ml ASDIRECTED PRN IV SEE LABEL COMMENTS 03/17/21 17:05 UNV Docusate Sodium (Colace) 100 mg BID PO 03/13/21 12:10 03/13/21 23:53 DC 03/13/21 21:01 Docusate Sodium (Colace) 100 mg BID PO 03/16/21 21:00 03/27/21 09:07 Duloxetine HCl (Cymbalta) 20 mg BID PO 03/22/21 21:00 03/26/21 10:17 DC 03/26/21 08:51 Duloxetine HCl (Cymbalta) 20 mg BID PO 03/29/21 21:00 Duloxetine HCl (Cymbalta) 20 mg DAILY PO 03/17/21 09:00 03/22/21 10:02 DC 03/22/21 09:13 Duloxetine HCl (Cymbalta) 30 mg BID PO 03/26/21 21:00 03/29/21 11:02 DC 03/27/21 09:08 Gabapentin (Neurontin) 800 mg TID PO 03/19/21 16:00 03/22/21 16:12 Gabapentin (Neurontin) 1,200 mg TID PO 03/16/21 16:00 03/19/21 14:18 DC 03/19/21 08:58 Glipizide (Glucotrol Xl) 5 mg DAILY PO 03/17/21 09:00 03/16/21 17:59 DC Glipizide (Glucotrol Xl) 5 mg DAILY@1730 PO 03/16/21 17:30 03/17/21 17:05 DC 03/17/21 16:56 Glucagon (Glucagon) 1 mg ASDIRECTED PRN SC SEE LABEL COMMENTS 03/13/21 01:25 03/13/21 23:53 DC Glucagon (Glucagon) 1 mg ASDIRECTED PRN SC SEE LABEL COMMENTS 03/16/21 21:30 Glucagon (Glucagon) 1 mg ASDIRECTED PRN SC SEE LABEL COMMENTS 03/17/21 17:05 UNV Glucose (Glucose) 16 GM ASDIRECTED PRN PO SEE LABEL COMMENTS 03/13/21 01:25 03/13/21 23:53 DC Glucose (Glucose) 16 GM ASDIRECTED PRN PO SEE LABEL COMMENTS 03/16/21 21:30 Glucose (Glucose) 16 GM ASDIRECTED PRN PO SEE LABEL COMMENTS 03/17/21 17:05 UNV Home Med (Home Med List Complete!) ASDIRECTED XX 03/12/21 19:40 03/12/21 19:48 DC Insulin Detemir (Levemir Insulin) 10 units DAILY SC 03/17/21 09:00 03/22/21 18:04 DC 03/22/21 09:12 Insulin Detemir (Levemir Insulin) 10 units DAILY SC 03/17/21 09:00 03/16/21 17:23 DC Insulin Detemir (Levemir Insulin) 10 units QHS SC 03/22/21 18:30 03/28/21 22:54 Insulin Detemir (Levemir Insulin) 15 units DAILY SC 03/23/21 09:00 03/29/21 09:24 Insulin Human Lispro (HumaLOG INSULIN) SEE PROTOCOL TABLE AC SC 03/17/21 17:30 03/29/21 12:06 Insulin Human Lispro (HumaLOG INSULIN) SEE PROTOCOL TABLE QHS SC 03/17/21 21:00 03/26/21 20:53 Insulin Human Lispro (HumaLOG INSULIN) See Protocol Table AC SC 03/13/21 07:30 03/13/21 23:53 DC Insulin Human Lispro (HumaLOG INSULIN) See Protocol Table QHS SC 03/13/21 21:00 03/13/21 23:53 DC Ketoconazole (Nizoral) Apply over both feet BID TOP 03/21/21 21:00 04/04/21 09:00 03/28/21 22:55 Lidocaine (Lidoderm Patch) 1 patch DAILY TD 03/22/21 09:00 03/29/21 09:24 Lisinopril (Prinivil) 20 mg DAILY PO 03/17/21 09:00 03/29/21 11:58 Magnesium Hydroxide (Milk Of Magnesia) 30 ml DAILYPRN PRN PO CONSTIPATION 03/13/21 01:25 03/13/21 23:53 DC Menthol/Methyl Salicylate (Bengay Cream) APPLY TO LEFT SHOULDER TID TOP 03/16/21 21:00 03/28/21 22:55 Nicotine (Nicoderm Cq 14mg) 1 patch DAILY TD 03/17/21 09:00 03/23/21 07:46 Nicotine (Nicoderm Cq 14mg) 14 patch DAILY TD 03/17/21 09:00 03/17/21 09:15 DC Nicotine (Nicoderm Cq 21mg) 1 patch DAILY TD 03/13/21 09:00 03/13/21 23:53 DC 03/13/21 12:06 Non-Formulary Medication ( See Comment Field Below ) REMOVE LIDODERM PATCH DAILY@21 XX 03/22/21 21:00 03/24/21 21:05 Olanzapine (ZyPREXA ZYDIS) 5 mg Q4HP PRN PO ANXIETY/AGITATION 03/13/21 01:25 03/13/21 23:53 DC 03/13/21 03:24 Olanzapine (ZyPREXA ZYDIS) 5 mg Q4HP PRN PO ANXIETY/AGITATION 03/16/21 15:30 Olanzapine (ZyPREXA) 5 mg QHS PO 03/13/21 21:00 03/13/21 23:53 DC 10/2/21 21:01 Olanzapine (ZyPREXA) 10 mg QHS PO 03/16/21 21:00 03/26/21 21:14 Omeprazole (PriLOSEC) 40 mg QHS PO 03/16/21 21:00 03/28/21 22:56 Polyethylene Glycol (Miralax) 1 pkt DAILY PO 03/13/21 09:00 03/13/21 23:53 DC 03/13/21 13:06 Polyethylene Glycol (Miralax) 1 pkt DAILYPRN PRN PO CONSTIPATION 03/16/21 15:30 Senna (Senokot) 1 tab Q12HP PRN PO CONSTIPATION 03/16/21 21:30 Senna (Senokot) 2 tab BIDP PRN PO BOWEL CARE 03/16/21 15:30 Trazodone HCl (Desyrel) 50 mg QHSP PRN PO INSOMNIA 03/13/21 03:20 03/13/21 23:53 DC Allergies Coded Allergies: diclofenac (Verified Allergy, Unknown, 10/22/18) cannot use because "I don't use it right" CHRISTY AMOS MD Mar 29, 2021 12:48
[2021-03-29 17:48] VITALS: BP 144/102
[2021-03-29] MEDS: **NOTE PATIENT COMMENT** MISC XX SCH (21:31)
[2021-03-29] MEDS: OMEPRAZOLE 20 MG CAP PO SCH (21:32)
[2021-03-29] MEDS: DULoxetine 20 MG CAP (CYMBALTA) PO SCH (21:33)
[2021-03-29] MEDS: OLANZapine 10 MG TAB PO SCH (21:33)
[2021-03-29] MEDS: ATORVASTATIN 20 MG TAB PO SCH (21:33)
[2021-03-30] MEDS: HumaLOG INSULIN (NovoLOG) PER UNIT SC SCH ×4 (06:37→21:00)
[2021-03-30 06:42] VITALS: BP 176/82
[2021-03-30] MEDS: LEVEMIR (INSULIN DETEMIR) 1 UNITS/0.01ML SC SCH ×2 (08:07→21:22)
[2021-03-30] MEDS: DULoxetine 20 MG CAP (CYMBALTA) PO SCH ×2 (08:07→21:21)
[2021-03-30] MEDS: buPROPion **XL** TABLET 150MG (WELLBUTRIN XL) PO SCH (08:07)
[2021-03-30] MEDS: DOCUSATE SODIUM 100MG CAPSULE PO SCH ×2 (08:10→21:00)
[2021-03-30] MEDS: GABAPENTIN 400MG CAP PO SCH ×3 (08:10→21:00)
[2021-03-30] MEDS: ANALGESIC BALM CRM 3OZ TOP SCH ×3 (08:11→21:00)
[2021-03-30] MEDS: KETOCONAZOLE 2% CREAM TOP SCH ×2 (08:11→21:00)
[2021-03-30] MEDS: NICOTINE 14 MG/24 HR TRANSDERMAL TD SCH (08:11)
[2021-03-30] MEDS: LIDOCAINE 5% (LIDODERM) PATCH TD SCH (08:11)
--- NOTE | 2021-03-30 13:50 | MHIPNPDOC ---
[facility] [place] DATE OF SERVICE: 03/30/21 HISTORY: Patient is a 60 -year-old , male, who has a past psychiatric history of schizophrenia or bipolar reportedly and per chart review, major dep ressive disorder. Was brought to hospital by friend Merly and her , "I was gonna jump off [employer] or parking garage here or jump in front of truck, only reason haven't jumped because I'm not sure 4 floors would do it". "I wanted to go quick". Reports continues to have the same thoughts. Stopped taking his prescribed 8-10 weeks ago reportedly, "thought stopping them would kill me", including medical medications including, nifedipine, trulicity, bp meds, insulin, glipizide, atorvastatin. he was transferred to the medical floor due to hypoglycemia of 50 on 03/14, was stabilized and returned to psychiatric floor and continued on medications, was seen by hospitalist team since returning to psychiatric floor. "Now that I'm 60 its been hard to make decisions and have never had that before", says tortured by depression. Interval: Charts reviewed, patient has been attending most groups, denies any acute physical complaints is ambulating around the unit with no difficulty. Patient is jovial, smiling and calm during interview, highly engaged, seen socializing in the common area and eating breakfast. Despite this states he is never been more suicidal, does not appear dysthymic, does not appear withdrawn, has good eye contact, smiles and laughs at times. Has been taking medications in context of dose adjustment. VITAL SIGNS: See below. NEW TEST RESULTS: None CURRENT MEDICATIONS: See below. MENTAL STATUS EXAMINATION: Patient is a 60-year old male, who is in no acute distress, sitting in his walker, improving eye contact, improved hygiene, appears stated age Speech: Is spontaneous, increased amount Language skills are fair. Thought processes including: Linear and coherent Thought content: Today states he is not having suicidal ideation, denies homicidal ideation, intent or plan. Abstract reasoning, and computation: Fair. Description of associations: Fair. Description of abnormal or psychotic thoughts: Denies. Judgment: Improving Insight: Good Orientation: x4. Recent and remote memory: intact. Attention span and concentration: poor Language: Bulgarian Fund of knowledge: Average. Mood: "Most suicidal ever" affect: Euthymic, full, engaged on interview, smiles, appropriate, calm, mood-incongruent DIAGNOSES: 1. Schizoaffective disorder, depressed type 2. R/o medical causes to assess for Psychogenic polydipsia, likely side effects of medications and excess water intake R/O malingering ASSESSMENT: The patient has continued to take medications, had stopped his antidepressant and olanzapine days ago waiting to speak with me over the weekend, reports in context of the medication discontinuation he is having the worst depression of his life and has never been more suicidal. Despite this affect is full, patient is social in the milieu and has been going to groups, he is usually seen eating breakfast and enjoying himself during breaks in social milieu.depending on the time he speak the patient will endorses having suicidal ideations or not, and yesterday had been denying suicidal ideations. Aware of possible discharge to DSS and with TLS referral. Needs time for stabilization prior to discharge in context of adjusting medications, educated on risks of noncompliance. MANAGEMENT PLAN: Continue duloxetine to 20 mg twice daily, had previously reported activation in context of increasing medication, otherwise patient tolerating medications well without side effects. TIME SPENT: 20 minutes. Vital Signs Vital Signs Date Time Temp Pulse Resp B/P (MAP) Pulse Ox O2 Delivery O2 Flow Rate FiO2 03/30/21 08:08 160/90 03/30/21 06:42 98.1 69 20 94 Room Air Laboratory Data 24H Labs Laboratory Tests 2 03/29/21 16:48: Bedside Glucose (Misc Panel) 89 03/29/21 21:28: Bedside Glucose (Misc Panel) 81 03/30/21 06:36: Bedside Glucose (Misc Panel) 73L 03/30/21 11:49: Bedside Glucose (Misc Panel) 84 Current Medications Current Medications Medications (Trade) Dose Ordered Sig/Cristopher Route PRN Reason Start Time Stop Time Status Last Admin Dose Admin Acetaminophen (Tylenol Tab) 325 mg Q8HP PRN PO MILD PAIN (PS 1-4) 03/19/21 12:30 03/22/21 09:16 Acetaminophen (Tylenol Tab) 650 mg Q6HP PRN PO HEADACHE or MILD DISCOMFORT 03/13/21 01:25 03/13/21 23:53 DC 03/13/21 08:48 Al Hydrox/Mg Hydrox/Simethicone (Mylanta) 30 ml Q4HP PRN PO HEARTBURN/INDIGESTION 03/13/21 01:25 03/13/21 23:53 DC Albuterol Sulfate (Proventil, Ventolin Hfa) 2 puff QID PRN INH SHORTNESS OF BREATH 03/16/21 15:30 03/16/21 17:16 DC Albuterol Sulfate (Proventil, Ventolin Hfa) 2 puff QID PRN INH SHORTNESS OF BREATH 03/16/21 15:30 Amlodipine Besylate (Norvasc) 5 mg DAILY PO 03/17/21 09:00 03/17/21 17:07 DC 03/17/21 09:17 Atorvastatin Calcium (Lipitor) 40 mg QHS PO 03/17/21 21:00 03/29/21 21:33 Baclofen (Lioresal) 20 mg BID PRN PO spasms 03/16/21 15:30 03/29/21 23:27 Bupropion HCl (Wellbutrin Xl) 150 mg DAILY PO 03/17/21 09:00 03/24/21 09:21 DC 03/24/21 08:00 Bupropion HCl (Wellbutrin Xl) 150 mg QAM PO 03/13/21 09:00 03/13/21 23:53 DC 03/13/21 12:23 Bupropion HCl (Wellbutrin Xl) 300 mg DAILY PO 03/25/21 09:00 03/30/21 08:07 Dextrose (Dextrose 50%) 25 ml ASDIRECTED PRN IV SEE LABEL COMMENTS 03/13/21 01:25 03/13/21 23:53 DC Dextrose (Dextrose 50%) 25 ml ASDIRECTED PRN IV SEE LABEL COMMENTS 03/16/21 21:30 Dextrose (Dextrose 50%) 25 ml ASDIRECTED PRN IV SEE LABEL COMMENTS 03/17/21 17:05 UNV Docusate Sodium (Colace) 100 mg BID PO 03/13/21 12:10 03/13/21 23:53 DC 03/13/21 21:01 Docusate Sodium (Colace) 100 mg BID PO 03/16/21 21:00 03/27/21 09:07 Duloxetine HCl (Cymbalta) 20 mg BID PO 03/22/21 21:00 03/26/21 10:17 DC 03/26/21 08:51 Duloxetine HCl (Cymbalta) 20 mg BID PO 03/29/21 21:00 03/30/21 08:07 Duloxetine HCl (Cymbalta) 20 mg DAILY PO 03/17/21 09:00 03/22/21 10:02 DC 03/22/21 09:13 Duloxetine HCl (Cymbalta) 30 mg BID PO 03/26/21 21:00 03/29/21 11:02 DC 03/27/21 09:08 Gabapentin (Neurontin) 800 mg TID PO 03/19/21 16:00 03/22/21 16:12 Gabapentin (Neurontin) 1,200 mg TID PO 03/16/21 16:00 03/19/21 14:18 DC 03/19/21 08:58 Glipizide (Glucotrol Xl) 5 mg DAILY PO 03/17/21 09:00 03/16/21 17:59 DC Glipizide (Glucotrol Xl) 5 mg DAILY@1730 PO 03/16/21 17:30 03/17/21 17:05 DC 03/17/21 16:56 Glucagon (Glucagon) 1 mg ASDIRECTED PRN SC SEE LABEL COMMENTS 03/13/21 01:25 03/13/21 23:53 DC Glucagon (Glucagon) 1 mg ASDIRECTED PRN SC SEE LABEL COMMENTS 03/16/21 21:30 Glucagon (Glucagon) 1 mg ASDIRECTED PRN SC SEE LABEL COMMENTS 03/17/21 17:05 UNV Glucose (Glucose) 16 GM ASDIRECTED PRN PO SEE LABEL COMMENTS 03/13/21 01:25 03/13/21 23:53 DC Glucose (Glucose) 16 GM ASDIRECTED PRN PO SEE LABEL COMMENTS 03/16/21 21:30 Glucose (Glucose) 16 GM ASDIRECTED PRN PO SEE LABEL COMMENTS 03/17/21 17:05 UNV Home Med (Home Med List Complete!) ASDIRECTED XX 03/12/21 19:40 03/12/21 19:48 DC Insulin Detemir (Levemir Insulin) 10 units DAILY SC 03/17/21 09:00 03/22/21 18:04 DC 03/22/21 09:12 Insulin Detemir (Levemir Insulin) 10 units DAILY SC 03/17/21 09:00 03/16/21 17:23 DC Insulin Detemir (Levemir Insulin) 10 units QHS DE 03/22/21 18:30 03/29/21 21:33 Insulin Detemir (Levemir Insulin) 15 units DAILY DE 03/23/21 09:00 03/30/21 08:07 Insulin Human Lispro (HumaLOG INSULIN) SEE PROTOCOL TABLE AC DE 03/17/21 17:30 03/29/21 12:06 Insulin Human Lispro (HumaLOG INSULIN) [facility] 21:00 03/26/21 20:53 Insulin Human Lispro (HumaLOG INSULIN) See Protocol Table AC DE 03/13/21 07:30 03/13/21 23:53 DC Insulin Human Lispro (HumaLOG INSULIN) [facility] 03/13[facility]21 21:00 03/13/21 23:53 DC Ketoconazole (Nizoral) Apply over both feet BID TOP 03/21/21 21:00 04/04/21 09:00 03/28/21 22:55 Lidocaine (Lidoderm Patch) 1 patch DAILY TD 03/22/21 09:00 03/29/21 09:24 Lisinopril (Prinivil) 20 mg DAILY PO 03/17/21 09:00 03/30/21 08:08 Magnesium Hydroxide (Milk Of Magnesia) 30 ml DAILYPRN PRN PO CONSTIPATION 03/13/21 01:25 03/13/21 23:53 DC Menthol/Methyl Salicylate (Bengay Cream) APPLY TO LEFT SHOULDER TID TOP 03/16/21 21:00 03/28/21 22:55 Nicotine (Nicoderm Cq 14mg) 1 patch DAILY TD 03/17/21 09:00 03/23/21 07:46 Nicotine (Nicoderm Cq 14mg) 14 patch DAILY TD 03/17/21 09:00 03/17/21 09:15 DC Nicotine (Nicoderm Cq 21mg) 1 patch DAILY TD 03/13/21 09:00 03/13/21 23:53 DC 03/13/21 12:06 Non-Formulary Medication ( See Comment Field Below ) REMOVE LIDODERM PATCH DAILY@21 XX 03/22/21 21:00 03/29/21 21:31 Olanzapine (ZyPREXA ZYDIS) 5 mg Q4HP PRN PO ANXIETY/AGITATION 03/13/21 01:25 03/13/21 23:53 DC 03/13/21 03:24 Olanzapine (ZyPREXA ZYDIS) 5 mg Q4HP PRN PO ANXIETY/AGITATION 03/16/21 15:30 Olanzapine (ZyPREXA) 5 mg QHS PO 03/13/21 21:00 03/13/21 23:53 DC 03/13/21 21:01 Olanzapine (ZyPREXA) 10 mg QHS PO 03/16/21 21:00 03/29/21 21:33 Omeprazole (PriLOSEC) 40 mg QHS PO 03/16/21 21:00 03/29/21 21:32 Polyethylene Glycol (Miralax) 1 pkt DAILY PO 03/13/21 09:00 03/13/21 23:53 DC 03/13/21 13:06 Polyethylene Glycol (Miralax) 1 pkt DAILYPRN PRN PO CONSTIPATION 03/16/21 15:30 Senna (Senokot) 1 tab Q12HP PRN PO CONSTIPATION 03/16/21 21:30 Senna (Senokot) 2 tab BIDP PRN PO BOWEL CARE 03/16/21 15:30 Trazodone HCl (Desyrel) 50 mg QHSP PRN PO INSOMNIA 03/13/21 03:20 03/13/21 23:53 DC Allergies Coded Allergies: diclofenac (Verified Allergy, Unknown, 10/22/18) cannot use because "I don't use it right" CHRISTY AMOS MD Mar 30, 2021 13:50
[2021-03-30 19:10] VITALS: BP 170/110
[2021-03-30] MEDS: OMEPRAZOLE 20 MG CAP PO SCH (21:21)
[2021-03-30] MEDS: OLANZapine 10 MG TAB PO SCH (21:21)
[2021-03-30] MEDS: ATORVASTATIN 20 MG TAB PO SCH (21:21)
[2021-03-30] MEDS: **NOTE PATIENT COMMENT** MISC XX SCH (21:32)
[2021-03-31] MEDS: HumaLOG INSULIN (NovoLOG) PER UNIT SC SCH ×4 (06:35→20:43)
[2021-03-31 06:39] VITALS: BP 158/88
[2021-03-31] MEDS: GABAPENTIN 400MG CAP PO SCH ×4 (08:11→20:34)
[2021-03-31] MEDS: DOCUSATE SODIUM 100MG CAPSULE PO SCH ×2 (08:11→20:43)
[2021-03-31] MEDS: NICOTINE 14 MG/24 HR TRANSDERMAL TD SCH (08:12)
[2021-03-31] MEDS: ANALGESIC BALM CRM 3OZ TOP SCH ×5 (08:12→20:34)
[2021-03-31] MEDS: LIDOCAINE 5% (LIDODERM) PATCH TD SCH (08:12)
[2021-03-31] MEDS: buPROPion **XL** TABLET 150MG (WELLBUTRIN XL) PO SCH (08:18)
[2021-03-31] MEDS: DULoxetine 20 MG CAP (CYMBALTA) PO SCH ×2 (08:18→20:43)
[2021-03-31] MEDS: LEVEMIR (INSULIN DETEMIR) 1 UNITS/0.01ML SC SCH ×2 (08:19→20:42)
[2021-03-31] MEDS: KETOCONAZOLE 2% CREAM TOP SCH ×2 (08:20→20:34)
--- NOTE | 2021-03-31 10:24 | MHIPNPDOC ---
[facility] Progress Note Progress Note DATE OF SERVICE: 03/31/21 HISTORY: Patient is a 60 -year-old , male, who has a past psychiatric history of schizophrenia or bipolar reportedly and per chart review, major dep ressive disorder. Was brought to hospital by friend Merly and her , "I was gonna jump off [place] bridge or parking garage here or jump in front of truck, only reason haven't jumped because I'm not sure 4 floors would do it". "I wanted to go quick". Reports continues to have the same thoughts. Stopped taking his prescribed 8-10 weeks ago reportedly, "thought stopping them would kill me", including medical medications including, nifedipine, trulicity, bp meds, insulin, glipizide, atorvastatin. he was transferred to the medical floor due to hypoglycemia of 50 on 03/14, was stabilized and returned to psychiatric floor and continued on medications, was seen by hospitalist team since returning to psychiatric floor. "Now that I'm 60 its been hard to make decisions and have never had that before", says tortured by depression. Interval: Charts reviewed, has been going to some groups, "getting to the point where wanna participate in groups", states since restarting medications, mood is improving, less anxiety, also in context of having SPOA meeting tomorrow, "makes me feel more secure on the outside. Tolerating medications without side effects, no acute physical complaints. VITAL SIGNS: See below. NEW TEST RESULTS: None CURRENT MEDICATIONS: See below. MENTAL STATUS EXAMINATION: Patient is a 60-year old male, who is in no acute distress, sitting in his walker, improving eye contact, improved hygiene, appears stated age Speech: Is spontaneous, increased amount Language skills are fair. Thought processes including: Linear and coherent Thought content: fleeting suicidal ideations, denies homicidal ideation, intent or plan. Abstract reasoning, and computation: Fair. Description of associations: Fair. Description of abnormal or psychotic thoughts: Denies. Judgment: Improving Insight: Good Orientation: x4. Recent and remote memory: Attention span and concentration: poor Language: Macedonian Fund of knowledge: Average. Mood: "okay I guess" affect: Euthymic, full, engaged on interview, mood congruent, laughs at times Can spell world backwards, 5/5 on recall DIAGNOSES: 1. Schizoaffective disorder, depressed type 2. R/o medical causes to assess for Psychogenic polydipsia, likely side effects of medications and excess water intake R/O malingering ASSESSMENT: Patient has reported improved mood, agrees to continue medications. Wants bengay for knee pain. MANAGEMENT PLAN: Continue medications, pending SPOA meeting, continue with safety plan. TIME SPENT: 15 minutes. Vital Signs Vital Signs Date Time Temp Pulse Resp B/P (MAP) Pulse Ox O2 Delivery O2 Flow Rate FiO2 03/31/21 08:18 158/88 03/31/21 06:39 97.9 65 18 96 Room Air Laboratory Data 24H Labs Laboratory Tests 2 03/30/21 11:49: Bedside Glucose (Misc Panel) 84 03/30/21 17:10: Bedside Glucose (Misc Panel) 74L 03/30/21 21:16: Bedside Glucose (Misc Panel) 73L 03/31/21 06:33: Bedside Glucose (Misc Panel) 72L Current Medications Current Medications Medications (Trade) Dose Ordered Sig/Cristopher Route PRN Reason Start Time Stop Time Status Last Admin Dose Admin Acetaminophen (Tylenol Tab) 325 mg Q8HP PRN PO MILD PAIN (PS 1-4) 03/19/21 12:30 03/22/21 09:16 Acetaminophen (Tylenol Tab) 650 mg Q6HP PRN PO HEADACHE or MILD DISCOMFORT 03/13/21 01:25 03/13/21 23:53 DC 03/13/21 08:48 Al Hydrox/Mg Hydrox/Simethicone (Mylanta) 30 ml Q4HP PRN PO HEARTBURN/INDIGESTION 03/13/21 01:25 03/13/21 23:53 DC Albuterol Sulfate (Proventil, Ventolin Hfa) 2 puff QID PRN INH SHORTNESS OF BREATH 03/16/21 15:30 03/16/21 17:16 DC Albuterol Sulfate (Proventil, Ventolin Hfa) 2 puff QID PRN INH SHORTNESS OF BREATH 03/16/21 15:30 Amlodipine Besylate (Norvasc) 5 mg DAILY PO 03/17/21 09:00 03/17/21 17:07 DC 03/17/21 09:17 Atorvastatin Calcium (Lipitor) 40 mg QHS PO 03/17/21 21:00 03/30/21 21:21 Baclofen (Lioresal) 20 mg BID PRN PO spasms 03/16/21 15:30 03/29/21 23:27 Bupropion HCl (Wellbutrin Xl) 150 mg DAILY PO 03/17/21 09:00 03/24/21 09:21 DC 03/24/21 08:00 Bupropion HCl (Wellbutrin Xl) 150 mg QAM PO 03/13/21 09:00 03/13/21 23:53 DC 03/13/21 12:23 Bupropion HCl (Wellbutrin Xl) 300 mg DAILY PO 03/25/21 09:00 03/31/21 08:18 Dextrose (Dextrose 50%) 25 ml ASDIRECTED PRN IV SEE LABEL COMMENTS 03/13/21 01:25 03/13/21 23:53 DC Dextrose (Dextrose 50%) 25 ml ASDIRECTED PRN IV SEE LABEL COMMENTS 03/16/21 21:30 Dextrose (Dextrose 50%) 25 ml ASDIRECTED PRN IV SEE LABEL COMMENTS 03/17/21 17:05 UNV Docusate Sodium (Colace) 100 mg BID PO 03/13/21 12:10 03/13/21 23:53 DC 03/13/21 21:01 Docusate Sodium (Colace) 100 mg BID PO 03/16/21 21:00 03/27/21 09:07 Duloxetine HCl (Cymbalta) 20 mg BID PO 03/22/21 21:00 03/26/21 10:17 DC 03/26/21 08:51 Duloxetine HCl (Cymbalta) 20 mg BID PO 03/29/21 21:00 03/31/21 08:18 Duloxetine HCl (Cymbalta) 20 mg DAILY PO 03/17/21 09:00 03/22/21 10:02 DC 03/22/21 09:13 Duloxetine HCl (Cymbalta) 30 mg BID PO 03/26/21 21:00 03/29/21 11:02 DC 03/27/21 09:08 Gabapentin (Neurontin) 800 mg TID PO 03/19/21 16:00 03/22/21 16:12 Gabapentin (Neurontin) 1,200 mg TID PO 03/16/21 16:00 03/19/21 14:18 DC 03/19/21 08:58 Glipizide (Glucotrol Xl) 5 mg DAILY PO 03/17/21 09:00 03/16/21 17:59 DC Glipizide (Glucotrol Xl) 5 mg DAILY@1730 PO 03/16/21 17:30 03/17/21 17:05 DC 03/17/21 16:56 Glucagon (Glucagon) 1 mg ASDIRECTED PRN SC SEE LABEL COMMENTS 03/13/21 01:25 03/13/21 23:53 DC Glucagon (Glucagon) 1 mg ASDIRECTED PRN SC SEE LABEL COMMENTS 03/16/21 21:30 Glucagon (Glucagon) 1 mg ASDIRECTED PRN SC SEE LABEL COMMENTS 03/17/21 17:05 UNV Glucose (Glucose) 16 GM ASDIRECTED PRN PO SEE LABEL COMMENTS 03/13/21 01:25 03/13/21 23:53 DC Glucose (Glucose) 16 GM ASDIRECTED PRN PO SEE LABEL COMMENTS 03/16/21 21:30 Glucose (Glucose) 16 GM ASDIRECTED PRN PO SEE LABEL COMMENTS 03/17/21 17:05 UNV Home Med (Home Med List Complete!) ASDIRECTED XX 03/12/21 19:40 03/12/21 19:48 DC Insulin Detemir (Levemir Insulin) 10 units DAILY SC 03/17/21 09:00 03/22/21 18:04 DC 03/22/21 09:12 Insulin Detemir (Levemir Insulin) 10 units DAILY SC 03/17/21 09:00 03/16/21 17:23 DC Insulin Detemir (Levemir Insulin) 10 units QHS SC 03/22/21 18:30 03/30/21 21:22 Insulin Detemir (Levemir Insulin) 15 units DAILY SC 03/23/21 09:00 03/31/21 08:19 Insulin Human Lispro (HumaLOG INSULIN) SEE PROTOCOL TABLE AC SC 03/17/21 17:30 03/29/21 12:06 Insulin Human Lispro (HumaLOG INSULIN) SEE PROTOCOL TABLE QHS SC 03/17/21 21:00 03/26/21 20:53 Insulin Human Lispro (HumaLOG INSULIN) See Protocol Table AC SC 03/13/21 07:30 03/13/21 23:53 DC Insulin Human Lispro (HumaLOG INSULIN) See Protocol Table QHS SC 03/13/21 21:00 03/13/21 23:53 DC Ketoconazole (Nizoral) Apply over both feet BID TOP 03/21/21 21:00 04/04/21 09:00 03/31/21 08:20 Lidocaine (Lidoderm Patch) 1 patch DAILY TD 03/22/21 09:00 03/29/21 09:24 Lisinopril (Prinivil) 20 mg DAILY PO 03/17/21 09:00 03/31/21 08:18 Magnesium Hydroxide (Milk Of Magnesia) 30 ml DAILYPRN PRN PO CONSTIPATION 03/13/21 01:25 03/13/21 23:53 DC Menthol/Methyl Salicylate (Bengay Cream) APPLY TO LEFT SHOULDER TID TOP 03/16/21 21:00 03/28/21 22:55 Nicotine (Nicoderm Cq 14mg) 1 patch DAILY TD 03/17/21 09:00 03/23/21 07:46 Nicotine (Nicoderm Cq 14mg) 14 patch DAILY TD 03/17/21 09:00 03/17/21 09:15 DC Nicotine (Nicoderm Cq 21mg) 1 patch DAILY TD 03/13/21 09:00 03/13/21 23:53 DC 03/13/21 12:06 Non-Formulary Medication ( See Comment Field Below ) REMOVE LIDODERM PATCH DAILY@21 XX 03/22/21 21:00 03/30/21 21:32 Olanzapine (ZyPREXA ZYDIS) 5 mg Q4HP PRN PO ANXIETY/AGITATION 03/13/21 01:25 03/13/21 23:53 DC 03/13/21 03:24 Olanzapine (ZyPREXA ZYDIS) 5 mg Q4HP PRN PO ANXIETY/AGITATION 03/16/21 15:30 Olanzapine (ZyPREXA) 5 mg QHS PO 03/13/21 21:00 03/13/21 23:53 DC 03/13/21 21:01 Olanzapine (ZyPREXA) 10 mg QHS PO 03/16/21 21:00 03/30/21 21:21 Omeprazole (PriLOSEC) 40 mg QHS PO 03/16/21 21:00 03/30/21 21:21 Polyethylene Glycol (Miralax) 1 pkt DAILY PO 03/13/21 09:00 03/13/21 23:53 DC 03/13/21 13:06 Polyethylene Glycol (Miralax) 1 pkt DAILYPRN PRN PO CONSTIPATION 03/16/21 15:30 Senna (Senokot) 1 tab Q12HP PRN PO CONSTIPATION 03/16/21 21:30 Senna (Senokot) 2 tab BIDP PRN PO BOWEL CARE 03/16/21 15:30 Trazodone HCl (Desyrel) 50 mg QHSP PRN PO INSOMNIA 03/13/21 03:20 03/13/21 23:53 DC Allergies Coded Allergies: diclofenac (Verified Allergy, Unknown, 10/22/18) cannot use because "I don't use it right" CHRISTY AMOS MD Mar 31, 2021 10:24
[2021-03-31] MEDS: **NOTE PATIENT COMMENT** MISC XX SCH (20:33)
[2021-03-31] MEDS: ATORVASTATIN 20 MG TAB PO SCH (20:43)
[2021-03-31] MEDS: OLANZapine 10 MG TAB PO SCH (20:43)
[2021-03-31] MEDS: OMEPRAZOLE 20 MG CAP PO SCH (20:43)
[2021-04-01 06:10] VITALS: BP 165/87
[2021-04-01] MEDS: HumaLOG INSULIN (NovoLOG) PER UNIT SC SCH ×4 (06:30→20:44)
[2021-04-01] MEDS: buPROPion **XL** TABLET 150MG (WELLBUTRIN XL) PO SCH (08:45)
[2021-04-01] MEDS: DOCUSATE SODIUM 100MG CAPSULE PO SCH ×2 (08:45→20:48)
[2021-04-01] MEDS: DULoxetine 20 MG CAP (CYMBALTA) PO SCH ×2 (08:46→20:49)
[2021-04-01] MEDS: LEVEMIR (INSULIN DETEMIR) 1 UNITS/0.01ML SC SCH ×2 (08:46→20:48)
[2021-04-01] MEDS: NICOTINE 14 MG/24 HR TRANSDERMAL TD SCH (08:47)
[2021-04-01] MEDS: ANALGESIC BALM CRM 3OZ TOP SCH ×6 (08:47→20:40)
[2021-04-01] MEDS: LIDOCAINE 5% (LIDODERM) PATCH TD SCH (08:50)
[2021-04-01] MEDS: GABAPENTIN 400MG CAP PO SCH ×3 (09:00→20:49)
[2021-04-01] MEDS: KETOCONAZOLE 2% CREAM TOP SCH ×2 (09:03→20:40)
[2021-04-01] MEDS: BACLOFEN 10 MG TAB PO PRN (10:35)
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
[2021-04-01 17:57] VITALS: BP 132/89
[2021-04-01] MEDS: MAALOX 30 ML SUSP *UDC PO PRN ×2 (17:57→22:05)
[2021-04-01] MEDS: **NOTE PATIENT COMMENT** MISC XX SCH (20:40)
[2021-04-01] MEDS: ATORVASTATIN 20 MG TAB PO SCH (20:48)
[2021-04-01] MEDS: OMEPRAZOLE 20 MG CAP PO SCH (20:49)
[2021-04-01] MEDS: OLANZapine 10 MG TAB PO SCH (20:49)
[2021-04-02] MEDS: HumaLOG INSULIN (NovoLOG) PER UNIT SC SCH ×4 (06:30→20:07)
[2021-04-02 06:45] VITALS: BP 182/98
[2021-04-02 08:05] VITALS: BP 148/76
[2021-04-02] MEDS: ANALGESIC BALM CRM 3OZ TOP SCH ×5 (09:00→20:05)
[2021-04-02] MEDS: NICOTINE 14 MG/24 HR TRANSDERMAL TD SCH (09:00)
[2021-04-02] MEDS: KETOCONAZOLE 2% CREAM TOP SCH ×2 (09:00→20:06)
[2021-04-02] MEDS: DOCUSATE SODIUM 100MG CAPSULE PO SCH ×2 (09:27→20:06)
[2021-04-02] MEDS: LEVEMIR (INSULIN DETEMIR) 1 UNITS/0.01ML SC SCH ×2 (09:27→20:04)
[2021-04-02] MEDS: DULoxetine 20 MG CAP (CYMBALTA) PO SCH ×2 (09:27→20:06)
[2021-04-02] MEDS: GABAPENTIN 400MG CAP PO SCH (09:27)
[2021-04-02] MEDS: LIDOCAINE 5% (LIDODERM) PATCH TD SCH (09:28)
[2021-04-02] MEDS: buPROPion **XL** TABLET 150MG (WELLBUTRIN XL) PO SCH (09:28)
[2021-04-02] MEDS ORDERED: GABAPENTIN 400MG CAP PO PRN (09:50)
--- NOTE | 2021-04-02 12:15 | MHIPNPDOC ---
[facility] Progress Note Progress Note DATE OF SERVICE: 04/02/21 HISTORY: Patient is a 60 -year-old , male, who has a past psychiatric history of schizophrenia or bipolar reportedly and per chart review, major dep ressive disorder. Was brought to hospital by friend Merly and her , "I was gonna jump off [place] bridge or parking garage here or jump in front of truck, only reason haven't jumped because I'm not sure 4 floors would do it". "I wanted to go quick". Reports continues to have the same thoughts. Stopped taking his prescribed 8-10 weeks ago reportedly, "thought stopping them would kill me", including medical medications including, nifedipine, trulicity, bp meds, insulin, glipizide, atorvastatin. he was transferred to the medical floor due to hypoglycemia of 50 on 03/14, was stabilized and returned to psychiatric floor and continued on medications, was seen by hospitalist team since returning to psychiatric floor. "Now that I'm 60 its been hard to make decisions and have never had that before", says tortured by depression. Interval: Patient continues to take his medications, has been going to most groups, vitals stable, states he feels a little bit more slowed with regards to his thought process, but that the olanzapine is helping with his mood, despite this reports continued suicidal ideations, had reported homicidal ideations to nurse yesterday towards case assistant as a target was made aware, case assistant was made aware, he had made statements about getting guns shooting this individual. Today on interview denies any homicidal targets states he is angry about his payee and wants to change [employer] housing so that they can be his payee. Reports he cannot go to [facility] housing, due to threatening staff member there and cannot set foot on the premises when discussing options for discharge. Feels he needs more time as he is suicidal, no clear plan. VITAL SIGNS: See below. NEW TEST RESULTS: None CURRENT MEDICATIONS: See below. MENTAL STATUS EXAMINATION: Patient is a 60-year old male, who is in no acute distress, sitting in a chair, normal eye contact, improved hygiene, appears stated age Speech: Is spontaneous, normal rate rhythm and prosody, increased volume Language skills are fair. Thought processes including: Mildly disorganized, circumstantial Thought content: Reports suicidal and homicidal ideation, but no intent or plan. Abstract reasoning, and computation: Fair. Description of associations: Fair. Description of abnormal or psychotic thoughts: Denies. Judgment: Poor, improving Insight: Good Orientation: x4. Recent and remote memory: Intact Attention span and concentration: Good Language: Romansh Fund of knowledge: Average. Mood: "Better but I am suicidal still" affect: Mild anxiety, full, appropriate DIAGNOSES: 1. Schizoaffective disorder, depressed type 2. R/o medical causes to assess for Psychogenic polydipsia, likely side effects of medications and excess water intake R/O malingering ASSESSMENT: Continues to report suicidal ideations, despite full affect with mild anxiety, has also been engaging in groups, normal appetite and sleep. Asked to have gabapentin as needed for anxiety spells, which was accommodated MANAGEMENT PLAN: Continue olanzapine to 20 mg, pending placement. Switch gabapentin to as needed for anxiety. TIME SPENT: 20 minutes. Vital Signs Vital Signs Date Time Temp Pulse Resp B/P (MAP) Pulse Ox O2 Delivery O2 Flow Rate FiO2 04/02/21 10:30 Room Air 04/02/21 09:28 148/76 04/02/21 06:45 97.6 74 18 100 Laboratory Data 24H Labs Laboratory Tests 2 04/01/21 16:55: Bedside Glucose (Misc Panel) 148H 04/01/21 20:43: Bedside Glucose (Misc Panel) 91 04/02/21 06:22: Bedside Glucose (Misc Panel) 82 Current Medications Current Medications Medications (Trade) Dose Ordered Sig/Cristopher Route PRN Reason Start Time Stop Time Status Last Admin Dose Admin Acetaminophen (Tylenol Tab) 325 mg Q8HP PRN PO MILD PAIN (PS 1-4) 03/19/21 12:30 03/22/21 09:16 Acetaminophen (Tylenol Tab) 650 mg Q6HP PRN PO HEADACHE or MILD DISCOMFORT 03/13/21 01:25 03/13/21 23:53 DC 03/13/21 08:48 Al Hydrox/Mg Hydrox/Simethicone (Mylanta) 30 ml Q4HP PRN PO HEARTBURN/INDIGESTION 03/13/21 01:25 03/13/21 23:53 DC Al Hydrox/Mg Hydrox/Simethicone (Mylanta) 30 ml Q4HP PRN PO HEARTBURN 04/01/21 17:45 04/01/21 22:05 Albuterol Sulfate (Proventil, Ventolin Hfa) 2 puff QID PRN INH SHORTNESS OF BREATH 03/16/21 15:30 03/16/21 17:16 DC Albuterol Sulfate (Proventil, Ventolin Hfa) 2 puff QID PRN INH SHORTNESS OF BREATH 03/16/21 15:30 Amlodipine Besylate (Norvasc) 5 mg DAILY PO 03/17/21 09:00 03/17/21 17:07 DC 03/17/21 09:17 Atorvastatin Calcium (Lipitor) 40 mg QHS PO 03/17/21 21:00 04/01/21 20:48 Baclofen (Lioresal) 20 mg BID PRN PO spasms 03/16/21 15:30 04/01/21 10:35 Bupropion HCl (Wellbutrin Xl) 150 mg DAILY PO 03/17/21 09:00 03/24/21 09:21 DC 03/24/21 08:00 Bupropion HCl (Wellbutrin Xl) 150 mg QAM PO 03/13/21 09:00 03/13/21 23:53 DC 03/13/21 12:23 Bupropion HCl (Wellbutrin Xl) 300 mg DAILY PO 03/25/21 09:00 04/02/21 09:28 Dextrose (Dextrose 50%) 25 ml ASDIRECTED PRN IV SEE LABEL COMMENTS 03/13/21 01:25 03/13/21 23:53 DC Dextrose (Dextrose 50%) 25 ml ASDIRECTED PRN IV SEE LABEL COMMENTS 03/16/21 21:30 Dextrose (Dextrose 50%) 25 ml ASDIRECTED PRN IV SEE LABEL COMMENTS 03/17/21 17:05 UNV Docusate Sodium (Colace) 100 mg BID PO 03/13/21 12:10 03/13/21 23:53 DC 03/13/21 21:01 Docusate Sodium (Colace) 100 mg BID PO 03/16/21 21:00 04/02/21 09:27 Duloxetine HCl (Cymbalta) 20 mg BID PO 03/22/21 21:00 03/26/21 10:17 DC 03/26/21 08:51 Duloxetine HCl (Cymbalta) 20 mg BID PO 03/29/21 21:00 04/02/21 09:27 Duloxetine HCl (Cymbalta) 20 mg DAILY PO 03/17/21 09:00 03/22/21 10:02 DC 03/22/21 09:13 Duloxetine HCl (Cymbalta) 30 mg BID PO 03/26/21 21:00 03/29/21 11:02 DC 03/27/21 09:08 Gabapentin (Neurontin) 800 mg TID PO 03/19/21 16:00 04/02/21 09:47 DC 04/02/21 09:27 Gabapentin (Neurontin) 800 mg TIDP PRN PO ANXIETY/AGITATION 04/02/21 09:50 Gabapentin (Neurontin) 1,200 mg TID PO 03/16/21 16:00 03/19/21 14:18 DC 03/19/21 08:58 Glipizide (Glucotrol Xl) 5 mg DAILY PO 03/17/21 09:00 03/16/21 17:59 DC Glipizide (Glucotrol Xl) 5 mg DAILY@1730 PO 03/16/21 17:30 03/17/21 17:05 DC 03/17/21 16:56 Glucagon (Glucagon) 1 mg ASDIRECTED PRN SC SEE LABEL COMMENTS 03/13/21 01:25 03/13/21 23:53 DC Glucagon (Glucagon) 1 mg ASDIRECTED PRN SC SEE LABEL COMMENTS 03/16/21 21:30 Glucagon (Glucagon) 1 mg ASDIRECTED PRN SC SEE LABEL COMMENTS 03/17/21 17:05 UNV Glucose (Glucose) 16 GM ASDIRECTED PRN PO SEE LABEL COMMENTS 03/13/21 01:25 03/13/21 23:53 DC Glucose (Glucose) 16 GM ASDIRECTED PRN PO SEE LABEL COMMENTS 03/16/21 21:30 Glucose (Glucose) 16 GM ASDIRECTED PRN PO SEE LABEL COMMENTS 03/17/21 17:05 UNV Home Med (Home Med List Complete!) ASDIRECTED XX 03/12/21 19:40 03/12/21 19:48 DC Insulin Detemir (Levemir Insulin) 10 units DAILY SC 03/17/21 09:00 03/22/21 18:04 DC 03/22/21 09:12 Insulin Detemir (Levemir Insulin) 10 units DAILY SC 03/17/21 09:00 03/16/21 17:23 DC [facility]ulin [facility] ([facility]) [facility] 03/22/21 18:30 04/01/21 20:48 Insulin Detemir (Levemir Insulin) 15 units DAILY OK 03/23/21 09:00 04/02/21 09:27 Insulin Human Lispro (HumaLOG INSULIN) SEE PROTOCOL TABLE AC OK 03/17/21 17:30 04/01/21 16:59 Insulin Human Lispro (HumaLOG INSULIN) [facility] 03/17/21 21:00 03/31/21 20:43 Insulin Human Lispro (HumaLOG INSULIN) See Protocol Table AC OK 03/13/21 07:30 03/13/21 23:53 DC Insulin Human Lispro (HumaLOG INSULIN) See [facility] Table [facility] 03/13/21 21:00 03/13/21 23:53 DC Ketoconazole (Nizoral) Apply over both feet BID TOP 03/21/21 21:00 04/04/21 09:00 04/01/21 09:03 Lidocaine (Lidoderm Patch) 1 patch DAILY TD 03/22/21 09:00 04/02/21 09:28 Lisinopril (Prinivil) 20 mg DAILY PO 03/17/21 09:00 04/02/21 09:28 Magnesium Hydroxide (Milk Of Magnesia) 30 ml DAILYPRN PRN PO CONSTIPATION 03/13/21 01:25 03/13/21 23:53 DC Menthol/Methyl Salicylate (Bengay Cream) APPLY TO LEFT SHOULDER TID TOP 03/16/21 21:00 04/01/21 15:14 Menthol/Methyl Salicylate (Bengay Cream) allow to self apply to kn... BID TOP 03/31/21 09:00 04/01/21 09:04 Nicotine (Nicoderm Cq 14mg) 1 patch DAILY TD 03/17/21 09:00 03/23/21 07:46 Nicotine (Nicoderm Cq 14mg) 14 patch DAILY TD 03/17/21 09:00 03/17/21 09:15 DC Nicotine (Nicoderm Cq 21mg) 1 patch DAILY TD 03/13/21 09:00 03/13/21 23:53 DC 03/13/21 12:06 Non-Formulary Medication ( See Comment Field Below ) REMOVE LIDODERM PATCH DAILY@21 XX 03/22/21 21:00 04/01/21 20:40 Olanzapine (ZyPREXA ZYDIS) 5 mg Q4HP PRN PO ANXIETY/AGITATION 03/13/21 01:25 03/13/21 23:53 DC 03/13/21 03:24 Olanzapine (ZyPREXA ZYDIS) 5 mg Q4HP PRN PO ANXIETY/AGITATION 03/16/21 15:30 Olanzapine (ZyPREXA) 5 mg QHS PO 03/13/21 21:00 03/13/21 23:53 DC 03/13/21 21:01 Olanzapine (ZyPREXA) 10 mg QHS PO 03/16/21 21:00 04/01/21 08:30 DC 03/31/21 20:43 Olanzapine (ZyPREXA) 20 mg QHS PO 04/01/21 21:00 04/01/21 20:49 Omeprazole (PriLOSEC) 40 mg QHS PO 03/16/21 21:00 04/01/21 20:49 Polyethylene Glycol (Miralax) 1 pkt DAILY PO 03/13/21 09:00 03/13/21 23:53 DC 03/13/21 13:06 Polyethylene Glycol (Miralax) 1 pkt DAILYPRN PRN PO CONSTIPATION 03/16/21 15:30 Senna (Senokot) 1 tab Q12HP PRN PO CONSTIPATION 03/16/21 21:30 Senna (Senokot) 2 tab BIDP PRN PO BOWEL CARE 03/16/21 15:30 04/01/21 22:33 Trazodone HCl (Desyrel) 50 mg QHSP PRN PO INSOMNIA 03/13/21 03:20 03/13/21 23:53 DC Allergies Coded Allergies: diclofenac (Verified Allergy, Unknown, 10/22/18) cannot use because "I don't use it right" CHRISTY AMOS MD Apr 02, 2021 12:15
[2021-04-02 19:00] VITALS: BP 162/80
[2021-04-02] MEDS: ACETAMINOPHEN 325 MG TAB PO PRN (19:58)
[2021-04-02] MEDS: ATORVASTATIN 20 MG TAB PO SCH (20:06)
[2021-04-02] MEDS: OMEPRAZOLE 20 MG CAP PO SCH (20:06)
[2021-04-02] MEDS: OLANZapine 10 MG TAB PO SCH (20:06)
[2021-04-02] MEDS: **NOTE PATIENT COMMENT** MISC XX SCH (20:07)
[2021-04-03] MEDS: HumaLOG INSULIN (NovoLOG) PER UNIT SC SCH ×4 (06:34→20:35)
[2021-04-03 07:31] VITALS: BP 180/82
[2021-04-03] MEDS: KETOCONAZOLE 2% CREAM TOP SCH ×2 (09:00→20:36)
[2021-04-03] MEDS: NICOTINE 14 MG/24 HR TRANSDERMAL TD SCH (09:00)
[2021-04-03] MEDS: ANALGESIC BALM CRM 3OZ TOP SCH ×5 (09:17→20:36)
[2021-04-03] MEDS: LIDOCAINE 5% (LIDODERM) PATCH TD SCH (09:18)
[2021-04-03] MEDS: LEVEMIR (INSULIN DETEMIR) 1 UNITS/0.01ML SC SCH ×2 (09:19→20:35)
[2021-04-03] MEDS: DOCUSATE SODIUM 100MG CAPSULE PO SCH ×2 (09:19→20:34)
[2021-04-03] MEDS: buPROPion **XL** TABLET 150MG (WELLBUTRIN XL) PO SCH (09:19)
[2021-04-03] MEDS: DULoxetine 20 MG CAP (CYMBALTA) PO SCH ×2 (09:19→20:34)
[2021-04-03 10:55] VITALS: BP 170/82
[2021-04-03 18:15] VITALS: BP 172/108
[2021-04-03 18:46] VITALS: BP 172/108
[2021-04-03 19:14] VITALS: BP 178/96
[2021-04-03] MEDS ORDERED: amLODIPine 5 MG TAB PO ONE (20:10)
[2021-04-03] MEDS: OLANZapine 10 MG TAB PO SCH (20:33)
[2021-04-03] MEDS: OMEPRAZOLE 20 MG CAP PO SCH (20:34)
[2021-04-03] MEDS: ATORVASTATIN 20 MG TAB PO SCH (20:34)
[2021-04-03] MEDS: **NOTE PATIENT COMMENT** MISC XX SCH (20:36)
[2021-04-04 07:09] VITALS: BP 186/86
[2021-04-04] MEDS: HumaLOG INSULIN (NovoLOG) PER UNIT SC SCH ×4 (07:17→20:01)
[2021-04-04] MEDS: LIDOCAINE 5% (LIDODERM) PATCH TD SCH (08:47)
[2021-04-04] MEDS: NICOTINE 14 MG/24 HR TRANSDERMAL TD SCH (08:48)
[2021-04-04] MEDS: KETOCONAZOLE 2% CREAM TOP SCH (08:48)
[2021-04-04] MEDS: ANALGESIC BALM CRM 3OZ TOP SCH ×5 (08:53→20:01)
[2021-04-04] MEDS: LEVEMIR (INSULIN DETEMIR) 1 UNITS/0.01ML SC SCH ×2 (08:55→20:05)
[2021-04-04] MEDS: buPROPion **XL** TABLET 150MG (WELLBUTRIN XL) PO SCH (08:55)
[2021-04-04 08:56] LABS: HEMATOCRIT 41.2 % (42.0-52.0); HEMOGLOBIN 13.8 g/dl (13.5-17.5); MEAN CORPUSCULAR HEMOGLOBIN 29.6 pg (27.0-33.0); MEAN CORPUSCULAR HGB CONC 33.5 g/dl (32.0-36.5); MEAN CORPUSCULAR VOLUME 88.2 fl (80.0-96.0); PLATELET COUNT, AUTOMATED 284 10^3/uL (150-450); RED BLOOD COUNT 4.67 10^6/uL (4.30-6.10); WHITE BLOOD COUNT 9.4 10^3/uL (4.0-10.0)
[2021-04-04] MEDS: DOCUSATE SODIUM 100MG CAPSULE PO SCH ×2 (08:56→20:05)
[2021-04-04] MEDS: DULoxetine 20 MG CAP (CYMBALTA) PO SCH ×2 (08:56→20:05)
[2021-04-04] MEDS: lisinopriL 40 MG TAB PO SCH (08:56)
[2021-04-04] MEDS: ACETAMINOPHEN 325 MG TAB PO PRN ×2 (09:00→20:05)
[2021-04-04 09:21] LABS: BLOOD UREA NITROGEN 11 MG/DL (7-18); CALCIUM LEVEL 8.8 MG/DL (8.8-10.2); CARBON DIOXIDE LEVEL 32 MEQ/L (21-32); CHLORIDE LEVEL 105 MEQ/L (98-107); CREATININE FOR GFR 0.94 MG/DL (0.70-1.30); GLOMERULAR FILTRATION RATE > 60.0 (>49); GLUCOSE, FASTING 145 MG/DL (70-100); POTASSIUM SERUM 4.2 MEQ/L (3.5-5.1); SODIUM LEVEL 143 MEQ/L (136-145)
--- NOTE | 2021-04-04 10:17 | MHIPNPDOC ---
[facility] Progress Note Progress Note DATE OF SERVICE: 04/04/21 Patient has elevated blood pressure in the a.m., 186/86, pulse of 65, denies acute physical complaints, hospitalist team was made aware to see patient to adjust blood pressure medications. Vital Signs Vital Signs Date Time Temp Pulse Resp B/P (MAP) Pulse Ox O2 Delivery O2 Flow Rate FiO2 04/04/21 08:56 65 186/86 04/04/21 07:09 98.2 16 98 Room Air Laboratory Data 24H Labs Laboratory Tests 2 04/03/21 12:22: Bedside Glucose (Misc Panel) 234H 04/03/21 17:02: Bedside Glucose (Misc Panel) 292H 04/03/21 20:24: Bedside Glucose (Misc Panel) 243H 04/04/21 06:41: Bedside Glucose (Misc Panel) 169H 04/04/21 08:23: Nucleated Red Blood Cells % (auto) 0.0, Anion Gap 6L, Glomerular Filtration Rate > 60.0, Calcium Level 8.8 CBC/BMP Laboratory Tests 04/04/21 08:23 Current Medications Current Medications Medications (Trade) Dose Ordered Sig/Cristopher Route PRN Reason Start Time Stop Time Status Last Admin Dose Admin Acetaminophen (Tylenol Tab) 325 mg Q8HP PRN PO HEADACHE or MILD DISCOMFORT 03/19/21 12:30 04/04/21 09:00 Acetaminophen (Tylenol Tab) 650 mg Q6HP PRN PO HEADACHE or MILD DISCOMFORT 03/13/21 01:25 03/13/21 23:53 DC 03/13/21 08:48 Al Hydrox/Mg Hydrox/Simethicone (Mylanta) 30 ml Q4HP PRN PO HEARTBURN/INDIGESTION 03/13/21 01:25 03/13/21 23:53 DC Al Hydrox/Mg Hydrox/Simethicone (Mylanta) 30 ml Q4HP PRN PO HEARTBURN 04/01/21 17:45 04/01/21 22:05 Albuterol Sulfate (Proventil, Ventolin Hfa) 2 puff QID PRN INH SHORTNESS OF BREATH 03/16/21 15:30 03/16/21 17:16 DC Albuterol Sulfate (Proventil, Ventolin Hfa) 2 puff QID PRN INH SHORTNESS OF BREATH 03/16/21 15:30 Amlodipine Besylate (Norvasc) 5 mg DAILY PO 04/04/21 20:00 04/04/21 07:27 DC Amlodipine Besylate (Norvasc) 5 mg DAILY PO 03/17/21 09:00 03/17/21 17:07 DC 03/17/21 09:17 Amlodipine Besylate (Norvasc) 10 mg DAILY PO 04/04/21 09:00 04/04/21 08:56 Atorvastatin Calcium (Lipitor) 40 mg QHS PO 03/17/21 21:00 04/03/21 20:34 Baclofen (Lioresal) 20 mg BID PRN PO spasms 03/16/21 15:30 04/01/21 10:35 Bupropion HCl (Wellbutrin Xl) 150 mg DAILY PO 03/17/21 09:00 03/24/21 09:21 DC 03/24/21 08:00 Bupropion HCl (Wellbutrin Xl) 150 mg QAM PO 03/13/21 09:00 03/13/21 23:53 DC 03/13/21 12:23 Bupropion HCl (Wellbutrin Xl) 300 mg DAILY PO 03/25/21 09:00 04/04/21 08:55 Dextrose (Dextrose 50%) 25 ml ASDIRECTED PRN IV SEE LABEL COMMENTS 03/13/21 01:25 03/13/21 23:53 DC Dextrose (Dextrose 50%) 25 ml ASDIRECTED PRN IV SEE LABEL COMMENTS 03/16/21 21:30 Dextrose (Dextrose 50%) 25 ml ASDIRECTED PRN IV SEE LABEL COMMENTS 03/17/21 17:05 UNV Docusate Sodium (Colace) 100 mg BID PO 03/13/21 12:10 03/13/21 23:53 DC 03/13/21 21:01 Docusate Sodium (Colace) 100 mg BID PO 03/16/21 21:00 04/04/21 08:56 Duloxetine HCl (Cymbalta) 20 mg BID PO 03/22/21 21:00 03/26/21 10:17 DC 03/26/21 08:51 Duloxetine HCl (Cymbalta) 20 mg BID PO 03/29/21 21:00 04/04/21 08:56 Duloxetine HCl (Cymbalta) 20 mg DAILY PO 03/17/21 09:00 03/22/21 10:02 DC 03/22/21 09:13 Duloxetine HCl (Cymbalta) 30 mg BID PO 03/26/21 21:00 03/29/21 11:02 DC 03/27/21 09:08 Gabapentin (Neurontin) 800 mg TID PO 03/19/21 16:00 04/02/21 09:47 DC 04/02/21 09:27 Gabapentin (Neurontin) 800 mg TIDP PRN PO ANXIETY/AGITATION 04/02/21 09:50 Gabapentin (Neurontin) 1,200 mg TID PO 03/16/21 16:00 03/19/21 14:18 DC 03/19/21 08:58 Glipizide (Glucotrol Xl) 5 mg DAILY PO 03/17/21 09:00 03/16/21 17:59 DC Glipizide (Glucotrol Xl) 5 mg DAILY@1730 PO 03/16/21 17:30 03/17/21 17:05 DC 03/17/21 16:56 Glucagon (Glucagon) 1 mg ASDIRECTED PRN SC SEE LABEL COMMENTS 03/13/21 01:25 03/13/21 23:53 DC Glucagon (Glucagon) 1 mg ASDIRECTED PRN SC SEE LABEL COMMENTS 03/16/21 21:30 Glucagon (Glucagon) 1 mg ASDIRECTED PRN SC SEE LABEL COMMENTS 03/17/21 17:05 UNV Glucose (Glucose) 16 GM ASDIRECTED PRN PO SEE LABEL COMMENTS 03/13/21 01:25 03/13/21 23:53 DC Glucose (Glucose) 16 GM ASDIRECTED PRN PO SEE LABEL COMMENTS 03/16/21 21:30 Glucose (Glucose) 16 GM ASDIRECTED PRN PO SEE LABEL COMMENTS 03/17/21 17:05 UNV Home Med (Home Med List Complete!) ASDIRECTED XX 03/12/21 19:40 03/12/21 19:48 DC Insulin Detemir (Levemir Insulin) 10 units DAILY SC 03/17/21 09:00 03/22/21 18:04 DC 03/22/21 09:12 Insulin Detemir (Levemir Insulin) 10 units DAILY SC 03/17/21 09:00 03/16/21 17:23 DC Insulin Detemir (Levemir Insulin) 10 units QHS SC 03/22/21 18:30 04/03/21 20:35 Insulin Detemir (Levemir Insulin) 15 units DAILY SC 03/23/21 09:00 04/04/21 08:55 Insulin Human Lispro (HumaLOG INSULIN) SEE PROTOCOL TABLE AC DC 03/17/21 17:30 04/04/21 07:17 Insulin Human Lispro (HumaLOG INSULIN) [facility] 03/17/21 21:00 03/31/21 20:43 Insulin Human Lispro (HumaLOG INSULIN) See Protocol Table AC DC 03/13/21 07:30 03/13/21 23:53 DC Insulin Human Lispro (HumaLOG INSULIN) See [facility] 03/13/21 21:00 03/13/21 23:53 DC Ketoconazole (Nizoral) Apply over both feet BID TOP 03/21/21 21:00 04/04/21 09:00 DC 04/02/21 20:06 Lidocaine (Lidoderm Patch) 1 patch DAILY TD 03/22/21 09:00 04/03/21 09:18 Lisinopril (Prinivil) 20 mg DAILY PO 03/17/21 09:00 04/04/21 07:27 DC 04/03/21 09:22 Lisinopril (Prinivil) 40 mg DAILY PO 04/04/21 09:00 04/04/21 08:56 Magnesium Hydroxide (Milk Of Magnesia) 30 ml DAILYPRN PRN PO CONSTIPATION 03/13/21 01:25 03/13/21 23:53 DC Menthol/Methyl Salicylate (Bengay Cream) APPLY TO LEFT SHOULDER TID TOP 03/16/21 21:00 04/04/21 08:53 Menthol/Methyl Salicylate (Bengay Cream) allow to self apply to kn... BID TOP 03/31/21 09:00 04/04/21 08:54 Nicotine (Nicoderm Cq 14mg) 1 patch DAILY TD 03/17/21 09:00 03/23/21 07:46 Nicotine (Nicoderm Cq 14mg) 14 patch DAILY TD 03/17/21 09:00 03/17/21 09:15 DC Nicotine (Nicoderm Cq 21mg) 1 patch DAILY TD 03/13/21 09:00 03/13/21 23:53 DC 03/13/21 12:06 Non-Formulary Medication ( See Comment Field Below ) REMOVE LIDODERM PATCH DAILY@21 XX 03/22/21 21:00 04/03/21 20:36 Olanzapine (ZyPREXA ZYDIS) 5 mg Q4HP PRN PO ANXIETY/AGITATION 03/13/21 01:25 03/13/21 23:53 DC 03/13/21 03:24 Olanzapine (ZyPREXA ZYDIS) 5 mg Q4HP PRN PO ANXIETY/AGITATION 03/16/21 15:30 Olanzapine (ZyPREXA) 5 mg QHS PO 03/13/21 21:00 03/13/21 23:53 DC 03/13/21 21:01 Olanzapine (ZyPREXA) 10 mg QHS PO 03/16/21 21:00 04/01/21 08:30 DC 03/31/21 20:43 Olanzapine (ZyPREXA) 20 mg QHS PO 04/01/21 21:00 04/03/21 20:33 Omeprazole (PriLOSEC) 40 mg QHS PO 03/16/21 21:00 04/03/21 20:34 Polyethylene Glycol (Miralax) 1 pkt DAILY PO 03/13/21 09:00 03/13/21 23:53 DC 03/13/21 13:06 Polyethylene Glycol (Miralax) 1 pkt DAILYPRN PRN PO CONSTIPATION 03/16/21 15:30 Senna (Senokot) 1 tab Q12HP PRN PO CONSTIPATION 03/16/21 21:30 Senna (Senokot) 2 tab BIDP PRN PO BOWEL CARE 03/16/21 15:30 04/01/21 22:33 Trazodone HCl (Desyrel) 50 mg QHSP PRN PO INSOMNIA 03/13/21 03:20 03/13/21 23:53 DC Allergies Coded Allergies: diclofenac (Verified Allergy, Unknown, 10/22/18) cannot use because "I don't use it right" CHRISTY AMOS MD Apr 04, 2021 10:17
[2021-04-04 10:53] VITALS: BP 166/72
[2021-04-04 12:15] VITALS: BP 138/71
[2021-04-04 16:00] VITALS: BP 168/108
[2021-04-04] MEDS ORDERED: **hydrALAZINE HCL** 25 MG TAB PO SCH (18:00)
[2021-04-04 18:42] VITALS: BP 168/108
[2021-04-04] MEDS ORDERED: CHLORTHALIDONE 25 MG TAB PO ONE (18:45)
[2021-04-04 19:38] VITALS: BP 148/98
[2021-04-04] MEDS ORDERED: amLODIPine 5 MG TAB PO SCH (20:00)
[2021-04-04] MEDS: **NOTE PATIENT COMMENT** MISC XX SCH (20:01)
[2021-04-04] MEDS: OMEPRAZOLE 20 MG CAP PO SCH (20:05)
[2021-04-04] MEDS: ATORVASTATIN 20 MG TAB PO SCH (20:05)
[2021-04-04] MEDS: OLANZapine 10 MG TAB PO SCH (20:05)
[2021-04-05] MEDS: HumaLOG INSULIN (NovoLOG) PER UNIT SC SCH ×4 (06:35→21:53)
[2021-04-05] MEDS: LIDOCAINE 5% (LIDODERM) PATCH TD SCH (09:00)
[2021-04-05] MEDS: NICOTINE 14 MG/24 HR TRANSDERMAL TD SCH (09:00)
[2021-04-05] MEDS: LEVEMIR (INSULIN DETEMIR) 1 UNITS/0.01ML SC SCH ×2 (09:15→21:53)
[2021-04-05] MEDS: ANALGESIC BALM CRM 3OZ TOP SCH ×5 (09:16→21:00)
[2021-04-05] MEDS: DULoxetine 20 MG CAP (CYMBALTA) PO SCH ×2 (09:18→21:52)
[2021-04-05] MEDS: CHLORTHALIDONE 25 MG TAB PO SCH (09:18)
[2021-04-05] MEDS: DOCUSATE SODIUM 100MG CAPSULE PO SCH ×2 (09:18→21:52)
[2021-04-05] MEDS: buPROPion **XL** TABLET 150MG (WELLBUTRIN XL) PO SCH (09:18)
[2021-04-05] MEDS: lisinopriL 40 MG TAB PO SCH (09:20)
--- NOTE | 2021-04-05 14:06 | MHIPNPDOC ---
[facility] Progress Note Progress Note DATE OF SERVICE: 04/05/21 HISTORY: Patient is a 60 -year-old , male, who has a past psychiatric history of schizophrenia or bipolar reportedly and per chart review, major dep ressive disorder. Was brought to hospital by friend Merly and her , "I was gonna jump off [employer] bridge or parking garage here or jump in front of truck, only reason haven't jumped because I'm not sure 4 floors would do it". "I wanted to go quick". Reports continues to have the same thoughts. Stopped taking his prescribed 8-10 weeks ago reportedly, "thought stopping them would kill me", including medical medications including, nifedipine, trulicity, bp meds, insulin, glipizide, atorvastatin. He was transferred to the medical floor due to hypoglycemia of 50 on 03/14, was stabilized and returned to psychiatric floor and continued on medications, was seen by hospitalist team since returning to psychiatric floor. "Now that I'm 60 its been hard to make decisions and have never had that before", says tortured by depression. Interval: Today patient states that changing his medications, has been helpful for mood denies suicidal ideation, reports being future oriented with using mind to find a hotel ideally in [place], but would be okay with [place] as he reports having financial resources to do so, which was confirmed with social work who was present for part of the meeting. States sleep is good, appetite is good, denies homicidal ideations, denies any hallucinations, delusions or paranoia. Discussed that we could work towards starting a process of finding him a family service caseworker and he is agreeable to this, was enthusiastic to find out that [facility] has approved him, understands will take some time. Mood is "better". Agreeable possible discharge tomorrow. VITAL SIGNS: See below. NEW TEST RESULTS: None CURRENT MEDICATIONS: See below. MENTAL STATUS EXAMINATION: Patient is a 60-year old male, who is in no acute distress, sitting in a chair, normal eye contact, improved hygiene, appears stated age Speech: Is spontaneous, normal rate rhythm and prosody, normal amount, normal volume Language skills are fair. Thought processes including: Linear and logical Thought content: Reports suicidal and homicidal ideation, but no intent or plan. Abstract reasoning, and computation: Fair. Description of associations: Fair. Description of abnormal or psychotic thoughts: Denies. Judgment: Fair, improving Insight: Good Orientation: x4. Recent and remote memory: Intact Attention span and concentration: Good Language: Faroese Fund of knowledge: Average. Mood: "Better, not suicidal" affect: Euthymic, full, appropriate, jokes at times DIAGNOSES: 1. Schizoaffective disorder, depressed type 2. R/o medical causes to assess for Psychogenic polydipsia, likely side effects of medications and excess water intake R/O malingering ASSESSMENT: Patient contracts for safety with myself and with nursing staff per chart review, denies any suicidal ideation, intent or plan. Denies any homicida l ideation, intent or plan. Has been attending groups, is goal-directed and future oriented, feels good about staying a hotel temporarily and feels financially stable to do so, is enthusiastic to be placed in TLS when housing available. Denies any medication side effects or acute physical complaints apart from chronic knee and back pain which is improved with medications. MANAGEMENT PLAN: Continue olanzapine to 20 mg, has reported good response, pending placement. Continue medications, possible discharge tomorrow. TIME SPENT: 20 minutes. Vital Signs Vital Signs Date Time Temp Pulse Resp B/P (MAP) Pulse Ox O2 Delivery O2 Flow Rate FiO2 04/05/21 09:20 84 140/80 04/04/21 18:42 98.4 18 04/04/21 12:15 97 Room Air Laboratory Data 24H Labs Laboratory Tests 2 04/04/21 16:40: Bedside Glucose (Misc Panel) 75L 04/04/21 19:37: Bedside Glucose (Misc Panel) 103 04/05/21 06:30: Bedside Glucose (Misc Panel) 95 04/05/21 12:04: Bedside Glucose (Misc Panel) 134H Current Medications Current Medications Medications (Trade) Dose Ordered Sig/Cristopher Route PRN Reason Start Time Stop Time Status Last Admin Dose Admin Acetaminophen (Tylenol Tab) 325 mg Q8HP PRN PO HEADACHE or MILD DISCOMFORT 03/19/21 12:30 04/04/21 20:05 Acetaminophen (Tylenol Tab) 650 mg Q6HP PRN PO HEADACHE or MILD DISCOMFORT 03/13/21 01:25 03/13/21 23:53 DC 03/13/21 08:48 Al Hydrox/Mg Hydrox/Simethicone (Mylanta) 30 ml Q4HP PRN PO HEARTBURN/INDIGESTION 03/13/21 01:25 03/13/21 23:53 DC Al Hydrox/Mg Hydrox/Simethicone (Mylanta) 30 ml Q4HP PRN PO HEARTBURN 04/01/21 17:45 04/01/21 22:05 Albuterol Sulfate (Proventil, Ventolin Hfa) 2 puff QID PRN INH SHORTNESS OF BREATH 03/16/21 15:30 03/16/21 17:16 DC Albuterol Sulfate (Proventil, Ventolin Hfa) 2 puff QID PRN INH SHORTNESS OF BREATH 03/16/21 15:30 Amlodipine Besylate (Norvasc) 5 mg DAILY PO 04/04/21 20:00 04/04/21 07:27 DC Amlodipine Besylate (Norvasc) 5 mg DAILY PO 03/17/21 09:00 03/17/21 17:07 DC 03/17/21 09:17 Amlodipine Besylate (Norvasc) 10 mg DAILY PO 04/04/21 09:00 04/05/21 09:20 Atorvastatin Calcium (Lipitor) 40 mg QHS PO 03/17/21 21:00 04/04/21 20:05 Baclofen (Lioresal) 20 mg BID PRN PO spasms 03/16/21 15:30 04/01/21 10:35 Bupropion HCl (Wellbutrin Xl) 150 mg DAILY PO 03/17/21 09:00 03/24/21 09:21 DC 03/24/21 08:00 Bupropion HCl (Wellbutrin Xl) 150 mg QAM PO 03/13/21 09:00 03/13/21 23:53 DC 03/13/21 12:23 Bupropion HCl (Wellbutrin Xl) 300 mg DAILY PO 03/25/21 09:00 04/05/21 09:18 Chlorthalidone (Hygroton) 25 mg DAILY PO 04/05/21 09:00 04/05/21 09:18 Dextrose (Dextrose 50%) 25 ml ASDIRECTED PRN IV SEE LABEL COMMENTS 03/13/21 01:25 03/13/21 23:53 DC Dextrose (Dextrose 50%) 25 ml ASDIRECTED PRN IV SEE LABEL COMMENTS 03/16/21 21:30 Dextrose (Dextrose 50%) 25 ml ASDIRECTED PRN IV SEE LABEL COMMENTS 03/17/21 17:05 UNV Docusate Sodium (Colace) 100 mg BID PO 03/13/21 12:10 03/13/21 23:53 DC 03/13/21 21:01 Docusate Sodium (Colace) 100 mg BID PO 03/16/21 21:00 04/05/21 09:18 Duloxetine HCl (Cymbalta) 20 mg BID PO 03/22/21 21:00 03/26/21 10:17 DC 03/26/21 08:51 Duloxetine HCl (Cymbalta) 20 mg BID PO 03/29/21 21:00 04/05/21 09:18 Duloxetine HCl (Cymbalta) 20 mg DAILY PO 03/17/21 09:00 03/22/21 10:02 DC 03/22/21 09:13 Duloxetine HCl (Cymbalta) 30 mg BID PO 03/26/21 21:00 03/29/21 11:02 DC 03/27/21 09:08 Gabapentin (Neurontin) 800 mg TID PO 03/19/21 16:00 04/02/21 09:47 DC 04/02/21 09:27 Gabapentin (Neurontin) 800 mg TIDP PRN PO ANXIETY/AGITATION 04/02/21 09:50 Gabapentin (Neurontin) 1,200 mg TID PO 03/16/21 16:00 03/19/21 14:18 DC 03/19/21 08:58 Glipizide (Glucotrol Xl) 5 mg DAILY PO 03/17/21 09:00 03/16/21 17:59 DC Glipizide (Glucotrol Xl) 5 mg DAILY@1730 PO 03/16/21 17:30 03/17/21 17:05 DC 03/17/21 16:56 Glucagon (Glucagon) 1 mg ASDIRECTED PRN SC SEE LABEL COMMENTS 03/13/21 01:25 03/13/21 23:53 DC Glucagon (Glucagon) 1 mg ASDIRECTED PRN SC SEE LABEL COMMENTS 03/16/21 21:30 Glucagon (Glucagon) 1 mg ASDIRECTED PRN SC SEE LABEL COMMENTS 03/17/21 17:05 UNV Glucose (Glucose) 16 GM ASDIRECTED PRN PO SEE LABEL COMMENTS 03/13/21 01:25 03/13/21 23:53 DC Glucose (Glucose) 16 GM ASDIRECTED PRN PO SEE LABEL COMMENTS 03/16/21 21:30 Glucose (Glucose) 16 GM ASDIRECTED PRN PO SEE LABEL COMMENTS 03/17/21 17:05 UNV Home Med (Home Med List Complete!) ASDIRECTED XX 03/12/21 19:40 03/12/21 19:48 DC Hydralazine HCl (Apresoline) 25 mg Q8H PO 04/04/21 18:00 04/04/21 18:47 DC Insulin Detemir (Levemir Insulin) 10 units DAILY SC 03/17/21 09:00 03/22/21 18:04 DC 03/22/21 09:12 Insulin Detemir (Levemir Insulin) 10 units DAILY SC 03/17/21 09:00 03/16/21 17:23 DC Insulin Detemir (Levemir Insulin) 10 units QHS MA 03/22/21 18:30 04/04/21 20:05 Insulin Detemir (Levemir Insulin) 15 units DAILY SC 03/23/21 09:00 04/05/21 09:15 Insulin Human Lispro (HumaLOG INSULIN) SEE PROTOCOL TABLE AC MA 03/17/21 17:30 04/05/21 12:06 Insulin Human Lispro (HumaLOG INSULIN) [facility] 03/17/21 21:00 03/31/21 20:43 Insulin Human Lispro (HumaLOG INSULIN) See Protocol Table AC MA 03/13/21 07:30 03/13/21 23:53 DC Insulin Human Lispro (HumaLOG INSULIN) See Protocol Table QHS MA 03/13/21 21:00 03/13/21 23:53 DC Ketoconazole (Nizoral) Apply over both feet BID TOP 03/21/21 21:00 04/04/21 09:00 DC 04/02/21 20:06 Lidocaine (Lidoderm Patch) 1 patch DAILY TD 03/22/21 09:00 04/03/21 09:18 Lisinopril (Prinivil) 20 mg DAILY PO 03/17/21 09:00 04/04/21 07:27 DC 04/03/21 09:22 Lisinopril (Prinivil) 40 mg DAILY PO 04/04/21 09:00 04/05/21 09:20 Magnesium Hydroxide (Milk Of Magnesia) 30 ml DAILYPRN PRN PO CONSTIPATION 03/13/21 01:25 03/13/21 23:53 DC Menthol/Methyl Salicylate (Bengay Cream) APPLY TO LEFT SHOULDER TID TOP 03/16/21 21:00 04/05/21 09:16 Menthol/Methyl Salicylate (Bengay Cream) allow to self apply to kn... BID TOP 03/31/21 09:00 04/05/21 09:16 Nicotine (Nicoderm Cq 14mg) 1 patch DAILY TD 03/17/21 09:00 03/23/21 07:46 Nicotine (Nicoderm Cq 14mg) 14 patch DAILY TD 03/17/21 09:00 03/17/21 09:15 DC Nicotine (Nicoderm Cq 21mg) 1 patch DAILY TD 03/13/21 09:00 03/13/21 23:53 DC 03/13/21 12:06 Non-Formulary Medication ( See Comment Field Below ) REMOVE LIDODERM PATCH DAILY@21 XX 03/22/21 21:00 04/03/21 20:36 Olanzapine (ZyPREXA ZYDIS) 5 mg Q4HP PRN PO ANXIETY/AGITATION 03/13/21 01:25 03/13/21 23:53 DC 03/13/21 03:24 Olanzapine (ZyPREXA ZYDIS) 5 mg Q4HP PRN PO ANXIETY/AGITATION 03/16/21 15:30 Olanzapine (ZyPREXA) 5 mg QHS PO 03/13/21 21:00 03/13/21 23:53 DC 03/13/21 21:01 Olanzapine (ZyPREXA) 10 mg QHS PO 03/16/21 21:00 04/01/21 08:30 DC 03/31/21 20:43 Olanzapine (ZyPREXA) 20 mg QHS PO 04/01/21 21:00 04/04/21 20:05 Omeprazole (PriLOSEC) 40 mg QHS PO 03/16/21 21:00 04/04/21 20:05 Polyethylene Glycol (Miralax) 1 pkt DAILY PO 03/13/21 09:00 03/13/21 23:53 DC 03/13/21 13:06 Polyethylene Glycol (Miralax) 1 pkt DAILYPRN PRN PO CONSTIPATION 03/16/21 15:30 Senna (Senokot) 1 tab Q12HP PRN PO CONSTIPATION 03/16/21 21:30 Senna (Senokot) 2 tab BIDP PRN PO BOWEL CARE 03/16/21 15:30 04/01/21 22:33 Trazodone HCl (Desyrel) 50 mg QHSP PRN PO INSOMNIA 03/13/21 03:20 03/13/21 23:53 DC Allergies Coded Allergies: diclofenac (Verified Allergy, Unknown, 10/22/18) cannot use because "I don't use it right" CHRISTY AMOS MD Apr 05, 2021 14:06
[2021-04-05 16:10] VITALS: BP 118/64
[2021-04-05] MEDS: **NOTE PATIENT COMMENT** MISC XX SCH (21:00)
[2021-04-05] MEDS: OLANZapine 10 MG TAB PO SCH (21:52)
[2021-04-05] MEDS: OMEPRAZOLE 20 MG CAP PO SCH (21:52)
[2021-04-05] MEDS: ATORVASTATIN 20 MG TAB PO SCH (21:52)
[2021-04-06 06:16] VITALS: BP 145/80
[2021-04-06] MEDS: HumaLOG INSULIN (NovoLOG) PER UNIT SC SCH ×4 (06:37→20:06)
[2021-04-06] MEDS: LIDOCAINE 5% (LIDODERM) PATCH TD SCH (09:00)
[2021-04-06] MEDS: NICOTINE 14 MG/24 HR TRANSDERMAL TD SCH (09:00)
[2021-04-06] MEDS: ANALGESIC BALM CRM 3OZ TOP SCH ×5 (09:00→20:06)
[2021-04-06] MEDS: LEVEMIR (INSULIN DETEMIR) 1 UNITS/0.01ML SC SCH ×2 (09:19→20:07)
[2021-04-06] MEDS: DULoxetine 20 MG CAP (CYMBALTA) PO SCH ×2 (09:20→20:06)
[2021-04-06] MEDS: CHLORTHALIDONE 25 MG TAB PO SCH (09:20)
[2021-04-06] MEDS: DOCUSATE SODIUM 100MG CAPSULE PO SCH ×2 (09:20→20:07)
[2021-04-06] MEDS: buPROPion **XL** TABLET 150MG (WELLBUTRIN XL) PO SCH (09:20)
[2021-04-06] MEDS: lisinopriL 40 MG TAB PO SCH (09:20)
--- NOTE | 2021-04-06 14:55 | MHIPNPDOC ---
[facility] Progress Note Progress Note DATE OF SERVICE: 04/06/21 HISTORY: Patient is a 60 -year-old , male, who has a past psychiatric history of schizophrenia or bipolar reportedly and per chart review, major dep ressive disorder. Was brought to hospital by friend Merly and her , "I was gonna jump off [place] [address] or parking garage here or jump in front of truck, only reason haven't jumped because I'm not sure 4 floors would do it". "I wanted to go quick". Reports continues to have the same thoughts. Stopped taking his prescribed 8-10 weeks ago reportedly, "thought stopping them would kill me", including medical medications including, nifedipine, trulicity, bp meds, insulin, glipizide, atorvastatin. He was transferred to the medical floor due to hypoglycemia of 50 on 03/14, was stabilized and returned to psychiatric floor and continued on medications, was seen by hospitalist team since returning to psychiatric floor. "Now that I'm 60 its been hard to make decisions and have never had that before", says tortured by depression. Interval: Today patient states his mood is worse, does not provide clear rationale for this, states he is suicidal and does not know if he would jump off a parking garage if he was discharged. Per social work reached out to collateral patient planning providing permission, he has some pending legal troubles. VITAL SIGNS: See below. NEW TEST RESULTS: None CURRENT MEDICATIONS: See below. MENTAL STATUS EXAMINATION: Patient is a 60-year old male, who is in no acute distress, sitting in a chair, normal eye contact, improved hygiene, appears stated age Speech: Is spontaneous, normal rate rhythm and prosody, normal amount, normal volume Language skills are fair. Thought processes including: Linear and logical Thought content: Reports suicidal and homicidal ideation, but no intent or plan. Abstract reasoning, and computation: Fair. Description of associations: Fair. Description of abnormal or psychotic thoughts: Denies. Judgment: Fair, improving Insight: Good Orientation: x4. Recent and remote memory: Intact Attention span and concentration: Good Language: Occitan Fund of knowledge: Average. Mood: "suicidal" affect: No change, euthymic, full, appropriate, jokes at times DIAGNOSES: 1. Schizoaffective disorder, depressed type per history 2. 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 R/o Malingering ASSESSMENT: Patient does not contract for safety, endorses SI, states he is not sure if he would jump off the structure of discharge include parking garage, this is despite telling nursing earlier that he was not suicidal and on previous days denying SI. Possibly not fully accessible due to pending legal proceedings and would not be able to afford temporary housing until TLS placed. Continue to collaborate with treatment team/social work for safe discharge plan. MANAGEMENT PLAN: Continue medications, patient has possible TLS placement upcoming, after [facility] referral, pending safe discharge plan. TIME SPENT: 40 minutes. Vital Signs Vital Signs Date Time Temp Pulse Resp B/P (MAP) Pulse Ox O2 Delivery O2 Flow Rate FiO2 04/06/21 09:22 88 124/82 04/06/21 06:16 97.3 16 96 Room Air Laboratory Data 24H Labs Laboratory Tests 2 04/05/21 16:44: Bedside Glucose (Misc Panel) 233H 04/05/21 21:48: Bedside Glucose (Misc Panel) 308H 04/06/21 06:29: Bedside Glucose (Misc Panel) 196H 04/06/21 11:53: Bedside Glucose (Misc Panel) 215H Current Medications Current Medications Medications (Trade) Dose Ordered Sig/Cristopher Route PRN Reason Start Time Stop Time Status Last Admin Dose Admin Acetaminophen (Tylenol Tab) 325 mg Q8HP PRN PO HEADACHE or MILD DISCOMFORT 03/19/21 12:30 04/04/21 20:05 Acetaminophen (Tylenol Tab) 650 mg Q6HP PRN PO HEADACHE or MILD DISCOMFORT 03/13/21 01:25 03/13/21 23:53 DC 03/13/21 08:48 Al Hydrox/Mg Hydrox/Simethicone (Mylanta) 30 ml Q4HP PRN PO HEARTBURN/INDIGESTION 03/13/21 01:25 03/13/21 23:53 DC Al Hydrox/Mg Hydrox/Simethicone (Mylanta) 30 ml Q4HP PRN PO HEARTBURN 04/01/21 17:45 04/01/21 22:05 Albuterol Sulfate (Proventil, Ventolin Hfa) 2 puff QID PRN INH SHORTNESS OF BREATH 03/16/21 15:30 03/16/21 17:16 DC Albuterol Sulfate (Proventil, Ventolin Hfa) 2 puff QID PRN INH SHORTNESS OF BREATH 03/16/21 15:30 Amlodipine Besylate (Norvasc) 5 mg DAILY PO 04/04/21 20:00 04/04/21 07:27 DC Amlodipine Besylate (Norvasc) 5 mg DAILY PO 03/17/21 09:00 03/17/21 17:07 DC 03/17/21 09:17 Amlodipine Besylate (Norvasc) 10 mg DAILY PO 04/04/21 09:00 04/06/21 09:22 Atorvastatin Calcium (Lipitor) 40 mg QHS PO 03/17/21 21:00 04/05/21 21:52 Baclofen (Lioresal) 20 mg BID PRN PO spasms 03/16/21 15:30 04/01/21 10:35 Bupropion HCl (Wellbutrin Xl) 150 mg DAILY PO 03/17/21 09:00 03/24/21 09:21 DC 03/24/21 08:00 Bupropion HCl (Wellbutrin Xl) 150 mg QAM PO 03/13/21 09:00 03/13/21 23:53 DC 03/13/21 12:23 Bupropion HCl (Wellbutrin Xl) 300 mg DAILY PO 03/25/21 09:00 04/06/21 09:20 Chlorthalidone (Hygroton) 25 mg DAILY PO 04/05/21 09:00 04/06/21 09:20 Dextrose (Dextrose 50%) 25 ml ASDIRECTED PRN IV SEE LABEL COMMENTS 03/13/21 01:25 03/13/21 23:53 DC Dextrose (Dextrose 50%) 25 ml ASDIRECTED PRN IV SEE LABEL COMMENTS 03/16/21 21:30 Dextrose (Dextrose 50%) 25 ml ASDIRECTED PRN IV SEE LABEL COMMENTS 03/17/21 17:05 UNV Docusate Sodium (Colace) 100 mg BID PO 03/13/21 12:10 03/13/21 23:53 DC 03/13/21 21:01 Docusate Sodium (Colace) 100 mg BID PO 03/16/21 21:00 04/06/21 09:20 Duloxetine HCl (Cymbalta) 20 mg BID PO 03/22/21 21:00 03/26/21 10:17 DC 03/26/21 08:51 Duloxetine HCl (Cymbalta) 20 mg BID PO 03/29/21 21:00 04/06/21 09:20 Duloxetine HCl (Cymbalta) 20 mg DAILY PO 03/17/21 09:00 03/22/21 10:02 DC 03/22/21 09:13 Duloxetine HCl (Cymbalta) 30 mg BID PO 03/26/21 21:00 03/29/21 11:02 DC 03/27/21 09:08 Gabapentin (Neurontin) 800 mg TID PO 03/19/21 16:00 04/02/21 09:47 DC 04/02/21 09:27 Gabapentin (Neurontin) 800 mg TIDP PRN PO ANXIETY/AGITATION 04/02/21 09:50 Gabapentin (Neurontin) 1,200 mg TID PO 03/16/21 16:00 03/19/21 14:18 DC 03/19/21 08:58 Glipizide (Glucotrol Xl) 5 mg DAILY PO 03/17/21 09:00 03/16/21 17:59 DC Glipizide (Glucotrol Xl) 5 mg DAILY@1730 PO 03/16/21 17:30 03/17/21 17:05 DC 03/17/21 16:56 Glucagon (Glucagon) 1 mg ASDIRECTED PRN SC SEE LABEL COMMENTS 03/13/21 01:25 03/13/21 23:53 DC Glucagon (Glucagon) 1 mg ASDIRECTED PRN SC SEE LABEL COMMENTS 03/16/21 21:30 Glucagon (Glucagon) 1 mg ASDIRECTED PRN SC SEE LABEL COMMENTS 03/17/21 17:05 UNV Glucose (Glucose) 16 GM ASDIRECTED PRN PO SEE LABEL COMMENTS 03/13/21 01:25 03/13/21 23:53 DC Glucose (Glucose) 16 GM ASDIRECTED PRN PO SEE LABEL COMMENTS 03/16/21 21:30 Glucose (Glucose) 16 GM ASDIRECTED PRN PO SEE LABEL COMMENTS 03/17/21 17:05 UNV Home Med (Home Med List Complete!) ASDIRECTED XX 03/12/21 19:40 03/12/21 19:48 DC Hydralazine HCl (Apresoline) 25 mg Q8H PO 04/04/21 18:00 04/04/21 18:47 DC Insulin Detemir (Levemir Insulin) 10 units DAILY SC 03/17/21 09:00 03/22/21 18:04 DC 03/22/21 09:12 Insulin Detemir (Levemir Insulin) 10 units DAILY VA 03/17/21 09:00 03/16/21 17:23 DC Insulin Detemir (Levemir Insulin) 10 units QHS VA 03/22/21 18:30 04/05/21 21:53 Insulin Detemir (Levemir Insulin) 15 units DAILY VA 03/23/21 09:00 04/06/21 09:19 Insulin Human Lispro (HumaLOG INSULIN) SEE PROTOCOL TABLE AC VA 03/17/21 17:30 04/06/21 11:57 Insulin Human Lispro (HumaLOG INSULIN) [facility] 03/17/21 21:00 04/05/21 21:53 Insulin Human Lispro (HumaLOG INSULIN) See Protocol Table AC VA 03/13/21 07:30 03/13/21 23:53 DC Insulin Human Lispro (HumaLOG INSULIN) [facility] 03/13/21 21:00 03/13/21 23:53 DC Ketoconazole (Nizoral) Apply over both feet BID TOP 03/21/21 21:00 04/04/21 09:00 DC 04/02/21 20:06 Lidocaine (Lidoderm Patch) 1 patch DAILY TD 03/22/21 09:00 04/03/21 09:18 Lisinopril (Prinivil) 20 mg DAILY PO 03/17/21 09:00 04/04/21 07:27 DC 04/03/21 09:22 Lisinopril (Prinivil) 40 mg DAILY PO 04/04/21 09:00 04/06/21 09:20 Magnesium Hydroxide (Milk Of Magnesia) 30 ml DAILYPRN PRN PO CONSTIPATION 03/13/21 01:25 03/13/21 23:53 DC Menthol/Methyl Salicylate (Bengay Cream) APPLY TO LEFT SHOULDER TID TOP 03/16/21 21:00 04/05/21 15:21 Menthol/Methyl Salicylate (Bengay Cream) allow to self apply to kn... BID TOP 03/31/21 09:00 04/05/21 09:16 Nicotine (Nicoderm Cq 14mg) 1 patch DAILY TD 03/17/21 09:00 03/23/21 07:46 Nicotine (Nicoderm Cq 14mg) 14 patch DAILY TD 03/17/21 09:00 03/17/21 09:15 DC Nicotine (Nicoderm Cq 21mg) 1 patch DAILY TD 03/13/21 09:00 03/13/21 23:53 DC 03/13/21 12:06 Non-Formulary Medication ( See Comment Field Below ) REMOVE LIDODERM PATCH DAILY@21 XX 03/22/21 21:00 04/03/21 20:36 Olanzapine (ZyPREXA ZYDIS) 5 mg Q4HP PRN PO ANXIETY/AGITATION 03/13/21 01:25 03/13/21 23:53 DC 03/13/21 03:24 Olanzapine (ZyPREXA ZYDIS) 5 mg Q4HP PRN PO ANXIETY/AGITATION 03/16/21 15:30 Olanzapine (ZyPREXA) 5 mg QHS PO 03/13/21 21:00 03/13/21 23:53 DC 03/13/21 21:01 Olanzapine (ZyPREXA) 10 mg QHS PO 03/16/21 21:00 04/01/21 08:30 DC 03/31/21 20:43 Olanzapine (ZyPREXA) 20 mg QHS PO 04/01/21 21:00 04/05/21 21:52 Omeprazole (PriLOSEC) 40 mg QHS PO 03/16/21 21:00 04/05/21 21:52 Polyethylene Glycol (Miralax) 1 pkt DAILY PO 03/13/21 09:00 03/13/21 23:53 DC 03/13/21 13:06 Polyethylene Glycol (Miralax) 1 pkt DAILYPRN PRN PO CONSTIPATION 03/16/21 15:30 Senna (Senokot) 1 tab Q12HP PRN PO CONSTIPATION 03/16/21 21:30 Senna (Senokot) 2 tab BIDP PRN PO BOWEL CARE 03/16/21 15:30 04/01/21 22:33 Trazodone HCl (Desyrel) 50 mg QHSP PRN PO INSOMNIA 03/13/21 03:20 03/13/21 23:53 DC Allergies Coded Allergies: diclofenac (Verified Allergy, Unknown, 10/22/18) cannot use because "I don't use it right" CHRISTY AMOS MD Apr 06, 2021 14:55
[2021-04-06 16:19] VITALS: BP 121/68
[2021-04-06] MEDS: **NOTE PATIENT COMMENT** MISC XX SCH (20:06)
[2021-04-06] MEDS: OMEPRAZOLE 20 MG CAP PO SCH (20:07)
[2021-04-06] MEDS: ATORVASTATIN 20 MG TAB PO SCH (20:07)
[2021-04-06] MEDS: OLANZapine 10 MG TAB PO SCH (20:07)
[2021-04-07 06:26] VITALS: BP 135/85
[2021-04-07] MEDS: HumaLOG INSULIN (NovoLOG) PER UNIT SC SCH (06:30)
[2021-04-07] MEDS: NICOTINE 14 MG/24 HR TRANSDERMAL TD SCH (09:00)
[2021-04-07] MEDS: ANALGESIC BALM CRM 3OZ TOP SCH ×2 (09:00)
[2021-04-07] MEDS: LIDOCAINE 5% (LIDODERM) PATCH TD SCH (09:00)
[2021-04-07] MEDS: DOCUSATE SODIUM 100MG CAPSULE PO SCH (09:01)
[2021-04-07] MEDS: LEVEMIR (INSULIN DETEMIR) 1 UNITS/0.01ML SC SCH (09:01)
[2021-04-07 09:02] VITALS: BP 135/75
[2021-04-07] MEDS: lisinopriL 40 MG TAB PO SCH (09:02)
[2021-04-07] MEDS: CHLORTHALIDONE 25 MG TAB PO SCH (09:02)
[2021-04-07] MEDS: buPROPion **XL** TABLET 150MG (WELLBUTRIN XL) PO SCH (09:02)
[2021-04-07] MEDS: DULoxetine 20 MG CAP (CYMBALTA) PO SCH (09:02)
--- NOTE | 2021-04-07 10:36 | MHDSPDOC ---
[facility] Discharge Summary Discharge Summary DATE OF ADMISSION: Mar 13, 2021 at 01:23 DATE OF DISCHARGE: April 07, 2021 Discharge diagnoses: 1. Schizoaffective disorder, depressed type per history 2. Possible Malingering Reason for admission: Patient is a 60 -year-old , male, who has a past psychiatric history of schizophrenia or bipolar reportedly and per chart review, major depressive disorder. Was brought to hospital by friend Merly and her , "I was gonna jump off [employer] bridge or parking garage here or jump in front of truck, only reason haven't jumped because I'm not sure 4 floors would do it". "I wanted to go quick". Reports continues to have the same thoughts. Stopped taking his prescribed 8-10 weeks ago reportedly, "thought stopping them would kill me", including medical medications including, nifedipine, trulicity, bp meds, insulin, glipizide, atorvastatin. He was transferred to the medical floor due to hypoglycemia of 50 on 03/14, was stabilized and returned to psychiatric floor and continued on home medications, was seen by hospitalist team since returning to psychiatric floor. "Now that I'm 60 its been hard to make decisions and have never had that before", says tortured by depression. Vital signs: See below Consultants involved: See medical H&P by hospitalist Treatment and progress on the unit: Patient was admitted to the [facility] on legal status and was afforded the following treatment modalities: 1. Individual therapy 2. Group therapy 3. Medication management 4. Milieu therapy 5. Safe environment Hospital course: Patient was admitted to the [facility] on a legal status. Was medically cleared prior to coming up to the [facility], SAFE ACTED, initially on arrival to [facility] was found to have hypoglycemia in the 50s was transferred to the medical floor and treated for hypoglycemia, medically cleared and returned to the [facility]. Patient was restarted on home medication including Cymbalta 20 mg p.o. twice daily, gabapentin 1200 3 times daily,wellbutrin 150 xl was titrated to 300 mg daily, medical medications including: Insulin sliding scale, and blood pressure medications which were adjusted on the hospitalist team, was continued on the 3 medication regimen due to elevated blood pressures, patient endorsed increased urination and incontinence so gabapentin was decreased to 800 mg 3 times daily, patient was also drinking excessive amounts of water, 25 cups a day and so was educated on adequate intake and symptoms improved. Patient found medications beneficial and tolerated them well. During stay patient symptoms very endorsed auditory hallucinations at points telling him to end his life, other times endorsed low mood with suicidal ideations, endorsed elevated moods at times, olanzapine was increased from 10 to 20 mg nightly with good effect, after this denied any auditory hallucinations, but had a continued stay due to reporting suicidal ideations with vague thoughts including jumping off car garage similar to presentation. Patient denies side effects from medications, denies acute physical complaints, initially was using walker due to reported instability which improved and was able to ambulate without difficulty around the unit, denied any dizziness, lightheadedness, did not have any falls. Patient reported suicidality to nursing on some days when he did not report suicidality to myself the same day, reporting suicidality, at times affect was full, was engaged in interview, at times laughed and joked, and had incongruent affect, symptoms varied from day to day. On the day prior to discharge had been reporting improved mood, had been going to groups and had been denying suicidal ideation was planning to be discharged, had told social work and nursing that he did not have any suicidal ideations, plan or intent and then when he found out that his full amount of monthly spending may be limited endorsed to myself suicidal ideations and was kept another day, during stay had been refusing for us to reach out to his payee and providing release of information, at one point reported HI towards CM and this person was contacted due to duty to warn by the nurse, he had reported the HI towards the director case management with thoughts of shooting this person if he had access to guns. During stay social work arrange for spoil referral, and was given referral for [facility] which is pending, patient was enthusiastic to attend [facility] stated his suicidal thoughts were primarily in context of not having the right placement. Prior to discharge on further discussion allowed for us to reach out to his payee, who reports the patient left for a month out of state to possibly avoid pending charges due to significant damage of previous apartment, patient made aware of his financial position and these possible pending charges and then denied suicidal ideations and stated he was ready to leave, was aware he needs to go to social security to sweet pickle maker check and taxi was arranged, taxi also arrange for him to receive transport to his motel and patient was agreeable to this plan. Patient consulted for safety denies mood anxiety and intrusive thoughts which improved with treatment. Patient was asking questions about his winter close, how would have access to them, states he had slept great, and was questioning which pharmacy his medications to be sent to which was confirmed to be [facility]. Patient attended groups daily during stay. Patient symptoms improved with treatment. On day of discharge patient denied depression, anxiety, insomnia, suicidal or homicidal ideations intent or plan, hallucinations, delusions. Patient was discharged home with follow-up. Patient felt safe for discharge. Was offered continued stay on voluntary admission but refused. Discharge assessment: On today's interview patient is alert and oriented, dressed appropriately. Eye contact is good, and engaged on interview. Hygiene and grooming is well-kept. Smiles on approach and is pleasant and engaged on interview. Denies depression and anxiety. Denies suicidal homicidal ideation, intent or planning. Denies and is not observed with lindsey or psychotic symptoms of delusions, hallucinations, bizarre thinking, obsessions, paranoia, ruminations, illogical thoughts, flight of ideas or having poor insight or judgment. Patient has normal mentation, declines further hospitalization of voluntary status and meets criteria for discharge today, patient encouraged to return the hospital if symptoms worsen or change and encouraged to call unit if they feel they need provider's questions to be answered or help with medications or care. Patient was future oriented asking questions about closed, ready at medications, want to make sure that if he was called by [facility] that he be able to reach out to us to ask what is placement as he was looking forward to this. Mental status: Patient is a 60-year old male, who is in no acute distress, sitting in a chair, normal eye contact, improved hygiene, appears stated age, short buzz cut Speech: Is spontaneous, normal rate rhythm and prosody, normal amount, normal volume Language skills are fair. Thought processes including: Linear and logical Thought content: denies suicidal ideations, intent or plan. Or homicidal ideations, intent or plan Abstract reasoning, and computation: Good. Description of associations: Good Description of abnormal or psychotic thoughts: Denies and not observed. Judgment: Fair Insight: Good Orientation: x4. Recent and remote memory: Intact Attention span and concentration: Good Language: Faroese Fund of knowledge: Average. Mood: "Good" affect: euthymic, full, appropriate, jokes at times, smiles, future oriented, Medications on discharge: -see medication reconciliation: CSSRS on discharge: Wish to be : No nonspecific active suicidal thoughts: No lifetime attempts: Multiple suicide attempts via various methods, most common appears to be overdose. interrupted attempts: 0 aborted attempts: 0 preparatory acts or behavior: None Taking into consideration safety state, status, modifiable, non-modifiable risk factors patient is at low risk on discharge for suicide according to [facility] suicide evaluation. PLAN/FOLLOWUP ARRANGEMENTS: Follow Up Care Education Label * N/A * Care Coordination/Case Management/Supervision Transfer to grant hospital Follow Up Care Education Label * Mental Health Appt 1 * Therapist Rosaura * Date Apr 12, 2021 * Time 10:00 * Address of Clinic or Practice [address] [place] [address] * Follow Up Care Education Label * Mental Health Appt 2 * Therapist Bandar * Date May 04, 2021 * Time 13:00 * Address of Clinic or Practice [address] [place] [address] * Follow Up Care Education Label * [facility] * Care Coordination/Case Management/Supervision [facility] * Established With This Provider Yes * Therapist SARAHI * Date May 04, 2021 * Time 13:40 * Address of Clinic or Practice [address] [place] [address] * The amount of time spent in the coordination of care for this patient was approximately 45 minutes. ETOH/Disorder Med Rx ETOH/DRUG DISORDER RX: N/A Vital Signs/I&Os Vital Signs Date Time Temp Pulse Resp B/P (MAP) Pulse Ox O2 Delivery O2 Flow Rate FiO2 04/07/21 09:02 87 135/75 04/07/21 06:26 97.9 14 95 Room Air Laboratory Data Labs 24H Laboratory Tests 2 04/06/21 11:53: Bedside Glucose (Misc Panel) 215H 04/06/21 16:49: Bedside Glucose (Misc Panel) 171H 04/06/21 20:00: Bedside Glucose (Misc Panel) 228H 04/07/21 06:23: Bedside Glucose (Misc Panel) 189H Medications Scheduled Amlodipine Besylate (Amlodipine Besylate) 10 Mg Tablet, 10 MG PO DAILY for hypertension, #7 Atorvastatin Calcium (Atorvastatin Calcium) 40 Mg Tablet, 40 MG PO DAILY, (Reported) Bupropion Hcl (Bupropion Xl) 150 Mg Tab.er.24h, 150 MG PO DAILY, (Reported) Bupropion Hcl (Bupropion Xl) 150 Mg Tab.er.24h, 300 MG PO DAILY for mood, #7 Chlorthalidone (Chlorthalidone) 25 Mg Tablet, 25 MG PO DAILY for blood pressure, #7 Docusate Sodium (Colace) 100 Mg Capsule, 100 MG PO BID for constipation, #14 Dulaglutide (Trulicity) 1.5 Mg/0.5 Ml Pen.injctr, 1.5 MG SC QWEEK, (Reported) TAKES ON VARIABLE DAYS OF WEEK Duloxetine HCl (Cymbalta) 20 Mg Capsule.dr, 20 MG PO BID for mood, #14 Ergocalciferol (Vitamin D2) (Vitamin D2) 50,000 Units Cap, 50,000 UNITS PO QWEEK, (Reported) TAKES ON VARIABLE DAYS OF WEEK Gabapentin (Gabapentin) 600 Mg Tab, 1,200 MG PO TID, (Reported) Glipizide (Glipizide ER) 5 Mg Tab.er.24, 5 MG PO DAILY, (Reported) Insulin Glargine,Hum.rec.anlog (Lantus Solostar) 100 Unit/1 Ml Insuln.pen, 10 UNITS SC DAILY, (Reported) Lisinopril (Lisinopril) 40 Mg Tablet, 40 MG PO DAILY for blood pressure, #7 Methyl Salicylate/Menthol (Muscle Rub Cream) 85 Gm Cream..g., 0 DOSE TOP BID for dry feet, #10 Nicotine (Nicotine Patch) 14 Mg Patch.td24, 14 MG TD DAILY, (Reported) Nicotine (Nicotine Patch) 14 Mg Patch.td24, 1 PATCH TD DAILY for nicotine cravings, #7 Olanzapine (Olanzapine) 10 Mg Tablet, 20 MG PO QHS for psychosis, #14 Omeprazole (Omeprazole) 40 Mg Capsule.dr, 40 MG PO DAILY, (Reported) Omeprazole (Omeprazole) 20 Mg Capsule.dr, 40 MG PO QHS for gerd, #7 Scheduled PRN Albuterol Sulfate (Proair Hfa) 108 Mcg/Act Aer, 2 PUFF INH QID PRN for SHORTNESS OF BREATH, (Reported) Baclofen (Baclofen) 20 Mg Tablet, 20 MG PO BID PRN for SPASMS, (Reported) Allergies Coded Allergies: diclofenac (Verified Allergy, Unknown, 10/22/18) cannot use because "I don't use it right" CHRISTY AMOS MD Apr 07, 2021 10:36
[2021-04-07] MEDS ORDERED: OMEP-218 PO (11:17)
[2021-04-07] MEDS ORDERED: AMLO1TAB25 PO (11:17)
[2021-04-07] MEDS ORDERED: MUSCCRE9 TOP (11:17)
[2021-04-07] MEDS ORDERED: NICO14PA TD (11:17)
[2021-04-07] MEDS ORDERED: LISI40TA4 PO (11:17)
[2021-04-07] MEDS ORDERED: CHLO25TA PO (11:17)
[2021-04-07] MEDS ORDERED: BUPR150T12 PO (11:17)
[2021-04-07] MEDS ORDERED: COLA100C5 PO (11:17)
[2021-04-07] MEDS ORDERED: CYMB1CAP4 PO (11:17)
[2021-04-07] MEDS ORDERED: OLAN1TAB20 PO (11:17)
== END 2021-04-07 11:22 | disposition home or self-care (01) | DRG 885 ==
LOC: M ED 17:11 → M ED INP 03-13 01:23 → M PSY 03-13 02:00 → UNDODISIN 03-13 23:00 → M MSPAV 03-13 23:20 → M PSY 03-13 23:20
PROVIDERS: ADMIT Student in an Organized Health Care Education/Training Program; ATTEND Student in an Organized Health Care Education/Training Program
DX: F25.1 Schizoaffective disorder, depressive type (principal); R45.851 Suicidal ideations; F32.9 Major depressive disorder, single episode, unspecified; Z91.19 Patient's noncompliance with other medical treatment and regimen; I10 Essential (primary) hypertension; Z79.899 Other long term (current) drug therapy; E11.9 Type 2 diabetes mellitus without complications; F17.210 Nicotine dependence, cigarettes, uncomplicated; K59.00 Constipation, unspecified; F20.0 Paranoid schizophrenia; Z76.5 Malingerer [conscious simulation]

== ENCOUNTER 2021-03-13 21:55 | Inpatient (IN) | payer MEDICARE ==
[~2021-03-13] VITALS: Ht 165.1 cm; Wt 106.0 kg
[~2021-03-13 21:55] MED LIST changes: +ATOR40TA75 PO; +BUPR150T12 PO; +ERGO500029 PO; +GLIP5TAB20 PO; +NICO14DI24 TD
[2021-03-13] MEDS ORDERED: DEXTROSE 50% 50 ML SYRINGE IV STA (22:07)
[2021-03-13] MEDS ORDERED: MOM 30ML SUSPENSION UDC PO PRN (22:10)
[2021-03-13] MEDS ORDERED: MAALOX 30 ML SUSP *UDC PO PRN (22:10)
[2021-03-13] MEDS ORDERED: GLUCOSE 4GM CHEW TABLET PO PRN (22:10)
[2021-03-13] MEDS ORDERED: DEXTROSE 50% 50 ML SYRINGE IV PRN (22:10)
[2021-03-13] MEDS ORDERED: GLUCAGON INJ 1MG VIAL SC PRN (22:10)
--- NOTE | 2021-03-13 22:19 | HPEPDOC ---
[facility] Medical History & Physical Date of Admission Mar 13, 2021 Date of Service: Mar 13, 2021 History and Physical CHIEF COMPLAINT: hypoglycemia HISTORY OF PRESENT ILLNESS: This is a 60-year-old male with a past medical history of depression, type 2 diabetes, hypertension who was admitted to the inpatient mental health unit for suicidal and homicidal ideations. I was called by nursing at approximately 2130 on 03/13/2021 to inform you that the patient has been hyperglycemic persistently and has refused to eat or drink. His sugars have remained at 50 despite several fingerstick glucose levels. I spoke to the patient attempted to convince him to take p.o. dextrose orange juice or any other form of food. Patient states that he wishes to and by eating he will remain alive. I presented him with the option of being admitted to the medical floor and receiving IV dextrose. Patient opted to get the IV infusion. He denies CP, SOB, palpitations, n/v/d, lightheadedness or dizziness. At this time patient be transferred to the medical floor for IV dextrose infusion to prevent hypoglycemia in the setting of type 2 diabetes. PAST MEDICAL HISTORY: Type DM HTN Depression/SI/HI Schizophrenia PAST SURGICAL HISTORY: Cyst excision on hand. SOCIAL HISTORY: Smokes 1 PPD. No etoh use. Occasional marijuana use. ALLERGIES: Please see below. REVIEW OF SYSTEMS: 10 point ROS conducted, relevant findings are noted In HPI. HOME MEDICATIONS: Please see below. PHYSICAL EXAMINATION: VITAL SIGNS: please see below General: NAD, comfortable HEENT: PERRLA, EOMI, sclerae clear Neck: supple, normal ROM, no JVD Respiratory: lungs CTAB, no wheeze, no rales, no crackles CVS: RRR, normal S1, S2, no murmurs Abdo: soft, no masses, no hepatosplenomegaly, BS+, no rebound tenderness Extremities: no edema, pulses 2+ MSK: no joint deformities, normal ROM Neuro: no focal neuro deficits, moving all 4 extremities, CN2-12 intact. Strength 5/5 in all 4 extremities. No nystagmus. Psych: calm, cooperative, AAO x 3 LABORATORY DATA: See below. MICROBIOLOGY: Please see below. ASSESSMENT: This is a 60-year-old male with a past medical history of depression, type 2 diabetes, hypertension who was admitted to the inpatient mental health unit for suicidal and homicidal ideations. Patient refusing to eat and having persistent hypoglycemia. Admitted to medical floor for IV dextrose infusion. PLAN: #Hypoglycemia: patient has active SI. DM2. BG 50, persistent on FSBS. Refusing to eat, take PO dextrose gel. Admit to med surg. Give IV dextrose 50g. Monitor FSBS. Hypoglycemic precautions. Hold insulin. #Depression/schizophrenia/SI/HI: requires psychiatry consult, plan to return to [facility] once BG stable. #HTN: BP noted to 149/76. Start amlodipine 5 mg daily. Dispo: admit for obs, admission expected to last < 2 midnights. Home Medications Scheduled Atorvastatin Calcium (Atorvastatin Calcium) 40 Mg Tablet, 40 MG PO DAILY Bupropion Hcl (Bupropion Xl) 150 Mg Tab.er.24h, 150 MG PO DAILY Dulaglutide (Trulicity) 1.5 Mg/0.5 Ml Pen.injctr, 1.5 MG SC QWEEK TAKES ON VARIABLE DAYS OF WEEK Ergocalciferol (Vitamin D2) (Vitamin D2) 50,000 Units Cap, 50,000 UNITS PO QWEEK TAKES ON VARIABLE DAYS OF WEEK Gabapentin (Gabapentin) 600 Mg Tab, 1,200 MG PO TID Glipizide (Glipizide ER) 5 Mg Tab.er.24, 5 MG PO DAILY Insulin Glargine,Hum.rec.anlog (Lantus Solostar) 100 Unit/1 Ml Insuln.pen, 10 UNITS SC DAILY Meloxicam (Meloxicam) 15 Mg Tablet, 15 MG PO DAILY Nicotine (Nicotine Patch) 14 Mg Patch.td24, 14 MG TD DAILY Omeprazole (Omeprazole) 40 Mg Capsule.dr, 40 MG PO DAILY Scheduled PRN Albuterol Sulfate (Proair Hfa) 108 Mcg/Act Aer, 2 PUFF INH QID PRN for SHORTNESS OF BREATH Baclofen (Baclofen) 20 Mg Tablet, 20 MG PO BID PRN for SPASMS Ibuprofen (Ibuprofen) 600 Mg Tablet, 600 MG PO Q6H PRN for PAIN LEVEL 1-4 Allergies Coded Allergies: diclofenac (Verified Allergy, Unknown, 10/22/18) cannot use because "I don't use it right" A-FIB/CHADSVASC A-FIB History Current/History of A-Fib/PAF?: No JUDSON TRINIDAD MD Mar 13, 2021 22:19
[2021-03-13 23:17] VITALS: BP 166/82
[2021-03-14] MEDS ORDERED: HOME MED LIST COMPLETE! XX SCH
[2021-03-14] MEDS ORDERED: DEXTROSE 50% 50 ML SYRINGE IV STA ×2 (03:26→19:40)
[2021-03-14 06:00] VITALS: BP 146/62
[2021-03-14 07:56] LABS: HEMOGLOBIN 14.6 g/dl (13.5-17.5); MEAN CORPUSCULAR HEMOGLOBIN 29.5 pg (27.0-33.0); MEAN CORPUSCULAR HGB CONC 34.8 g/dl (32.0-36.5); MEAN CORPUSCULAR VOLUME 84.8 fl (80.0-96.0); PLATELET COUNT, AUTOMATED 276 10^3/uL (150-450); RED BLOOD COUNT 4.95 10^6/uL (4.30-6.10); WHITE BLOOD COUNT 9.4 10^3/uL (4.0-10.0)
[2021-03-14 08:30] LABS: BLOOD UREA NITROGEN 6 MG/DL (7-18); CALCIUM LEVEL 8.9 MG/DL (8.8-10.2); CARBON DIOXIDE LEVEL 28 MEQ/L (21-32); CHLORIDE LEVEL 106 MEQ/L (98-107); CREATININE FOR GFR 0.82 MG/DL (0.70-1.30); GLOMERULAR FILTRATION RATE > 60.0 (>49); GLUCOSE, FASTING 79 MG/DL (70-100); POTASSIUM SERUM 3.5 MEQ/L (3.5-5.1); SODIUM LEVEL 142 MEQ/L (136-145)
[2021-03-14] MEDS: DOCUSATE SODIUM 100MG CAPSULE PO SCH ×2 (11:34→20:56)
[2021-03-14] MEDS: SENNA 8.6 MG TAB (SENOKOT) PO SCH ×2 (11:34→20:56)
[2021-03-14] MEDS: MIRALAX *UNIT DOSE* 17GM PACKET PO SCH (11:34)
[2021-03-14] MEDS: ACETAMINOPHEN TAB 650MG DOSE (2X325MG) PO PRN (11:35)
--- NOTE | 2021-03-14 11:48 | IPNPDOC ---
Text Note Date of Service The patient was seen on 03/14/21. NOTE Subjective: Patient is a 60-year-old male who was initially admitted in the [facility] mental health unit for suicidal ideations who needed to be transferred to the acute medical floor last night due to hypoglycemia. Patient was refusing to eat or drink anything by mouth. Patient told the admitting provider that if he ate then he would live and he wanted to . Patient does have a history of type 2 diabetes and was having low blood sugars. Patient did not complain of any symptoms of hypoglycemia. Admitting provider try to convince the patient to eat or drink something with sugar and last night however, patient refused. He was offered admission to the medical floor with IV dextrose and patient opted for IV infusion. Patient is doing well today. Patient is still refusing anything by mouth. Patient states he has not had a bowel movement in some time. Patient is complaining of some back pain and was given Tylenol for this. Patient is otherwise doing well. Review of systems: General: Patient denies fevers HEENT: Patient denies headaches Cardiovascular: Patient denies chest pain Respiratory: Patient denies shortness of breath, cough GI: Patient reports constipation and abdominal pain more so in the lower aspect of the abdomen but denies nausea or vomiting : Patient denies increased frequency or pain with urination Extremities: Patient denies swelling or pain in extremities Neurological: Patient denies numbness or tingling in legs Physical exam: Vitals: See below General: Alert and oriented male patient who was sitting up in bed when I walked in. Patient not appear to be in any acute distress. HEENT: Normocephalic, atraumatic, moist mucous membranes. Neck: No lymphadenopathy or thyromegaly Cardiac: Regular rate and rhythm, no murmurs, normal S1, normal S2 Pulm: Clear to auscultation bilaterally. No wheezes, rhonchi, rales Abd: Nondistended, mild tenderness to palpation of the left lower quadrant, no rebound tenderness, normal bowel sounds Ext: No edema bilateral lower extremities Labs: See below Imaging: No imaging has been performed Assessment/plan: 60-year-old male with past medical history of depression, type 2 diabetes, hypertension who was admitted to the inpatient mental health unit for suicidal homicidal ideations. Patient refusing to eat and has persistent hypoglycemia. Admitted to medical floor for IV dextrose infusion. 1. Hyperglycemia with active SI. Patient's blood glucose was 50. Persistent on fingerstick blood sugar. Refusing to eat, take p.o. dextrose gel. Patient will need to be eating and we will maintain her sugars that way prior to going back to [facility]. 2. Constipation. Patient was given bowel meds. 3. Suicidal ideation. Patient states has been placed on suicide precautions. We will continue to monitor. 4. Hypertension. Start amlodipine 5 mg daily with hold parameters. DVT Prophylaxis: Heparin Disposition: Pending patient eating. VS,Fishbone, I+O VS, Fishbone, I+O Laboratory Tests 03/14/21 07:44 Vital Signs Date Time Temp Pulse Resp B/P (MAP) Pulse Ox O2 Delivery O2 Flow Rate FiO2 03/14/21 06:00 97.8 59 20 146/62 (90) 97 Room Air I&O- Last 24 Hours up to 6 AM 03/14/21 06:00 Intake Total 300 ml Output Total 1250 ml Balance -950 ml MAGALY SMITH DO Mar 14, 2021 11:48
[2021-03-14 14:00] VITALS: BP 160/86
[2021-03-14] MEDS: amLODIPine 5 MG TAB PO SCH (14:07)
[2021-03-14] MEDS: buPROPion **XL** TABLET 150MG (WELLBUTRIN XL) PO SCH (14:08)
[2021-03-14] MEDS: NICOTINE 14 MG/24 HR TRANSDERMAL TD SCH (14:08)
[2021-03-14] MEDS: ATORVASTATIN 20 MG TAB PO SCH (14:08)
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
[2021-03-14] MEDS: GABAPENTIN 300 MG CAP PO SCH ×2 (15:14→20:57)
[2021-03-14] MEDS: HEPARIN SOD (PORCINE) 5000UNITS/ML 1ML VIAL/SYRINGE SQ SCH ×2 (15:15→20:56)
[2021-03-14] MEDS ORDERED: MAGNESIUM CITRATE 300 ML BTL PO ONE (18:00)
[2021-03-14] MEDS ORDERED: D5W/0.9% SODIUM CHLORIDE 1,000 ML IV ONE (19:55)
[2021-03-14] MEDS: OLANZapine 10 MG TAB PO SCH (20:57)
[2021-03-14] MEDS ORDERED: OLANZapine 5 MG TAB PO SCH (21:00)
[2021-03-14 22:00] VITALS: BP 160/78
[2021-03-15] MEDS ORDERED: D5W/0.9% SODIUM CHLORIDE 1,000 ML IV ONE (05:10)
[2021-03-15] MEDS: HEPARIN SOD (PORCINE) 5000UNITS/ML 1ML VIAL/SYRINGE SQ SCH ×3 (05:17→22:11)
[2021-03-15 06:00] VITALS: BP 154/80
[2021-03-15 07:46] LABS: HEMATOCRIT 41.3 % (42.0-52.0); HEMOGLOBIN 14.4 g/dl (13.5-17.5); MEAN CORPUSCULAR HEMOGLOBIN 29.9 pg (27.0-33.0); MEAN CORPUSCULAR HGB CONC 34.9 g/dl (32.0-36.5); MEAN CORPUSCULAR VOLUME 85.9 fl (80.0-96.0); PLATELET COUNT, AUTOMATED 287 10^3/uL (150-450); RED BLOOD COUNT 4.81 10^6/uL (4.30-6.10); WHITE BLOOD COUNT 8.8 10^3/uL (4.0-10.0)
[2021-03-15 08:11] LABS: BLOOD UREA NITROGEN 5 MG/DL (7-18); CARBON DIOXIDE LEVEL 29 MEQ/L (21-32); CHLORIDE LEVEL 107 MEQ/L (98-107); GLOMERULAR FILTRATION RATE > 60.0 (>49); GLUCOSE, FASTING 128 MG/DL (70-100); MAGNESIUM LEVEL 2.1 MG/DL (1.8-2.4); POTASSIUM SERUM 3.6 MEQ/L (3.5-5.1); SODIUM LEVEL 143 MEQ/L (136-145)
[2021-03-15] MEDS: MIRALAX *UNIT DOSE* 17GM PACKET PO SCH (08:12)
[2021-03-15] MEDS: NICOTINE 14 MG/24 HR TRANSDERMAL TD SCH (08:12)
[2021-03-15] MEDS: SENNA 8.6 MG TAB (SENOKOT) PO SCH ×2 (08:14→22:08)
[2021-03-15] MEDS: DOCUSATE SODIUM 100MG CAPSULE PO SCH ×2 (08:14→22:08)
[2021-03-15] MEDS: amLODIPine 5 MG TAB PO SCH (08:14)
[2021-03-15] MEDS: GABAPENTIN 300 MG CAP PO SCH ×3 (08:14→22:09)
[2021-03-15] MEDS: buPROPion **XL** TABLET 150MG (WELLBUTRIN XL) PO SCH (08:14)
[2021-03-15] MEDS: ATORVASTATIN 20 MG TAB PO SCH (08:15)
--- NOTE | 2021-03-15 10:05 | IPNPDOC ---
Text Note Date of Service The patient was seen on 03/15/21. NOTE Subjective: Patient 60-year-old male who initially made inpatient mental health unit for suicidal ideations who need to be transferred to the acute medical floor tonight to go to hypoglycemia. Patient is refusing to eat or drink anything by mouth other than water. Patient told the admitting provider that if he ate he would live and he wanted to . Patient is very adamant that none of the medications he is receiving have any sugar in them. Patient is okay with us giving IV dextrose. Patient states he has not had a bowel movement despite the bowel meds that he has been getting. Patient is passing gas. Patient does have some mild left lower quadrant abdominal pain but is otherwise feeling well. Patient also complains of some left shoulder pain from carrying two 5 gallon buckets at the end of January. Patient describes the pain as an ache in the front of his left shoulder. Review of systems: General: Patient denies fevers HEENT: Patient denies headaches Cardiovascular: Patient denies chest pain Respiratory: Patient denies shortness of breath, cough GI: Patient reports abdominal pain and constipation as above. : Patient denies increased frequency or pain with urination Extremities: Patient reports left shoulder pain as above Neurological: Patient denies numbness or tingling in legs Physical exam: Vitals: See below General: Alert and oriented male patient who was initially lying in bed was able to sit up under his own power. Patient not appear to be in acute distress. HEENT: Normocephalic, atraumatic, moist mucous membranes. Neck: No lymphadenopathy or thyromegaly Cardiac: Regular rate and rhythm, no murmurs, normal S1, normal S2 Pulm: Clear to auscultation bilaterally. No wheezes, rhonchi, rales Abd: Nondistended, mild tenderness to palpation left lower quadrant, no rebound tenderness, normal bowel sounds Ext: No edema bilateral lower extremities. Patient has full active and passive range of motion of the left shoulder, positive speeds test Labs: See below Imaging: No new imaging is been performed Assessment/plan: 60-year-old male with past medical history of depression, type 2 diabetes, hypertension who was admitted to the inpatient mental health unit for suicidal and homicidal ideations who is now admitted to the medical floor for IV dextrose infusion as the patient is refusing to eat or drink anything with sugar and has persistent hypoglycemia 1. Hypoglycemia with active SI. Patient's blood glucose was 50 so he was moved to the inpatient mental health unit. Patient was started on a liter of D5 yesterday. Patient is still refusing to eat. Patient will need to continue to follow with psychiatry. 2. Constipation. Patient was given bowel meds 3. Suicidal ideation. Patient is on suicide precautions. Dr. [facility] of [facility] has seen the patient and will continue to follow. 4. Hypertension. Amlodipine with hold parameters started yesterday. 5. Left shoulder pain. This is most likely secondary to biceps tendinitis. Pain control with Tylenol and physical therapy will be ordered. DVT Prophylaxis: Heparin Disposition: Pending patient eating. VS,Sagebone, I+O VS, Fishbone, I+O Laboratory Tests 03/15/21 07:31 Vital Signs Date Time Temp Pulse Resp B/P (MAP) Pulse Ox O2 Delivery O2 Flow Rate FiO2 03/15/21 08:14 68 154/80 03/15/21 06:00 97.2 20 95 Room Air I&O- Last 24 Hours up to 6 AM 03/15/21 06:00 Intake Total 3055 ml Output Total 575 ml Balance 2480 ml MAGALY SMITH DO Mar 15, 2021 10:04
[2021-03-15] MEDS: BACLOFEN 10 MG TAB PO PRN (15:13)
[2021-03-15] MEDS: ANALGESIC BALM CRM 3OZ TOP SCH ×2 (15:14→22:10)
--- NOTE | 2021-03-15 15:32 | REP ---
INDICATION: constipation and poor PO intake COMPARISON: None. TECHNIQUE: Two supine views of the abdomen and pelvis. FINDINGS: Bowel gas pattern is nonspecific and without obstruction or perforation. No organomegaly. No abnormal calcifications. Skeletal structures intact. IMPRESSION: Normal abdominal radiograph. Nonspecific bowel gas pattern. <Electronically signed by Cooper Matthews > 03/15/21 [id number]
[2021-03-15 21:45] VITALS: BP 157/98
[2021-03-15] MEDS: OLANZapine 10 MG TAB PO SCH (22:08)
[2021-03-15] MEDS: ACETAMINOPHEN TAB 650MG DOSE (2X325MG) PO PRN (22:09)
[2021-03-16 02:20] VITALS: BP 146/67
[2021-03-16] MEDS: HEPARIN SOD (PORCINE) 5000UNITS/ML 1ML VIAL/SYRINGE SQ SCH ×2 (05:13→14:18)
[2021-03-16 06:00] VITALS: BP 148/69
[2021-03-16 06:26] LABS: HEMATOCRIT 39.7 % (42.0-52.0); HEMOGLOBIN 13.7 g/dl (13.5-17.5); MEAN CORPUSCULAR HEMOGLOBIN 29.5 pg (27.0-33.0); MEAN CORPUSCULAR HGB CONC 34.5 g/dl (32.0-36.5); MEAN CORPUSCULAR VOLUME 85.4 fl (80.0-96.0); PLATELET COUNT, AUTOMATED 252 10^3/uL (150-450); RED BLOOD COUNT 4.65 10^6/uL (4.30-6.10)
[2021-03-16 06:53] LABS: BLOOD UREA NITROGEN 3 MG/DL (7-18); CALCIUM LEVEL 8.8 MG/DL (8.8-10.2); CARBON DIOXIDE LEVEL 27 MEQ/L (21-32); CHLORIDE LEVEL 108 MEQ/L (98-107); CREATININE FOR GFR 0.67 MG/DL (0.70-1.30); GLOMERULAR FILTRATION RATE > 60.0 (>49); GLUCOSE, FASTING 123 MG/DL (70-100); MAGNESIUM LEVEL 1.9 MG/DL (1.8-2.4); POTASSIUM SERUM 3.2 MEQ/L (3.5-5.1); SODIUM LEVEL 143 MEQ/L (136-145)
[2021-03-16] MEDS: buPROPion **XL** TABLET 150MG (WELLBUTRIN XL) PO SCH (08:36)
[2021-03-16 08:37] VITALS: BP 130/78
[2021-03-16] MEDS: amLODIPine 5 MG TAB PO SCH (08:37)
[2021-03-16] MEDS: ATORVASTATIN 20 MG TAB PO SCH (08:38)
[2021-03-16] MEDS: GABAPENTIN 300 MG CAP PO SCH (08:38)
[2021-03-16] MEDS: NICOTINE 14 MG/24 HR TRANSDERMAL TD SCH (08:39)
[2021-03-16] MEDS: SENNA 8.6 MG TAB (SENOKOT) PO SCH (08:39)
[2021-03-16] MEDS: MIRALAX *UNIT DOSE* 17GM PACKET PO SCH (08:40)
[2021-03-16] MEDS: ANALGESIC BALM CRM 3OZ TOP SCH (08:40)
[2021-03-16] MEDS: DOCUSATE SODIUM 100MG CAPSULE PO SCH (08:41)
[2021-03-16] MEDS: BACLOFEN 10 MG TAB PO PRN (08:48)
[2021-03-16] MEDS ORDERED: POTASSIUM CHLORIDE 10MEQ SR TABLET PO ONE (08:55)
[2021-03-16] MEDS ORDERED: MIRALAX *UNIT DOSE* 17GM PACKET PO PRN (08:55)
[2021-03-16 14:00] VITALS: BP 130/87
== END 2021-03-16 14:37 | DRG 638 ==
LOC: INTOOBSV 23:20 → M MSPAV 23:20 → EEVIPCON 03-15 10:01 → OBSVTOIN 03-15 10:01
PROVIDERS: ADMIT Family Medicine; ATTEND Internal Medicine
DX: E11.649 Type 2 diabetes mellitus with hypoglycemia without coma (principal); R45.851 Suicidal ideations; F25.1 Schizoaffective disorder, depressive type; I10 Essential (primary) hypertension; F17.200 Nicotine dependence, unspecified, uncomplicated; Z79.899 Other long term (current) drug therapy; Z88.8 Allergy status to other drugs, medicaments and biological substances; Z79.4 Long term (current) use of insulin; K59.00 Constipation, unspecified; R45.850 Homicidal ideations

== ENCOUNTER 2021-05-26 13:14 | Inpatient (IN) | payer MEDICARE ==
[~2021-05-26] VITALS: Ht 172.7 cm; Wt 107.5 kg
[~2021-05-26 13:14] MED LIST changes: +AMLO1TAB25 PO; +CHLO25TA PO; +COLA100C5 PO; +CYMB1CAP4 PO; +LISI40TA4 PO; +MUSCCRE9 TOP; +NICO14PA TD; +OLAN1TAB20 PO; +OMEP-218 PO
[2021-05-26 14:26] LABS: HEMATOCRIT 40.6 % (42.0-52.0); MEAN CORPUSCULAR HEMOGLOBIN 29.4 pg (27.0-33.0); MEAN CORPUSCULAR HGB CONC 34.5 g/dl (32.0-36.5); MEAN CORPUSCULAR VOLUME 85.3 fl (80.0-96.0); PLATELET COUNT, AUTOMATED 300 10^3/uL (150-450); RED BLOOD COUNT 4.76 10^6/uL (4.30-6.10); WHITE BLOOD COUNT 9.9 10^3/uL (4.0-10.0)
[2021-05-26 14:49] LABS: AMPHETAMINES LEVEL URINE NEGATIVE (NEGATIVE); BARBITURATES URINE NEGATIVE (NEGATIVE); BENZODIAZEPINES URINE NEGATIVE (NEGATIVE); CANNABINOIDS URINE NEGATIVE (NEGATIVE); COCAINE METABOLITE URINE NEGATIVE (NEGATIVE); METHADONE URINE NEGATIVE (NEGATIVE); OPIATES URINE NEGATIVE (NEGATIVE); PHENCYCLIDINE URINE NEGATIVE (NEGATIVE)
[2021-05-26 15:25] LABS: ACETAMINOPHEN LEVEL < 2.0 UG/ML (10.0-30.0); ALBUMIN 4.1 GM/DL (3.2-5.2); ALT/SGPT 29 U/L (12-78); BILIRUBIN,DIRECT 0.1 MG/DL (0.0-0.2); BILIRUBIN,TOTAL 0.4 MG/DL (0.2-1.0); BLOOD UREA NITROGEN 9 MG/DL (7-18); CALCIUM LEVEL 11.5 MG/DL (8.8-10.2); CARBON DIOXIDE LEVEL 30 MEQ/L (21-32); CHLORIDE LEVEL 102 MEQ/L (98-107); ETHYL ALCOHOL (ETHANOL) < 0.003 % (0.000-0.010); GLOMERULAR FILTRATION RATE > 60.0 (>49); GLUCOSE, FASTING 139 MG/DL (70-100); POTASSIUM SERUM 3.6 MEQ/L (3.5-5.1); SALICYLATE LEVEL 2.1 MG/DL (5.0-30.0); SODIUM LEVEL 140 MEQ/L (136-145); TOTAL PROTEIN 7.6 GM/DL (6.4-8.2)
[2021-05-26] MEDS ORDERED: ACETAMINOPHEN TAB 650MG DOSE (2X325MG) PO PRN (16:00)
[2021-05-26] MEDS ORDERED: MOM 30ML SUSPENSION UDC PO PRN (16:00)
[2021-05-26 16:01] LABS: RSV AMPLIFICATION NEGATIVE (NEGATIVE)
[2021-05-26] MEDS ORDERED: GABA600T4 PO (16:27)
[2021-05-26] MEDS ORDERED: OLAN1TAB20 PO (16:27)
[2021-05-26] MEDS ORDERED: HUMA100I5 SC (16:27)
[2021-05-26] MEDS ORDERED: GLIP5TAB20 PO (16:27)
[2021-05-26] MEDS ORDERED: TRUL0.5I SC (16:27)
[2021-05-26] MEDS ORDERED: MELO15TA28 PO (16:27)
[2021-05-26] MEDS ORDERED: DULO1CAP4 PO (16:27)
[2021-05-26] MEDS ORDERED: COLA100C5 PO (16:27)
[2021-05-26] MEDS ORDERED: CHLO25TA PO (16:27)
[2021-05-26] MEDS ORDERED: AMLO1TAB25 PO (16:27)
[2021-05-26] MEDS ORDERED: BUPR150T12 PO (16:27)
[2021-05-26] MEDS ORDERED: LANTINJ4 SC (16:27)
[2021-05-26] MEDS ORDERED: LISI40TA4 PO (16:27)
[2021-05-26] MEDS ORDERED: NIFE30TA50 PO (16:27)
[2021-05-26] MEDS ORDERED: BUPR300T92 PO (16:27)
[2021-05-26] MEDS ORDERED: OMEP40CA4 PO (16:27)
[2021-05-26] MEDS ORDERED: BACL1TAB9 PO (16:30)
[2021-05-26] MEDS ORDERED: ATOR40TA75 PO (16:30)
[2021-05-26] MEDS ORDERED: PROAAER10 INH (16:30)
[2021-05-26] MEDS ORDERED: HOME MED LIST COMPLETE! XX SCH (16:35)
[2021-05-26] MEDS ORDERED: BACLOFEN 10 MG TAB PO PRN (17:35)
[2021-05-26] MEDS ORDERED: ALBUTEROL 90 MCG/ACT 8GM HFA INHALER INH PRN (17:35)
[2021-05-26 20:56] VITALS: BP 148/82
[2021-05-26] MEDS ORDERED: OLANZapine 10 MG TAB PO SCH (21:00)
[2021-05-26] MEDS: OMEPRAZOLE 20 MG CAP PO SCH (21:41)
[2021-05-26] MEDS: DULoxetine 20 MG CAP (CYMBALTA) PO SCH (21:41)
[2021-05-26] MEDS: GABAPENTIN 400MG CAP PO SCH (21:42)
[2021-05-26] MEDS: DOCUSATE SODIUM 100MG CAPSULE PO SCH (21:42)
[2021-05-27 04:03] VITALS: BP 113/56
[2021-05-27 06:09] VITALS: BP 151/68
[2021-05-27] MEDS ORDERED: MELOXICAM (MOBIC) 7.5 MG TAB PO SCH (09:00)
[2021-05-27] MEDS ORDERED: buPROPion **XL** TABLET 150MG (WELLBUTRIN XL) PO SCH ×2 (09:00)
[2021-05-27] MEDS: DOCUSATE SODIUM 100MG CAPSULE PO SCH ×2 (09:00→20:22)
[2021-05-27] MEDS ORDERED: GLUCOSE 4GM CHEW TABLET PO PRN (09:50)
[2021-05-27] MEDS ORDERED: GLUCAGON INJ 1MG VIAL SC PRN (09:50)
[2021-05-27] MEDS ORDERED: DEXTROSE 50% 50 ML SYRINGE IV PRN (09:50)
[2021-05-27] MEDS: GABAPENTIN 400MG CAP PO SCH ×3 (09:51→20:24)
[2021-05-27] MEDS: lisinopriL 40 MG TAB PO SCH (09:52)
[2021-05-27] MEDS: glipiZIDE XL 5 MG TABCR PO SCH (09:52)
[2021-05-27] MEDS: CHLORTHALIDONE 25 MG TAB PO SCH (09:52)
[2021-05-27] MEDS: LEVEMIR (INSULIN DETEMIR) 1 UNITS/0.01ML SC SCH (09:53)
[2021-05-27] MEDS: DULoxetine 20 MG CAP (CYMBALTA) PO SCH ×2 (09:53→20:24)
[2021-05-27] MEDS: ATORVASTATIN 20 MG TAB PO SCH (09:53)
[2021-05-27 12:08] LABS: HEMOGLOBIN A1c 6.4 %
[2021-05-27] MEDS: HumaLOG INSULIN (NovoLOG) PER UNIT SC SCH ×3 (12:17→20:22)
[2021-05-27] MEDS: OLANZapine 5 MG TAB PO SCH ×2 (16:02→20:24)
[2021-05-27 18:00] VITALS: BP 105/58
[2021-05-27] MEDS: OMEPRAZOLE 20 MG CAP PO SCH (20:24)
[2021-05-28 06:21] VITALS: BP 142/74
[2021-05-28] MEDS: HumaLOG INSULIN (NovoLOG) PER UNIT SC SCH ×4 (06:40→20:09)
[2021-05-28] MEDS: LEVEMIR (INSULIN DETEMIR) 1 UNITS/0.01ML SC SCH (08:32)
[2021-05-28] MEDS: ATORVASTATIN 20 MG TAB PO SCH (08:33)
[2021-05-28] MEDS: buPROPion **XL** TABLET 150MG (WELLBUTRIN XL) PO SCH (08:33)
[2021-05-28] MEDS: DULoxetine 20 MG CAP (CYMBALTA) PO SCH ×2 (08:33→20:08)
[2021-05-28] MEDS: GABAPENTIN 400MG CAP PO SCH ×3 (08:33→20:09)
[2021-05-28] MEDS: OLANZapine 5 MG TAB PO SCH ×3 (08:33→20:08)
[2021-05-28] MEDS: lisinopriL 40 MG TAB PO SCH (08:34)
[2021-05-28] MEDS: DOCUSATE SODIUM 100MG CAPSULE PO SCH ×2 (08:34→20:06)
[2021-05-28] MEDS: glipiZIDE XL 5 MG TABCR PO SCH (08:34)
[2021-05-28] MEDS: CHLORTHALIDONE 25 MG TAB PO SCH (08:34)
[2021-05-28] MEDS: LIDOCAINE 5% (LIDODERM) PATCH TD SCH (12:05)
[2021-05-28] MEDS: NICOTINE 14 MG/24 HR TRANSDERMAL TD SCH (13:54)
[2021-05-28 18:41] VITALS: BP 144/81
[2021-05-28] MEDS: OMEPRAZOLE 20 MG CAP PO SCH (20:07)
[2021-05-28] MEDS: **NOTE PATIENT COMMENT** MISC XX SCH (21:18)
[2021-05-28] MEDS: traZODone 50 MG TAB PO PRN (22:37)
[2021-05-28] MEDS: OLANZapine ORAL DISINTEGRATING TAB 5MG PO PRN (22:37)
[2021-05-29 06:00] VITALS: BP 136/70
[2021-05-29] MEDS: HumaLOG INSULIN (NovoLOG) PER UNIT SC SCH ×4 (07:12→21:00)
[2021-05-29] MEDS: GABAPENTIN 400MG CAP PO SCH ×2 (09:00→15:03)
[2021-05-29] MEDS: CHLORTHALIDONE 25 MG TAB PO SCH (09:50)
[2021-05-29] MEDS: lisinopriL 40 MG TAB PO SCH (09:50)
[2021-05-29] MEDS: glipiZIDE XL 5 MG TABCR PO SCH (09:51)
[2021-05-29] MEDS: DULoxetine 20 MG CAP (CYMBALTA) PO SCH ×2 (09:51→21:03)
[2021-05-29] MEDS: ATORVASTATIN 20 MG TAB PO SCH (09:51)
[2021-05-29] MEDS: OLANZapine 5 MG TAB PO SCH ×3 (09:52→21:03)
[2021-05-29] MEDS: buPROPion **XL** TABLET 150MG (WELLBUTRIN XL) PO SCH (09:52)
[2021-05-29] MEDS: NICOTINE 14 MG/24 HR TRANSDERMAL TD SCH (09:52)
[2021-05-29] MEDS: LEVEMIR (INSULIN DETEMIR) 1 UNITS/0.01ML SC SCH (09:53)
[2021-05-29] MEDS: DOCUSATE SODIUM 100MG CAPSULE PO SCH ×2 (09:53→21:03)
[2021-05-29] MEDS: LIDOCAINE 5% (LIDODERM) PATCH TD SCH (09:54)
[2021-05-29 18:00] VITALS: BP 146/75
[2021-05-29] MEDS: OMEPRAZOLE 20 MG CAP PO SCH (21:03)
[2021-05-29] MEDS: traZODone 50 MG TAB PO PRN (21:03)
[2021-05-29] MEDS: **NOTE PATIENT COMMENT** MISC XX SCH (21:04)
[2021-05-29] MEDS: MAALOX 30 ML SUSP *UDC PO PRN (22:17)
[2021-05-30 06:41] VITALS: BP 159/74
[2021-05-30] MEDS: HumaLOG INSULIN (NovoLOG) PER UNIT SC SCH ×4 (06:43→21:34)
[2021-05-30] MEDS: MAALOX 30 ML SUSP *UDC PO PRN ×2 (07:11→17:01)
[2021-05-30] MEDS: DOCUSATE SODIUM 100MG CAPSULE PO SCH ×2 (09:00→21:00)
[2021-05-30] MEDS: LIDOCAINE 5% (LIDODERM) PATCH TD SCH (09:00)
[2021-05-30] MEDS: ATORVASTATIN 20 MG TAB PO SCH (09:35)
[2021-05-30] MEDS: DULoxetine 20 MG CAP (CYMBALTA) PO SCH ×2 (09:35→21:35)
[2021-05-30] MEDS: lisinopriL 40 MG TAB PO SCH (09:35)
[2021-05-30] MEDS: buPROPion **XL** TABLET 150MG (WELLBUTRIN XL) PO SCH (09:35)
[2021-05-30] MEDS: CHLORTHALIDONE 25 MG TAB PO SCH (09:35)
[2021-05-30] MEDS: OLANZapine 5 MG TAB PO SCH ×3 (09:35→21:35)
[2021-05-30] MEDS: glipiZIDE XL 5 MG TABCR PO SCH (09:35)
[2021-05-30] MEDS: NICOTINE 14 MG/24 HR TRANSDERMAL TD SCH (09:36)
[2021-05-30] MEDS: LEVEMIR (INSULIN DETEMIR) 1 UNITS/0.01ML SC SCH (09:36)
[2021-05-30 18:57] VITALS: BP 127/64
[2021-05-30] MEDS: **NOTE PATIENT COMMENT** MISC XX SCH (21:00)
[2021-05-30] MEDS: traZODone 50 MG TAB PO PRN (21:35)
[2021-05-30] MEDS: OMEPRAZOLE 20 MG CAP PO SCH (21:35)
[2021-05-31 06:41] VITALS: BP 125/69
[2021-05-31] MEDS: HumaLOG INSULIN (NovoLOG) PER UNIT SC SCH ×4 (06:55→20:13)
[2021-05-31] MEDS: LEVEMIR (INSULIN DETEMIR) 1 UNITS/0.01ML SC SCH (08:39)
[2021-05-31] MEDS: NICOTINE 14 MG/24 HR TRANSDERMAL TD SCH (08:40)
[2021-05-31] MEDS: buPROPion **XL** TABLET 150MG (WELLBUTRIN XL) PO SCH (08:41)
[2021-05-31] MEDS: ATORVASTATIN 20 MG TAB PO SCH (08:41)
[2021-05-31] MEDS: DULoxetine 20 MG CAP (CYMBALTA) PO SCH ×2 (08:42→20:12)
[2021-05-31] MEDS: OLANZapine 5 MG TAB PO SCH (08:42)
[2021-05-31] MEDS: glipiZIDE XL 5 MG TABCR PO SCH (08:42)
[2021-05-31] MEDS: CHLORTHALIDONE 25 MG TAB PO SCH (08:43)
[2021-05-31] MEDS: DOCUSATE SODIUM 100MG CAPSULE PO SCH ×2 (08:44→20:12)
[2021-05-31] MEDS: LIDOCAINE 5% (LIDODERM) PATCH TD SCH (08:45)
[2021-05-31] MEDS: lisinopriL 40 MG TAB PO SCH (08:45)
[2021-05-31 16:33] VITALS: BP 101/56
[2021-05-31] MEDS: MAALOX 30 ML SUSP *UDC PO PRN (16:37)
[2021-05-31] MEDS: OMEPRAZOLE 20 MG CAP PO SCH (20:12)
[2021-05-31] MEDS: PALIPERIDONE 3 MG ER TAB (INVEGA) PO SCH (20:12)
[2021-05-31] MEDS: **NOTE PATIENT COMMENT** MISC XX SCH (20:14)
[2021-06-01 06:21] VITALS: BP 151/81
[2021-06-01] MEDS: HumaLOG INSULIN (NovoLOG) PER UNIT SC SCH ×4 (07:00→20:08)
[2021-06-01] MEDS: LIDOCAINE 5% (LIDODERM) PATCH TD SCH (07:57)
[2021-06-01] MEDS: LEVEMIR (INSULIN DETEMIR) 1 UNITS/0.01ML SC SCH (08:04)
[2021-06-01] MEDS: ATORVASTATIN 20 MG TAB PO SCH (08:04)
[2021-06-01] MEDS: CHLORTHALIDONE 25 MG TAB PO SCH (08:06)
[2021-06-01] MEDS: glipiZIDE XL 5 MG TABCR PO SCH (08:06)
[2021-06-01] MEDS: NICOTINE 14 MG/24 HR TRANSDERMAL TD SCH (08:06)
[2021-06-01] MEDS: lisinopriL 40 MG TAB PO SCH (08:06)
[2021-06-01] MEDS: buPROPion **XL** TABLET 150MG (WELLBUTRIN XL) PO SCH (08:06)
[2021-06-01] MEDS: DOCUSATE SODIUM 100MG CAPSULE PO SCH ×2 (08:06→20:11)
[2021-06-01] MEDS: DULoxetine 20 MG CAP (CYMBALTA) PO SCH ×2 (08:06→20:11)
[2021-06-01] MEDS: PALIPERIDONE 3 MG ER TAB (INVEGA) PO SCH (08:06)
[2021-06-01] MEDS: ANALGESIC BALM CRM 3OZ TOP PRN (08:07)
[2021-06-01 16:19] VITALS: BP 115/58
[2021-06-01] MEDS: **NOTE PATIENT COMMENT** MISC XX SCH (20:08)
[2021-06-01] MEDS: OMEPRAZOLE 20 MG CAP PO SCH (20:11)
[2021-06-01] MEDS: PALIPERIDONE 6 MG ER TAB (INVEGA) PO SCH (20:11)
[2021-06-02 06:09] VITALS: BP 148/82
[2021-06-02] MEDS: HumaLOG INSULIN (NovoLOG) PER UNIT SC SCH ×4 (06:30→20:56)
[2021-06-02] MEDS: LIDOCAINE 5% (LIDODERM) PATCH TD SCH (08:43)
[2021-06-02] MEDS: NICOTINE 14 MG/24 HR TRANSDERMAL TD SCH (08:43)
[2021-06-02] MEDS: LEVEMIR (INSULIN DETEMIR) 1 UNITS/0.01ML SC SCH (08:48)
[2021-06-02] MEDS: buPROPion **XL** TABLET 150MG (WELLBUTRIN XL) PO SCH (08:49)
[2021-06-02] MEDS: glipiZIDE XL 5 MG TABCR PO SCH (08:49)
[2021-06-02] MEDS: lisinopriL 40 MG TAB PO SCH (08:50)
[2021-06-02] MEDS: DOCUSATE SODIUM 100MG CAPSULE PO SCH ×2 (08:50→20:58)
[2021-06-02] MEDS: CHLORTHALIDONE 25 MG TAB PO SCH (08:50)
[2021-06-02] MEDS: DULoxetine 20 MG CAP (CYMBALTA) PO SCH ×2 (08:50→20:59)
[2021-06-02] MEDS: ANALGESIC BALM CRM 3OZ TOP PRN (08:50)
[2021-06-02] MEDS: ATORVASTATIN 20 MG TAB PO SCH (08:50)
[2021-06-02] MEDS ORDERED: PALIPERIDONE 3 MG ER TAB (INVEGA) PO SCH (09:00)
[2021-06-02 16:20] VITALS: BP 111/64
[2021-06-02] MEDS: OMEPRAZOLE 20 MG CAP PO SCH (20:59)
[2021-06-02] MEDS: PALIPERIDONE 6 MG ER TAB (INVEGA) PO SCH (20:59)
[2021-06-02] MEDS: **NOTE PATIENT COMMENT** MISC XX SCH (21:00)
[2021-06-03] MEDS: HumaLOG INSULIN (NovoLOG) PER UNIT SC SCH ×4 (06:28→21:00)
[2021-06-03 07:13] VITALS: BP 124/72
[2021-06-03] MEDS ORDERED: PALIPERIDONE PALMITATE 234MG/1.5ML INJ (INVEGA)(FREE PSY INPT ONLY) IM SCH (09:00)
[2021-06-03] MEDS: lisinopriL 40 MG TAB PO SCH (09:02)
[2021-06-03] MEDS: CHLORTHALIDONE 25 MG TAB PO SCH (09:03)
[2021-06-03] MEDS: buPROPion **XL** TABLET 150MG (WELLBUTRIN XL) PO SCH (09:03)
[2021-06-03] MEDS: DULoxetine 20 MG CAP (CYMBALTA) PO SCH ×2 (09:03→21:43)
[2021-06-03] MEDS: ATORVASTATIN 20 MG TAB PO SCH (09:03)
[2021-06-03] MEDS: DOCUSATE SODIUM 100MG CAPSULE PO SCH ×2 (09:03→21:43)
[2021-06-03] MEDS: NICOTINE 14 MG/24 HR TRANSDERMAL TD SCH (09:04)
[2021-06-03] MEDS: LEVEMIR (INSULIN DETEMIR) 1 UNITS/0.01ML SC SCH (09:05)
[2021-06-03] MEDS: LIDOCAINE 5% (LIDODERM) PATCH TD SCH (09:05)
[2021-06-03] MEDS: glipiZIDE XL 5 MG TABCR PO SCH (10:33)
[2021-06-03 17:47] VITALS: BP 139/70
[2021-06-03] MEDS: OMEPRAZOLE 20 MG CAP PO SCH (21:43)
[2021-06-03] MEDS: PALIPERIDONE 3 MG ER TAB (INVEGA) PO SCH (21:43)
[2021-06-03] MEDS: **NOTE PATIENT COMMENT** MISC XX SCH (21:45)
[2021-06-04] MEDS: HumaLOG INSULIN (NovoLOG) PER UNIT SC SCH ×4 (06:54→20:51)
[2021-06-04] MEDS: LIDOCAINE 5% (LIDODERM) PATCH TD SCH (08:56)
[2021-06-04] MEDS: NICOTINE 14 MG/24 HR TRANSDERMAL TD SCH (08:57)
[2021-06-04] MEDS: buPROPion **XL** TABLET 150MG (WELLBUTRIN XL) PO SCH (09:00)
[2021-06-04] MEDS: DULoxetine 20 MG CAP (CYMBALTA) PO SCH ×2 (09:00→20:54)
[2021-06-04] MEDS: DOCUSATE SODIUM 100MG CAPSULE PO SCH ×2 (09:00→20:54)
[2021-06-04] MEDS: ATORVASTATIN 20 MG TAB PO SCH (09:00)
[2021-06-04] MEDS: lisinopriL 40 MG TAB PO SCH (09:02)
[2021-06-04] MEDS: CHLORTHALIDONE 25 MG TAB PO SCH (09:02)
[2021-06-04] MEDS: LEVEMIR (INSULIN DETEMIR) 1 UNITS/0.01ML SC SCH (09:07)
[2021-06-04] MEDS: glipiZIDE XL 5 MG TABCR PO SCH (10:48)
[2021-06-04 17:34] VITALS: BP 107/63
[2021-06-04] MEDS: **NOTE PATIENT COMMENT** MISC XX SCH (20:51)
[2021-06-04] MEDS: OMEPRAZOLE 20 MG CAP PO SCH (20:54)
[2021-06-04] MEDS: PALIPERIDONE 3 MG ER TAB (INVEGA) PO SCH (20:54)
[2021-06-05] MEDS: HumaLOG INSULIN (NovoLOG) PER UNIT SC SCH ×4 (06:53→20:35)
[2021-06-05 07:07] VITALS: BP 139/70
[2021-06-05] MEDS: DULoxetine 20 MG CAP (CYMBALTA) PO SCH ×2 (09:23→20:34)
[2021-06-05] MEDS: lisinopriL 40 MG TAB PO SCH (09:23)
[2021-06-05] MEDS: DOCUSATE SODIUM 100MG CAPSULE PO SCH ×2 (09:23→20:34)
[2021-06-05] MEDS: buPROPion **XL** TABLET 150MG (WELLBUTRIN XL) PO SCH (09:23)
[2021-06-05] MEDS: ATORVASTATIN 20 MG TAB PO SCH (09:23)
[2021-06-05] MEDS: CHLORTHALIDONE 25 MG TAB PO SCH (09:23)
[2021-06-05] MEDS: glipiZIDE XL 5 MG TABCR PO SCH (09:26)
[2021-06-05] MEDS: LIDOCAINE 5% (LIDODERM) PATCH TD SCH (09:27)
[2021-06-05] MEDS: NICOTINE 14 MG/24 HR TRANSDERMAL TD SCH (09:34)
[2021-06-05] MEDS: LEVEMIR (INSULIN DETEMIR) 1 UNITS/0.01ML SC SCH (09:43)
[2021-06-05 18:26] VITALS: BP 103/63
[2021-06-05] MEDS: **NOTE PATIENT COMMENT** MISC XX SCH (20:29)
[2021-06-05] MEDS: OMEPRAZOLE 20 MG CAP PO SCH (20:34)
[2021-06-05] MEDS: PALIPERIDONE 3 MG ER TAB (INVEGA) PO SCH (20:34)
[2021-06-06 06:25] VITALS: BP 122/58
[2021-06-06] MEDS: HumaLOG INSULIN (NovoLOG) PER UNIT SC SCH ×3 (06:31→21:00)
[2021-06-06] MEDS: LIDOCAINE 5% (LIDODERM) PATCH TD SCH (09:22)
[2021-06-06] MEDS: NICOTINE 14 MG/24 HR TRANSDERMAL TD SCH (09:23)
[2021-06-06] MEDS: lisinopriL 40 MG TAB PO SCH (09:23)
[2021-06-06] MEDS: DOCUSATE SODIUM 100MG CAPSULE PO SCH ×2 (09:23→21:11)
[2021-06-06] MEDS: glipiZIDE XL 5 MG TABCR PO SCH (09:23)
[2021-06-06] MEDS: buPROPion **XL** TABLET 150MG (WELLBUTRIN XL) PO SCH (09:23)
[2021-06-06] MEDS: DULoxetine 20 MG CAP (CYMBALTA) PO SCH ×2 (09:23→21:12)
[2021-06-06] MEDS: CHLORTHALIDONE 25 MG TAB PO SCH (09:24)
[2021-06-06] MEDS: ATORVASTATIN 20 MG TAB PO SCH (09:24)
[2021-06-06] MEDS: LEVEMIR (INSULIN DETEMIR) 1 UNITS/0.01ML SC SCH (09:31)
[2021-06-06] MEDS: ANALGESIC BALM CRM 3OZ TOP PRN (09:33)
[2021-06-06 15:42] VITALS: BP 105/55
[2021-06-06] MEDS: OMEPRAZOLE 20 MG CAP PO SCH (21:11)
[2021-06-06] MEDS: PALIPERIDONE 3 MG ER TAB (INVEGA) PO SCH (21:12)
[2021-06-06] MEDS: **NOTE PATIENT COMMENT** MISC XX SCH (21:13)
[2021-06-07 05:55] VITALS: BP 137/67
[2021-06-07] MEDS: HumaLOG INSULIN (NovoLOG) PER UNIT SC SCH ×4 (06:30→21:00)
[2021-06-07] MEDS: DOCUSATE SODIUM 100MG CAPSULE PO SCH ×2 (09:00→21:00)
[2021-06-07] MEDS: LEVEMIR (INSULIN DETEMIR) 1 UNITS/0.01ML SC SCH (09:38)
[2021-06-07] MEDS: DULoxetine 20 MG CAP (CYMBALTA) PO SCH ×2 (09:38→21:02)
[2021-06-07] MEDS: glipiZIDE XL 5 MG TABCR PO SCH (09:39)
[2021-06-07] MEDS: CHLORTHALIDONE 25 MG TAB PO SCH (09:39)
[2021-06-07] MEDS: ATORVASTATIN 20 MG TAB PO SCH (09:39)
[2021-06-07] MEDS: lisinopriL 40 MG TAB PO SCH (09:39)
[2021-06-07] MEDS: buPROPion **XL** TABLET 150MG (WELLBUTRIN XL) PO SCH (09:39)
[2021-06-07] MEDS: NICOTINE 14 MG/24 HR TRANSDERMAL TD SCH (09:40)
[2021-06-07] MEDS: LIDOCAINE 5% (LIDODERM) PATCH TD SCH (09:45)
[2021-06-07 18:40] VITALS: BP 161/67
[2021-06-07] MEDS: OMEPRAZOLE 20 MG CAP PO SCH (21:02)
[2021-06-07] MEDS: PALIPERIDONE 3 MG ER TAB (INVEGA) PO SCH (21:02)
[2021-06-07] MEDS: **NOTE PATIENT COMMENT** MISC XX SCH (21:59)
[2021-06-08] MEDS: HumaLOG INSULIN (NovoLOG) PER UNIT SC SCH ×4 (06:34→21:00)
[2021-06-08 06:55] VITALS: BP 156/74
[2021-06-08] MEDS: DOCUSATE SODIUM 100MG CAPSULE PO SCH ×2 (09:00→21:00)
[2021-06-08] MEDS: glipiZIDE XL 5 MG TABCR PO SCH (09:59)
[2021-06-08] MEDS: CHLORTHALIDONE 25 MG TAB PO SCH (09:59)
[2021-06-08] MEDS: ATORVASTATIN 20 MG TAB PO SCH (10:01)
[2021-06-08] MEDS: DULoxetine 20 MG CAP (CYMBALTA) PO SCH ×2 (10:01→22:13)
[2021-06-08] MEDS: lisinopriL 40 MG TAB PO SCH (10:01)
[2021-06-08] MEDS: buPROPion **XL** TABLET 150MG (WELLBUTRIN XL) PO SCH (10:01)
[2021-06-08] MEDS: LEVEMIR (INSULIN DETEMIR) 1 UNITS/0.01ML SC SCH (10:02)
[2021-06-08] MEDS: NICOTINE 14 MG/24 HR TRANSDERMAL TD SCH (10:02)
[2021-06-08] MEDS: LIDOCAINE 5% (LIDODERM) PATCH TD SCH (10:03)
[2021-06-08] MEDS: MAALOX 30 ML SUSP *UDC PO PRN ×2 (10:13→18:34)
[2021-06-08] MEDS: OLANZapine ORAL DISINTEGRATING TAB 5MG PO PRN (12:04)
[2021-06-08 16:47] VITALS: BP 119/57
[2021-06-08] MEDS: PALIPERIDONE 3 MG ER TAB (INVEGA) PO SCH (22:13)
[2021-06-08] MEDS: OMEPRAZOLE 20 MG CAP PO SCH (22:13)
[2021-06-08] MEDS: **NOTE PATIENT COMMENT** MISC XX SCH (22:16)
[2021-06-09] MEDS: HumaLOG INSULIN (NovoLOG) PER UNIT SC SCH ×4 (06:30→21:00)
[2021-06-09 06:45] VITALS: BP 137/78
[2021-06-09] MEDS: lisinopriL 40 MG TAB PO SCH (08:32)
[2021-06-09] MEDS: CHLORTHALIDONE 25 MG TAB PO SCH (08:32)
[2021-06-09] MEDS: glipiZIDE XL 5 MG TABCR PO SCH (08:32)
[2021-06-09] MEDS: DULoxetine 20 MG CAP (CYMBALTA) PO SCH ×2 (08:32→21:00)
[2021-06-09] MEDS: ATORVASTATIN 20 MG TAB PO SCH (08:32)
[2021-06-09] MEDS: buPROPion **XL** TABLET 150MG (WELLBUTRIN XL) PO SCH (08:33)
[2021-06-09] MEDS: LEVEMIR (INSULIN DETEMIR) 1 UNITS/0.01ML SC SCH (08:34)
[2021-06-09] MEDS: NICOTINE 14 MG/24 HR TRANSDERMAL TD SCH (08:35)
[2021-06-09] MEDS: LIDOCAINE 5% (LIDODERM) PATCH TD SCH (08:36)
[2021-06-09] MEDS: DOCUSATE SODIUM 100MG CAPSULE PO SCH (09:00)
[2021-06-09] MEDS: MAALOX 30 ML SUSP *UDC PO PRN ×2 (10:50→19:29)
[2021-06-09] MEDS ORDERED: DOCUSATE SODIUM 100MG CAPSULE PO PRN (17:20)
[2021-06-09 17:54] VITALS: BP 130/74
[2021-06-09] MEDS: OMEPRAZOLE 20 MG CAP PO SCH (21:00)
[2021-06-09] MEDS: PALIPERIDONE 3 MG ER TAB (INVEGA) PO SCH (21:00)
[2021-06-09] MEDS: **NOTE PATIENT COMMENT** MISC XX SCH (21:17)
[2021-06-10 06:24] VITALS: BP 137/68
[2021-06-10] MEDS: HumaLOG INSULIN (NovoLOG) PER UNIT SC SCH ×4 (06:31→20:24)
[2021-06-10] MEDS: NICOTINE 14 MG/24 HR TRANSDERMAL TD SCH (08:42)
[2021-06-10] MEDS: CHLORTHALIDONE 25 MG TAB PO SCH (08:44)
[2021-06-10] MEDS: lisinopriL 40 MG TAB PO SCH (08:44)
[2021-06-10] MEDS: buPROPion **XL** TABLET 150MG (WELLBUTRIN XL) PO SCH (08:49)
[2021-06-10] MEDS: ATORVASTATIN 20 MG TAB PO SCH (08:49)
[2021-06-10] MEDS: DULoxetine 20 MG CAP (CYMBALTA) PO SCH ×2 (08:49→21:00)
[2021-06-10] MEDS: LEVEMIR (INSULIN DETEMIR) 1 UNITS/0.01ML SC SCH (08:49)
[2021-06-10] MEDS: LIDOCAINE 5% (LIDODERM) PATCH TD SCH (08:50)
[2021-06-10] MEDS: glipiZIDE XL 5 MG TABCR PO SCH (08:52)
[2021-06-10] MEDS ORDERED: PALIPERIDONE PALMITATE 156MG/1ML INJ(INVEGA)(FREE PSY INPT ONLY) IM ONE ×2 (09:40→10:00)
[2021-06-10] MEDS: MAALOX 30 ML SUSP *UDC PO PRN (14:04)
[2021-06-10 17:49] VITALS: BP 118/65
[2021-06-10] MEDS: **NOTE PATIENT COMMENT** MISC XX SCH (20:23)
[2021-06-10] MEDS: PALIPERIDONE 3 MG ER TAB (INVEGA) PO SCH (21:00)
[2021-06-10] MEDS: OMEPRAZOLE 20 MG CAP PO SCH (21:00)
[2021-06-11 06:20] VITALS: BP 143/65
[2021-06-11] MEDS: HumaLOG INSULIN (NovoLOG) PER UNIT SC SCH ×4 (06:38→20:49)
[2021-06-11] MEDS: lisinopriL 40 MG TAB PO SCH (08:05)
[2021-06-11] MEDS: glipiZIDE XL 5 MG TABCR PO SCH (08:05)
[2021-06-11] MEDS: LEVEMIR (INSULIN DETEMIR) 1 UNITS/0.01ML SC SCH (08:05)
[2021-06-11] MEDS: CHLORTHALIDONE 25 MG TAB PO SCH (08:06)
[2021-06-11] MEDS: DULoxetine 20 MG CAP (CYMBALTA) PO SCH ×2 (08:54→20:52)
[2021-06-11] MEDS: ATORVASTATIN 20 MG TAB PO SCH (08:54)
[2021-06-11] MEDS: buPROPion **XL** TABLET 150MG (WELLBUTRIN XL) PO SCH (08:55)
[2021-06-11] MEDS: NICOTINE 14 MG/24 HR TRANSDERMAL TD SCH (08:56)
[2021-06-11] MEDS: LIDOCAINE 5% (LIDODERM) PATCH TD SCH (08:56)
[2021-06-11 16:28] VITALS: BP 125/67
[2021-06-11] MEDS: ANALGESIC BALM CRM 3OZ TOP PRN (19:17)
[2021-06-11] MEDS: **NOTE PATIENT COMMENT** MISC XX SCH (20:51)
[2021-06-11] MEDS: PALIPERIDONE 3 MG ER TAB (INVEGA) PO SCH (20:52)
[2021-06-11] MEDS: OMEPRAZOLE 20 MG CAP PO SCH (20:52)
[2021-06-11] MEDS: MAALOX 30 ML SUSP *UDC PO PRN (21:43)
[2021-06-12 06:55] VITALS: BP 145/82
[2021-06-12] MEDS: HumaLOG INSULIN (NovoLOG) PER UNIT SC SCH ×4 (07:03→21:00)
[2021-06-12] MEDS: LEVEMIR (INSULIN DETEMIR) 1 UNITS/0.01ML SC SCH (08:57)
[2021-06-12] MEDS: DULoxetine 20 MG CAP (CYMBALTA) PO SCH ×2 (08:57→21:03)
[2021-06-12] MEDS: CHLORTHALIDONE 25 MG TAB PO SCH (08:58)
[2021-06-12] MEDS: buPROPion **XL** TABLET 150MG (WELLBUTRIN XL) PO SCH (08:58)
[2021-06-12] MEDS: ATORVASTATIN 20 MG TAB PO SCH (08:58)
[2021-06-12] MEDS: glipiZIDE XL 5 MG TABCR PO SCH (08:58)
[2021-06-12] MEDS: NICOTINE 14 MG/24 HR TRANSDERMAL TD SCH (09:00)
[2021-06-12] MEDS: LIDOCAINE 5% (LIDODERM) PATCH TD SCH (09:00)
[2021-06-12] MEDS: lisinopriL 40 MG TAB PO SCH (09:05)
[2021-06-12] MEDS: MAALOX 30 ML SUSP *UDC PO PRN (16:18)
[2021-06-12 18:04] VITALS: BP 138/66
[2021-06-12] MEDS: **NOTE PATIENT COMMENT** MISC XX SCH (21:00)
[2021-06-12] MEDS: PALIPERIDONE 3 MG ER TAB (INVEGA) PO SCH (21:03)
[2021-06-12] MEDS: OMEPRAZOLE 20 MG CAP PO SCH (21:03)
[2021-06-13] MEDS: HumaLOG INSULIN (NovoLOG) PER UNIT SC SCH ×4 (06:54→20:49)
[2021-06-13 07:07] VITALS: BP 132/74
[2021-06-13] MEDS: DULoxetine 20 MG CAP (CYMBALTA) PO SCH ×2 (08:50→20:51)
[2021-06-13] MEDS: glipiZIDE XL 5 MG TABCR PO SCH (08:51)
[2021-06-13] MEDS: buPROPion **XL** TABLET 150MG (WELLBUTRIN XL) PO SCH (08:51)
[2021-06-13] MEDS: CHLORTHALIDONE 25 MG TAB PO SCH (08:51)
[2021-06-13] MEDS: ATORVASTATIN 20 MG TAB PO SCH (08:51)
[2021-06-13] MEDS: lisinopriL 40 MG TAB PO SCH (08:51)
[2021-06-13] MEDS: LEVEMIR (INSULIN DETEMIR) 1 UNITS/0.01ML SC SCH (08:53)
[2021-06-13] MEDS: NICOTINE 14 MG/24 HR TRANSDERMAL TD SCH (09:00)
[2021-06-13] MEDS: LIDOCAINE 5% (LIDODERM) PATCH TD SCH (09:00)
[2021-06-13] MEDS: NYSTATIN 100,000 UNITS/GM TOPICAL PWD 15 GM TOP PRN (12:25)
[2021-06-13] MEDS: **NOTE PATIENT COMMENT** MISC XX SCH (20:49)
[2021-06-13] MEDS: OMEPRAZOLE 20 MG CAP PO SCH (20:51)
[2021-06-13] MEDS: PALIPERIDONE 3 MG ER TAB (INVEGA) PO SCH (20:51)
[2021-06-14] MEDS: HumaLOG INSULIN (NovoLOG) PER UNIT SC SCH ×4 (06:30→21:00)
[2021-06-14 06:39] VITALS: BP 114/63
[2021-06-14] MEDS: NICOTINE 14 MG/24 HR TRANSDERMAL TD SCH (07:53)
[2021-06-14] MEDS: LIDOCAINE 5% (LIDODERM) PATCH TD SCH (07:53)
[2021-06-14] MEDS: LEVEMIR (INSULIN DETEMIR) 1 UNITS/0.01ML SC SCH (08:00)
[2021-06-14] MEDS: buPROPion **XL** TABLET 150MG (WELLBUTRIN XL) PO SCH (08:00)
[2021-06-14] MEDS: CHLORTHALIDONE 25 MG TAB PO SCH (08:01)
[2021-06-14] MEDS: glipiZIDE XL 5 MG TABCR PO SCH (08:01)
[2021-06-14] MEDS: ATORVASTATIN 20 MG TAB PO SCH (08:01)
[2021-06-14] MEDS: lisinopriL 40 MG TAB PO SCH (08:01)
[2021-06-14] MEDS: DULoxetine 20 MG CAP (CYMBALTA) PO SCH ×2 (08:02→21:20)
[2021-06-14] MEDS: NYSTATIN 100,000 UNITS/GM TOPICAL PWD 15 GM TOP PRN (08:02)
[2021-06-14] MEDS: ANALGESIC BALM CRM 3OZ TOP PRN (08:05)
[2021-06-14 16:30] VITALS: BP 144/59
[2021-06-14] MEDS: **NOTE PATIENT COMMENT** MISC XX SCH (21:00)
[2021-06-14] MEDS: PALIPERIDONE 3 MG ER TAB (INVEGA) PO SCH (21:20)
[2021-06-14] MEDS: OMEPRAZOLE 20 MG CAP PO SCH (21:20)
[2021-06-15 06:07] VITALS: BP 149/63
[2021-06-15] MEDS: HumaLOG INSULIN (NovoLOG) PER UNIT SC SCH ×4 (06:39→21:00)
[2021-06-15] MEDS: NYSTATIN 100,000 UNITS/GM TOPICAL PWD 15 GM TOP PRN ×2 (08:24→21:02)
[2021-06-15] MEDS: ATORVASTATIN 20 MG TAB PO SCH (08:25)
[2021-06-15] MEDS: LEVEMIR (INSULIN DETEMIR) 1 UNITS/0.01ML SC SCH (08:25)
[2021-06-15] MEDS: DULoxetine 20 MG CAP (CYMBALTA) PO SCH ×2 (08:25→21:02)
[2021-06-15] MEDS: lisinopriL 40 MG TAB PO SCH (08:25)
[2021-06-15] MEDS: buPROPion **XL** TABLET 150MG (WELLBUTRIN XL) PO SCH (08:25)
[2021-06-15] MEDS: CHLORTHALIDONE 25 MG TAB PO SCH (08:26)
[2021-06-15] MEDS: LIDOCAINE 5% (LIDODERM) PATCH TD SCH (08:26)
[2021-06-15] MEDS: glipiZIDE XL 5 MG TABCR PO SCH (08:26)
[2021-06-15] MEDS: NICOTINE 14 MG/24 HR TRANSDERMAL TD SCH (08:26)
[2021-06-15 16:15] VITALS: BP 114/64
[2021-06-15] MEDS: **NOTE PATIENT COMMENT** MISC XX SCH (21:00)
[2021-06-15] MEDS: OMEPRAZOLE 20 MG CAP PO SCH (21:02)
[2021-06-15] MEDS: PALIPERIDONE 3 MG ER TAB (INVEGA) PO SCH (21:02)
[2021-06-16 06:22] VITALS: BP 131/65
[2021-06-16] MEDS: HumaLOG INSULIN (NovoLOG) PER UNIT SC SCH ×2 (06:32→11:57)
[2021-06-16] MEDS: LEVEMIR (INSULIN DETEMIR) 1 UNITS/0.01ML SC SCH (08:28)
[2021-06-16] MEDS: ANALGESIC BALM CRM 3OZ TOP PRN (08:29)
[2021-06-16 08:30] VITALS: BP 120/65
[2021-06-16] MEDS: glipiZIDE XL 5 MG TABCR PO SCH (08:30)
[2021-06-16] MEDS: CHLORTHALIDONE 25 MG TAB PO SCH (08:30)
[2021-06-16] MEDS: ATORVASTATIN 20 MG TAB PO SCH (08:30)
[2021-06-16] MEDS: buPROPion **XL** TABLET 150MG (WELLBUTRIN XL) PO SCH (08:30)
[2021-06-16] MEDS: DULoxetine 20 MG CAP (CYMBALTA) PO SCH (08:30)
[2021-06-16] MEDS: lisinopriL 40 MG TAB PO SCH (08:31)
[2021-06-16] MEDS: NICOTINE 14 MG/24 HR TRANSDERMAL TD SCH (08:31)
[2021-06-16] MEDS: LIDOCAINE 5% (LIDODERM) PATCH TD SCH (08:31)
[2021-06-16] MEDS ORDERED: NICO14PA TD (11:31)
[2021-06-16] MEDS ORDERED: BUPR300T92 PO (11:31)
[2021-06-16] MEDS ORDERED: CHLO25TA PO (11:31)
[2021-06-16] MEDS ORDERED: LISI40TA4 PO (11:31)
[2021-06-16] MEDS ORDERED: AMLO1TAB25 PO (11:31)
[2021-06-16] MEDS ORDERED: INVE234I IM (11:31)
[2021-06-16] MEDS ORDERED: PALI1TAB2 PO (11:31)
[2021-06-16] MEDS ORDERED: NYST10006 TOP (11:31)
[2021-06-16] MEDS ORDERED: DULO1CAP4 PO (11:31)
== END 2021-06-16 13:26 | disposition home or self-care (01) | DRG 885 ==
LOC: M ED 13:14 → M ED INP 15:58 → M PSY 20:52
PROVIDERS: ADMIT Student in an Organized Health Care Education/Training Program; ATTEND Student in an Organized Health Care Education/Training Program
DX: F25.1 Schizoaffective disorder, depressive type (principal); R45.851 Suicidal ideations; Z59.00 Homelessness unspecified; E11.40 Type 2 diabetes mellitus with diabetic neuropathy, unspecified; Z79.899 Other long term (current) drug therapy; Z79.4 Long term (current) use of insulin; I10 Essential (primary) hypertension; M19.90 Unspecified osteoarthritis, unspecified site; F17.200 Nicotine dependence, unspecified, uncomplicated; K21.9 Gastro-esophageal reflux disease without esophagitis; L30.4 Erythema intertrigo

== ENCOUNTER 2023-07-04 21:00 | Emergency (ER) | payer MEDICARE, MEDICAID ==
[~2023-07-04] VITALS: Ht 167.6 cm; Wt 96.3 kg
[~2023-07-04 21:00] MED LIST changes: +BUPR300T92 PO; +DULO1CAP4 PO; +HUMA100I5 SC; +INVE234I IM; +NIFE-3 PO; -NIFE60TA40; +NIFE60TA96; +NYST10006 TOP; +OMEP-173 PO; -OMEP-218 PO; -OMEP-221 PO; +OMEP40CA4 PO; +OMEP40CA5 PO; +PALI1TAB2 PO
[2023-07-05] MEDS: GLYCERIN ADULT SUPP PR ONE (00:50)
[2023-07-05 01:37] LABS: BASO # 0.1 10^3/uL (0.0-0.2); BASO % 0.6 % (0.0-1.0); EOS # 0.2 10^3/uL (0.0-0.5); EOS % 1.8 % (0.0-3.0); HEMATOCRIT 35.6 % (42.0-52.0); HEMOGLOBIN 12.2 g/dl (13.5-17.5); LYMPH # 3.3 10^3/uL (1.5-5.0); LYMPH % 30.8 % (24.0-44.0); MEAN CORPUSCULAR HEMOGLOBIN 30.1 pg (27.0-33.0); MEAN CORPUSCULAR HGB CONC 34.3 g/dl (32.0-36.5); MEAN CORPUSCULAR VOLUME 87.9 fl (80.0-96.0); MONO # 0.8 10^3/uL (0.0-0.8); MONO % 7.2 % (2.0-8.0); NEUTROPHILS # 6.4 10^3/uL (1.5-8.5); NEUTROPHILS % 59.3 % (36.0-66.0); PLATELET COUNT, AUTOMATED 275 10^3/uL (150-450); RED BLOOD COUNT 4.05 10^6/uL (4.30-6.10); WHITE BLOOD COUNT 10.7 10^3/uL (4.0-10.0)
[2023-07-05 02:25] VITALS: BP 158/88; TEMP 98; O2SAT 99
[2023-07-05] MEDS ORDERED: DULC10SU2 PR (02:25)
[2023-07-05] MEDS: MAGNESIUM CITRATE 300ML BTL PO ONE (03:21)
== END 2023-07-05 03:24 | disposition home or self-care (01) ==
LOC: M ED 21:00
DX: K59.00 Constipation, unspecified (principal); E11.9 Type 2 diabetes mellitus without complications; I10 Essential (primary) hypertension; F17.200 Nicotine dependence, unspecified, uncomplicated; Z87.442 Personal history of urinary calculi; Z88.8 Allergy status to other drugs, medicaments and biological substances; Z79.899 Other long term (current) drug therapy

== ENCOUNTER 2023-07-11 01:56 | Emergency (ER) | payer MEDICAID, MEDICARE ==
[~2023-07-11] VITALS: Ht 167.6 cm; Wt 91.7 kg
[~2023-07-11 01:56] MED LIST changes: +DULC10SU2 PR
[2023-07-11 04:53] VITALS: BP 170/80; TEMP 97; O2SAT 97
== END 2023-07-11 08:50 | disposition left against medical advice (07) ==
LOC: M ED 01:56
DX: Z53.21 Procedure and treatment not carried out due to patient leaving prior to being seen by health care provider (principal)

== ENCOUNTER 2023-07-14 08:43 | Emergency (ER) | payer MEDICAID ==
[~2023-07-14] VITALS: Ht 167.6 cm; Wt 85.5 kg
[2023-07-14] MEDS ORDERED: AMLO1TAB24 (08:57)
[2023-07-14] MEDS ORDERED: SENN-134 (08:57)
[2023-07-14 09:15] VITALS: TEMP 97.5
[2023-07-14] MEDS ORDERED: RA M1SOL2 PO (10:55)
[2023-07-14 11:23] VITALS: BP 159/89; O2SAT 99
== END 2023-07-14 11:26 | disposition home or self-care (01) ==
LOC: EDSEX 08:43 → EDBD 08:43 → EDUNIT# 08:43 → M ED 09:43
DX: K59.00 Constipation, unspecified (principal); F50.81 Binge eating disorder; E11.9 Type 2 diabetes mellitus without complications; I10 Essential (primary) hypertension; Z88.8 Allergy status to other drugs, medicaments and biological substances; Z79.899 Other long term (current) drug therapy

== ENCOUNTER → 2023-07-18 | Outpatient (REF) | payer MEDICARE, MEDICAID ==
[~2023-07-18] MED LIST changes: +AMLO1TAB24; +RA M1SOL2 PO; +SENN-134
[2023-07-18 13:29] LABS: BASO # 0.1 10^3/uL (0.0-0.2); BASO % 0.8 % (0.0-1.0); EOS # 0.2 10^3/uL (0.0-0.5); EOS % 2.4 % (0.0-3.0); HEMATOCRIT 42.3 % (42.0-52.0); HEMOGLOBIN 14.1 g/dl (13.5-17.5); LYMPH # 2.2 10^3/uL (1.5-5.0); MEAN CORPUSCULAR HEMOGLOBIN 29.9 pg (27.0-33.0); MEAN CORPUSCULAR HGB CONC 33.3 g/dl (32.0-36.5); MEAN CORPUSCULAR VOLUME 89.6 fl (80.0-96.0); MONO # 0.7 10^3/uL (0.0-0.8); MONO % 7.8 % (2.0-8.0); NEUTROPHILS # 5.4 10^3/uL (1.5-8.5); NEUTROPHILS % 62.8 % (36.0-66.0); PLATELET COUNT, AUTOMATED 393 10^3/uL (150-450); RED BLOOD COUNT 4.72 10^6/uL (4.30-6.10); WHITE BLOOD COUNT 8.6 10^3/uL (4.0-10.0)
[2023-07-18 14:05] LABS: ALBUMIN 4.2 G/DL (3.2-5.2); ALKALINE PHOSPHATASE 75 U/L (46-116); ALT/SGPT 50 U/L (7.0-40); AST/SGOT 23 U/L (<34); BILIRUBIN,TOTAL 0.4 MG/DL (0.3-1.2); BLOOD UREA NITROGEN 12 MG/DL (9-23); CALCIUM LEVEL 8.8 MG/DL (8.3-10.6); CARBON DIOXIDE LEVEL 29 MMOL/L (20-31); CHLORIDE LEVEL 102 MMOL/L (98-107); CHOLESTEROL LEVEL 173 MG/DL (<200); CHOLESTEROL RISK RATIO 2.48 (<5); CREATININE FOR GFR 0.66 MG/DL (0.70-1.30); GLOMERULAR FILTRATION RATE > 60.0 (>49); GLUCOSE, FASTING 91 MG/DL (74-106); HDL CHOLESTEROL 69.6 MG/DL (>40); NON-HDL-C 103.4 MG/DL; POTASSIUM SERUM 4.2 MMOL/L (3.5-5.1); SODIUM LEVEL 137 MMOL/L (136-145); TOTAL PROTEIN 7.2 G/DL (5.7-8.2); TRIGLYCERIDES LEVEL 32 MG/DL (<150)
[2023-07-18 14:07] LABS: TOTAL 25(OH) VITAMIN D 26.7 NG/ML (20.0-100.0)
[2023-07-18 14:08] LABS: THYROID STIMULATING HORMONE 1.723 uIU/ML (0.55-4.78)
[2023-07-18 20:36] LABS: HEMOGLOBIN A1c 5.2 % (4.0-6.0)
== END ==
LOC: M LAB REF 12:29
PROVIDERS: ATTEND Nurse Practitioner Family
DX: E66.9 Obesity, unspecified (principal); E55.9 Vitamin D deficiency, unspecified; E07.9 Disorder of thyroid, unspecified

== ENCOUNTER 2023-07-27 04:50 | Emergency (ER) | payer MEDICARE, MEDICAID ==
[~2023-07-27] VITALS: Ht 167.6 cm; Wt 91.8 kg
[2023-07-27] MEDS ORDERED: OMEP40CA4 PO (05:21)
[2023-07-27] MEDS ORDERED: VITAD400CA FT (05:21)
[2023-07-27] MEDS ORDERED: DULC10SU2 PR (07:52)
[2023-07-27] MEDS ORDERED: MIRA3350 PO (07:52)
[2023-07-27 07:57] VITALS: BP 152/86; TEMP 96.3; O2SAT 99
== END 2023-07-27 08:25 | disposition home or self-care (01) ==
LOC: M ED 04:50
DX: K59.00 Constipation, unspecified (principal); I10 Essential (primary) hypertension; F17.210 Nicotine dependence, cigarettes, uncomplicated; Z88.8 Allergy status to other drugs, medicaments and biological substances; Z79.899 Other long term (current) drug therapy

== ENCOUNTER → 2023-08-02 | Outpatient (CLI) | payer MEDICARE, MEDICAID ==
[~2023-08-02] MED LIST changes: +MIRA3350 PO; +VITAD400CA FT
== END ==
LOC: M RAD 11:37
PROVIDERS: ATTEND Nurse Practitioner Family
DX: M25.561 Pain in right knee (principal)

== ENCOUNTER 2023-08-07 05:54 | Emergency (ER) | payer MEDICARE, MEDICAID ==
[~2023-08-07] VITALS: Ht 167.6 cm; Wt 83.0 kg
[2023-08-07 07:58] LABS: BASO # 0.1 10^3/uL (0.0-0.2); BASO % 0.9 % (0.0-1.0); EOS # 0.3 10^3/uL (0.0-0.5); EOS % 2.7 % (0.0-3.0); HEMATOCRIT 39.6 % (42.0-52.0); HEMOGLOBIN 13.3 g/dl (13.5-17.5); MEAN CORPUSCULAR HEMOGLOBIN 30.5 pg (27.0-33.0); MEAN CORPUSCULAR HGB CONC 33.6 g/dl (32.0-36.5); MEAN CORPUSCULAR VOLUME 90.8 fl (80.0-96.0); MONO # 0.7 10^3/uL (0.0-0.8); MONO % 7.3 % (2.0-8.0); NEUTROPHILS # 6.2 10^3/uL (1.5-8.5); NEUTROPHILS % 66.7 % (36.0-66.0); PLATELET COUNT, AUTOMATED 267 10^3/uL (150-450); RED BLOOD COUNT 4.36 10^6/uL (4.30-6.10); WHITE BLOOD COUNT 9.3 10^3/uL (4.0-10.0)
[2023-08-07] MEDS ORDERED: MOM 30ML SUSPENSION UDC PO ONE (08:05)
[2023-08-07 08:06] LABS: INR 0.89; PARTIAL THROMBOPLASTIN TIME 26.2 SECONDS (24.8-34.2); PROTHROMBIN TIME 11.8 SECONDS (12.5-14.5)
[2023-08-07 08:30] LABS: RSV AMPLIFICATION NEGATIVE (NEGATIVE)
[2023-08-07 08:44] LABS: ALBUMIN 3.7 G/DL (3.2-5.2); ALKALINE PHOSPHATASE 71 U/L (46-116); ALT/SGPT 42 U/L (7.0-40); AST/SGOT 22 U/L (<34); BILIRUBIN,DIRECT 0.1 MG/DL (<0.4); BILIRUBIN,TOTAL 0.3 MG/DL (0.3-1.2); BLOOD UREA NITROGEN 13 MG/DL (9-23); CALCIUM LEVEL 8.5 MG/DL (8.3-10.6); CARBON DIOXIDE LEVEL 28 MMOL/L (20-31); CHLORIDE LEVEL 111 MMOL/L (98-107); CREATININE FOR GFR 0.66 MG/DL (0.70-1.30); GLOMERULAR FILTRATION RATE > 60.0 (>49); GLUCOSE, FASTING 99 MG/DL (74-106); POTASSIUM SERUM 3.9 MMOL/L (3.5-5.1); SODIUM LEVEL 139 MMOL/L (136-145); TOTAL PROTEIN 6.5 G/DL (5.7-8.2)
[2023-08-07 08:50] LABS: PROCALCITONIN <0.04 ng/ml
[2023-08-07 10:00] VITALS: BP 180/104; TEMP 97.5; O2SAT 98
== END 2023-08-07 10:05 | disposition home or self-care (01) ==
LOC: M ED 05:54
DX: R22.42 Localized swelling, mass and lump, left lower limb (principal); E78.5 Hyperlipidemia, unspecified; I10 Essential (primary) hypertension; E11.9 Type 2 diabetes mellitus without complications; G43.909 Migraine, unspecified, not intractable, without status migrainosus; Z87.442 Personal history of urinary calculi; Z88.6 Allergy status to analgesic agent; Z79.1 Long term (current) use of non-steroidal anti-inflammatories (NSAID); Z79.899 Other long term (current) drug therapy

== ENCOUNTER → 2023-08-29 | Outpatient (CLI) | payer MEDICARE, MEDICAID | LOC: M RAD 13:41 | PROVIDERS: ATTEND Nurse Practitioner Family | DX: R22.42 Localized swelling, mass and lump, left lower limb (principal) ==

== ENCOUNTER → 2023-09-13 | Outpatient (REF) | payer MEDICARE, MEDICAID ==
[2023-09-13 18:24] LABS: ALBUMIN 3.9 G/DL (3.2-5.2); ALKALINE PHOSPHATASE 89 U/L (46-116); ALT/SGPT 52 U/L (7.0-40); AST/SGOT 33 U/L (<34); BILIRUBIN,TOTAL 0.2 MG/DL (0.3-1.2); BLOOD UREA NITROGEN 20 MG/DL (9-23); CARBON DIOXIDE LEVEL 32 MMOL/L (20-31); CHLORIDE LEVEL 103 MMOL/L (98-107); CREATININE FOR GFR 0.75 MG/DL (0.70-1.30); GLOMERULAR FILTRATION RATE > 60.0 (>49); GLUCOSE, FASTING 119 MG/DL (74-106); MAGNESIUM LEVEL 1.8 MG/DL (1.8-2.4); POTASSIUM SERUM 5.1 MMOL/L (3.5-5.1); SODIUM LEVEL 141 MMOL/L (136-145); TOTAL PROTEIN 6.8 G/DL (5.7-8.2)
== END ==
LOC: M LAB REF 16:26
PROVIDERS: ATTEND Nurse Practitioner Family
DX: I10 Essential (primary) hypertension (principal)

== ENCOUNTER 2023-12-31 03:02 | Emergency (ER) | payer MEDICARE, MEDICAID ==
[~2023-12-31 03:02] MED LIST changes: +BUPR-597; +BUPR-597 PO; -BUPR300T92; -BUPR300T92 PO
[2023-12-31 03:13] VITALS: TEMP 98.3
[2023-12-31 03:48] LABS: BASO # 0.1 10^3/uL (0.0-0.2); BASO % 0.6 % (0.0-1.0); EOS # 0.4 10^3/uL (0.0-0.5); EOS % 3.4 % (0.0-3.0); HEMOGLOBIN 14.3 g/dl (13.5-17.5); LYMPH # 3.1 10^3/uL (1.5-5.0); MEAN CORPUSCULAR HEMOGLOBIN 30.4 pg (27.0-33.0); MEAN CORPUSCULAR HGB CONC 34.9 g/dl (32.0-36.5); MONO # 0.9 10^3/uL (0.0-0.8); MONO % 8.2 % (2.0-8.0); NEUTROPHILS # 6.6 10^3/uL (1.5-8.5); NEUTROPHILS % 59.5 % (36.0-66.0); PLATELET COUNT, AUTOMATED 266 10^3/uL (150-450); RED BLOOD COUNT 4.71 10^6/uL (4.30-6.10); WHITE BLOOD COUNT 11.1 10^3/uL (4.0-10.0)
[2023-12-31 04:09] LABS: CK-MB VALUE MASS 2.7 NG/ML (<3.6)
[2023-12-31 04:10] LABS: BLOOD UREA NITROGEN 25 MG/DL (9-23); CALCIUM LEVEL 8.7 MG/DL (8.3-10.6); CARBON DIOXIDE LEVEL 29 MMOL/L (20-31); CHLORIDE LEVEL 108 MMOL/L (98-107); CPK CREATINE PHOSPHOKINASE 124 U/L (46-171); CREATININE FOR GFR 0.76 MG/DL (0.70-1.30); GLOMERULAR FILTRATION RATE > 60.0 (>49); GLUCOSE, FASTING 121 MG/DL (74-106); MB/CK RELATIVE INDEX 2.17 (< OR =4); POTASSIUM SERUM 3.6 MMOL/L (3.5-5.1); SODIUM LEVEL 140 MMOL/L (136-145)
[2023-12-31 04:30] VITALS: BP 183/86
[2023-12-31] MEDS: amLODIPine 5 MG TAB PO ONE (04:30)
[2023-12-31 04:57] LABS: CK-MB VALUE MASS 2.6 NG/ML (<3.6)
[2023-12-31 04:58] LABS: MB/CK RELATIVE INDEX 2.28 (< OR =4)
[2023-12-31] MEDS: hydroCHLOROthiazide 12.5 MG CAPSULE PO ONE (06:16)
[2023-12-31 07:00] VITALS: BP 164/79; O2SAT 97
[2023-12-31] MEDS ORDERED: NORV5TAB PO (07:07)
== END 2023-12-31 08:48 | disposition home or self-care (01) ==
LOC: M ED 03:02
DX: I10 Essential (primary) hypertension (principal); Z88.8 Allergy status to other drugs, medicaments and biological substances; Z79.899 Other long term (current) drug therapy

== ENCOUNTER 2024-02-20 07:07 | Emergency (ER) | payer MEDICARE, MEDICAID ==
[~2024-02-20 07:07] MED LIST changes: +GABA-1490 PO; -GABA600T4 PO; +METH85CR6 TOP; -MUSCCRE9 TOP; +NORV5TAB PO
== END 2024-02-20 07:40 | disposition left against medical advice (07) ==
LOC: M ED 07:07 → EDBD 07:07 → M ED 07:40
DX: Z53.21 Procedure and treatment not carried out due to patient leaving prior to being seen by health care provider (principal)

== ENCOUNTER 2024-03-15 05:11 | Emergency (ER) | payer MEDICARE, MEDICAID ==
[~2024-03-15] VITALS: Ht 167.6 cm; Wt 109.0 kg
[2024-03-15] MEDS: BOOSTRIX VACCINE (TETANUS/DIPHTH/ACEL. PERTUSSIS) 0.5ML SYR IM.IMMUN ONE (07:13)
[2024-03-15] MEDS: LIDOCAINE 1% MDV 20ML VIAL SC ONE (07:14)
[2024-03-15 07:46] VITALS: BP 146/82; TEMP 98.6; O2SAT 96
== END 2024-03-15 07:55 | disposition home or self-care (01) ==
LOC: M ED 05:11 → EDBD 05:11 → M ED 07:55
DX: S61.214A Laceration without foreign body of right ring finger without damage to nail, initial encounter (principal); W22.09XA Striking against other stationary object, initial encounter; M19.90 Unspecified osteoarthritis, unspecified site; E11.9 Type 2 diabetes mellitus without complications; F17.200 Nicotine dependence, unspecified, uncomplicated; Y92.009 Unspecified place in unspecified non-institutional (private) residence as the place of occurrence of the external cause; Y93.89 Activity, other specified; Y99.9 Unspecified external cause status; Z23 Encounter for immunization; Z88.6 Allergy status to analgesic agent; Z79.2 Long term (current) use of antibiotics; Z79.899 Other long term (current) drug therapy

== ENCOUNTER 2024-04-08 18:43 | Inpatient (IN) | payer MEDICARE, MEDICAID ==
[~2024-04-08] VITALS: Ht 172.7 cm; Wt 123.7 kg
[~2024-04-08 18:43] MED LIST changes: -AMLO1TAB24; +AMLO1TAB24 PO; -SENN-134; +SENN-134 PO; -VITAD400CA FT; +VITAD400CA PO
[2024-04-08 22:07] LABS: BASO # 0.1 10^3/uL (0.0-0.2); BASO % 0.3 % (0.0-1.0); EOS # 0.2 10^3/uL (0.0-0.5); EOS % 0.6 % (0.0-3.0); HEMATOCRIT 42.7 % (42.0-52.0); HEMOGLOBIN 14.7 g/dl (13.5-17.5); LYMPH # 1.7 10^3/uL (1.5-5.0); LYMPH % 7.3 % (24.0-44.0); MEAN CORPUSCULAR HEMOGLOBIN 29.6 pg (27.0-33.0); MEAN CORPUSCULAR HGB CONC 34.4 g/dl (32.0-36.5); MEAN CORPUSCULAR VOLUME 85.9 fl (80.0-96.0); MONO # 1.7 10^3/uL (0.0-0.8); MONO % 7.2 % (2.0-8.0); NEUTROPHILS # 19.6 10^3/uL (1.5-8.5); NEUTROPHILS % 84.1 % (36.0-66.0); PLATELET COUNT, AUTOMATED 288 10^3/uL (150-450); RED BLOOD COUNT 4.97 10^6/uL (4.30-6.10); WHITE BLOOD COUNT 23.3 10^3/uL (4.0-10.0)
[2024-04-08 22:09] LABS: ERYTHROCYTE SEDIMENTATION RATE 26 mm/hr (0-20)
[2024-04-08 22:29] LABS: BLOOD UREA NITROGEN 15 MG/DL (9-23); CALCIUM LEVEL 8.9 MG/DL (8.3-10.6); CARBON DIOXIDE LEVEL 29 MMOL/L (20-31); CHLORIDE LEVEL 102 MMOL/L (98-107); CREATININE FOR GFR 0.78 MG/DL (0.70-1.30); GLOMERULAR FILTRATION RATE > 60.0 (>49); GLUCOSE, FASTING 222 MG/DL (74-106); POTASSIUM SERUM 3.5 MMOL/L (3.5-5.1); SODIUM LEVEL 136 MMOL/L (136-145)
[2024-04-09] MEDS: ACETAMINOPHEN 325 MG TAB PO ONE (01:38)
[2024-04-09] MEDS: NS 1,000 ML IV ONE (02:13)
[2024-04-09] MEDS ORDERED: ISOVUE-370 76% 100ML VIAL As Ordered ONE (03:57)
[2024-04-09] MEDS: KETOROLAC 30 MG/ML 1ML VIAL IV ONE (04:47)
[2024-04-09] MEDS: PIPERACILLIN/TAZOBACTAM SOD 4.5 GM in DEXTROSE 5% (D5W) ADV/MINI-BAG 50 ML IV ONE (05:23)
[2024-04-09] MEDS: MORPHINE 2 MG/ML 1ML VIAL IV ONE (05:28)
[2024-04-09] MEDS ORDERED: LISI20TA37 PO (08:40)
[2024-04-09] MEDS ORDERED: KETO2CR EXT (08:40)
[2024-04-09] MEDS ORDERED: IBUP-1022 PO (08:40)
[2024-04-09] MEDS ORDERED: NICO21DI38 TD (08:40)
[2024-04-09] MEDS ORDERED: ACET-683 PO (08:40)
[2024-04-09] MEDS ORDERED: HOME MED LIST COMPLETE! XX SCH (08:45)
[2024-04-09] MEDS ORDERED: VANCOMYCIN HCL 1 MG in IV FLUID PLACE HOLDER 1 EA IV SCH (10:00)
[2024-04-09] MEDS: ACETAMINOPHEN 325 MG TAB PO PRN (10:17)
[2024-04-09] MEDS: NICOTINE 21MG/24HR 1 EA TRANSDERMAL TD SCH (10:17)
[2024-04-09] MEDS: OMEPRAZOLE 20MG CAP PO SCH (10:33)
[2024-04-09 10:57] LABS: BASO # 0.1 10^3/uL (0.0-0.2); BASO % 0.2 % (0.0-1.0); EOS % 0.1 % (0.0-3.0); HEMATOCRIT 41.5 % (42.0-52.0); HEMOGLOBIN 14.2 g/dl (13.5-17.5); LYMPH % 5.8 % (24.0-44.0); MEAN CORPUSCULAR HEMOGLOBIN 30.1 pg (27.0-33.0); MEAN CORPUSCULAR HGB CONC 34.2 g/dl (32.0-36.5); MEAN CORPUSCULAR VOLUME 88.1 fl (80.0-96.0); MONO # 2.3 10^3/uL (0.0-0.8); MONO % 6.6 % (2.0-8.0); NEUTROPHILS # 29.3 10^3/uL (1.5-8.5); NEUTROPHILS % 85.3 % (36.0-66.0); PLATELET COUNT, AUTOMATED 253 10^3/uL (150-450); RED BLOOD COUNT 4.71 10^6/uL (4.30-6.10)
[2024-04-09 11:03] LABS: WHITE BLOOD COUNT 34.4 10^3/uL (4.0-10.0)
[2024-04-09 11:07] LABS: HEMOGLOBIN A1c 6.3 % (4.0-6.0)
[2024-04-09] MEDS: VANCOMYCIN 1,000MG/200 ML IV BAG IV ONE (11:09)
[2024-04-09] MEDS: NS 1,000 ML IV SCH (11:09)
[2024-04-09 11:11] LABS: INR 1.07; PARTIAL THROMBOPLASTIN TIME 23.8 SECONDS (24.8-34.2); PROTHROMBIN TIME 14.2 SECONDS (12.5-14.5)
[2024-04-09 11:19] LABS: BLOOD UREA NITROGEN 16 MG/DL (9-23); CALCIUM LEVEL 8.2 MG/DL (8.3-10.6); CARBON DIOXIDE LEVEL 28 MMOL/L (20-31); CHLORIDE LEVEL 104 MMOL/L (98-107); GLOMERULAR FILTRATION RATE > 60.0 (>49); GLUCOSE, FASTING 136 MG/DL (74-106); POTASSIUM SERUM 3.3 MMOL/L (3.5-5.1); SODIUM LEVEL 139 MMOL/L (136-145)
[2024-04-09] MEDS: SODIUM CHLORIDE 0.9% 1000 ML IV STA (11:45)
[2024-04-09] MEDS: PIPERACILLIN/TAZOBACTAM SOD 3.375 GM in DEXTROSE 5% (D5W) ADV/MINI-BAG 50 ML IV SCH (12:22)
[2024-04-09] MEDS: POTASSIUM CHLORIDE 10MEQ SR TABLET PO STA (12:23)
[2024-04-09] MEDS: VANCOMYCIN 1,000MG/200 ML IV BAG IV SCH (16:19)
[2024-04-09] MEDS: hydrALAZINE 20MG/ML 1ML VIAL IV PRN (16:19)
[2024-04-09 16:29] LABS: ALKALINE PHOSPHATASE 60 U/L (40-129); ALT/SGPT 15 U/L (7.0-40); AST/SGOT 11 U/L (<34); BILIRUBIN,DIRECT 0.2 MG/DL (<0.4); BILIRUBIN,TOTAL 0.8 MG/DL (0.3-1.2); TOTAL PROTEIN 6.2 G/DL (5.7-8.2)
[2024-04-09 16:31] LABS: HEPATITIS B SURFACE ANTIBODY NEGATIVE (POSITIVE)
[2024-04-09 16:44] LABS: HEPATITIS B SURFACE ANTIGEN NEGATIVE (NEGATIVE)
[2024-04-09 16:57] LABS: HIV 1&2 SCREEN NEGATIVE (NEGATIVE)
[2024-04-09 17:04] LABS: HEPATITIS C VIRUS ABY INDEX < 0.02 INDEX (<0.8)
[2024-04-09 17:30] VITALS: BP 194/78; TEMP 102.4; O2SAT 97
[2024-04-09] MEDS: LABETALOL 100MG/20ML VIAL IV ONE (18:01)
[2024-04-09 18:28] VITALS: BP 180/80; TEMP 102.9
[2024-04-09] MEDS: ACETAMINOPHEN *IV* 1,000 MG in IV 1 EA IV ONE (18:50)
[2024-04-09 20:05] VITALS: BP 170/62; TEMP 99.9; O2SAT 95
[2024-04-09] MEDS: ENOXAPARIN 40MG/0.4ML SYRINGE (J1650 PER 10MG) SC SCH (20:25)
[2024-04-09] MEDS ORDERED: ONDANSETRON 4MG 2ML VIAL IV ONE (20:35)
[2024-04-09] MEDS: SCOPOLAMINE 1MG TRANSDERMAL PATCH TOP ONE (21:12)
[2024-04-09 23:22] VITALS: BP 162/74; TEMP 100.2; O2SAT 100
[2024-04-10] VITALS (11 sets, daily range): BP systolic 127–158; BP diastolic 60–83; TEMP 97.3–101.7; O2SAT 94–97
[2024-04-10] MEDS: KETOROLAC 30 MG/ML 1ML VIAL IV ONE (02:58)
[2024-04-10 06:55] LABS: BASO # 0.1 10^3/uL (0.0-0.2); BASO % 0.3 % (0.0-1.0); EOS # 0.1 10^3/uL (0.0-0.5); EOS % 0.4 % (0.0-3.0); HEMATOCRIT 36.5 % (42.0-52.0); HEMOGLOBIN 12.7 g/dl (13.5-17.5); LYMPH # 2.2 10^3/uL (1.5-5.0); LYMPH % 7.4 % (24.0-44.0); MEAN CORPUSCULAR HEMOGLOBIN 29.8 pg (27.0-33.0); MEAN CORPUSCULAR HGB CONC 34.8 g/dl (32.0-36.5); MEAN CORPUSCULAR VOLUME 85.7 fl (80.0-96.0); MONO # 1.6 10^3/uL (0.0-0.8); MONO % 5.3 % (2.0-8.0); NEUTROPHILS # 25.8 10^3/uL (1.5-8.5); NEUTROPHILS % 85.6 % (36.0-66.0); PLATELET COUNT, AUTOMATED 231 10^3/uL (150-450); RED BLOOD COUNT 4.26 10^6/uL (4.30-6.10)
[2024-04-10 06:59] LABS: WHITE BLOOD COUNT 30.1 10^3/uL (4.0-10.0)
[2024-04-10 07:15] LABS: VANCOMYCIN LEVEL TROUGH 8.1 UG/ML (10.0-20.0)
[2024-04-10 07:16] LABS: BLOOD UREA NITROGEN 13 MG/DL (9-23); CALCIUM LEVEL 7.9 MG/DL (8.3-10.6); CARBON DIOXIDE LEVEL 26 MMOL/L (20-31); CHLORIDE LEVEL 108 MMOL/L (98-107); CREATININE FOR GFR 0.75 MG/DL (0.70-1.30); GLOMERULAR FILTRATION RATE > 60.0 (>49); GLUCOSE, FASTING 147 MG/DL (74-106); MAGNESIUM LEVEL 1.6 MG/DL (1.8-2.4); SODIUM LEVEL 139 MMOL/L (136-145)
[2024-04-10] MEDS: amLODIPine 5 MG TAB PO SCH (08:33)
[2024-04-10] MEDS ORDERED: propofoL 200 MG/20 ML VIAL As Ordered ONE (11:50)
[2024-04-10] MEDS ORDERED: LIDOCAINE 2% 100MG/5ML SDV (FOR ANES.) As Ordered ONE (11:50)
[2024-04-10] MEDS ORDERED: ONDANSETRON 4MG 2ML VIAL As Ordered ONE (11:50)
[2024-04-10] MEDS ORDERED: MIDAZOLAM INJ 2MG/2ML VIAL As Ordered ONE (11:53)
[2024-04-10] MEDS ORDERED: fentaNYL 100 MCG/2 ML INJECTION As Ordered ONE (11:54)
[2024-04-10] MEDS ORDERED: ACETAMINOPHEN 1000MG 100ML IV BAG As Ordered ONE (12:02)
[2024-04-10] MEDS: ceFAZolin 2 GM/D5W 50 ML IV BAG As Ordered ONE (13:08)
[2024-04-10] MEDS ORDERED: dexmedeTOMIDine (4MCG/ML)200MCG/50ML BTL (PRECEDEX) As Ordered ONE (13:09)
[2024-04-10] MEDS: LIDOCAINE 1% SDV 30ML VIAL As Ordered ONE (13:17)
[2024-04-10] MEDS ORDERED: KETOROLAC 60MG 2ML VIAL As Ordered ONE (13:26)
[2024-04-10] MEDS ORDERED: ONDANSETRON 4MG 2ML VIAL IV PRN (13:40)
[2024-04-10] MEDS ORDERED: HYDROMORPHONE HCL 0.5 MG/ 0.5 ML SYRINGE IV PRN (13:40)
[2024-04-10] MEDS ORDERED: fentaNYL 100 MCG/2 ML INJECTION IV PRN (13:40)
[2024-04-10] MEDS: LR 1,000 ML IV SCH (13:40)
[2024-04-10] MEDS: BACITRACIN OINTMENT 30GM TUBE As Ordered ONE (13:41)
[2024-04-10] MEDS: oxyCODONE 5MG TAB PO PRN (14:05)
[2024-04-10] MEDS: POTASSIUM CHLORIDE 10MEQ SR TABLET PO ONE ×2 (16:38→18:29)
[2024-04-10] MEDS: MAG SULF 1GM/100ML (MAG RUN) 1 GM in IV 1 EA IV SCH (19:58)
[2024-04-10] MEDS: MORPHINE 2 MG/ML 1ML VIAL IV PRN (21:44)
[2024-04-11] VITALS (12 sets, daily range): BP systolic 149–186; BP diastolic 70–79; TEMP 97.5–97.8; O2SAT 83–98
[2024-04-11 07:45] LABS: BASO # 0.1 10^3/uL (0.0-0.2); BASO % 0.2 % (0.0-1.0); HEMATOCRIT 35.9 % (42.0-52.0); HEMOGLOBIN 12.4 g/dl (13.5-17.5); LYMPH # 1.1 10^3/uL (1.5-5.0); LYMPH % 3.7 % (24.0-44.0); MEAN CORPUSCULAR HEMOGLOBIN 30.2 pg (27.0-33.0); MEAN CORPUSCULAR HGB CONC 34.5 g/dl (32.0-36.5); MEAN CORPUSCULAR VOLUME 87.6 fl (80.0-96.0); MONO # 1.4 10^3/uL (0.0-0.8); MONO % 4.4 % (2.0-8.0); NEUTROPHILS # 27.7 10^3/uL (1.5-8.5); NEUTROPHILS % 90.1 % (36.0-66.0); PLATELET COUNT, AUTOMATED 232 10^3/uL (150-450)
[2024-04-11 07:48] LABS: WHITE BLOOD COUNT 30.8 10^3/uL (4.0-10.0)
[2024-04-11 08:03] LABS: BLOOD UREA NITROGEN 18 MG/DL (9-23); CALCIUM LEVEL 8.2 MG/DL (8.3-10.6); CARBON DIOXIDE LEVEL 25 MMOL/L (20-31); CHLORIDE LEVEL 107 MMOL/L (98-107); GLOMERULAR FILTRATION RATE > 60.0 (>49); GLUCOSE, FASTING 276 MG/DL (74-106); MAGNESIUM LEVEL 2.3 MG/DL (1.8-2.4); POTASSIUM SERUM 3.6 MMOL/L (3.5-5.1); SODIUM LEVEL 137 MMOL/L (136-145)
[2024-04-11] MEDS: PERCOCET 5MG/325MG TAB PO PRN ×2 (09:07→20:15)
[2024-04-11] MEDS: LINEZOLID 600MG TABLET (ZYVOX) PO SCH (12:20)
[2024-04-11] MEDS: amLODIPine 5 MG TAB PO ONE (12:20)
[2024-04-11] MEDS ORDERED: MIRALAX *UNIT DOSE* 17GM PACKET PO PRN (16:25)
[2024-04-11] MEDS ORDERED: LINE1TAB6 PO (16:53)
[2024-04-11] MEDS: SENOKOT S TAB PO SCH (20:14)
[2024-04-12 03:44] VITALS: BP 163/72; TEMP 97; O2SAT 96
[2024-04-12 06:57] LABS: BASO # 0.1 10^3/uL (0.0-0.2); BASO % 0.4 % (0.0-1.0); EOS # 0.5 10^3/uL (0.0-0.5); EOS % 2.7 % (0.0-3.0); HEMATOCRIT 33.4 % (42.0-52.0); HEMOGLOBIN 11.5 g/dl (13.5-17.5); LYMPH # 2.4 10^3/uL (1.5-5.0); LYMPH % 12.9 % (24.0-44.0); MEAN CORPUSCULAR HEMOGLOBIN 29.7 pg (27.0-33.0); MEAN CORPUSCULAR HGB CONC 34.4 g/dl (32.0-36.5); MEAN CORPUSCULAR VOLUME 86.3 fl (80.0-96.0); MONO % 5.1 % (2.0-8.0); NEUTROPHILS # 14.4 10^3/uL (1.5-8.5); NEUTROPHILS % 76.7 % (36.0-66.0); PLATELET COUNT, AUTOMATED 268 10^3/uL (150-450); RED BLOOD COUNT 3.87 10^6/uL (4.30-6.10); WHITE BLOOD COUNT 18.7 10^3/uL (4.0-10.0)
[2024-04-12 07:28] LABS: BLOOD UREA NITROGEN 14 MG/DL (9-23); CALCIUM LEVEL 7.9 MG/DL (8.3-10.6); CARBON DIOXIDE LEVEL 29 MMOL/L (20-31); CHLORIDE LEVEL 107 MMOL/L (98-107); GLOMERULAR FILTRATION RATE > 60.0 (>49); GLUCOSE, FASTING 249 MG/DL (74-106); MAGNESIUM LEVEL 1.6 MG/DL (1.8-2.4); POTASSIUM SERUM 3.5 MMOL/L (3.5-5.1); SODIUM LEVEL 139 MMOL/L (136-145)
[2024-04-12 08:00] VITALS: BP 150/80; TEMP 97; O2SAT 98
[2024-04-12] MEDS: POTASSIUM CHLORIDE 10MEQ SR TABLET PO ONE (08:42)
[2024-04-12 08:43] VITALS: BP 150/80
[2024-04-12] MEDS: MIRALAX *UNIT DOSE* 17GM PACKET PO SCH (08:44)
[2024-04-12] MEDS: MAG SULF 1GM/100ML (MAG RUN) 1 GM in IV 1 EA IV SCH (08:44)
[2024-04-12] MEDS ORDERED: PERCOCET PO (10:30)
[2024-04-12] MEDS ORDERED: ACET-683 PO (10:30)
== END 2024-04-12 14:29 | disposition home or self-care (01) | DRG 854 ==
LOC: EDBD 18:43 → M ED 18:43 → M ED INP 04-09 09:52 → M PCU 04-09 17:14
PROVIDERS: ADMIT Internal Medicine; ATTEND Internal Medicine
PROC: 0JBJ0ZZ Excision of Right Hand Subcutaneous Tissue and Fascia, Open Approach (ICD-10-PCS; principal; 2024-04-10 12:00)
DX: A41.9 Sepsis, unspecified organism (principal); L03.113 Cellulitis of right upper limb; L02.511 Cutaneous abscess of right hand; E87.20 Acidosis, unspecified; I10 Essential (primary) hypertension; E11.9 Type 2 diabetes mellitus without complications; E78.5 Hyperlipidemia, unspecified; K21.9 Gastro-esophageal reflux disease without esophagitis; F20.9 Schizophrenia, unspecified; F32.9 Major depressive disorder, single episode, unspecified; M65.949 Unspecified synovitis and tenosynovitis, unspecified hand; F17.200 Nicotine dependence, unspecified, uncomplicated; B95.62 Methicillin resistant Staphylococcus aureus infection as the cause of diseases classified elsewhere; Z88.8 Allergy status to other drugs, medicaments and biological substances; Z79.899 Other long term (current) drug therapy

== ENCOUNTER → 2024-04-17 | Outpatient (CLI) | payer MEDICARE, MEDICAID ==
[~2024-04-17] MED LIST changes: +ACET-683 PO; +AMLO10TA PO; +KETO2CR EXT; +LINE1TAB6 PO; +LISI20TA35 PO; +LISI20TA37 PO; +NICO21DI38 TD; +PERCOCET PO; +VITA200032 PO; +ZYVO1TAB PO
[2024-04-17 14:04] LABS: HEMATOCRIT 39.5 % (42.0-52.0); HEMOGLOBIN 13.5 g/dl (13.5-17.5); MEAN CORPUSCULAR HEMOGLOBIN 29.9 pg (27.0-33.0); MEAN CORPUSCULAR HGB CONC 34.2 g/dl (32.0-36.5); MEAN CORPUSCULAR VOLUME 87.6 fl (80.0-96.0); PLATELET COUNT, AUTOMATED 435 10^3/uL (150-450); RED BLOOD COUNT 4.51 10^6/uL (4.30-6.10); WHITE BLOOD COUNT 15.9 10^3/uL (4.0-10.0)
[2024-04-17 15:48] LABS: ATYPICAL LYMPH 1 % (0-5); EOSINOPHILS 4 % (0-3); LYMPHOCYTES 20 % (16-44); MONOCYTES 9 % (0-5); NEUTROPHILS 66 % (28-66)
[2024-04-17 15:50] LABS: PLATELET ESTIMATE NORMAL (NORMAL)
== END ==
LOC: M PLALAB 10:52
PROVIDERS: ATTEND Physician Assistant
DX: L02.511 Cutaneous abscess of right hand (principal)

== ENCOUNTER 2024-04-18 10:56 | Inpatient (IN) | payer MEDICARE, MEDICAID ==
[~2024-04-18] VITALS: Ht 167.6 cm; Wt 115.9 kg
[~2024-04-18 10:56] MED LIST changes: -AMLO10TA PO; -LISI20TA35 PO; -VITA200032 PO; -ZYVO1TAB PO
[2024-04-18 12:59] LABS: BASO # 0.1 10^3/uL (0.0-0.2); BASO % 0.7 % (0.0-1.0); EOS # 0.4 10^3/uL (0.0-0.5); EOS % 2.9 % (0.0-3.0); HEMATOCRIT 40.3 % (42.0-52.0); HEMOGLOBIN 14.2 g/dl (13.5-17.5); LYMPH # 2.7 10^3/uL (1.5-5.0); LYMPH % 20.2 % (24.0-44.0); MEAN CORPUSCULAR HEMOGLOBIN 30.2 pg (27.0-33.0); MEAN CORPUSCULAR HGB CONC 35.2 g/dl (32.0-36.5); MEAN CORPUSCULAR VOLUME 85.7 fl (80.0-96.0); MONO # 0.7 10^3/uL (0.0-0.8); MONO % 5.3 % (2.0-8.0); NEUTROPHILS # 9.1 10^3/uL (1.5-8.5); NEUTROPHILS % 67.9 % (36.0-66.0); WHITE BLOOD COUNT 13.5 10^3/uL (4.0-10.0)
[2024-04-18 13:24] LABS: PLATELET COUNT, AUTOMATED 301 10^3/uL (150-450)
[2024-04-18 13:30] LABS: ALBUMIN 3.3 G/DL (3.2-5.2); ALKALINE PHOSPHATASE 100 U/L (40-129); ALT/SGPT 39 U/L (7.0-40); AST/SGOT 22 U/L (<34); BILIRUBIN,DIRECT < 0.1 MG/DL (<0.4); BILIRUBIN,TOTAL 0.2 MG/DL (0.3-1.2); BLOOD UREA NITROGEN 14 MG/DL (9-23); CALCIUM LEVEL 8.9 MG/DL (8.3-10.6); CARBON DIOXIDE LEVEL 28 MMOL/L (20-31); CHLORIDE LEVEL 102 MMOL/L (98-107); CREATININE FOR GFR 0.77 MG/DL (0.70-1.30); GLOMERULAR FILTRATION RATE > 60.0 (>49); GLUCOSE, FASTING 220 MG/DL (74-106); POTASSIUM SERUM 4.4 MMOL/L (3.5-5.1); SODIUM LEVEL 135 MMOL/L (136-145); TOTAL PROTEIN 7.5 G/DL (5.7-8.2)
[2024-04-18 13:37] LABS: PROCALCITONIN 0.08 ng/ml
[2024-04-18] MEDS ORDERED: ACETAMINOPHEN 325 MG TAB PO PRN (14:10)
[2024-04-18] MEDS ORDERED: OMEP-173 PO (15:31)
[2024-04-18] MEDS ORDERED: LISI20TA35 PO (15:31)
[2024-04-18] MEDS ORDERED: VITA200032 PO (15:31)
[2024-04-18] MEDS ORDERED: LINE1TAB6 PO (15:31)
[2024-04-18] MEDS ORDERED: HOME MED LIST COMPLETE! XX SCH (15:35)
[2024-04-18 15:45] VITALS: BP 149/87; TEMP 97.7; O2SAT 96
[2024-04-18] MEDS ORDERED: VANCOMYCIN/WATER FOR INJ 750 MG in IV 1 EA IV SCH (16:30)
[2024-04-18] MEDS ORDERED: CEFTAROLINE FOSAMIL 600 MG in DEXTROSE 5% (D5W) ADV/MINI-BAG 50 ML IV SCH (17:00)
[2024-04-18] MEDS: VANCOMYCIN 2,000 MG/400 ML IV BAG *LOAD IV ONE (17:22)
[2024-04-18 19:43] VITALS: BP 150/85; TEMP 98.2; O2SAT 96
[2024-04-18] MEDS: KETOROLAC 30 MG/ML 1ML VIAL IV PRN (20:15)
[2024-04-18] MEDS: NYSTATIN 100,000 UNITS/GM TOPICAL PWD 15GM TOP SCH (21:21)
[2024-04-19] MEDS: VANCOMYCIN 1,250 MG/250 ML IV BAG IV SCH (01:03)
[2024-04-19 03:52] VITALS: BP 161/81; TEMP 98.4; O2SAT 97
[2024-04-19 06:21] LABS: BASO # 0.1 10^3/uL (0.0-0.2); BASO % 0.6 % (0.0-1.0); EOS # 0.5 10^3/uL (0.0-0.5); EOS % 3.8 % (0.0-3.0); HEMATOCRIT 37.9 % (42.0-52.0); HEMOGLOBIN 12.8 g/dl (13.5-17.5); LYMPH # 2.5 10^3/uL (1.5-5.0); LYMPH % 20.3 % (24.0-44.0); MEAN CORPUSCULAR HEMOGLOBIN 29.8 pg (27.0-33.0); MEAN CORPUSCULAR HGB CONC 33.8 g/dl (32.0-36.5); MEAN CORPUSCULAR VOLUME 88.1 fl (80.0-96.0); MONO # 0.7 10^3/uL (0.0-0.8); MONO % 5.4 % (2.0-8.0); NEUTROPHILS # 8.5 10^3/uL (1.5-8.5); PLATELET COUNT, AUTOMATED 347 10^3/uL (150-450); WHITE BLOOD COUNT 12.5 10^3/uL (4.0-10.0)
[2024-04-19 06:48] LABS: BLOOD UREA NITROGEN 16 MG/DL (9-23); CALCIUM LEVEL 8.6 MG/DL (8.3-10.6); CARBON DIOXIDE LEVEL 29 MMOL/L (20-31); CHLORIDE LEVEL 103 MMOL/L (98-107); CREATININE FOR GFR 0.71 MG/DL (0.70-1.30); GLOMERULAR FILTRATION RATE > 60.0 (>49); GLUCOSE, FASTING 235 MG/DL (74-106); POTASSIUM SERUM 3.8 MMOL/L (3.5-5.1); SODIUM LEVEL 137 MMOL/L (136-145)
[2024-04-19 08:00] VITALS: BP 178/96; TEMP 97.9; O2SAT 97
[2024-04-19] MEDS: amLODIPine 5 MG TAB PO SCH (09:32)
[2024-04-19] MEDS: OMEPRAZOLE 20MG CAP PO SCH (09:32)
[2024-04-19] MEDS: NICOTINE 21MG/24HR 1 EA TRANSDERMAL TD SCH (09:33)
[2024-04-19] MEDS: VANCOMYCIN 1,000MG/200 ML IV BAG IV SCH (10:26)
[2024-04-19] MEDS: PERCOCET 5MG/325MG TAB PO PRN (10:26)
[2024-04-19 12:00] VITALS: BP 164/80; TEMP 97.6; O2SAT 96
[2024-04-19 12:25] VITALS: BP 166/82; TEMP 98.1; O2SAT 95
[2024-04-19] MEDS: DOCUSATE SODIUM 100MG CAPSULE PO SCH (12:38)
[2024-04-19] MEDS: LEVEMIR (INSULIN DETEMIR) 1 UNITS/0.01ML SC SCH (12:39)
[2024-04-19 19:56] VITALS: BP 160/83; TEMP 98.1; O2SAT 98
[2024-04-19] MEDS: SENNA 8.6 MG TAB (SENOKOT) PO PRN (20:44)
[2024-04-19] MEDS: RAMELTEON 8 MG TAB (ROZEREM) PO PRN (23:36)
[2024-04-20 04:00] VITALS: BP 159/84; TEMP 97.9; O2SAT 98
[2024-04-20 06:59] LABS: BASO # 0.1 10^3/uL (0.0-0.2); BASO % 0.5 % (0.0-1.0); EOS # 0.5 10^3/uL (0.0-0.5); EOS % 3.7 % (0.0-3.0); HEMATOCRIT 40.2 % (42.0-52.0); HEMOGLOBIN 13.4 g/dl (13.5-17.5); LYMPH # 2.4 10^3/uL (1.5-5.0); LYMPH % 18.3 % (24.0-44.0); MEAN CORPUSCULAR HEMOGLOBIN 29.6 pg (27.0-33.0); MEAN CORPUSCULAR HGB CONC 33.3 g/dl (32.0-36.5); MEAN CORPUSCULAR VOLUME 88.9 fl (80.0-96.0); MONO # 0.7 10^3/uL (0.0-0.8); MONO % 5.1 % (2.0-8.0); NEUTROPHILS # 9.2 10^3/uL (1.5-8.5); NEUTROPHILS % 71.2 % (36.0-66.0); PLATELET COUNT, AUTOMATED 324 10^3/uL (150-450); RED BLOOD COUNT 4.52 10^6/uL (4.30-6.10)
[2024-04-20 07:30] LABS: BLOOD UREA NITROGEN 18 MG/DL (9-23); CALCIUM LEVEL 8.5 MG/DL (8.3-10.6); CARBON DIOXIDE LEVEL 28 MMOL/L (20-31); CHLORIDE LEVEL 105 MMOL/L (98-107); CREATININE FOR GFR 0.68 MG/DL (0.70-1.30); GLOMERULAR FILTRATION RATE > 60.0 (>49); GLUCOSE, FASTING 162 MG/DL (74-106); POTASSIUM SERUM 4.1 MMOL/L (3.5-5.1); SODIUM LEVEL 138 MMOL/L (136-145)
[2024-04-20 12:00] VITALS: BP 144/72; TEMP 97.9; O2SAT 98
[2024-04-20] MEDS: LEVEMIR (INSULIN DETEMIR) 1 UNITS/0.01ML SC SCH (12:42)
[2024-04-20 19:29] VITALS: BP 142/73; TEMP 97.9; O2SAT 99
[2024-04-21 04:00] VITALS: BP 139/75; TEMP 97.9; O2SAT 98
[2024-04-21 09:09] LABS: BASO # 0.1 10^3/uL (0.0-0.2); BASO % 0.5 % (0.0-1.0); EOS # 0.4 10^3/uL (0.0-0.5); EOS % 3.2 % (0.0-3.0); HEMATOCRIT 38.9 % (42.0-52.0); HEMOGLOBIN 13.4 g/dl (13.5-17.5); LYMPH # 2.5 10^3/uL (1.5-5.0); LYMPH % 18.1 % (24.0-44.0); MEAN CORPUSCULAR HEMOGLOBIN 29.8 pg (27.0-33.0); MEAN CORPUSCULAR HGB CONC 34.4 g/dl (32.0-36.5); MEAN CORPUSCULAR VOLUME 86.4 fl (80.0-96.0); MONO # 0.7 10^3/uL (0.0-0.8); NEUTROPHILS # 10.1 10^3/uL (1.5-8.5); NEUTROPHILS % 72.2 % (36.0-66.0); PLATELET COUNT, AUTOMATED 311 10^3/uL (150-450); WHITE BLOOD COUNT 13.9 10^3/uL (4.0-10.0)
[2024-04-21 09:40] LABS: VANCOMYCIN LEVEL TROUGH 11.5 UG/ML (10.0-20.0)
[2024-04-21 09:41] LABS: BLOOD UREA NITROGEN 19 MG/DL (9-23); CALCIUM LEVEL 8.2 MG/DL (8.3-10.6); CARBON DIOXIDE LEVEL 28 MMOL/L (20-31); CHLORIDE LEVEL 105 MMOL/L (98-107); CREATININE FOR GFR 0.61 MG/DL (0.70-1.30); GLOMERULAR FILTRATION RATE > 60.0 (>49); GLUCOSE, FASTING 210 MG/DL (74-106); POTASSIUM SERUM 4.1 MMOL/L (3.5-5.1); SODIUM LEVEL 137 MMOL/L (136-145)
[2024-04-21 12:00] VITALS: BP 164/90; TEMP 97.9; O2SAT 95
[2024-04-21] MEDS: VANCOMYCIN 1,250 MG/250 ML IV BAG IV SCH (15:24)
[2024-04-21 19:26] VITALS: BP 145/70; TEMP 97.9; O2SAT 98
[2024-04-22 04:00] VITALS: BP 159/87; TEMP 97.7; O2SAT 98
[2024-04-22 07:22] LABS: BASO # 0.1 10^3/uL (0.0-0.2); BASO % 0.5 % (0.0-1.0); EOS # 0.4 10^3/uL (0.0-0.5); EOS % 3.3 % (0.0-3.0); HEMATOCRIT 37.9 % (42.0-52.0); HEMOGLOBIN 13.2 g/dl (13.5-17.5); LYMPH # 2.9 10^3/uL (1.5-5.0); LYMPH % 22.8 % (24.0-44.0); MEAN CORPUSCULAR HGB CONC 34.8 g/dl (32.0-36.5); MEAN CORPUSCULAR VOLUME 86.1 fl (80.0-96.0); MONO # 0.7 10^3/uL (0.0-0.8); MONO % 5.7 % (2.0-8.0); NEUTROPHILS # 8.6 10^3/uL (1.5-8.5); NEUTROPHILS % 66.8 % (36.0-66.0); PLATELET COUNT, AUTOMATED 301 10^3/uL (150-450); WHITE BLOOD COUNT 12.8 10^3/uL (4.0-10.0)
[2024-04-22 07:47] VITALS: BP 160/88; TEMP 97.7; O2SAT 95
[2024-04-22 07:53] LABS: BLOOD UREA NITROGEN 16 MG/DL (9-23); CALCIUM LEVEL 8.4 MG/DL (8.3-10.6); CARBON DIOXIDE LEVEL 28 MMOL/L (20-31); CHLORIDE LEVEL 107 MMOL/L (98-107); CREATININE FOR GFR 0.68 MG/DL (0.70-1.30); GLOMERULAR FILTRATION RATE > 60.0 (>49); GLUCOSE, FASTING 140 MG/DL (74-106); POTASSIUM SERUM 4.1 MMOL/L (3.5-5.1); SODIUM LEVEL 140 MMOL/L (136-145); VANCOMYCIN LEVEL TROUGH 15.1 UG/ML (10.0-20.0)
[2024-04-22 10:16] VITALS: BP 152/68
[2024-04-22] MEDS: hydroCHLOROthiazide 12.5 MG CAPSULE PO SCH (10:16)
[2024-04-22 11:40] VITALS: BP 152/82; TEMP 97.9; O2SAT 97
[2024-04-22 19:55] VITALS: BP 173/86; TEMP 97.9; O2SAT 96
[2024-04-22 22:44] VITALS: BP 149/74
[2024-04-23 04:04] VITALS: BP 163/86; TEMP 97.3; O2SAT 97
[2024-04-23 07:25] LABS: BASO # 0.1 10^3/uL (0.0-0.2); BASO % 0.7 % (0.0-1.0); EOS # 0.4 10^3/uL (0.0-0.5); EOS % 2.9 % (0.0-3.0); HEMATOCRIT 41.4 % (42.0-52.0); HEMOGLOBIN 13.9 g/dl (13.5-17.5); LYMPH # 2.8 10^3/uL (1.5-5.0); MEAN CORPUSCULAR HEMOGLOBIN 29.2 pg (27.0-33.0); MEAN CORPUSCULAR HGB CONC 33.6 g/dl (32.0-36.5); MONO # 0.8 10^3/uL (0.0-0.8); MONO % 6.3 % (2.0-8.0); NEUTROPHILS # 8.1 10^3/uL (1.5-8.5); NEUTROPHILS % 66.4 % (36.0-66.0); PLATELET COUNT, AUTOMATED 311 10^3/uL (150-450); RED BLOOD COUNT 4.76 10^6/uL (4.30-6.10); WHITE BLOOD COUNT 12.3 10^3/uL (4.0-10.0)
[2024-04-23 07:58] LABS: BLOOD UREA NITROGEN 16 MG/DL (9-23); CALCIUM LEVEL 8.7 MG/DL (8.3-10.6); CARBON DIOXIDE LEVEL 29 MMOL/L (20-31); CHLORIDE LEVEL 105 MMOL/L (98-107); CREATININE FOR GFR 0.69 MG/DL (0.70-1.30); GLOMERULAR FILTRATION RATE > 60.0 (>49); GLUCOSE, FASTING 140 MG/DL (74-106); POTASSIUM SERUM 4.1 MMOL/L (3.5-5.1); SODIUM LEVEL 138 MMOL/L (136-145)
[2024-04-23 12:00] VITALS: BP 160/82; TEMP 98.1; O2SAT 95
[2024-04-23] MEDS: hydroCHLOROthiazide 12.5 MG CAPSULE PO ONE (13:04)
[2024-04-23 13:05] VITALS: BP 154/86
[2024-04-23] MEDS: amLODIPine 5 MG TAB PO ONE (13:05)
[2024-04-23] MEDS ORDERED: ZYVO1TAB PO (15:43)
[2024-04-23] MEDS ORDERED: AMLO10TA PO (15:45)
[2024-04-23] MEDS ORDERED: VANCOMYCIN 1,000MG/200 ML IV BAG IV SCH (16:00)
== END 2024-04-23 16:30 | disposition home or self-care (01) | DRG 603 ==
LOC: M ED 10:56 → M ED INP 14:08 → M MS5PR 15:45
PROVIDERS: ADMIT Internal Medicine Nephrology; ATTEND General Practice
DX: L03.113 Cellulitis of right upper limb (principal); Z68.41 Body mass index [BMI] 40.0-44.9, adult; I10 Essential (primary) hypertension; E11.9 Type 2 diabetes mellitus without complications; K21.9 Gastro-esophageal reflux disease without esophagitis; E78.5 Hyperlipidemia, unspecified; E66.01 Morbid (severe) obesity due to excess calories; B95.62 Methicillin resistant Staphylococcus aureus infection as the cause of diseases classified elsewhere; F20.9 Schizophrenia, unspecified; Z79.899 Other long term (current) drug therapy; Z88.8 Allergy status to other drugs, medicaments and biological substances; M65.141 Other infective (teno)synovitis, right hand

== ENCOUNTER 2024-04-27 22:11 | Observation (INO) | payer MEDICARE, MEDICAID ==
[~2024-04-27] VITALS: Ht 167.6 cm; Wt 112.0 kg
[~2024-04-27 22:11] MED LIST changes: +AMLO10TA PO; -KETO2CR EXT; +KETO2CR TOP; +LISI20TA35 PO; +VITA200032 PO; +ZYVO1TAB PO
[2024-04-28 01:58] LABS: BASO # 0.1 10^3/uL (0.0-0.2); BASO % 0.7 % (0.0-1.0); EOS # 0.4 10^3/uL (0.0-0.5); EOS % 3.2 % (0.0-3.0); HEMATOCRIT 38.7 % (42.0-52.0); HEMOGLOBIN 13.1 g/dl (13.5-17.5); LYMPH # 2.9 10^3/uL (1.5-5.0); MEAN CORPUSCULAR HEMOGLOBIN 29.4 pg (27.0-33.0); MEAN CORPUSCULAR HGB CONC 33.9 g/dl (32.0-36.5); MONO # 1.1 10^3/uL (0.0-0.8); MONO % 9.7 % (2.0-8.0); NEUTROPHILS # 6.4 10^3/uL (1.5-8.5); NEUTROPHILS % 59.2 % (36.0-66.0); PLATELET COUNT, AUTOMATED 351 10^3/uL (150-450); RED BLOOD COUNT 4.45 10^6/uL (4.30-6.10); WHITE BLOOD COUNT 10.8 10^3/uL (4.0-10.0)
[2024-04-28 02:04] LABS: ERYTHROCYTE SEDIMENTATION RATE 36 mm/hr (0-20)
[2024-04-28] MEDS ORDERED: OXYC1TAB23 PO (02:21)
[2024-04-28] MEDS ORDERED: DOCU8.6T PO (02:21)
[2024-04-28] MEDS ORDERED: HOME MED LIST COMPLETE! XX SCH (02:25)
[2024-04-28] MEDS ORDERED: VANCOMYCIN/WATER FOR INJ 1,000 MG in IV 1 EA IV SCH (02:30)
[2024-04-28] MEDS: ACETAMINOPHEN 500 MG TAB PO ONE (02:38)
[2024-04-28 02:47] LABS: BLOOD UREA NITROGEN 15 MG/DL (9-23); CALCIUM LEVEL 8.6 MG/DL (8.3-10.6); CARBON DIOXIDE LEVEL 29 MMOL/L (20-31); CHLORIDE LEVEL 105 MMOL/L (98-107); CREATININE FOR GFR 0.73 MG/DL (0.70-1.30); GLOMERULAR FILTRATION RATE > 60.0 (>49); GLUCOSE, FASTING 191 MG/DL (74-106); POTASSIUM SERUM 4.6 MMOL/L (3.5-5.1); SODIUM LEVEL 138 MMOL/L (136-145)
[2024-04-28 03:45] VITALS: BP 144/80; TEMP 97.7; O2SAT 95
[2024-04-28] MEDS: VANCOMYCIN 2,000 MG/400 ML IV BAG *LOAD IV ONE (04:31)
[2024-04-28] MEDS: PERCOCET 5MG/325MG TAB PO PRN (05:20)
[2024-04-28] MEDS: KETOROLAC 30 MG/ML 1ML VIAL IV ONE (06:33)
[2024-04-28] MEDS: NICOTINE 14 MG/24 HR TRANSDERMAL TD SCH (06:37)
[2024-04-28] MEDS: ENOXAPARIN 40MG/0.4ML SYRINGE (J1650 PER 10MG) SC SCH (07:50)
[2024-04-28] MEDS: OMEPRAZOLE 20MG CAP PO SCH (07:51)
[2024-04-28] MEDS: hydroCHLOROthiazide 12.5 MG CAPSULE PO SCH (07:52)
[2024-04-28] MEDS: SENOKOT S TAB PO SCH (07:52)
[2024-04-28 08:03] LABS: HEMATOCRIT 38.9 % (42.0-52.0); HEMOGLOBIN 13.3 g/dl (13.5-17.5); MEAN CORPUSCULAR HGB CONC 34.2 g/dl (32.0-36.5); MEAN CORPUSCULAR VOLUME 87.8 fl (80.0-96.0); PLATELET COUNT, AUTOMATED 398 10^3/uL (150-450); RED BLOOD COUNT 4.43 10^6/uL (4.30-6.10); WHITE BLOOD COUNT 9.4 10^3/uL (4.0-10.0)
[2024-04-28 08:22] LABS: ALBUMIN 3.6 G/DL (3.2-5.2); ALKALINE PHOSPHATASE 88 U/L (40-129); ALT/SGPT 44 U/L (7.0-40); AST/SGOT 18 U/L (<34); BILIRUBIN,TOTAL 0.4 MG/DL (0.3-1.2); BLOOD UREA NITROGEN 12 MG/DL (9-23); CARBON DIOXIDE LEVEL 28 MMOL/L (20-31); CHLORIDE LEVEL 105 MMOL/L (98-107); CREATININE FOR GFR 0.75 MG/DL (0.70-1.30); GLOMERULAR FILTRATION RATE > 60.0 (>49); GLUCOSE, FASTING 136 MG/DL (74-106); SODIUM LEVEL 140 MMOL/L (136-145); TOTAL PROTEIN 7.2 G/DL (5.7-8.2)
[2024-04-28] MEDS ORDERED: ISOVUE-370 76% 100ML VIAL As Ordered ONE (08:35)
[2024-04-28] MEDS: VANCOMYCIN 1,000MG/200 ML IV BAG IV SCH (09:45)
[2024-04-28] MEDS ORDERED: VANCOMYCIN 1,000MG/200 ML IV BAG IV SCH (11:00)
[2024-04-28 12:00] VITALS: BP 147/82; TEMP 97.7; O2SAT 98
[2024-04-28] MEDS: LACTOBACILLUS ACIDOPHILUS CAP (BACID) PO SCH (17:04)
[2024-04-28 20:50] VITALS: BP 119/99; TEMP 97.7; O2SAT 98
[2024-04-29] VITALS (8 sets, daily range): BP systolic 127–147; BP diastolic 79–86; TEMP 97.7–98.1; O2SAT 90–96
[2024-04-29] MEDS: MORPHINE 4 MG/ML 1ML VIAL IV PRN (03:12)
[2024-04-29 09:12] LABS: BASO # 0.1 10^3/uL (0.0-0.2); EOS # 0.3 10^3/uL (0.0-0.5); EOS % 3.4 % (0.0-3.0); HEMOGLOBIN 13.3 g/dl (13.5-17.5); MEAN CORPUSCULAR HGB CONC 34.1 g/dl (32.0-36.5); MEAN CORPUSCULAR VOLUME 87.8 fl (80.0-96.0); MONO # 0.6 10^3/uL (0.0-0.8); NEUTROPHILS % 62.4 % (36.0-66.0); PLATELET COUNT, AUTOMATED 356 10^3/uL (150-450); RED BLOOD COUNT 4.44 10^6/uL (4.30-6.10)
[2024-04-29 09:37] LABS: ALBUMIN 3.3 G/DL (3.2-5.2); ALKALINE PHOSPHATASE 86 U/L (40-129); ALT/SGPT 33 U/L (7.0-40); AST/SGOT 12 U/L (<34); BILIRUBIN,TOTAL 0.7 MG/DL (0.3-1.2); BLOOD UREA NITROGEN 12 MG/DL (9-23); CALCIUM LEVEL 9.1 MG/DL (8.3-10.6); CARBON DIOXIDE LEVEL 28 MMOL/L (20-31); CHLORIDE LEVEL 105 MMOL/L (98-107); CREATININE FOR GFR 0.79 MG/DL (0.70-1.30); GLOMERULAR FILTRATION RATE > 60.0 (>49); GLUCOSE, FASTING 118 MG/DL (74-106); POTASSIUM SERUM 3.9 MMOL/L (3.5-5.1); SODIUM LEVEL 138 MMOL/L (136-145); TOTAL PROTEIN 7.1 G/DL (5.7-8.2)
[2024-04-29] MEDS: VANCOMYCIN 1,000MG/200 ML IV BAG IV SCH (11:14)
[2024-04-29] MEDS ORDERED: LIDOCAINE 2% 100MG/5ML SDV (FOR ANES.) As Ordered ONE (12:45)
[2024-04-29] MEDS ORDERED: propofoL 200 MG/20 ML VIAL As Ordered ONE (12:45)
[2024-04-29] MEDS ORDERED: ONDANSETRON 4MG 2ML VIAL As Ordered ONE (12:45)
[2024-04-29] MEDS ORDERED: KETOROLAC 60MG 2ML VIAL As Ordered ONE (12:45)
[2024-04-29] MEDS ORDERED: LIDOCAINE 1% MDV 20ML VIAL As Ordered ONE (12:47)
[2024-04-29] MEDS ORDERED: fentaNYL 100 MCG/2 ML INJECTION As Ordered ONE (12:48)
[2024-04-29] MEDS ORDERED: MIDAZOLAM INJ 2MG/2ML VIAL As Ordered ONE (12:49)
[2024-04-29] MEDS ORDERED: ACETAMINOPHEN 1000MG/100ML IV BAG As Ordered ONE (13:26)
[2024-04-29] MEDS ORDERED: ONDANSETRON 4MG 2ML VIAL IV PRN ×2 (13:55→14:40)
[2024-04-29] MEDS ORDERED: HYDROMORPHONE HCL 0.5 MG/ 0.5 ML SYRINGE IV PRN (13:55)
[2024-04-29] MEDS: fentaNYL 100 MCG/2 ML INJECTION IV PRN (14:09)
[2024-04-29] MEDS ORDERED: PERCOCET 5MG/325MG TAB PO PRN (14:40)
[2024-04-29] MEDS: MORPHINE 2 MG/ML 1ML VIAL IV PRN (14:57)
[2024-04-29] MEDS: oxyCODONE 5MG TAB PO PRN (15:55)
[2024-04-29] MEDS: LR 1,000 ML IV SCH ×2 (17:03)
[2024-04-30 01:00] VITALS: BP 130/68; TEMP 97.9; O2SAT 90
[2024-04-30] MEDS: KETOCONAZOLE 2% CREAM TOP PRN (03:25)
[2024-04-30 04:00] VITALS: BP 129/59; TEMP 97.9; O2SAT 96
[2024-04-30 06:33] LABS: HEMATOCRIT 35.6 % (42.0-52.0); HEMOGLOBIN 12.3 g/dl (13.5-17.5); MEAN CORPUSCULAR HEMOGLOBIN 30.3 pg (27.0-33.0); MEAN CORPUSCULAR HGB CONC 34.6 g/dl (32.0-36.5); MEAN CORPUSCULAR VOLUME 87.7 fl (80.0-96.0); PLATELET COUNT, AUTOMATED 372 10^3/uL (150-450); RED BLOOD COUNT 4.06 10^6/uL (4.30-6.10); WHITE BLOOD COUNT 14.2 10^3/uL (4.0-10.0)
[2024-04-30 06:52] LABS: ALBUMIN 3.1 G/DL (3.2-5.2); ALKALINE PHOSPHATASE 82 U/L (40-129); ALT/SGPT 26 U/L (7.0-40); AST/SGOT 9 U/L (<34); BILIRUBIN,TOTAL 0.3 MG/DL (0.3-1.2); BLOOD UREA NITROGEN 21 MG/DL (9-23); CALCIUM LEVEL 8.7 MG/DL (8.3-10.6); CARBON DIOXIDE LEVEL 26 MMOL/L (20-31); CHLORIDE LEVEL 100 MMOL/L (98-107); CREATININE FOR GFR 0.87 MG/DL (0.70-1.30); GLOMERULAR FILTRATION RATE > 60.0 (>49); GLUCOSE, FASTING 193 MG/DL (74-106); POTASSIUM SERUM 4.2 MMOL/L (3.5-5.1); SODIUM LEVEL 135 MMOL/L (136-145); TOTAL PROTEIN 6.4 G/DL (5.7-8.2)
[2024-04-30 08:16] VITALS: BP 120/67; TEMP 97.9; O2SAT 95
[2024-04-30 12:00] VITALS: BP 104/64; TEMP 97.9; O2SAT 96
[2024-04-30] MEDS: KETOROLAC 30 MG/ML 1ML VIAL IV ONE (14:14)
[2024-04-30] MEDS ORDERED: GLUCAGON INJ 1MG VIAL SC PRN (14:40)
[2024-04-30] MEDS ORDERED: DEXTROSE 50% 50ML SYRINGE IV PRN (14:40)
[2024-04-30] MEDS ORDERED: GLUCOSE 4 GM CHEW PO PRN (14:40)
[2024-04-30 16:00] VITALS: BP 129/73; TEMP 97.9; O2SAT 97
[2024-04-30] MEDS: oxyCODONE 5MG TAB PO PRN (16:00)
[2024-04-30] MEDS: INSULIN LISPRO (NovoLOG) PER UNIT SC SCH ×2 (18:44→20:47)
[2024-04-30 20:00] VITALS: BP 143/70; TEMP 97.5; O2SAT 95
[2024-04-30] MEDS: LEVEMIR (INSULIN DETEMIR) 1 UNITS/0.01ML SC SCH (20:48)
[2024-05-01 04:00] VITALS: BP 142/88; TEMP 97.9; O2SAT 96
[2024-05-01 06:29] LABS: BASO # 0.1 10^3/uL (0.0-0.2); BASO % 0.6 % (0.0-1.0); EOS # 0.3 10^3/uL (0.0-0.5); EOS % 3.2 % (0.0-3.0); HEMATOCRIT 35.2 % (42.0-52.0); HEMOGLOBIN 11.9 g/dl (13.5-17.5); LYMPH # 3.3 10^3/uL (1.5-5.0); LYMPH % 32.3 % (24.0-44.0); MEAN CORPUSCULAR HEMOGLOBIN 29.7 pg (27.0-33.0); MEAN CORPUSCULAR HGB CONC 33.8 g/dl (32.0-36.5); MEAN CORPUSCULAR VOLUME 87.8 fl (80.0-96.0); MONO # 0.8 10^3/uL (0.0-0.8); NEUTROPHILS # 5.6 10^3/uL (1.5-8.5); NEUTROPHILS % 55.5 % (36.0-66.0); PLATELET COUNT, AUTOMATED 353 10^3/uL (150-450); RED BLOOD COUNT 4.01 10^6/uL (4.30-6.10); WHITE BLOOD COUNT 10.1 10^3/uL (4.0-10.0)
[2024-05-01 06:56] LABS: BLOOD UREA NITROGEN 19 MG/DL (9-23); CALCIUM LEVEL 8.7 MG/DL (8.3-10.6); CARBON DIOXIDE LEVEL 27 MMOL/L (20-31); CHLORIDE LEVEL 104 MMOL/L (98-107); CREATININE FOR GFR 0.88 MG/DL (0.70-1.30); GLOMERULAR FILTRATION RATE > 60.0 (>49); GLUCOSE, FASTING 131 MG/DL (74-106); SODIUM LEVEL 140 MMOL/L (136-145)
[2024-05-01] MEDS: metFORMIN (GLUCOPHAGE) 500MG TAB PO SCH (08:00)
[2024-05-01 12:00] VITALS: BP 145/86; TEMP 97.9; O2SAT 94
[2024-05-01] MEDS ORDERED: MIRALAX *UNIT DOSE* 17GM PACKET PO PRN (16:20)
[2024-05-01] MEDS: MAGNESIUM CITRATE 300ML BTL PO ONE (17:23)
[2024-05-01] MEDS: VANCOMYCIN 1,250 MG/250 ML IV BAG IV SCH (17:24)
[2024-05-01 20:15] VITALS: BP 151/67; TEMP 98.2; O2SAT 95
[2024-05-02 03:46] VITALS: BP 146/85; TEMP 97.9; O2SAT 95
[2024-05-02 06:19] LABS: BASO # 0.1 10^3/uL (0.0-0.2); BASO % 0.5 % (0.0-1.0); EOS # 0.3 10^3/uL (0.0-0.5); EOS % 3.2 % (0.0-3.0); HEMATOCRIT 36.9 % (42.0-52.0); HEMOGLOBIN 12.8 g/dl (13.5-17.5); LYMPH # 2.9 10^3/uL (1.5-5.0); LYMPH % 30.6 % (24.0-44.0); MEAN CORPUSCULAR HGB CONC 34.7 g/dl (32.0-36.5); MEAN CORPUSCULAR VOLUME 86.4 fl (80.0-96.0); MONO # 0.7 10^3/uL (0.0-0.8); MONO % 7.5 % (2.0-8.0); NEUTROPHILS # 5.5 10^3/uL (1.5-8.5); NEUTROPHILS % 57.9 % (36.0-66.0); PLATELET COUNT, AUTOMATED 349 10^3/uL (150-450); RED BLOOD COUNT 4.27 10^6/uL (4.30-6.10); WHITE BLOOD COUNT 9.5 10^3/uL (4.0-10.0)
[2024-05-03 04:00] VITALS: BP 144/82; TEMP 97.7; O2SAT 94
[2024-05-03 04:50] LABS: BASO # 0.1 10^3/uL (0.0-0.2); BASO % 0.6 % (0.0-1.0); EOS # 0.4 10^3/uL (0.0-0.5); EOS % 3.9 % (0.0-3.0); HEMATOCRIT 36.9 % (42.0-52.0); HEMOGLOBIN 12.7 g/dl (13.5-17.5); LYMPH # 2.8 10^3/uL (1.5-5.0); LYMPH % 28.7 % (24.0-44.0); MEAN CORPUSCULAR HEMOGLOBIN 30.2 pg (27.0-33.0); MEAN CORPUSCULAR HGB CONC 34.4 g/dl (32.0-36.5); MEAN CORPUSCULAR VOLUME 87.6 fl (80.0-96.0); MONO # 0.8 10^3/uL (0.0-0.8); MONO % 8.4 % (2.0-8.0); NEUTROPHILS # 5.8 10^3/uL (1.5-8.5); NEUTROPHILS % 58.1 % (36.0-66.0); PLATELET COUNT, AUTOMATED 345 10^3/uL (150-450); RED BLOOD COUNT 4.21 10^6/uL (4.30-6.10); WHITE BLOOD COUNT 9.9 10^3/uL (4.0-10.0)
[2024-05-03 08:00] VITALS: BP 112/74; TEMP 97.5; O2SAT 94
[2024-05-03] MEDS: GLIMEPIRIDE 1 MG TABLET PO SCH (09:08)
[2024-05-03 09:46] LABS: BLOOD UREA NITROGEN 11 MG/DL (9-23); CALCIUM LEVEL 9.3 MG/DL (8.3-10.6); CARBON DIOXIDE LEVEL 26 MMOL/L (20-31); CHLORIDE LEVEL 102 MMOL/L (98-107); CREATININE FOR GFR 0.77 MG/DL (0.70-1.30); GLOMERULAR FILTRATION RATE > 60.0 (>49); GLUCOSE, FASTING 114 MG/DL (74-106); POTASSIUM SERUM 4.1 MMOL/L (3.5-5.1); SODIUM LEVEL 136 MMOL/L (136-145)
[2024-05-03 12:00] VITALS: BP 128/77; TEMP 97.7; O2SAT 99
[2024-05-03] MEDS: VANCOMYCIN 1,000MG/200 ML IV BAG IV SCH (12:00)
[2024-05-03] MEDS: SENOKOT S TAB PO PRN (18:21)
[2024-05-03 20:31] VITALS: BP 113/69; TEMP 98.1; O2SAT 94
[2024-05-03] MEDS: MOM 30ML SUSPENSION UDC PO PRN (20:58)
[2024-05-03] MEDS: oxyCODONE 5MG TAB PO PRN (20:58)
[2024-05-03] MEDS: ACETAMINOPHEN 325 MG TAB PO PRN (22:12)
[2024-05-04 04:32] VITALS: BP 124/82; TEMP 97.5; O2SAT 96
[2024-05-04] MEDS: VANCOMYCIN 1,500 MG/300 ML IV BAG IV SCH (13:51)
[2024-05-05 04:15] VITALS: BP 120/56; TEMP 97.7; O2SAT 96
[2024-05-05] MEDS: METOCLOPRAMIDE 10MG TAB PO SCH (12:51)
[2024-05-05] MEDS: MAGNESIUM CITRATE 300ML BTL PO ONE (13:56)
[2024-05-06 04:01] VITALS: BP 157/94; TEMP 97.5; O2SAT 96
[2024-05-06 06:06] LABS: BASO % 0.5 % (0.0-1.0); EOS # 0.5 10^3/uL (0.0-0.5); EOS % 6.8 % (0.0-3.0); HEMATOCRIT 38.4 % (42.0-52.0); HEMOGLOBIN 12.8 g/dl (13.5-17.5); LYMPH # 2.2 10^3/uL (1.5-5.0); LYMPH % 28.5 % (24.0-44.0); MEAN CORPUSCULAR HEMOGLOBIN 29.5 pg (27.0-33.0); MEAN CORPUSCULAR HGB CONC 33.3 g/dl (32.0-36.5); MEAN CORPUSCULAR VOLUME 88.5 fl (80.0-96.0); MONO # 0.7 10^3/uL (0.0-0.8); MONO % 8.6 % (2.0-8.0); NEUTROPHILS # 4.2 10^3/uL (1.5-8.5); NEUTROPHILS % 55.3 % (36.0-66.0); PLATELET COUNT, AUTOMATED 314 10^3/uL (150-450); RED BLOOD COUNT 4.34 10^6/uL (4.30-6.10); WHITE BLOOD COUNT 7.6 10^3/uL (4.0-10.0)
[2024-05-06 06:30] LABS: C REACTIVE PROTEIN QUANTITATIV < 0.40 MG/DL (<1.0)
[2024-05-06 09:34] LABS: BLOOD UREA NITROGEN 14 MG/DL (9-23); CALCIUM LEVEL 8.8 MG/DL (8.3-10.6); CARBON DIOXIDE LEVEL 28 MMOL/L (20-31); CHLORIDE LEVEL 103 MMOL/L (98-107); CREATININE FOR GFR 0.68 MG/DL (0.70-1.30); GLOMERULAR FILTRATION RATE > 60.0 (>49); GLUCOSE, FASTING 180 MG/DL (74-106); POTASSIUM SERUM 3.9 MMOL/L (3.5-5.1); SODIUM LEVEL 138 MMOL/L (136-145)
[2024-05-06] MEDS: LINEZOLID 600MG TABLET (ZYVOX) PO SCH (21:10)
[2024-05-07 03:30] VITALS: BP 119/68; TEMP 97.9; O2SAT 95
[2024-05-07 05:17] VITALS: O2SAT 95
[2024-05-07 16:57] VITALS: O2SAT 94
[2024-05-08 04:53] VITALS: BP 148/76; TEMP 97.9; O2SAT 97
[2024-05-08 06:37] LABS: HEMATOCRIT 37.4 % (42.0-52.0); HEMOGLOBIN 12.8 g/dl (13.5-17.5); MEAN CORPUSCULAR HEMOGLOBIN 29.6 pg (27.0-33.0); MEAN CORPUSCULAR HGB CONC 34.2 g/dl (32.0-36.5); MEAN CORPUSCULAR VOLUME 86.4 fl (80.0-96.0); PLATELET COUNT, AUTOMATED 310 10^3/uL (150-450); RED BLOOD COUNT 4.33 10^6/uL (4.30-6.10)
[2024-05-08 07:13] LABS: C REACTIVE PROTEIN QUANTITATIV < 0.40 MG/DL (<1.0)
[2024-05-08 07:14] LABS: BLOOD UREA NITROGEN 14 MG/DL (9-23); CALCIUM LEVEL 8.7 MG/DL (8.3-10.6); CARBON DIOXIDE LEVEL 27 MMOL/L (20-31); CHLORIDE LEVEL 106 MMOL/L (98-107); CREATININE FOR GFR 0.75 MG/DL (0.70-1.30); GLOMERULAR FILTRATION RATE > 60.0 (>49); GLUCOSE, FASTING 122 MG/DL (74-106); SODIUM LEVEL 138 MMOL/L (136-145)
[2024-05-08 08:46] VITALS: BP 149/75
[2024-05-08] MEDS ORDERED: LINE1TAB6 PO (09:48)
[2024-05-08] MEDS ORDERED: GLUC1TES2 XX (15:32)
[2024-05-08] MEDS ORDERED: BLOOKIT21 XX (15:32)
[2024-05-08] MEDS ORDERED: PEN-308 SC (15:32)
[2024-05-08] MEDS ORDERED: ALCOPAD25 TOP (15:32)
[2024-05-08] MEDS ORDERED: LANC30MI XX (15:32)
[2024-05-08] MEDS ORDERED: LANTINJ4 SC (15:32)
[2024-05-08] MEDS ORDERED: GLIM1TAB84 PO (15:33)
[2024-05-08] MEDS ORDERED: NICO14DI24 TOP (15:34)
== END 2024-05-08 13:00 | disposition home or self-care (01) ==
LOC: M ED 22:11 → M ED INP 22:12 → M MSPAV 04-28 03:38
PROVIDERS: ADMIT Internal Medicine; ATTEND General Practice
DX: L03.113 Cellulitis of right upper limb (principal); I10 Essential (primary) hypertension; E11.9 Type 2 diabetes mellitus without complications; E78.5 Hyperlipidemia, unspecified; Z79.2 Long term (current) use of antibiotics; E66.01 Morbid (severe) obesity due to excess calories; K21.9 Gastro-esophageal reflux disease without esophagitis; F25.8 Other schizoaffective disorders; B37.89 Other sites of candidiasis; F17.218 Nicotine dependence, cigarettes, with other nicotine-induced disorders; F10.11 Alcohol abuse, in remission; Z79.899 Other long term (current) drug therapy; Z88.8 Allergy status to other drugs, medicaments and biological substances
CPT/HCPCS: 11042; 36415; 73201; 80048; 80053; 80202; 83036; 85025; 85027; 85652; 86140; 87040; 96365; 96366; 96372; 96375; 96376; 99284; G0378; J0131; J1100; J1650; J1815; J1885; J2250; J2405; J3010; J3372; Q9967

== ENCOUNTER 2024-05-16 02:34 | Emergency (ER) | payer MEDICARE, MEDICAID ==
[~2024-05-16] VITALS: Ht 167.6 cm; Wt 114.0 kg
[~2024-05-16 02:34] MED LIST changes: +ALCOPAD25 TOP; +BLOOKIT21 XX; +DOCU8.6T PO; +GLIM1TAB84 PO; +GLUC1TES2 XX; +LANC30MI XX; +NICO14DI24 TOP; +OXYC1TAB23 PO; +PEN-308 SC
[2024-05-16 02:43] VITALS: TEMP 97
[2024-05-16 03:30] VITALS: BP 142/77; O2SAT 97
== END 2024-05-16 04:27 | disposition home or self-care (01) ==
LOC: M ED 02:34 → EDBD 02:34 → M ED 04:27
DX: R22.31 Localized swelling, mass and lump, right upper limb (principal); W01.0XXA Fall on same level from slipping, tripping and stumbling without subsequent striking against object, initial encounter; I10 Essential (primary) hypertension; E78.5 Hyperlipidemia, unspecified; E11.9 Type 2 diabetes mellitus without complications; Y92.410 Unspecified street and highway as the place of occurrence of the external cause; Y93.89 Activity, other specified; Y99.9 Unspecified external cause status; Z88.8 Allergy status to other drugs, medicaments and biological substances; Z79.84 Long term (current) use of oral hypoglycemic drugs; Z79.899 Other long term (current) drug therapy; Z79.1 Long term (current) use of non-steroidal anti-inflammatories (NSAID)

== ENCOUNTER → 2024-06-03 | Outpatient (CLI) | payer MEDICARE, MEDICAID ==
[~2024-06-03] MED LIST changes: +CEPH500C PO
[2024-06-03 13:44] LABS: BASO # 0.1 10^3/uL (0.0-0.2); BASO % 0.8 % (0.0-1.0); EOS # 0.4 10^3/uL (0.0-0.5); EOS % 4.6 % (0.0-3.0); HEMOGLOBIN 13.4 g/dl (13.5-17.5); LYMPH # 2.4 10^3/uL (1.5-5.0); LYMPH % 27.3 % (24.0-44.0); MEAN CORPUSCULAR HEMOGLOBIN 29.4 pg (27.0-33.0); MEAN CORPUSCULAR HGB CONC 33.5 g/dl (32.0-36.5); MEAN CORPUSCULAR VOLUME 87.7 fl (80.0-96.0); MONO # 0.7 10^3/uL (0.0-0.8); MONO % 7.4 % (2.0-8.0); NEUTROPHILS # 5.3 10^3/uL (1.5-8.5); NEUTROPHILS % 59.4 % (36.0-66.0); PLATELET COUNT, AUTOMATED 333 10^3/uL (150-450); RED BLOOD COUNT 4.56 10^6/uL (4.30-6.10); WHITE BLOOD COUNT 8.9 10^3/uL (4.0-10.0)
[2024-06-03 13:54] LABS: ERYTHROCYTE SEDIMENTATION RATE 22 mm/hr (0-20)
== END ==
LOC: M PLALAB 09:12
PROVIDERS: ATTEND Internal Medicine Infectious Disease
DX: A49.02 Methicillin resistant Staphylococcus aureus infection, unspecified site (principal)

== ENCOUNTER 2024-06-16 08:56 | Emergency (ER) | payer MEDICARE, MEDICAID ==
[~2024-06-16] VITALS: Ht 167.6 cm; Wt 119.4 kg
[~2024-06-16 08:56] MED LIST changes: -CEPH500C PO
[2024-06-16 12:01] LABS: BASO % 0.4 % (0.0-1.0); EOS # 0.3 10^3/uL (0.0-0.5); EOS % 3.4 % (0.0-3.0); HEMATOCRIT 40.8 % (42.0-52.0); HEMOGLOBIN 14.1 g/dl (13.5-17.5); LYMPH # 2.5 10^3/uL (1.5-5.0); LYMPH % 26.6 % (24.0-44.0); MEAN CORPUSCULAR HEMOGLOBIN 29.7 pg (27.0-33.0); MEAN CORPUSCULAR HGB CONC 34.6 g/dl (32.0-36.5); MEAN CORPUSCULAR VOLUME 86.1 fl (80.0-96.0); MONO # 0.6 10^3/uL (0.0-0.8); MONO % 6.3 % (2.0-8.0); NEUTROPHILS # 5.8 10^3/uL (1.5-8.5); PLATELET COUNT, AUTOMATED 350 10^3/uL (150-450); RED BLOOD COUNT 4.74 10^6/uL (4.30-6.10); WHITE BLOOD COUNT 9.3 10^3/uL (4.0-10.0)
[2024-06-16 12:12] LABS: ERYTHROCYTE SEDIMENTATION RATE 28 mm/hr (0-20)
[2024-06-16 12:30] LABS: BLOOD UREA NITROGEN 13 MG/DL (9-23); C REACTIVE PROTEIN QUANTITATIV < 0.50 MG/DL (<1.0); CALCIUM LEVEL 9.1 MG/DL (8.3-10.6); CARBON DIOXIDE LEVEL 29 MMOL/L (20-31); CHLORIDE LEVEL 103 MMOL/L (98-107); CREATININE FOR GFR 0.66 MG/DL (0.70-1.30); GLOMERULAR FILTRATION RATE > 60.0 (>49); GLUCOSE, FASTING 184 MG/DL (74-106); SODIUM LEVEL 139 MMOL/L (136-145)
[2024-06-16] MEDS ORDERED: CEPH500C PO (14:23)
[2024-06-16 14:38] VITALS: BP 158/82; TEMP 98.2; O2SAT 98
== END 2024-06-16 14:40 | disposition home or self-care (01) ==
LOC: M ED 08:56
DX: L03.113 Cellulitis of right upper limb (principal); E11.9 Type 2 diabetes mellitus without complications; I10 Essential (primary) hypertension; J45.909 Unspecified asthma, uncomplicated; F17.200 Nicotine dependence, unspecified, uncomplicated; Z88.8 Allergy status to other drugs, medicaments and biological substances; Z79.899 Other long term (current) drug therapy; Z79.1 Long term (current) use of non-steroidal anti-inflammatories (NSAID); Z79.4 Long term (current) use of insulin; Z79.2 Long term (current) use of antibiotics

== ENCOUNTER → 2024-06-25 | Outpatient (REF) | payer MEDICARE, MEDICAID ==
[~2024-06-25] MED LIST changes: +CEPH500C PO
[2024-06-25 13:07] LABS: RSV AMPLIFICATION NEGATIVE (NEGATIVE)
== END ==
LOC: M LAB REF 12:07
PROVIDERS: ATTEND Internal Medicine
DX: R05.1 Acute cough (principal)

== ENCOUNTER 2024-07-09 09:37 | Emergency (ER) | payer MEDICARE, MEDICAID ==
[~2024-07-09] VITALS: Ht 170.2 cm; Wt 122.0 kg
[2024-07-09] MEDS ORDERED: VENTAER INH (11:29)
[2024-07-09] MEDS ORDERED: BENZ200C70 PO (11:29)
[2024-07-09] MEDS ORDERED: BREAMIS10 MC (11:29)
[2024-07-09 11:56] VITALS: BP 170/82; TEMP 98.2; O2SAT 96
[2024-07-10] MEDS ORDERED: NICO1DIS12 TD (17:52)
[2024-07-10] MEDS ORDERED: BENZ200C70 PO (18:44)
[2024-07-10] MEDS ORDERED: GLIM1TAB84 PO (18:44)
[2024-07-10] MEDS ORDERED: ALBU8.5H INH (18:44)
== END 2024-07-09 11:57 | disposition home or self-care (01) ==
LOC: EDBD 09:37 → M ED 09:37
DX: J06.9 Acute upper respiratory infection, unspecified (principal); Z11.52 Encounter for screening for COVID-19; Z88.8 Allergy status to other drugs, medicaments and biological substances; I10 Essential (primary) hypertension; J45.909 Unspecified asthma, uncomplicated; F25.9 Schizoaffective disorder, unspecified; F17.200 Nicotine dependence, unspecified, uncomplicated; Z79.899 Other long term (current) drug therapy; Z79.51 Long term (current) use of inhaled steroids

== ENCOUNTER 2024-07-10 16:54 | Inpatient (IN) | payer MEDICARE, MEDICAID ==
[~2024-07-10] VITALS: Ht 167.6 cm; Wt 117.1 kg
[~2024-07-10 16:54] MED LIST changes: +BENZ200C70 PO; +BREAMIS10 MC; +VENTAER INH
[2024-07-10] MEDS ORDERED: ALBUTEROL 90 MCG/ACT 8GM HFA INHALER INH PRN (17:30)
[2024-07-10 17:47] LABS: HEMATOCRIT 41.3 % (42.0-52.0); HEMOGLOBIN 14.4 g/dl (13.5-17.5); MEAN CORPUSCULAR HEMOGLOBIN 29.5 pg (27.0-33.0); MEAN CORPUSCULAR HGB CONC 34.9 g/dl (32.0-36.5); MEAN CORPUSCULAR VOLUME 84.6 fl (80.0-96.0); PLATELET COUNT, AUTOMATED 259 10^3/uL (150-450); RED BLOOD COUNT 4.88 10^6/uL (4.30-6.10); WHITE BLOOD COUNT 10.2 10^3/uL (4.0-10.0)
[2024-07-10] MEDS ORDERED: NICO1DIS12 TD (17:52)
[2024-07-10] MEDS: ACETAMINOPHEN 500 MG TAB PO ONE (17:53)
[2024-07-10 18:10] LABS: ETHYL ALCOHOL (ETHANOL) < 0.003 % (0.000-0.010)
[2024-07-10 18:12] LABS: ALBUMIN 3.8 G/DL (3.2-5.2); ALKALINE PHOSPHATASE 79 U/L (40-129); ALT/SGPT 30 U/L (7.0-40); AST/SGOT 17 U/L (<34); BILIRUBIN,DIRECT < 0.1 MG/DL (<0.4); BILIRUBIN,TOTAL 0.4 MG/DL (0.3-1.2); BLOOD UREA NITROGEN 13 MG/DL (9-23); CARBON DIOXIDE LEVEL 28 MMOL/L (20-31); CHLORIDE LEVEL 102 MMOL/L (98-107); CREATININE FOR GFR 0.77 MG/DL (0.70-1.30); GLOMERULAR FILTRATION RATE > 60.0 (>49); GLUCOSE, FASTING 210 MG/DL (74-106); POTASSIUM SERUM 3.5 MMOL/L (3.5-5.1); SALICYLATE LEVEL < 3.0 MG/DL (<30); SODIUM LEVEL 139 MMOL/L (136-145); TOTAL PROTEIN 7.4 G/DL (5.7-8.2)
[2024-07-10 18:13] LABS: THYROID STIMULATING HORMONE 1.498 uIU/ML (0.55-4.78)
[2024-07-10] MEDS ORDERED: ALBU8.5H INH (18:44)
[2024-07-10] MEDS ORDERED: GLIM1TAB84 PO (18:44)
[2024-07-10] MEDS ORDERED: BENZ200C70 PO (18:44)
[2024-07-10] MEDS ORDERED: HOME MED LIST COMPLETE! XX SCH (18:45)
[2024-07-10 20:34] LABS: AMPHETAMINES LEVEL URINE NEGATIVE (NEGATIVE); BARBITURATES URINE NEGATIVE (NEGATIVE); BENZODIAZEPINES URINE NEGATIVE (NEGATIVE); CANNABINOIDS URINE NEGATIVE (NEGATIVE); COCAINE METABOLITE URINE NEGATIVE (NEGATIVE); METHADONE URINE NEGATIVE (NEGATIVE); OPIATES URINE NEGATIVE (NEGATIVE); PHENCYCLIDINE URINE NEGATIVE (NEGATIVE)
[2024-07-10] MEDS ORDERED: LORazepam 1 MG TAB PO PRN (21:55)
[2024-07-10] MEDS ORDERED: diphenhydrAMINE 25MG CAP PO PRN (21:55)
[2024-07-10 22:28] VITALS: BP_SYST 142; BP_SYST 172; BP_DIAS 91; TEMP 98.3; O2SAT 99
[2024-07-11 06:38] VITALS: BP 145/84; TEMP 98.9; O2SAT 100
[2024-07-11] MEDS: NICOTINE 14 MG/24 HR TRANSDERMAL TD SCH (08:56)
[2024-07-11] MEDS: ACETAMINOPHEN 325 MG TAB PO PRN (08:56)
[2024-07-11] MEDS ORDERED: predniSONE 20 MG TAB PO SCH (09:00)
[2024-07-11] MEDS: OLANZapine 5 MG TAB PO SCH (13:57)
[2024-07-11 16:59] VITALS: BP 158/84; TEMP 99.2; O2SAT 95
[2024-07-11] MEDS: SENOKOT S TAB PO SCH (17:38)
[2024-07-11] MEDS: ALBUTEROL 90 MCG/ACT 8GM HFA INHALER INH PRN (21:41)
[2024-07-12 06:45] VITALS: BP 164/76; TEMP 97.6; O2SAT 97
[2024-07-12] MEDS: hydroCHLOROthiazide 12.5 MG CAPSULE PO SCH (08:47)
[2024-07-12 08:50] VITALS: BP 168/90
[2024-07-12] MEDS: GLIMEPIRIDE 1 MG TABLET PO SCH (08:51)
[2024-07-12] MEDS: OMEPRAZOLE 20MG CAP PO SCH (08:51)
[2024-07-12] MEDS: RISPERIDONE 1 MG TAB PO SCH (09:54)
[2024-07-12 16:17] VITALS: BP 138/78; TEMP 98.1; O2SAT 98
[2024-07-12] MEDS: CEPACOL LOZENGE PO PRN (17:37)
[2024-07-12] MEDS: LORATADINE 10 MG TAB PO ONE (17:37)
[2024-07-12] MEDS: guaiFENesin DM LIQ 10ML UD PO PRN (17:41)
[2024-07-12] MEDS: ALBUTEROL 90 MCG/ACT 8GM HFA INHALER INH SCH (20:57)
[2024-07-12] MEDS: FLUTICASONE PROP 0.05% NASAL SPRAY 16 GM (FLONASE) NARES SCH (21:44)
[2024-07-13 01:40] VITALS: TEMP 98.3
[2024-07-13] MEDS: traZODone 50 MG TAB PO PRN (01:46)
[2024-07-13 06:24] VITALS: BP 150/80; TEMP 98.3; O2SAT 100
[2024-07-13 14:00] VITALS: BP 164/85; TEMP 97.6; O2SAT 97
[2024-07-13] MEDS: busPIRone 10 MG TAB PO SCH (20:35)
[2024-07-13] MEDS: MOM 30ML SUSPENSION UDC PO PRN (20:41)
[2024-07-13] MEDS: LORATADINE 10 MG TAB PO SCH (20:45)
[2024-07-14 06:38] VITALS: BP 154/88; TEMP 97.2; O2SAT 95
[2024-07-14 15:29] VITALS: BP 145/86; TEMP 98; O2SAT 96
[2024-07-14] MEDS: POLYSPORIN TOPICAL OINTMENT 15GM TOP SCH (15:51)
[2024-07-15 06:58] VITALS: BP 171/93; TEMP 97.6; O2SAT 98
[2024-07-15 07:52] VITALS: BP 156/75; TEMP 98.1; O2SAT 97
[2024-07-15] MEDS: PALIPERIDONE 3MG ER TAB (INVEGA) PO SCH (16:58)
[2024-07-15 17:55] VITALS: BP 156/82; TEMP 98.3; O2SAT 95
[2024-07-16 07:08] VITALS: BP 160/84; TEMP 97.9; O2SAT 96
[2024-07-16 08:28] VITALS: BP 168/88
[2024-07-16 16:07] VITALS: BP 162/86; TEMP 97.5; O2SAT 97
[2024-07-17] MEDS: ALBUTEROL 90 MCG/ACT 8GM HFA INHALER INH PRN (04:29)
[2024-07-17 08:30] VITALS: BP 182/102
[2024-07-17 10:00] VITALS: BP 146/88
[2024-07-17] MEDS: PALIPERIDONE PAL 234MG/1.5ML INJ (INVEGA)(FREE PSY INPT ONLY) IM ONE (14:57)
[2024-07-17 15:37] VITALS: BP 176/98; TEMP 98.2; O2SAT 97
[2024-07-17 15:54] VITALS: BP 168/90
[2024-07-17] MEDS: **hydrALAZINE HCL** 25 MG TAB PO PRN (16:00)
[2024-07-18 06:29] VITALS: BP 152/89; TEMP 97.1; O2SAT 96
[2024-07-18 08:46] VITALS: BP 185/95
[2024-07-18 14:56] VITALS: BP 160/84; TEMP 97.8; O2SAT 95
[2024-07-19 06:33] VITALS: BP 170/80; TEMP 98; O2SAT 97
[2024-07-19 17:13] VITALS: BP 160/84; TEMP 98.1; O2SAT 96
[2024-07-20 06:37] VITALS: BP 160/88; TEMP 97.6; O2SAT 94
[2024-07-20 08:36] VITALS: BP 154/78
[2024-07-21 08:21] VITALS: BP 148/70
[2024-07-21 15:06] VITALS: BP 135/70; TEMP 98.1; O2SAT 94
[2024-07-22 06:53] VITALS: BP 130/60; TEMP 98.1; O2SAT 98
[2024-07-22 08:36] VITALS: BP 128/76
[2024-07-22] MEDS ORDERED: PALIPERIDONE PAL 156MG/1ML INJ(INVEGA)(FREE PSY INPT ONLY) IM ONE (17:05)
[2024-07-22 17:16] VITALS: BP 148/80; TEMP 97.3; O2SAT 98
[2024-07-23 06:43] VITALS: BP 154/77; TEMP 97.2; O2SAT 96
[2024-07-23] MEDS: PALIPERIDONE 3MG ER TAB (INVEGA) PO SCH (08:12)
[2024-07-23] MEDS: PALIPERIDONE PAL 156MG/1ML INJ(INVEGA)(FREE PSY INPT ONLY) IM ONE (12:11)
[2024-07-23] MEDS: busPIRone 10 MG TAB PO SCH (15:37)
[2024-07-23 16:07] VITALS: BP 144/72; TEMP 98.1
[2024-07-24] MEDS: MAALOX 30 ML SUSP *UDC PO PRN (04:28)
[2024-07-24 09:24] VITALS: BP 140/64; TEMP 97.5; O2SAT 96
[2024-07-24 09:29] VITALS: BP 116/62
[2024-07-24 16:18] VITALS: BP 141/75; TEMP 97.5; O2SAT 97
[2024-07-25 06:34] VITALS: BP 150/60; TEMP 98.3; O2SAT 96
[2024-07-25 17:30] VITALS: BP 149/76; TEMP 97.7; O2SAT 96
[2024-07-26 09:03] VITALS: BP 150/67
[2024-07-26] MEDS ORDERED: VENTAER INH ×2 (10:59)
[2024-07-26] MEDS ORDERED: AMLO1TAB25 PO (10:59)
[2024-07-26] MEDS ORDERED: BUSP10TA PO (10:59)
[2024-07-26] MEDS ORDERED: TRAZ-252 PO (10:59)
[2024-07-26] MEDS ORDERED: LISI10TA22 PO (10:59)
[2024-07-26] MEDS ORDERED: PALI1TAB2 PO (10:59)
== END 2024-07-26 14:04 | disposition home or self-care (01) | DRG 885 ==
LOC: EDUNIT# 16:54 → M ED 16:54 → EDBD 16:54 → M ED INP 21:55 → M PSY 22:24
PROVIDERS: ADMIT Psychiatry & Neurology Neurology; ATTEND Psychiatry & Neurology Neurology
DX: F20.9 Schizophrenia, unspecified (principal); Z68.42 Body mass index [BMI] 45.0-49.9, adult; Z88.8 Allergy status to other drugs, medicaments and biological substances; Z79.899 Other long term (current) drug therapy; E66.01 Morbid (severe) obesity due to excess calories; E11.9 Type 2 diabetes mellitus without complications; I10 Essential (primary) hypertension; Z86.16 Personal history of COVID-19; E78.5 Hyperlipidemia, unspecified; K21.9 Gastro-esophageal reflux disease without esophagitis; J45.909 Unspecified asthma, uncomplicated

== ENCOUNTER 2024-07-30 00:53 | Emergency (ER) | payer MEDICAID, MEDICARE ==
[~2024-07-30 00:53] MED LIST changes: +ALBU8.5H INH; +BUSP10TA PO; +LISI10TA22 PO; +NICO1DIS12 TD; +TRAZ-252 PO
[2024-07-30 01:56] LABS: BASO # 0.1 10^3/uL (0.0-0.2); BASO % 0.5 % (0.0-1.0); EOS # 0.4 10^3/uL (0.0-0.5); EOS % 4.1 % (0.0-3.0); HEMATOCRIT 36.9 % (42.0-52.0); HEMOGLOBIN 12.9 g/dl (13.5-17.5); LYMPH # 2.8 10^3/uL (1.5-5.0); LYMPH % 26.3 % (24.0-44.0); MEAN CORPUSCULAR HEMOGLOBIN 29.5 pg (27.0-33.0); MEAN CORPUSCULAR VOLUME 84.2 fl (80.0-96.0); MONO # 0.9 10^3/uL (0.0-0.8); MONO % 8.1 % (2.0-8.0); NEUTROPHILS # 6.4 10^3/uL (1.5-8.5); NEUTROPHILS % 60.4 % (36.0-66.0); PLATELET COUNT, AUTOMATED 323 10^3/uL (150-450); RED BLOOD COUNT 4.38 10^6/uL (4.30-6.10); WHITE BLOOD COUNT 10.5 10^3/uL (4.0-10.0)
[2024-07-30 02:10] LABS: BLOOD UREA NITROGEN 17 MG/DL (9-23); CALCIUM LEVEL 9.7 MG/DL (8.3-10.6); CARBON DIOXIDE LEVEL 30 MMOL/L (20-31); CHLORIDE LEVEL 100 MMOL/L (98-107); CK-MB VALUE MASS 2.8 NG/ML (<3.6); CREATININE FOR GFR 0.66 MG/DL (0.70-1.30); GLOMERULAR FILTRATION RATE > 60.0 (>49); GLUCOSE, FASTING 325 MG/DL (74-106); SODIUM LEVEL 138 MMOL/L (136-145)
[2024-07-30 02:14] LABS: CPK CREATINE PHOSPHOKINASE 120 U/L (46-171); MB/CK RELATIVE INDEX 2.33 (< OR =4)
[2024-07-30 03:27] LABS: CK-MB VALUE MASS 3.5 NG/ML (<3.6); MB/CK RELATIVE INDEX 3.07 (< OR =4)
[2024-07-30 04:53] VITALS: TEMP 98.2
[2024-07-30] MEDS ORDERED: PANTOPRAZOLE 40MG VIAL IV ONE (06:30)
[2024-07-30 07:45] VITALS: BP 158/76; O2SAT 97
[2024-07-30] MEDS: PANTOPRAZOLE 40MG TAB (PROTONIX) PO ONE (07:51)
== END 2024-07-30 07:58 | disposition home or self-care (01) ==
LOC: M ED 00:53 → EDBD 00:53 → M ED 07:58
DX: K21.9 Gastro-esophageal reflux disease without esophagitis (principal); F25.0 Schizoaffective disorder, bipolar type; F17.200 Nicotine dependence, unspecified, uncomplicated; Z79.84 Long term (current) use of oral hypoglycemic drugs; Z79.899 Other long term (current) drug therapy; Z88.8 Allergy status to other drugs, medicaments and biological substances

== ENCOUNTER 2024-08-27 16:34 | Inpatient (IN) | payer MEDICARE ==
[~2024-08-27] VITALS: Ht 167.6 cm; Wt 124.4 kg
[~2024-08-27 16:34] MED LIST changes: +GLIP-318 PO; -GLIP5TAB20 PO
[2024-08-27 17:57] LABS: HEMATOCRIT 39.9 % (42.0-52.0); HEMOGLOBIN 13.7 g/dl (13.5-17.5); MEAN CORPUSCULAR HEMOGLOBIN 28.9 pg (27.0-33.0); MEAN CORPUSCULAR HGB CONC 34.3 g/dl (32.0-36.5); MEAN CORPUSCULAR VOLUME 84.2 fl (80.0-96.0); PLATELET COUNT, AUTOMATED 278 10^3/uL (150-450); RED BLOOD COUNT 4.74 10^6/uL (4.30-6.10); WHITE BLOOD COUNT 9.2 10^3/uL (4.0-10.0)
[2024-08-27] MEDS ORDERED: TRAZ-252 PO (18:17)
[2024-08-27] MEDS ORDERED: BUSP10TA PO (18:17)
[2024-08-27] MEDS ORDERED: PALI1TAB2 PO (18:17)
[2024-08-27] MEDS ORDERED: APAP500T10 PO (18:19)
[2024-08-27] MEDS ORDERED: HOME MED LIST COMPLETE! XX SCH (18:20)
[2024-08-27 18:25] LABS: ETHYL ALCOHOL (ETHANOL) 0.011 % (0.000-0.010)
[2024-08-27 18:27] LABS: ALBUMIN 3.7 G/DL (3.2-5.2); ALKALINE PHOSPHATASE 79 U/L (40-129); ALT/SGPT 25 U/L (7.0-40); AST/SGOT 12 U/L (<34); BILIRUBIN,DIRECT < 0.1 MG/DL (<0.4); BILIRUBIN,TOTAL 0.3 MG/DL (0.3-1.2); BLOOD UREA NITROGEN 13 MG/DL (9-23); CALCIUM LEVEL 8.7 MG/DL (8.3-10.6); CARBON DIOXIDE LEVEL 27 MMOL/L (20-31); CHLORIDE LEVEL 101 MMOL/L (98-107); CREATININE FOR GFR 0.75 MG/DL (0.70-1.30); GLOMERULAR FILTRATION RATE > 60.0 (>49); GLUCOSE, FASTING 282 MG/DL (74-106); POTASSIUM SERUM 3.9 MMOL/L (3.5-5.1); SALICYLATE LEVEL < 3.0 MG/DL (<30); SODIUM LEVEL 136 MMOL/L (136-145); TOTAL PROTEIN 7.1 G/DL (5.7-8.2)
[2024-08-27 18:29] LABS: THYROID STIMULATING HORMONE 2.137 uIU/ML (0.55-4.78)
[2024-08-27 19:50] LABS: AMPHETAMINES LEVEL URINE NEGATIVE (NEGATIVE); BARBITURATES URINE NEGATIVE (NEGATIVE); BENZODIAZEPINES URINE NEGATIVE (NEGATIVE); CANNABINOIDS URINE NEGATIVE (NEGATIVE); COCAINE METABOLITE URINE NEGATIVE (NEGATIVE); METHADONE URINE NEGATIVE (NEGATIVE); OPIATES URINE NEGATIVE (NEGATIVE); PHENCYCLIDINE URINE NEGATIVE (NEGATIVE)
[2024-08-27] MEDS: SENOKOT S TAB PO SCH (21:24)
[2024-08-27] MEDS: IBUPROFEN 400MG TAB PO PRN (21:24)
[2024-08-27] MEDS ORDERED: MAALOX 30 ML SUSP *UDC PO PRN (22:50)
[2024-08-27] MEDS ORDERED: MOM 30ML SUSPENSION UDC PO PRN (22:50)
[2024-08-28 00:54] VITALS: BP 140/84; TEMP 97.8; O2SAT 96
[2024-08-28 06:40] VITALS: BP 139/67; TEMP 97.1; O2SAT 97
[2024-08-28] MEDS ORDERED: ALBUTEROL 90 MCG/ACT 8GM HFA INHALER INH PRN (08:05)
[2024-08-28 09:04] VITALS: BP 144/82
[2024-08-28] MEDS: SENOKOT S TAB PO SCH (09:09)
[2024-08-28] MEDS: VITAMIN D 1,000 INTERNATIONAL UNITS TABLET PO SCH (09:09)
[2024-08-28] MEDS: OMEPRAZOLE 20MG CAP PO SCH (09:09)
[2024-08-28] MEDS: ACETAMINOPHEN 325 MG TAB PO PRN (09:24)
[2024-08-28] MEDS: hydroCHLOROthiazide 12.5 MG CAPSULE PO SCH (10:25)
[2024-08-28 14:38] LABS: HEMOGLOBIN A1c 9.5 % (4.0-6.0)
[2024-08-28 15:21] VITALS: BP 134/69; TEMP 97.6; O2SAT 98
[2024-08-28] MEDS: busPIRone 10 MG TAB PO SCH (15:26)
[2024-08-28] MEDS: NICOTINE 21MG/24HR 1 EA TRANSDERMAL TD SCH (15:29)
[2024-08-28] MEDS: risperiDONE 3 MG TAB PO SCH (20:27)
[2024-08-29 06:32] VITALS: BP 142/63; TEMP 97.7; O2SAT 98
[2024-08-29] MEDS: PILL CUTTER 1 EACH XX PRN (08:21)
[2024-08-29] MEDS: SITagliptin 50 MG TAB (JANUVIA) PO SCH (08:22)
[2024-08-29 16:50] VITALS: BP 135/63; TEMP 97; O2SAT 99
[2024-08-30 06:45] VITALS: BP 147/65; TEMP 97.5; O2SAT 95
[2024-08-30 15:55] VITALS: BP 162/80; TEMP 97.3; O2SAT 97
[2024-08-30] MEDS: diphenhydrAMINE 25MG CAP PO PRN (20:50)
[2024-08-30] MEDS: traZODone 50 MG TAB PO PRN (20:50)
[2024-08-30] MEDS ORDERED: GLUCAGON INJ 1MG VIAL SC PRN (21:40)
[2024-08-30] MEDS ORDERED: DEXTROSE 50% 50ML SYRINGE IV PRN (21:40)
[2024-08-30] MEDS ORDERED: GLUCOSE 4 GM CHEW PO PRN (21:40)
[2024-08-30] MEDS: INSULIN LISPRO (NovoLOG) PER UNIT SC SCH (22:10)
[2024-08-30] MEDS: LanTUS (INSULIN GLARGINE INJ) 1 UNITS/0.01 ML SC ONE (23:18)
[2024-08-31] MEDS: INSULIN LISPRO (NovoLOG) PER UNIT SC SCH (06:43)
[2024-08-31] MEDS: LOPERAMIDE 2 MG CAPLET PO PRN (08:16)
[2024-08-31 10:00] VITALS: BP 130/70
[2024-08-31 11:51] VITALS: BP 152/82
[2024-08-31 16:08] VITALS: BP 125/65; TEMP 98.1; O2SAT 97
[2024-09-01 07:05] VITALS: BP 153/90; TEMP 97.8; O2SAT 96
[2024-09-01 09:56] VITALS: BP 168/90
[2024-09-01 15:30] VITALS: BP 136/73; TEMP 97.2; O2SAT 97
[2024-09-02 06:30] VITALS: BP 168/77; TEMP 97.7; O2SAT 97
[2024-09-02 09:29] VITALS: BP 141/72
[2024-09-02 09:32] VITALS: BP 141/72
[2024-09-02] MEDS ORDERED: BUSP10TA PO (09:45)
[2024-09-02] MEDS ORDERED: ALBU8.5H INH (09:45)
[2024-09-02] MEDS ORDERED: RISP3TAB20 PO (09:45)
[2024-09-02] MEDS ORDERED: GLUC4GMTAB PO (09:45)
[2024-09-02] MEDS ORDERED: INSUHUMDS SC ×2 (09:45)
[2024-09-02] MEDS ORDERED: LISI20TA35 PO (09:45)
[2024-09-02] MEDS ORDERED: TRAZ-252 PO (09:45)
[2024-09-02] MEDS ORDERED: AMLO1TAB25 PO (09:45)
[2024-09-02] MEDS ORDERED: DOCU8.6T PO (09:45)
[2024-09-02] MEDS ORDERED: OMEP-173 PO (09:45)
[2024-09-02] MEDS ORDERED: VITA200032 PO (09:45)
[2024-09-02] MEDS ORDERED: [UNRECOGNIZED DRUG - OTHER] SC (11:54)
[2024-09-02] MEDS ORDERED: GLUCMIS7 XX (11:54)
[2024-09-02] MEDS ORDERED: FREEMIS42 TOP (11:54)
[2024-09-02] MEDS ORDERED: CHOL1STR MC (12:08)
== END 2024-09-02 12:53 | disposition home or self-care (01) | DRG 885 ==
LOC: M ED 16:34 → M ED INP 23:04 → M PSY 08-28 00:45
PROVIDERS: ADMIT Psychiatry & Neurology Neurology; ATTEND Psychiatry & Neurology Neurology
DX: F25.0 Schizoaffective disorder, bipolar type (principal); R45.851 Suicidal ideations; Z68.42 Body mass index [BMI] 45.0-49.9, adult; Z91.148 Patient's other noncompliance with medication regimen for other reason; Z88.8 Allergy status to other drugs, medicaments and biological substances; E11.9 Type 2 diabetes mellitus without complications; I10 Essential (primary) hypertension; K21.9 Gastro-esophageal reflux disease without esophagitis; F17.210 Nicotine dependence, cigarettes, uncomplicated; E66.01 Morbid (severe) obesity due to excess calories; Z86.16 Personal history of COVID-19; Z79.899 Other long term (current) drug therapy; F60.89 Other specific personality disorders; M54.50 Low back pain, unspecified

== ENCOUNTER 2024-09-10 20:07 | Inpatient (IN) | payer MEDICARE, MEDICAID ==
[~2024-09-10] VITALS: Ht 167.6 cm; Wt 125.0 kg
[~2024-09-10 20:07] MED LIST changes: +APAP500T10 PO; +CHOL1STR MC; +FREEMIS42 TOP; +GLUC4GMTAB PO; +GLUCMIS7 XX; +INSUHUMDS SC; +RISP3TAB20 PO; +[UNRECOGNIZED DRUG - OTHER] SC
[2024-09-10 20:37] LABS: HEMATOCRIT 39.5 % (42.0-52.0); HEMOGLOBIN 13.9 g/dl (13.5-17.5); MEAN CORPUSCULAR HEMOGLOBIN 29.4 pg (27.0-33.0); MEAN CORPUSCULAR HGB CONC 35.2 g/dl (32.0-36.5); MEAN CORPUSCULAR VOLUME 83.5 fl (80.0-96.0); PLATELET COUNT, AUTOMATED 291 10^3/uL (150-450); RED BLOOD COUNT 4.73 10^6/uL (4.30-6.10); WHITE BLOOD COUNT 12.9 10^3/uL (4.0-10.0)
[2024-09-10 21:06] LABS: ETHYL ALCOHOL (ETHANOL) < 0.003 % (0.000-0.010)
[2024-09-10 21:08] LABS: ALBUMIN 3.8 G/DL (3.2-5.2); ALKALINE PHOSPHATASE 94 U/L (40-129); ALT/SGPT 22 U/L (7.0-40); AST/SGOT 10 U/L (<34); BILIRUBIN,DIRECT < 0.1 MG/DL (<0.4); BILIRUBIN,TOTAL 0.3 MG/DL (0.3-1.2); BLOOD UREA NITROGEN 13 MG/DL (9-23); CALCIUM LEVEL 8.8 MG/DL (8.3-10.6); CARBON DIOXIDE LEVEL 28 MMOL/L (20-31); CHLORIDE LEVEL 102 MMOL/L (98-107); CREATININE FOR GFR 0.76 MG/DL (0.70-1.30); GLOMERULAR FILTRATION RATE > 60.0 (>49); GLUCOSE, FASTING 389 MG/DL (74-106); POTASSIUM SERUM 3.7 MMOL/L (3.5-5.1); SALICYLATE LEVEL < 3.0 MG/DL (<30); SODIUM LEVEL 138 MMOL/L (136-145); TOTAL PROTEIN 7.4 G/DL (5.7-8.2)
[2024-09-10] MEDS: NICOTINE 21MG/24HR 1 EA TRANSDERMAL TD ONE (21:10)
[2024-09-10] MEDS: ACETAMINOPHEN 325 MG TAB PO ONE (22:00)
[2024-09-10] MEDS ORDERED: ONETTES13 (22:51)
[2024-09-10 22:53] LABS: AMPHETAMINES LEVEL URINE NEGATIVE (NEGATIVE); BARBITURATES URINE NEGATIVE (NEGATIVE); BENZODIAZEPINES URINE NEGATIVE (NEGATIVE); COCAINE METABOLITE URINE NEGATIVE (NEGATIVE)
[2024-09-10 22:54] LABS: CANNABINOIDS URINE NEGATIVE (NEGATIVE); METHADONE URINE NEGATIVE (NEGATIVE); OPIATES URINE NEGATIVE (NEGATIVE); PHENCYCLIDINE URINE NEGATIVE (NEGATIVE)
[2024-09-10] MEDS ORDERED: HOME MED LIST COMPLETE! XX SCH (23:15)
[2024-09-10] MEDS ORDERED: IBUP1TAB6 PO (23:15)
[2024-09-10] MEDS ORDERED: SENN1TAB85 PO (23:15)
[2024-09-10] MEDS ORDERED: RISP3TAB77 PO (23:15)
[2024-09-10] MEDS ORDERED: GLUC4GMTAB PO (23:15)
[2024-09-10] MEDS ORDERED: INSU100V6 SQ ×2 (23:15)
[2024-09-10] MEDS ORDERED: OMEP-611 PO (23:15)
[2024-09-10] MEDS ORDERED: VITA200020 PO (23:15)
[2024-09-10] MEDS ORDERED: MOM 30ML SUSPENSION UDC PO PRN (23:30)
[2024-09-10] MEDS ORDERED: MAALOX 30 ML SUSP *UDC PO PRN (23:30)
[2024-09-11] MEDS ORDERED: GLUCAGON INJ 1MG VIAL SC PRN (00:30)
[2024-09-11] MEDS ORDERED: GLUCOSE 4 GM CHEW PO PRN (00:30)
[2024-09-11] MEDS ORDERED: DEXTROSE 50% 50ML SYRINGE IV PRN (00:30)
[2024-09-11 01:06] VITALS: BP 138/86; TEMP 97; O2SAT 96
[2024-09-11] MEDS ORDERED: ALBUTEROL 90 MCG/ACT 8GM HFA INHALER INH PRN (06:35)
[2024-09-11] MEDS: INSULIN LISPRO (NovoLOG) PER UNIT SC SCH ×2 (06:56→20:31)
[2024-09-11] MEDS ORDERED: INSULIN LISPRO (NovoLOG) PER UNIT SC SCH (07:30)
[2024-09-11 07:34] VITALS: BP 143/79; TEMP 97.1; O2SAT 99
[2024-09-11] MEDS: ACETAMINOPHEN 325 MG TAB PO PRN (07:36)
[2024-09-11 08:42] VITALS: BP 147/87
[2024-09-11] MEDS: OMEPRAZOLE 20MG CAP PO SCH (08:44)
[2024-09-11] MEDS: busPIRone 10 MG TAB PO SCH (08:44)
[2024-09-11] MEDS: SENOKOT S TAB PO SCH (08:44)
[2024-09-11] MEDS: INSULIN LISPRO (NovoLOG) PER UNIT SQ SCH ×2 (12:22→20:30)
[2024-09-11 15:14] VITALS: BP 143/72; TEMP 97.1; O2SAT 97
[2024-09-11] MEDS: risperiDONE 3 MG TAB PO SCH (20:31)
[2024-09-11] MEDS: diphenhydrAMINE 25MG CAP PO PRN (20:31)
[2024-09-11] MEDS: traZODone 50 MG TAB PO PRN (20:31)
[2024-09-12 06:26] VITALS: BP 137/73; TEMP 97.8; O2SAT 98
[2024-09-12] MEDS: NICOTINE 21MG/24HR 1 EA TRANSDERMAL TD PRN (09:25)
[2024-09-12 16:11] VITALS: BP 148/88; TEMP 97.8; O2SAT 96
[2024-09-12] MEDS: PALIPERIDONE PAL 156MG/1ML INJ(INVEGA)(FREE PSY INPT ONLY) IM ONE (16:18)
[2024-09-13 06:42] VITALS: BP 153/89; TEMP 97.7; O2SAT 98
[2024-09-13 09:20] VITALS: BP 142/82
[2024-09-13] MEDS: DOCUSATE SODIUM 100MG CAPSULE PO PRN (09:20)
[2024-09-13] MEDS ORDERED: RISP3TAB77 PO (12:20)
[2024-09-13] MEDS ORDERED: BUSP10TA PO (12:20)
[2024-09-13] MEDS ORDERED: TRAZ-252 PO (12:20)
== END 2024-09-13 13:14 | disposition home or self-care (01) | DRG 885 ==
LOC: M ED 20:07 → M ED INP 23:30 → M PSY 09-11 00:50
PROVIDERS: ADMIT Psychiatry & Neurology Neurology; ATTEND Psychiatry & Neurology Neurology
DX: F25.0 Schizoaffective disorder, bipolar type (principal); R45.851 Suicidal ideations; Z59.00 Homelessness unspecified; Z68.41 Body mass index [BMI] 40.0-44.9, adult; F41.9 Anxiety disorder, unspecified; F60.89 Other specific personality disorders; E11.9 Type 2 diabetes mellitus without complications; E66.01 Morbid (severe) obesity due to excess calories; I10 Essential (primary) hypertension; E78.5 Hyperlipidemia, unspecified; K21.9 Gastro-esophageal reflux disease without esophagitis; F17.210 Nicotine dependence, cigarettes, uncomplicated; K59.00 Constipation, unspecified; Z79.4 Long term (current) use of insulin; Z79.899 Other long term (current) drug therapy; Z88.8 Allergy status to other drugs, medicaments and biological substances; Z86.16 Personal history of COVID-19; Z91.51 Personal history of suicidal behavior; Z71.6 Tobacco abuse counseling

== ENCOUNTER 2024-09-16 19:21 | Inpatient (IN) | payer MEDICARE, MEDICAID ==
[~2024-09-16] VITALS: Ht 167.6 cm; Wt 131.0 kg
[~2024-09-16 19:21] MED LIST changes: +IBUP1TAB6 PO; +INSU100V6 SQ; +OMEP-611 PO; +ONETTES13; +RISP3TAB77 PO; +SENN1TAB85 PO; +VITA200020 PO
[2024-09-16 20:26] LABS: HEMATOCRIT 37.7 % (42.0-52.0); HEMOGLOBIN 13.2 g/dl (13.5-17.5); MEAN CORPUSCULAR VOLUME 82.9 fl (80.0-96.0); PLATELET COUNT, AUTOMATED 275 10^3/uL (150-450); RED BLOOD COUNT 4.55 10^6/uL (4.30-6.10); WHITE BLOOD COUNT 10.9 10^3/uL (4.0-10.0)
[2024-09-16 20:55] LABS: ETHYL ALCOHOL (ETHANOL) 0.008 % (0.000-0.010)
[2024-09-16 20:57] LABS: ALBUMIN 3.5 G/DL (3.2-5.2); ALKALINE PHOSPHATASE 86 U/L (40-129); ALT/SGPT 21 U/L (7.0-40); AST/SGOT 10 U/L (<34); BILIRUBIN,DIRECT < 0.1 MG/DL (<0.4); BILIRUBIN,TOTAL 0.3 MG/DL (0.3-1.2); BLOOD UREA NITROGEN 17 MG/DL (9-23); CALCIUM LEVEL 8.7 MG/DL (8.3-10.6); CARBON DIOXIDE LEVEL 26 MMOL/L (20-31); CHLORIDE LEVEL 102 MMOL/L (98-107); CREATININE FOR GFR 0.77 MG/DL (0.70-1.30); GLOMERULAR FILTRATION RATE > 60.0 (>49); GLUCOSE, FASTING 340 MG/DL (74-106); POTASSIUM SERUM 3.8 MMOL/L (3.5-5.1); SALICYLATE LEVEL < 3.0 MG/DL (<30); SODIUM LEVEL 138 MMOL/L (136-145); TOTAL PROTEIN 6.7 G/DL (5.7-8.2)
[2024-09-16 20:58] LABS: THYROID STIMULATING HORMONE 2.605 uIU/ML (0.55-4.78)
[2024-09-16 22:00] LABS: AMPHETAMINES LEVEL URINE NEGATIVE (NEGATIVE); CANNABINOIDS URINE NEGATIVE (NEGATIVE); PHENCYCLIDINE URINE NEGATIVE (NEGATIVE)
[2024-09-16 22:01] LABS: BARBITURATES URINE NEGATIVE (NEGATIVE); BENZODIAZEPINES URINE NEGATIVE (NEGATIVE); COCAINE METABOLITE URINE NEGATIVE (NEGATIVE); METHADONE URINE NEGATIVE (NEGATIVE); OPIATES URINE NEGATIVE (NEGATIVE)
[2024-09-16] MEDS ORDERED: HOME MED LIST COMPLETE! XX SCH (22:40)
[2024-09-16] MEDS ORDERED: diphenhydrAMINE 25MG CAP PO PRN (23:20)
[2024-09-16] MEDS ORDERED: ALBUTEROL 90 MCG/ACT 8GM HFA INHALER INH PRN (23:20)
[2024-09-16] MEDS ORDERED: traZODone 50 MG TAB PO PRN (23:20)
[2024-09-16] MEDS ORDERED: ACETAMINOPHEN 325 MG TAB PO PRN (23:20)
[2024-09-17 00:11] VITALS: BP 162/75; TEMP 97.2; O2SAT 94
[2024-09-17] MEDS ORDERED: GLUCAGON INJ 1MG VIAL SC PRN (01:40)
[2024-09-17] MEDS ORDERED: GLUCOSE 4 GM CHEW PO PRN (01:40)
[2024-09-17] MEDS ORDERED: DEXTROSE 50% 50ML SYRINGE IV PRN (01:40)
[2024-09-17] MEDS: risperiDONE 3 MG TAB PO SCH (01:43)
[2024-09-17] MEDS: busPIRone 10 MG TAB PO SCH (01:43)
[2024-09-17] MEDS: INSULIN LISPRO (NovoLOG) PER UNIT SQ SCH ×2 (02:57→08:19)
[2024-09-17 06:36] VITALS: BP 151/70; TEMP 97.2; O2SAT 96
[2024-09-17 08:20] VITALS: BP 150/90
[2024-09-17] MEDS: INSULIN LISPRO (NovoLOG) PER UNIT SC SCH ×2 (08:20→20:49)
[2024-09-17] MEDS: SENOKOT S TAB PO SCH (09:00)
[2024-09-17 17:35] VITALS: BP 147/97; TEMP 97.5; O2SAT 95
[2024-09-17] MEDS: DOCUSATE SODIUM 100MG CAPSULE PO SCH (20:48)
[2024-09-18 06:26] VITALS: BP 140/70; TEMP 97.7; O2SAT 96
[2024-09-18 08:53] VITALS: BP 145/76
[2024-09-18] MEDS ORDERED: SODIUM CHLORIDE NASAL 0.65% SPRAY BTL (OCEAN) PRN (11:05)
[2024-09-18 15:29] VITALS: BP 163/80; TEMP 97.5; O2SAT 17
[2024-09-18] MEDS: guaiFENesin ER TABLET 600 MG TAB PO PRN (15:41)
[2024-09-18] MEDS: LORATADINE 10 MG TAB PO SCH (20:53)
[2024-09-19] MEDS: guaiFENesin DM *SUGAR FREE* 5ML**DIABETIC TUSSIN DM PO PRN (02:07)
[2024-09-19 06:47] VITALS: BP 160/83; TEMP 97.8; O2SAT 97
[2024-09-19 14:57] VITALS: BP 160/88; TEMP 97.4; O2SAT 96
[2024-09-20 06:12] VITALS: BP 161/68; TEMP 97.5; O2SAT 95
[2024-09-20 06:20] VITALS: BP 148/80
[2024-09-20 15:53] VITALS: BP 142/86; TEMP 97.4; O2SAT 98
[2024-09-20] MEDS: SENNA 8.6 MG TAB (SENOKOT) PO PRN (20:39)
[2024-09-21 06:22] VITALS: BP 140/81; TEMP 97.7; O2SAT 96
[2024-09-21 16:01] VITALS: BP 160/94; TEMP 97.5; O2SAT 94
[2024-09-21] MEDS: MOM 30ML SUSPENSION UDC PO PRN (18:34)
[2024-09-22 06:26] VITALS: BP 152/100; TEMP 98; O2SAT 95
[2024-09-22] MEDS: MAALOX 30 ML SUSP *UDC PO PRN (10:56)
[2024-09-22 16:04] VITALS: TEMP 97.5; O2SAT 96
[2024-09-23 06:19] VITALS: BP 140/78; TEMP 97.6; O2SAT 96
[2024-09-23 08:54] VITALS: BP 124/88
[2024-09-23 08:56] VITALS: BP 124/88
== END 2024-09-23 14:52 | disposition home or self-care (01) | DRG 885 ==
LOC: M ED 19:21 → M ED INP 23:16 → M PSY 09-17 00:29
PROVIDERS: ADMIT Psychiatry & Neurology Neurology; ATTEND Psychiatry & Neurology Neurology
DX: F25.0 Schizoaffective disorder, bipolar type (principal); R45.851 Suicidal ideations; Z59.00 Homelessness unspecified; F41.9 Anxiety disorder, unspecified; F60.3 Borderline personality disorder; Z88.8 Allergy status to other drugs, medicaments and biological substances; Z79.899 Other long term (current) drug therapy; I10 Essential (primary) hypertension; E11.9 Type 2 diabetes mellitus without complications; Z79.4 Long term (current) use of insulin; M54.59 Other low back pain

== ENCOUNTER 2024-10-03 19:32 | Inpatient (IN) | payer MEDICARE, MEDICAID ==
[~2024-10-03] VITALS: Ht 167.6 cm; Wt 125.5 kg
[~2024-10-03 19:32] MED LIST changes: +AMLO-751 PO; -AMLO10TA PO; -BUPR-597; -BUPR-597 PO; +BUPR-766; +BUPR-766 PO
[2024-10-03] MEDS: NS (Normal Saline) 0.9% 1,000 ML IV ONE (19:55)
[2024-10-03 21:15] LABS: BASO # 0.1 10^3/uL (0.0-0.2); BASO % 0.5 % (0.0-1.0); EOS # 0.4 10^3/uL (0.0-0.5); EOS % 2.9 % (0.0-3.0); HEMATOCRIT 37.9 % (42.0-52.0); HEMOGLOBIN 13.2 g/dl (13.5-17.5); LYMPH # 3.6 10^3/uL (1.5-5.0); LYMPH % 27.5 % (24.0-44.0); MEAN CORPUSCULAR HEMOGLOBIN 28.6 pg (27.0-33.0); MEAN CORPUSCULAR HGB CONC 34.8 g/dl (32.0-36.5); MEAN CORPUSCULAR VOLUME 82.2 fl (80.0-96.0); MONO # 0.8 10^3/uL (0.0-0.8); MONO % 6.2 % (2.0-8.0); NEUTROPHILS # 8.1 10^3/uL (1.5-8.5); NEUTROPHILS % 62.6 % (36.0-66.0); PLATELET COUNT, AUTOMATED 298 10^3/uL (150-450); RED BLOOD COUNT 4.61 10^6/uL (4.30-6.10)
[2024-10-03 21:44] LABS: ETHYL ALCOHOL (ETHANOL) < 0.003 % (0.000-0.010)
[2024-10-03 21:45] LABS: CPK CREATINE PHOSPHOKINASE 152 U/L (46-171); SALICYLATE LEVEL < 3.0 MG/DL (<30)
[2024-10-03 21:46] LABS: ALBUMIN 3.4 G/DL (3.2-5.2); ALKALINE PHOSPHATASE 83 U/L (40-129); ALT/SGPT 20 U/L (7.0-40); AST/SGOT 13 U/L (<34); BILIRUBIN,DIRECT < 0.1 MG/DL (<0.4); BILIRUBIN,TOTAL 0.3 MG/DL (0.3-1.2); BLOOD UREA NITROGEN 16 MG/DL (9-23); CALCIUM LEVEL 9.7 MG/DL (8.3-10.6); CARBON DIOXIDE LEVEL 30 MMOL/L (20-31); CHLORIDE LEVEL 101 MMOL/L (98-107); GLOMERULAR FILTRATION RATE > 90.0 (>49); GLUCOSE, FASTING 215 MG/DL (74-106); POTASSIUM SERUM 3.4 MMOL/L (3.5-5.1); SODIUM LEVEL 140 MMOL/L (136-145); TOTAL PROTEIN 6.5 G/DL (5.7-8.2)
[2024-10-03 21:47] LABS: THYROID STIMULATING HORMONE 3.162 uIU/ML (0.55-4.78)
[2024-10-04 00:06] LABS: AMPHETAMINES LEVEL URINE NEGATIVE (NEGATIVE); BARBITURATES URINE NEGATIVE (NEGATIVE); BENZODIAZEPINES URINE NEGATIVE (NEGATIVE); CANNABINOIDS URINE NEGATIVE (NEGATIVE); COCAINE METABOLITE URINE NEGATIVE (NEGATIVE); METHADONE URINE NEGATIVE (NEGATIVE); OPIATES URINE NEGATIVE (NEGATIVE); PHENCYCLIDINE URINE NEGATIVE (NEGATIVE)
[2024-10-04] MEDS ORDERED: JANU100T PO (01:16)
[2024-10-04] MEDS ORDERED: VALS1TAB66 PO (01:16)
[2024-10-04] MEDS ORDERED: GABA-1171 PO (01:16)
[2024-10-04] MEDS ORDERED: TOUJ1.2I SQ (01:16)
[2024-10-04] MEDS ORDERED: HOME MED LIST COMPLETE! XX SCH (01:20)
[2024-10-04] MEDS: VALSARTAN 80 MG TAB (DIOVAN) PO ONE (03:06)
[2024-10-04] MEDS: GABAPENTIN 100 MG CAP PO SCH (09:00)
[2024-10-04] MEDS: INSULIN LISPRO (NovoLOG) PER UNIT SQ SCH (12:00)
[2024-10-04] MEDS ORDERED: ALBUTEROL 90 MCG/ACT 8GM HFA INHALER INH PRN (13:15)
[2024-10-04 14:43] VITALS: BP 154/85; TEMP 98.1; O2SAT 97
[2024-10-04] MEDS: SITagliptin 50 MG TAB (JANUVIA) PO SCH (15:12)
[2024-10-04] MEDS: busPIRone 10 MG TAB PO SCH (15:12)
[2024-10-04] MEDS: OMEPRAZOLE 20MG CAP PO SCH (15:12)
[2024-10-04] MEDS: NICOTINE 21MG/24HR 1 EA TRANSDERMAL TD SCH (15:13)
[2024-10-04] MEDS: POTASSIUM CHLORIDE 10MEQ SR TABLET PO ONE (17:04)
[2024-10-04] MEDS: risperiDONE 3 MG TAB PO SCH (20:49)
[2024-10-04] MEDS: LanTUS (INSULIN GLARGINE INJ) 1 UNITS/0.01 ML SC SCH (20:49)
[2024-10-04] MEDS: SENOKOT S TAB PO SCH (20:49)
[2024-10-04] MEDS ORDERED: INSULIN LISPRO (NovoLOG) PER UNIT SQ SCH (21:00)
[2024-10-04] MEDS: IBUPROFEN 600MG TAB PO PRN (21:30)
[2024-10-05 07:01] VITALS: BP 160/68; TEMP 97.5; O2SAT 95
[2024-10-05] MEDS: VALSARTAN 80 MG TAB (DIOVAN) PO SCH (09:39)
[2024-10-05] MEDS: OLANZapine ORAL DISINTEGRATING TAB 5MG PO PRN (12:53)
[2024-10-05] MEDS: GABAPENTIN 100 MG CAP PO SCH (16:36)
[2024-10-06 09:14] VITALS: BP 166/84
[2024-10-06 14:34] VITALS: BP 164/92; TEMP 97.2; O2SAT 100
[2024-10-06] MEDS: ACETAMINOPHEN 325 MG TAB PO PRN (16:58)
[2024-10-07 01:40] VITALS: BP 160/88; TEMP 97.1; O2SAT 95
[2024-10-07 06:31] VITALS: BP 163/74; TEMP 97.3; O2SAT 93
[2024-10-07 09:02] VITALS: BP 180/90
[2024-10-07 17:23] VITALS: BP 144/84; TEMP 97.2; O2SAT 98
[2024-10-08] MEDS: ACETAMINOPHEN 500 MG TAB PO PRN (02:53)
[2024-10-08 06:37] VITALS: BP 160/90; TEMP 97.6; O2SAT 95
[2024-10-08 08:25] VITALS: BP 119/57
[2024-10-08 08:30] VITALS: BP 119/57
[2024-10-08] MEDS ORDERED: NICO21PAT TD (10:00)
[2024-10-08] MEDS ORDERED: GABA-1171 PO ×2 (10:00→10:56)
== END 2024-10-08 14:09 | disposition home or self-care (01) | DRG 885 ==
LOC: M ED 19:32 → M ED INP 10-04 11:04 → M PSY 10-04 11:59
PROVIDERS: ADMIT Psychiatry & Neurology Psychiatry; ATTEND Psychiatry & Neurology Psychiatry
DX: F25.0 Schizoaffective disorder, bipolar type (principal); Z59.00 Homelessness unspecified; R45.851 Suicidal ideations; Z88.8 Allergy status to other drugs, medicaments and biological substances; Z79.899 Other long term (current) drug therapy; I10 Essential (primary) hypertension; E11.40 Type 2 diabetes mellitus with diabetic neuropathy, unspecified; M54.59 Other low back pain; D72.829 Elevated white blood cell count, unspecified; D64.9 Anemia, unspecified; E87.6 Hypokalemia; F17.200 Nicotine dependence, unspecified, uncomplicated; K21.9 Gastro-esophageal reflux disease without esophagitis; Z79.4 Long term (current) use of insulin; R51.9 Headache, unspecified

== ENCOUNTER 2024-10-09 17:19 | Inpatient (IN) | payer MEDICARE, MEDICAID ==
[~2024-10-09] VITALS: Ht 167.6 cm; Wt 125.1 kg
[~2024-10-09 17:19] MED LIST changes: +GABA-1171 PO; +JANU100T PO; +NICO21PAT TD; +TOUJ1.2I SQ; +VALS1TAB66 PO
[2024-10-09 18:31] LABS: HEMATOCRIT 43.3 % (42.0-52.0); HEMOGLOBIN 14.6 g/dl (13.5-17.5); MEAN CORPUSCULAR HEMOGLOBIN 28.6 pg (27.0-33.0); MEAN CORPUSCULAR HGB CONC 33.7 g/dl (32.0-36.5); MEAN CORPUSCULAR VOLUME 84.9 fl (80.0-96.0); PLATELET COUNT, AUTOMATED 308 10^3/uL (150-450); WHITE BLOOD COUNT 10.5 10^3/uL (4.0-10.0)
[2024-10-09 18:43] LABS: ETHYL ALCOHOL (ETHANOL) < 0.003 % (0.000-0.010)
[2024-10-09 18:45] LABS: ALBUMIN 3.9 G/DL (3.2-5.2); ALKALINE PHOSPHATASE 91 U/L (40-129); ALT/SGPT 24 U/L (7.0-40); AST/SGOT 12 U/L (<34); BILIRUBIN,DIRECT < 0.1 MG/DL (<0.4); BILIRUBIN,TOTAL 0.4 MG/DL (0.3-1.2); BLOOD UREA NITROGEN 15 MG/DL (9-23); CALCIUM LEVEL 8.7 MG/DL (8.3-10.6); CARBON DIOXIDE LEVEL 30 MMOL/L (20-31); CHLORIDE LEVEL 101 MMOL/L (98-107); CREATININE FOR GFR 0.73 MG/DL (0.70-1.30); GLOMERULAR FILTRATION RATE > 90.0 (>49); GLUCOSE, FASTING 159 MG/DL (74-106); POTASSIUM SERUM 3.7 MMOL/L (3.5-5.1); SALICYLATE LEVEL < 3.0 MG/DL (<30); SODIUM LEVEL 140 MMOL/L (136-145); TOTAL PROTEIN 7.4 G/DL (5.7-8.2)
[2024-10-09 18:47] LABS: THYROID STIMULATING HORMONE 3.652 uIU/ML (0.55-4.78)
[2024-10-09] MEDS ORDERED: HOME MED LIST COMPLETE! XX SCH (18:50)
[2024-10-09 20:02] LABS: AMPHETAMINES LEVEL URINE NEGATIVE (NEGATIVE); BARBITURATES URINE NEGATIVE (NEGATIVE); BENZODIAZEPINES URINE NEGATIVE (NEGATIVE); CANNABINOIDS URINE NEGATIVE (NEGATIVE); COCAINE METABOLITE URINE NEGATIVE (NEGATIVE); METHADONE URINE NEGATIVE (NEGATIVE); OPIATES URINE NEGATIVE (NEGATIVE); PHENCYCLIDINE URINE NEGATIVE (NEGATIVE)
[2024-10-09] MEDS ORDERED: traZODone 50 MG TAB PO PRN (20:45)
[2024-10-09] MEDS ORDERED: ACETAMINOPHEN 325 MG TAB PO PRN (20:45)
[2024-10-09] MEDS ORDERED: diphenhydrAMINE 25MG CAP PO PRN (20:45)
[2024-10-09 22:38] VITALS: BP 156/88; TEMP 97.4; O2SAT 96
[2024-10-09] MEDS ORDERED: GLUCAGON INJ 1MG VIAL SC PRN (23:00)
[2024-10-09] MEDS ORDERED: DEXTROSE 50% 50ML SYRINGE IV PRN (23:00)
[2024-10-09] MEDS ORDERED: GLUCOSE 4 GM CHEW PO PRN (23:00)
[2024-10-10] MEDS: INSULIN LISPRO (NovoLOG) PER UNIT SC SCH ×2 (06:38→20:47)
[2024-10-10 06:49] VITALS: BP 139/63; TEMP 97.4; O2SAT 94
[2024-10-10] MEDS ORDERED: ALBUTEROL 90 MCG/ACT 8GM HFA INHALER INH PRN (07:55)
[2024-10-10] MEDS: SITagliptin 50 MG TAB (JANUVIA) PO SCH (09:24)
[2024-10-10] MEDS: OMEPRAZOLE 20MG CAP PO SCH (09:24)
[2024-10-10] MEDS: SENOKOT S TAB PO SCH (09:24)
[2024-10-10] MEDS: GABAPENTIN 100 MG CAP PO SCH (09:24)
[2024-10-10] MEDS: VITAMIN D 1,000 INTERNATIONAL UNITS TABLET PO SCH (09:24)
[2024-10-10] MEDS: VALSARTAN 80 MG TAB (DIOVAN) PO SCH (09:25)
[2024-10-10] MEDS: NICOTINE 21MG/24HR 1 EA TRANSDERMAL TD SCH (09:28)
[2024-10-10] MEDS: INSULIN LISPRO (NovoLOG) PER UNIT SQ SCH ×2 (12:00→20:47)
[2024-10-10 15:51] VITALS: BP 142/71; TEMP 97.4; O2SAT 96
[2024-10-10] MEDS: busPIRone 10 MG TAB PO SCH (16:00)
[2024-10-10] MEDS: MOM 30ML SUSPENSION UDC PO PRN (16:50)
[2024-10-10] MEDS: LanTUS (INSULIN GLARGINE INJ) 1 UNITS/0.01 ML SC SCH (20:47)
[2024-10-10] MEDS: risperiDONE 3 MG TAB PO SCH (20:48)
[2024-10-10] MEDS: PREGABALIN 75 MG CAP(LYRICA) PO SCH (20:48)
[2024-10-10] MEDS: METAMUCIL (PSYLLIUM) PACKET PO SCH (20:48)
[2024-10-11 06:33] VITALS: BP 147/87; TEMP 97.6; O2SAT 95
[2024-10-11 15:09] VITALS: BP 160/96; TEMP 97.4; O2SAT 96
[2024-10-11] MEDS: MAALOX 30 ML SUSP *UDC PO PRN (16:39)
[2024-10-11 18:22] VITALS: BP 178/82
[2024-10-11] MEDS: NIFEdipine 10 MG CAP PO ONE (18:48)
[2024-10-11 20:00] VITALS: BP 146/81; TEMP 98; O2SAT 97
[2024-10-12 13:02] VITALS: BP 162/88
[2024-10-12 14:06] VITALS: BP 162/88; TEMP 97.3; O2SAT 97
[2024-10-13 12:12] VITALS: BP 140/98
[2024-10-13 16:30] VITALS: BP 169/84; TEMP 97.4; O2SAT 96
[2024-10-14 06:58] VITALS: BP 161/94; TEMP 97.2; O2SAT 97
[2024-10-14] MEDS ORDERED: TRAZ-252 PO (10:47)
== END 2024-10-14 13:25 | disposition home or self-care (01) | DRG 885 ==
LOC: M ED 17:19 → M ED INP 20:44 → EEVIPCON 20:44 → M PSY 21:59
PROVIDERS: ADMIT Psychiatry & Neurology Neurology; ATTEND Psychiatry & Neurology Neurology
DX: F25.0 Schizoaffective disorder, bipolar type (principal); R45.851 Suicidal ideations; Z59.00 Homelessness unspecified; I10 Essential (primary) hypertension; E11.9 Type 2 diabetes mellitus without complications; M54.59 Other low back pain; K59.00 Constipation, unspecified; Z91.148 Patient's other noncompliance with medication regimen for other reason; Z88.8 Allergy status to other drugs, medicaments and biological substances; Z79.899 Other long term (current) drug therapy; Z79.4 Long term (current) use of insulin

== ENCOUNTER 2024-12-14 14:47 | Inpatient (IN) | payer MEDICARE, MEDICAID ==
[~2024-12-14] VITALS: Ht 167.6 cm; Wt 115.6 kg
[~2024-12-14 14:47] MED LIST changes: +INVE156I IM; +JARD1TAB PO; +LISI40TA10 PO; -LISI40TA4 PO; +TIZA2TA PO; +TOUJ1.2I SC; +TRAZ-186 PO; +med rec comment
[2024-12-14] MEDS: FLEET ENEMA PR STA (15:54)
[2024-12-14 15:57] LABS: PLATELET COUNT, AUTOMATED 274 10^3/uL (150-450)
[2024-12-14 16:32] LABS: ETHYL ALCOHOL (ETHANOL) < 0.003 % (0.000-0.010)
[2024-12-14 16:34] LABS: ALT/SGPT 22 U/L (7.0-40); AST/SGOT 17 U/L (<34); CALCIUM LEVEL 8.9 MG/DL (8.3-10.6); CARBON DIOXIDE LEVEL 24 MMOL/L (20-31); CHLORIDE LEVEL 106 MMOL/L (98-107); CREATININE FOR GFR 0.90 MG/DL (0.70-1.30); GLOMERULAR FILTRATION RATE > 90.0 (>49); POTASSIUM SERUM 3.8 MMOL/L (3.5-5.1); SALICYLATE LEVEL < 3.0 MG/DL (<30); SODIUM LEVEL 142 MMOL/L (136-145)
[2024-12-14 16:41] LABS: PHENCYCLIDINE URINE NEGATIVE (NEGATIVE)
[2024-12-14 16:43] LABS: AMPHETAMINES LEVEL URINE NEGATIVE (NEGATIVE); BARBITURATES URINE NEGATIVE (NEGATIVE); BENZODIAZEPINES URINE NEGATIVE (NEGATIVE); CANNABINOIDS URINE NEGATIVE (NEGATIVE); COCAINE METABOLITE URINE NEGATIVE (NEGATIVE); METHADONE URINE NEGATIVE (NEGATIVE); OPIATES URINE NEGATIVE (NEGATIVE)
[2024-12-14] MEDS: MAGNESIUM CITRATE 300 ML BTL PO ONE (17:09)
[2024-12-14] MEDS ORDERED: IBUP80TA PO (20:49)
[2024-12-14] MEDS ORDERED: HOME MED LIST COMPLETE! XX SCH (20:50)
[2024-12-14] MEDS: GABAPENTIN 100 MG CAP PO SCH (21:00)
[2024-12-14] MEDS ORDERED: GLUCAGON INJ 1 MG VIAL SC PRN (21:25)
[2024-12-14] MEDS ORDERED: DEXTROSE 50% 50 ML SYRINGE IV PRN (21:25)
[2024-12-14] MEDS ORDERED: GLUCOSE 4 GM CHEW PO PRN (21:25)
[2024-12-14] MEDS: INSULIN LISPRO (NovoLOG) PER UNIT SC SCH (21:25)
[2024-12-14] MEDS: traZODone 50 MG TAB PO PRN (21:32)
[2024-12-14 21:57] VITALS: BP 158/87; TEMP 97.3; O2SAT 96
[2024-12-15 06:32] VITALS: BP 139/77; TEMP 97.4; O2SAT 95
[2024-12-15] MEDS: INSULIN LISPRO (NovoLOG) PER UNIT SC SCH (07:30)
[2024-12-15 09:19] VITALS: BP 141/79
[2024-12-15] MEDS: amLODIPine 10 MG TAB PO SCH (09:21)
[2024-12-15] MEDS: VALSARTAN 80MG TAB PO SCH (09:21)
[2024-12-15] MEDS: ESCITALOPRAM OXALATE 5 MG TABLET PO ONE (11:12)
[2024-12-15] MEDS: ACETAMINOPHEN 325 MG TAB PO PRN (12:12)
[2024-12-15 15:18] VITALS: BP 136/76; TEMP 98.6; O2SAT 96
[2024-12-15] MEDS: SENNA 8.6 MG TAB PO SCH (16:55)
[2024-12-15] MEDS: MAALOX 30 ML SUSP *UDC PO PRN (20:32)
[2024-12-16 06:24] VITALS: BP 159/83; TEMP 98.1; O2SAT 98
[2024-12-16 15:10] VITALS: BP 150/75; TEMP 97; O2SAT 96
[2024-12-17 06:32] VITALS: BP 184/86; TEMP 97.8; O2SAT 100
[2024-12-17] MEDS: ESCITALOPRAM OXALATE 10 MG TABLET PO SCH (09:24)
[2024-12-17 15:13] VITALS: BP 148/72; TEMP 97.8; O2SAT 98
[2024-12-17] MEDS: MOM 30 ML SUSPENSION UDC PO PRN (18:15)
[2024-12-18 06:24] VITALS: BP 150/72; TEMP 97.6; O2SAT 98
[2024-12-18] MEDS: DOCUSATE SODIUM 100 MG CAPSULE PO PRN (14:49)
[2024-12-18 17:32] VITALS: BP 139/63; TEMP 98.3; O2SAT 97
[2024-12-19] MEDS: MIRALAX *UNIT DOSE* 17 GM PACKET PO PRN (14:52)
[2024-12-19 15:39] VITALS: BP 148/88; TEMP 98.3; O2SAT 96
[2024-12-20 06:30] VITALS: BP 155/72; TEMP 97.8; O2SAT 98
[2024-12-20 15:19] VITALS: BP 144/74; TEMP 97.6; O2SAT 96
[2024-12-20] MEDS: PALIPERIDONE PAL 156MG/1ML INJ (FREE PSY INPT ONLY) IM ONE (15:39)
[2024-12-21 06:52] VITALS: BP 107/54; TEMP 97.2; O2SAT 98
[2024-12-21] MEDS: ESCITALOPRAM OXALATE 10 MG TABLET PO SCH (09:37)
[2024-12-21] MEDS: IBUPROFEN 800 MG TAB PO PRN (20:29)
[2024-12-22 07:11] VITALS: BP 159/72; TEMP 97.6; O2SAT 96
[2024-12-22 12:31] VITALS: BP 141/70; TEMP 98.3; O2SAT 98
[2024-12-23 06:29] VITALS: BP 142/88; TEMP 98.7; O2SAT 95
[2024-12-23 09:39] VITALS: BP 149/78
[2024-12-23 16:23] VITALS: BP 142/67; TEMP 97.9; O2SAT 98
[2024-12-24 06:36] VITALS: BP 144/72; TEMP 98.4; O2SAT 98
[2024-12-24 09:21] VITALS: BP 133/79
[2024-12-24] MEDS ORDERED: LEXA1TAB PO (10:57)
[2024-12-24] MEDS ORDERED: AMLO1TAB25 PO (10:57)
[2024-12-24] MEDS ORDERED: DIOV80TA3 PO (10:57)
[2024-12-24] MEDS ORDERED: COLA100C5 PO (10:57)
== END 2024-12-24 13:42 | disposition home or self-care (01) | DRG 885 ==
LOC: M ED 14:47 → EDBD 14:47 → M ED INP 18:52 → M PSY 20:43
PROVIDERS: ADMIT General Practice; ATTEND General Practice
DX: F32.1 Major depressive disorder, single episode, moderate (principal); Z59.00 Homelessness unspecified; R45.851 Suicidal ideations; K59.00 Constipation, unspecified; Z88.8 Allergy status to other drugs, medicaments and biological substances; Z79.899 Other long term (current) drug therapy; E11.9 Type 2 diabetes mellitus without complications; K21.9 Gastro-esophageal reflux disease without esophagitis; E78.5 Hyperlipidemia, unspecified; I10 Essential (primary) hypertension; Z91.148 Patient's other noncompliance with medication regimen for other reason

== ENCOUNTER 2024-12-26 16:14 | Inpatient (IN) | payer MEDICARE, MEDICAID ==
[~2024-12-26] VITALS: Ht 167.6 cm; Wt 112.0 kg
[~2024-12-26 16:14] MED LIST changes: +DIOV80TA3 PO; +IBUP80TA PO; +LEXA1TAB PO
[2024-12-26 17:31] LABS: PLATELET COUNT, AUTOMATED 290 10^3/uL (150-450)
[2024-12-26] MEDS: NS (Normal Saline) 0.9% 1,000 ML IV ONE (17:36)
[2024-12-26] MEDS: PANTOPRAZOLE 40MG VIAL IV ONE (17:36)
[2024-12-26 17:52] LABS: ETHYL ALCOHOL (ETHANOL) < 0.003 % (0.000-0.010)
[2024-12-26 17:53] LABS: SALICYLATE LEVEL < 3.0 MG/DL (<30)
[2024-12-26 17:58] LABS: ALT/SGPT 37 U/L (7.0-40); AST/SGOT 22 U/L (<34); CALCIUM LEVEL 10.2 MG/DL (8.3-10.6); CARBON DIOXIDE LEVEL 29 MMOL/L (20-31); CHLORIDE LEVEL 101 MMOL/L (98-107); CREATININE FOR GFR 0.87 MG/DL (0.70-1.30); GLOMERULAR FILTRATION RATE > 90.0 (>49); POTASSIUM SERUM 3.9 MMOL/L (3.5-5.1); SODIUM LEVEL 140 MMOL/L (136-145)
[2024-12-26 18:04] LABS: KETONE, URINE AUTO RFX NEGATIVE (NEGATIVE); LEUKOCYTE ESTERASE UR AUTO RFX NEGATIVE (NEGATIVE); NITRITE, URINE AUTO RFX NEGATIVE (NEGATIVE); RBC, URINE AUTO RFX 0 /HPF (0-3); SQUAM EPITHELIAL CELL UR AURFX 0 /HPF (0-6); WBC, URINE AUTO RFX 0 /HPF (0-3)
[2024-12-26 18:30] LABS: AMPHETAMINES LEVEL URINE NEGATIVE (NEGATIVE); BENZODIAZEPINES URINE NEGATIVE (NEGATIVE)
[2024-12-26 18:31] LABS: BARBITURATES URINE NEGATIVE (NEGATIVE); CANNABINOIDS URINE NEGATIVE (NEGATIVE); COCAINE METABOLITE URINE NEGATIVE (NEGATIVE); METHADONE URINE NEGATIVE (NEGATIVE); OPIATES URINE NEGATIVE (NEGATIVE); PHENCYCLIDINE URINE NEGATIVE (NEGATIVE)
[2024-12-26] MEDS: SUCRALFATE 1 GM TAB PO ONE (19:59)
[2024-12-26] MEDS ORDERED: ACETAMINOPHEN 325 MG TAB PO PRN (21:20)
[2024-12-26] MEDS ORDERED: MOM 30 ML SUSPENSION UDC PO PRN (21:20)
[2024-12-26] MEDS ORDERED: ALBUTEROL 90 MCG/ACT 8 GM HFA INHALER INH PRN (21:30)
[2024-12-26] MEDS ORDERED: TRAZ-252 PO (22:51)
[2024-12-26] MEDS ORDERED: LEXA1TAB PO (22:51)
[2024-12-26] MEDS ORDERED: JARD1TAB3 PO (22:51)
[2024-12-26] MEDS ORDERED: HOME MED LIST COMPLETE! XX SCH (23:10)
[2024-12-26 23:42] VITALS: BP 145/74; TEMP 96.9; O2SAT 96
[2024-12-27] MEDS ORDERED: GLUCOSE 4 GM CHEW PO PRN (05:30)
[2024-12-27] MEDS ORDERED: GLUCAGON INJ 1 MG VIAL SC PRN (05:30)
[2024-12-27] MEDS ORDERED: DEXTROSE 50% 50 ML SYRINGE IV PRN (05:30)
[2024-12-27] MEDS: INSULIN LISPRO (NovoLOG) PER UNIT SC SCH ×2 (06:41→21:00)
[2024-12-27 06:55] VITALS: BP 155/72; TEMP 97.7; O2SAT 92
[2024-12-27] MEDS ORDERED: EMPAGLIFLOZIN PO SCH (09:00)
[2024-12-27] MEDS ORDERED: [UNRECOGNIZED DRUG - OTHER] PO SCH (09:00)
[2024-12-27] MEDS: VITAMIN D 1,000 INTERNATIONAL UNITS TABLET PO SCH (09:06)
[2024-12-27] MEDS: GABAPENTIN 100 MG CAP PO SCH (09:06)
[2024-12-27] MEDS: OMEPRAZOLE 20MG CAP PO SCH (09:06)
[2024-12-27] MEDS: ESCITALOPRAM OXALATE 10 MG TABLET PO SCH (09:08)
[2024-12-27] MEDS: VALSARTAN 80MG TAB PO SCH (09:16)
[2024-12-27] MEDS: amLODIPine 10 MG TAB PO SCH (09:16)
[2024-12-27 15:06] VITALS: BP 101/64; TEMP 98.3; O2SAT 100
[2024-12-27] MEDS: SENNOSIDES/DOCUSATE SODIUM 8.6 MG/50MG TAB PO SCH (20:54)
[2024-12-27] MEDS: traZODone 50 MG TAB PO PRN (20:54)
[2024-12-28 06:08] VITALS: BP 138/62; TEMP 98; O2SAT 100
[2024-12-28 09:19] VITALS: BP 138/62; TEMP 98; O2SAT 100
[2024-12-28] MEDS: DAPAGLIFLOZIN PROPANEDIOL 10 MG TABLET PO SCH (09:29)
[2024-12-28 14:30] VITALS: BP 148/81; TEMP 97.5; O2SAT 100
[2024-12-28] MEDS: MAALOX 30 ML SUSP *UDC PO PRN (18:54)
[2024-12-29 06:32] VITALS: BP 148/96; TEMP 97.7; O2SAT 95
[2024-12-29 07:55] VITALS: O2SAT 95
[2024-12-29 14:30] VITALS: BP 142/79; TEMP 97.6; O2SAT 95
[2024-12-30 06:20] VITALS: BP 155/73; TEMP 97.8; O2SAT 91
[2024-12-30] MEDS: LOPERAMIDE 2 MG CAPLET PO PRN (13:06)
[2024-12-31 06:44] VITALS: BP 156/75; TEMP 97.5; O2SAT 95
[2024-12-31 09:26] VITALS: BP 160/88
== END 2024-12-31 10:52 | disposition home or self-care (01) | DRG 885 ==
LOC: M ED 16:14 → EDBD 16:14 → M ED INP 21:20 → M PSY 23:36
PROVIDERS: ADMIT Student in an Organized Health Care Education/Training Program; ATTEND Student in an Organized Health Care Education/Training Program
DX: F25.0 Schizoaffective disorder, bipolar type (principal); R45.851 Suicidal ideations; Z59.00 Homelessness unspecified; E11.51 Type 2 diabetes mellitus with diabetic peripheral angiopathy without gangrene; I10 Essential (primary) hypertension; Z79.899 Other long term (current) drug therapy; Z88.8 Allergy status to other drugs, medicaments and biological substances; E66.812 Obesity, class 2; K21.9 Gastro-esophageal reflux disease without esophagitis; K59.00 Constipation, unspecified; E55.9 Vitamin D deficiency, unspecified; Z76.5 Malingerer [conscious simulation]; F10.10 Alcohol abuse, uncomplicated; F41.9 Anxiety disorder, unspecified; F60.3 Borderline personality disorder

== ENCOUNTER 2025-01-01 20:12 | Emergency (ER) | payer MEDICARE, MEDICAID ==
[~2025-01-01] VITALS: Ht 167.6 cm; Wt 112.9 kg
[~2025-01-01 20:12] MED LIST changes: +JARD1TAB3 PO
[2025-01-01 21:03] LABS: PLATELET COUNT, AUTOMATED 294 10^3/uL (150-450)
[2025-01-01] MEDS ORDERED: HOME MED LIST COMPLETE! XX SCH (21:10)
[2025-01-01 21:20] LABS: ETHYL ALCOHOL (ETHANOL) < 0.003 % (0.000-0.010)
[2025-01-01 21:21] LABS: SALICYLATE LEVEL < 3.0 MG/DL (<30)
[2025-01-01 21:22] LABS: ALT/SGPT 19 U/L (7.0-40); AST/SGOT 15 U/L (<34); CALCIUM LEVEL 9.2 MG/DL (8.3-10.6); CARBON DIOXIDE LEVEL 27 MMOL/L (20-31); CHLORIDE LEVEL 101 MMOL/L (98-107); CREATININE FOR GFR 0.96 MG/DL (0.70-1.30); GLOMERULAR FILTRATION RATE 87.7 (>49); POTASSIUM SERUM 3.8 MMOL/L (3.5-5.1); SODIUM LEVEL 140 MMOL/L (136-145)
[2025-01-01 21:43] LABS: AMPHETAMINES LEVEL URINE NEGATIVE (NEGATIVE); BARBITURATES URINE NEGATIVE (NEGATIVE); BENZODIAZEPINES URINE NEGATIVE (NEGATIVE); CANNABINOIDS URINE NEGATIVE (NEGATIVE); COCAINE METABOLITE URINE NEGATIVE (NEGATIVE); METHADONE URINE NEGATIVE (NEGATIVE); OPIATES URINE NEGATIVE (NEGATIVE); PHENCYCLIDINE URINE NEGATIVE (NEGATIVE)
[2025-01-02 10:04] VITALS: BP 164/92; TEMP 98.2; O2SAT 100
== END 2025-01-02 11:31 | disposition home or self-care (01) ==
LOC: M ED 20:12
DX: Z04.6 Encounter for general psychiatric examination, requested by authority (principal); F25.9 Schizoaffective disorder, unspecified; Z88.8 Allergy status to other drugs, medicaments and biological substances; Z79.51 Long term (current) use of inhaled steroids; Z79.899 Other long term (current) drug therapy

== ENCOUNTER 2025-01-02 17:21 | Emergency (ER) | payer MEDICARE, MEDICAID ==
[~2025-01-02] VITALS: Ht 175.3 cm; Wt 110.2 kg
[2025-01-02] MEDS ORDERED: HOME MED LIST COMPLETE! XX SCH (18:45)
[2025-01-02 19:54] VITALS: BP 135/86; TEMP 97.9; O2SAT 97
[2025-01-02] MEDS: NEOSPORIN OINT 0.9 GM PKT TOP ONE (20:25)
== END 2025-01-02 20:34 | disposition home or self-care (01) ==
LOC: M ED 17:21
DX: F25.9 Schizoaffective disorder, unspecified (principal); Z88.8 Allergy status to other drugs, medicaments and biological substances; Z79.51 Long term (current) use of inhaled steroids; Z79.899 Other long term (current) drug therapy

== ENCOUNTER 2025-01-04 12:31 | Emergency (ER) | payer MEDICARE, MEDICAID ==
[2025-01-04 13:30] LABS: BASO # 0.0 10^3/uL (0.0-0.2); BASO % 0.4 % (0.0-1.0); EOS # 0.1 10^3/uL (0.0-0.5); EOS % 0.7 % (0.0-3.0); LYMPH # 1.8 10^3/uL (1.5-5.0); LYMPH % 17.4 % (24.0-44.0); MONO # 0.6 10^3/uL (0.0-0.8); MONO % 5.6 % (2.0-8.0); NEUTROPHILS # 7.8 10^3/uL (1.5-8.5); NEUTROPHILS % 75.7 % (36.0-66.0); PLATELET COUNT, AUTOMATED 295 10^3/uL (150-450)
[2025-01-04 13:56] LABS: ETHYL ALCOHOL (ETHANOL) < 0.003 % (0.000-0.010)
[2025-01-04 13:58] LABS: ALT/SGPT 24 U/L (7.0-40); AST/SGOT 22 U/L (<34); SALICYLATE LEVEL < 3.0 MG/DL (<30)
[2025-01-04] MEDS ORDERED: ISOVUE-370 76% 100 ML VIAL As Ordered ONE (14:04)
[2025-01-04 15:25] LABS: AMPHETAMINES LEVEL URINE NEGATIVE (NEGATIVE); BARBITURATES URINE NEGATIVE (NEGATIVE); BENZODIAZEPINES URINE NEGATIVE (NEGATIVE); CANNABINOIDS URINE NEGATIVE (NEGATIVE); COCAINE METABOLITE URINE NEGATIVE (NEGATIVE); METHADONE URINE NEGATIVE (NEGATIVE); OPIATES URINE NEGATIVE (NEGATIVE); PHENCYCLIDINE URINE NEGATIVE (NEGATIVE)
[2025-01-04 15:30] VITALS: BP 147/98; O2SAT 97
[2025-01-04 15:42] VITALS: TEMP 97.3
== END 2025-01-04 17:09 | disposition home or self-care (01) ==
LOC: M ED 12:31
DX: R45.851 Suicidal ideations (principal); R10.9 Unspecified abdominal pain; F31.9 Bipolar disorder, unspecified; E78.5 Hyperlipidemia, unspecified; I10 Essential (primary) hypertension; G40.909 Epilepsy, unspecified, not intractable, without status epilepticus; G43.909 Migraine, unspecified, not intractable, without status migrainosus; F20.9 Schizophrenia, unspecified; Z88.8 Allergy status to other drugs, medicaments and biological substances; Z79.52 Long term (current) use of systemic steroids; Z79.899 Other long term (current) drug therapy
CPT/HCPCS: 36415; 74174; 80047; 80076; 80143; 80307; 82077; 83605; 83690; 84443; 85025; 93005; 93041; 99285; Q9967

== ENCOUNTER 2025-01-06 18:19 | Emergency (ER) | payer MEDICARE, MEDICAID ==
[~2025-01-06] VITALS: Ht 167.6 cm; Wt 105.9 kg
[2025-01-06 18:28] VITALS: BP 134/73; TEMP 98; O2SAT 96
== END 2025-01-06 22:54 | disposition home or self-care (01) ==
LOC: M ED 18:19
DX: F25.9 Schizoaffective disorder, unspecified (principal); Z59.00 Homelessness unspecified; E11.9 Type 2 diabetes mellitus without complications; I10 Essential (primary) hypertension; G40.909 Epilepsy, unspecified, not intractable, without status epilepticus; K21.9 Gastro-esophageal reflux disease without esophagitis; E78.5 Hyperlipidemia, unspecified; F31.9 Bipolar disorder, unspecified; Z88.8 Allergy status to other drugs, medicaments and biological substances; Z79.52 Long term (current) use of systemic steroids; Z79.899 Other long term (current) drug therapy

== ENCOUNTER 2025-01-08 10:10 | Emergency (ER) | payer MEDICARE, MEDICAID ==
[~2025-01-08] VITALS: Ht 167.6 cm; Wt 110.5 kg
[2025-01-08 10:30] VITALS: TEMP 96.7
[2025-01-08 11:14] LABS: PLATELET COUNT, AUTOMATED 299 10^3/uL (150-450)
[2025-01-08 11:35] LABS: ETHYL ALCOHOL (ETHANOL) 0.004 % (0.000-0.010)
[2025-01-08 11:37] LABS: ALT/SGPT 21 U/L (7.0-40); AST/SGOT 17 U/L (<34); CALCIUM LEVEL 9.2 MG/DL (8.3-10.6); CARBON DIOXIDE LEVEL 26 MMOL/L (20-31); CHLORIDE LEVEL 102 MMOL/L (98-107); CREATININE FOR GFR 0.82 MG/DL (0.70-1.30); GLOMERULAR FILTRATION RATE > 90.0 (>49); POTASSIUM SERUM 3.6 MMOL/L (3.5-5.1); SALICYLATE LEVEL < 3.0 MG/DL (<30); SODIUM LEVEL 140 MMOL/L (136-145)
[2025-01-08 12:04] LABS: AMPHETAMINES LEVEL URINE NEGATIVE (NEGATIVE); BARBITURATES URINE NEGATIVE (NEGATIVE); BENZODIAZEPINES URINE NEGATIVE (NEGATIVE); COCAINE METABOLITE URINE NEGATIVE (NEGATIVE)
[2025-01-08 12:05] LABS: CANNABINOIDS URINE NEGATIVE (NEGATIVE); METHADONE URINE NEGATIVE (NEGATIVE); OPIATES URINE NEGATIVE (NEGATIVE); PHENCYCLIDINE URINE NEGATIVE (NEGATIVE)
[2025-01-08 12:45] VITALS: BP 172/88; O2SAT 98
[2025-01-08] MEDS: MIRALAX *UNIT DOSE* 17 GM PACKET PO SCH (13:39)
[2025-01-08] MEDS: DOCUSATE SODIUM 100 MG CAPSULE PO ONE (13:39)
[2025-01-08] MEDS: FLEET ENEMA PR ONE (13:39)
[2025-01-08] MEDS ORDERED: COLA100C5 PO (15:21)
== END 2025-01-08 15:34 | disposition home or self-care (01) ==
LOC: EDBD 10:10 → M ED 10:10
DX: Z04.6 Encounter for general psychiatric examination, requested by authority (principal); K59.00 Constipation, unspecified; Z76.5 Malingerer [conscious simulation]; F25.9 Schizoaffective disorder, unspecified; E11.9 Type 2 diabetes mellitus without complications; I10 Essential (primary) hypertension; E78.5 Hyperlipidemia, unspecified; K21.9 Gastro-esophageal reflux disease without esophagitis; F31.9 Bipolar disorder, unspecified; Z88.8 Allergy status to other drugs, medicaments and biological substances; Z79.52 Long term (current) use of systemic steroids; Z79.899 Other long term (current) drug therapy

== ENCOUNTER 2025-04-07 11:48 | Emergency (ER) | payer MEDICAID, MEDICARE ==
[~2025-04-07] VITALS: Ht 167.6 cm; Wt 102.0 kg
[~2025-04-07 11:48] MED LIST changes: -IBUP-1022 PO; -IBUP1TAB6 PO; +IBUP600T42 PO; +SFHIBU600 PO
[2025-04-07 14:34] VITALS: BP 174/88; TEMP 97.6; O2SAT 97
== END 2025-04-07 16:34 | disposition left against medical advice (07) ==
LOC: M ED 11:48
DX: Z53.21 Procedure and treatment not carried out due to patient leaving prior to being seen by health care provider (principal)

== ENCOUNTER 2025-04-08 08:00 | Emergency (ER) | payer MEDICARE ==
[~2025-04-08] VITALS: Ht 167.6 cm; Wt 102.1 kg
[2025-04-08 11:29] VITALS: BP 153/80; TEMP 97; O2SAT 96
[2025-04-08] MEDS: ACETAMINOPHEN 500 MG TAB PO ONE (11:55)
== END 2025-04-08 11:55 | disposition home or self-care (01) ==
LOC: M ED 08:00
DX: K59.00 Constipation, unspecified (principal); E11.9 Type 2 diabetes mellitus without complications; I10 Essential (primary) hypertension; Z88.8 Allergy status to other drugs, medicaments and biological substances

== ENCOUNTER 2025-04-09 14:09 | Emergency (ER) | payer MEDICAID, MEDICARE ==
[~2025-04-09] VITALS: Ht 170.2 cm; Wt 100.8 kg
[2025-04-09 16:21] LABS: PLATELET COUNT, AUTOMATED 311 10^3/uL (150-450)
[2025-04-09 16:43] LABS: ETHYL ALCOHOL (ETHANOL) < 0.003 % (0.000-0.010)
[2025-04-09 16:44] LABS: SALICYLATE LEVEL < 3.0 MG/DL (<30)
[2025-04-09 16:51] LABS: ALT/SGPT 13 U/L (7.0-40); AST/SGOT 12 U/L (<34); CALCIUM LEVEL 8.8 MG/DL (8.3-10.6); CARBON DIOXIDE LEVEL 31 MMOL/L (20-31); CHLORIDE LEVEL 103 MMOL/L (98-107); CREATININE FOR GFR 0.84 MG/DL (0.70-1.30); GLOMERULAR FILTRATION RATE > 90.0 (>49); POTASSIUM SERUM 3.1 MMOL/L (3.5-5.1); SODIUM LEVEL 143 MMOL/L (136-145)
[2025-04-09 16:53] LABS: AMPHETAMINES LEVEL URINE NEGATIVE (NEGATIVE); BARBITURATES URINE NEGATIVE (NEGATIVE)
[2025-04-09 16:54] LABS: BENZODIAZEPINES URINE NEGATIVE (NEGATIVE); CANNABINOIDS URINE NEGATIVE (NEGATIVE); COCAINE METABOLITE URINE NEGATIVE (NEGATIVE); METHADONE URINE NEGATIVE (NEGATIVE); OPIATES URINE NEGATIVE (NEGATIVE); PHENCYCLIDINE URINE NEGATIVE (NEGATIVE)
[2025-04-09] MEDS: POTASSIUM CHLORIDE 10MEQ SR TABLET PO ONE (18:19)
[2025-04-10 14:04] VITALS: BP 159/80; TEMP 97.7; O2SAT 99
== END 2025-04-10 14:10 | disposition home or self-care (01) ==
LOC: M ED 14:09
DX: F25.9 Schizoaffective disorder, unspecified (principal); Z76.5 Malingerer [conscious simulation]; E11.9 Type 2 diabetes mellitus without complications; I10 Essential (primary) hypertension; E78.5 Hyperlipidemia, unspecified; K21.9 Gastro-esophageal reflux disease without esophagitis; Z88.8 Allergy status to other drugs, medicaments and biological substances

== ENCOUNTER 2025-04-14 09:13 | Emergency (ER) | payer MEDICARE ==
[2025-04-14] MEDS ORDERED: MIRA3350 PO (11:36)
[2025-04-14 12:00] VITALS: BP 174/90; TEMP 98; O2SAT 97
== END 2025-04-14 12:10 | disposition home or self-care (01) ==
LOC: M ED 09:13 → EDBD 09:13 → M ED 12:10
DX: K59.00 Constipation, unspecified (principal); E11.9 Type 2 diabetes mellitus without complications; I10 Essential (primary) hypertension; Z88.8 Allergy status to other drugs, medicaments and biological substances; Z79.899 Other long term (current) drug therapy

== ENCOUNTER 2025-04-14 16:20 | Emergency (ER) | payer MEDICARE ==
[~2025-04-14] VITALS: Ht 167.6 cm; Wt 100.8 kg
[2025-04-14] MEDS: POLYETHYLENE GLYCOL 238 GM BOTTLE PO ONE (17:53)
[2025-04-15 05:17] VITALS: BP 147/72; TEMP 97.4; O2SAT 97
== END 2025-04-15 12:56 | disposition home or self-care (01) ==
LOC: M ED 16:20
DX: F43.0 Acute stress reaction (principal); Z76.5 Malingerer [conscious simulation]; I10 Essential (primary) hypertension; E78.5 Hyperlipidemia, unspecified; E11.9 Type 2 diabetes mellitus without complications; K21.9 Gastro-esophageal reflux disease without esophagitis; G43.909 Migraine, unspecified, not intractable, without status migrainosus; J45.909 Unspecified asthma, uncomplicated; Z88.8 Allergy status to other drugs, medicaments and biological substances; Z79.899 Other long term (current) drug therapy

== ENCOUNTER 2025-04-20 07:48 | Emergency (ER) | payer MEDICARE ==
[~2025-04-20] VITALS: Ht 167.6 cm; Wt 100.0 kg
[2025-04-20 09:47] LABS: KETONE, URINE AUTO RFX NEGATIVE (NEGATIVE); LEUKOCYTE ESTERASE UR AUTO RFX NEGATIVE (NEGATIVE); MUCUS, URINE RFX SMALL (NEGATIVE); NITRITE, URINE AUTO RFX NEGATIVE (NEGATIVE); RBC, URINE AUTO RFX 0 /HPF (0-3); SQUAM EPITHELIAL CELL UR AURFX 0 /HPF (0-6); WBC, URINE AUTO RFX 1 /HPF (0-3)
[2025-04-20] MEDS: ACETAMINOPHEN 500 MG TAB PO ONE (12:44)
[2025-04-20] MEDS: CYCLOBENZAPRINE 10 MG TABLET PO ONE (12:44)
[2025-04-20] MEDS: LIDOCAINE 5% PATCH TD ONE (12:44)
[2025-04-20] MEDS ORDERED: PRED20TA PO (14:33)
[2025-04-20] MEDS ORDERED: CYCL5TAB4 PO (14:33)
[2025-04-20] MEDS ORDERED: LIDO1ADH93 TOP (14:33)
[2025-04-20] MEDS ORDERED: IBUP80TA PO (14:38)
[2025-04-20 14:42] VITALS: BP 162/90; TEMP 96.9; O2SAT 97
[2025-04-20] MEDS ORDERED: MEDR4PAK PO (14:43)
[2025-04-21] MEDS ORDERED: LEXA1TAB PO (15:07)
[2025-04-21] MEDS ORDERED: TRAZ-186 PO (15:07)
[2025-04-21] MEDS ORDERED: RISP1TAB42 PO (15:07)
== END 2025-04-20 14:53 | disposition home or self-care (01) ==
LOC: M ED 07:48 → EDUNIT# 07:48 → EDBD 07:48 → M ED 14:53
DX: M51.27 Other intervertebral disc displacement, lumbosacral region (principal); M48.061 Spinal stenosis, lumbar region without neurogenic claudication; M47.816 Spondylosis without myelopathy or radiculopathy, lumbar region; E11.9 Type 2 diabetes mellitus without complications; Z87.442 Personal history of urinary calculi; Z88.8 Allergy status to other drugs, medicaments and biological substances; Z79.899 Other long term (current) drug therapy

== ENCOUNTER 2025-04-20 20:32 | Emergency (ER) | payer MEDICARE ==
[~2025-04-20] VITALS: Ht 167.6 cm; Wt 100.6 kg
[~2025-04-20 20:32] MED LIST changes: +CYCL5TAB4 PO; +LIDO1ADH93 TOP; +MEDR4PAK PO
[2025-04-20 21:05] LABS: PLATELET COUNT, AUTOMATED 309 10^3/uL (150-450)
[2025-04-20 21:26] LABS: ETHYL ALCOHOL (ETHANOL) 0.003 % (0.000-0.010)
[2025-04-20 21:27] LABS: ALT/SGPT 17 U/L (7.0-40); AST/SGOT 13 U/L (<34); CALCIUM LEVEL 8.8 MG/DL (8.3-10.6); CARBON DIOXIDE LEVEL 29 MMOL/L (20-31); CHLORIDE LEVEL 104 MMOL/L (98-107); CREATININE FOR GFR 0.83 MG/DL (0.70-1.30); GLOMERULAR FILTRATION RATE > 90.0 (>49); POTASSIUM SERUM 3.8 MMOL/L (3.5-5.1); SALICYLATE LEVEL < 3.0 MG/DL (<30); SODIUM LEVEL 143 MMOL/L (136-145)
[2025-04-21 05:28] LABS: AMPHETAMINES LEVEL URINE NEGATIVE (NEGATIVE); BARBITURATES URINE NEGATIVE (NEGATIVE); BENZODIAZEPINES URINE NEGATIVE (NEGATIVE); COCAINE METABOLITE URINE NEGATIVE (NEGATIVE); METHADONE URINE NEGATIVE (NEGATIVE); OPIATES URINE NEGATIVE (NEGATIVE)
[2025-04-21 05:29] LABS: CANNABINOIDS URINE NEGATIVE (NEGATIVE); PHENCYCLIDINE URINE NEGATIVE (NEGATIVE)
[2025-04-21] MEDS ORDERED: HOME MED LIST COMPLETE! XX SCH (05:45)
[2025-04-21 09:07] VITALS: BP 152/72
[2025-04-21] MEDS: LOSARTAN 50 MG TABLET PO ONE (09:07)
[2025-04-21] MEDS: amLODIPine 5 MG TAB PO ONE (09:07)
[2025-04-21] MEDS: PANTOPRAZOLE 40MG TAB PO ONE (09:07)
[2025-04-21] MEDS ORDERED: RISP1TAB42 PO (15:07)
[2025-04-21] MEDS ORDERED: LEXA1TAB PO (15:07)
[2025-04-21] MEDS ORDERED: TRAZ-186 PO (15:07)
[2025-04-21 16:30] VITALS: BP 141/98; TEMP 97.2; O2SAT 98
== END 2025-04-21 16:20 | disposition home or self-care (01) ==
LOC: M ED 20:32
DX: Z76.5 Malingerer [conscious simulation] (principal); F32.A Depression, unspecified; E11.9 Type 2 diabetes mellitus without complications; G43.909 Migraine, unspecified, not intractable, without status migrainosus; I10 Essential (primary) hypertension; K21.9 Gastro-esophageal reflux disease without esophagitis; F20.9 Schizophrenia, unspecified; Z88.8 Allergy status to other drugs, medicaments and biological substances; M51.27 Other intervertebral disc displacement, lumbosacral region; M48.061 Spinal stenosis, lumbar region without neurogenic claudication; M47.816 Spondylosis without myelopathy or radiculopathy, lumbar region; Z87.442 Personal history of urinary calculi; Z79.899 Other long term (current) drug therapy

== ENCOUNTER 2025-04-23 08:03 | Emergency (ER) | payer MEDICAID, MEDICARE ==
[~2025-04-23] VITALS: Ht 167.6 cm; Wt 101.7 kg
[~2025-04-23 08:03] MED LIST changes: +RISP1TAB42 PO
[2025-04-23] MEDS ORDERED: HOME MED LIST COMPLETE! XX SCH (08:40)
[2025-04-23 13:11] VITALS: BP 177/82
[2025-04-23] MEDS: amLODIPine 5 MG TAB PO ONE (13:11)
[2025-04-23 13:15] VITALS: BP 179/81; TEMP 97.6; O2SAT 98
== END 2025-04-23 13:30 | disposition home or self-care (01) ==
LOC: EDBD 08:03 → M ED 08:03
DX: R07.9 Chest pain, unspecified (principal); Z76.5 Malingerer [conscious simulation]; I10 Essential (primary) hypertension; Z59.00 Homelessness unspecified; Z91.141 Patient's other noncompliance with medication regimen due to financial hardship; Z88.8 Allergy status to other drugs, medicaments and biological substances; E11.9 Type 2 diabetes mellitus without complications; E66.9 Obesity, unspecified; F32.A Depression, unspecified; Z87.891 Personal history of nicotine dependence

== ENCOUNTER 2025-04-23 14:21 | Emergency (ER) | payer MEDICAID, MEDICARE ==
[~2025-04-23] VITALS: Ht 167.6 cm; Wt 101.7 kg
[2025-04-23 14:44] VITALS: BP 192/90; TEMP 96.9; O2SAT 97
[2025-04-23] MEDS ORDERED: HOME MED LIST COMPLETE! XX SCH (15:15)
== END 2025-04-23 15:53 | disposition home or self-care (01) ==
LOC: EDBD 14:21 → M ED 14:21
DX: Z76.5 Malingerer [conscious simulation] (principal); R45.851 Suicidal ideations; F32.A Depression, unspecified; F17.200 Nicotine dependence, unspecified, uncomplicated; Z88.8 Allergy status to other drugs, medicaments and biological substances

== ENCOUNTER 2025-04-28 13:25 | Emergency (ER) | payer MEDICARE ==
[~2025-04-28] VITALS: Ht 167.6 cm; Wt 103.3 kg
[2025-04-28] MEDS ORDERED: IBUP80TA (13:41)
[2025-04-28 15:20] LABS: BASO # 0.1 10^3/uL (0.0-0.2); BASO % 0.5 % (0.0-1.0); EOS # 0.1 10^3/uL (0.0-0.5); EOS % 0.9 % (0.0-3.0); LYMPH # 2.2 10^3/uL (1.5-5.0); LYMPH % 18.6 % (24.0-44.0); MONO # 0.7 10^3/uL (0.0-0.8); MONO % 5.6 % (2.0-8.0); NEUTROPHILS # 8.5 10^3/uL (1.5-8.5); NEUTROPHILS % 74.1 % (36.0-66.0); PLATELET COUNT, AUTOMATED 280 10^3/uL (150-450)
[2025-04-28 15:41] LABS: CALCIUM LEVEL 9.3 MG/DL (8.3-10.6); CARBON DIOXIDE LEVEL 30 MMOL/L (20-31); CHLORIDE LEVEL 103 MMOL/L (98-107); CREATININE FOR GFR 0.71 MG/DL (0.70-1.30); GLOMERULAR FILTRATION RATE > 90.0 (>49); POTASSIUM SERUM 4.0 MMOL/L (3.5-5.1); SODIUM LEVEL 140 MMOL/L (136-145)
[2025-04-28 16:24] LABS: ETHYL ALCOHOL (ETHANOL) 0.003 % (0.000-0.010)
[2025-04-28 16:26] LABS: SALICYLATE LEVEL < 3.0 MG/DL (<30)
[2025-04-28 16:59] LABS: FREE T4 1.14 NG/DL (0.89-1.76)
[2025-04-28 18:20] VITALS: BP 184/88; TEMP 98; O2SAT 97
[2025-04-28 18:39] LABS: AMPHETAMINES LEVEL URINE NEGATIVE (NEGATIVE); BARBITURATES URINE NEGATIVE (NEGATIVE); BENZODIAZEPINES URINE NEGATIVE (NEGATIVE); COCAINE METABOLITE URINE NEGATIVE (NEGATIVE)
[2025-04-28 18:40] LABS: CANNABINOIDS URINE NEGATIVE (NEGATIVE); METHADONE URINE NEGATIVE (NEGATIVE); OPIATES URINE NEGATIVE (NEGATIVE); PHENCYCLIDINE URINE NEGATIVE (NEGATIVE)
== END 2025-04-28 18:22 | disposition home or self-care (01) ==
LOC: M ED 13:25
DX: K59.00 Constipation, unspecified (principal); F43.0 Acute stress reaction; F25.9 Schizoaffective disorder, unspecified; Z79.1 Long term (current) use of non-steroidal anti-inflammatories (NSAID); Z79.899 Other long term (current) drug therapy; Z88.8 Allergy status to other drugs, medicaments and biological substances